=== PATIENT | male | born 1950 | race Caucasian/White ===

== ENCOUNTER 2017-12-14 14:38 | Inpatient (IN) ==
--- NOTE | 2017-12-14 14:43 | Emergency Department Note ---
Disposition Clinical Impression: Small bowel obstruction, Nausea & vomiting, Abdominal pain Disposition: Admitted As Inpatient General Adult [facility] - General Stated complaint: possible GI bleed Time Seen by Provider: 12/14/17 14:42 - Related Data Home Medications Medication Instructions Recorded Confirmed Cholecalciferol (D-3) [Vitamin D] 2,000 unit PO DAILY 10/01/15 10/01/15 Citalopram Hydrobromide 40 mg PO DAILY 10/01/15 10/01/15 [Citalopram HBr] Haloperidol Decanoate [Haldol] 25 mg IM Q2W 10/01/15 10/01/15 LORazepam [Ativan] 1 mg PO BID PRN 10/01/15 10/01/15 Multivitamin with Minerals 1 each PO DAILY 10/01/15 10/01/15 [One-A-Day Maximum Formula] Pantoprazole Sodium [Protonix] 40 mg PO DAILY 10/01/15 10/01/15 cloZAPine [Clozaril] 100 mg PO BID 10/01/15 10/01/15 cloZAPine [Clozaril] 250 mg PO HS 10/01/15 10/01/15 clonazePAM [Klonopin] 1 mg PO BID 10/01/15 10/01/15 lamoTRIgine [Lamictal] 100 mg PO BID 10/01/15 10/01/15 Allergies Allergy/AdvReac Type Severity Reaction Status Date / Time No Known Allergies Allergy Verified 10/01/15 15:08 Past Medical History - Past Medical History Medical history: Reports: hypertension Surgical history: Reports: no surgical history Psychiatric history: Reports: PTSD, other - Social History Smoking Status: Current every day smoker Smokeless Tobacco Status: No Alcohol use: Reports: none Drug use: Reports: none Course Vital Signs Temperature 98.3 F 12/14/17 14:42 Pulse Rate 139 12/14/17 14:42 Respiratory Rate 18 12/14/17 14:42 Blood Pressure 124/88 12/14/17 14:42 O2 Sat by Pulse Oximetry 93 12/14/17 14:42 Temperature 98.2 F 12/14/17 18:28 Pulse Rate 116 12/14/17 18:28 Respiratory Rate 20 12/14/17 18:28 Blood Pressure 112/78 12/14/17 18:28 O2 Sat by Pulse Oximetry 96 12/14/17 18:28 Oxygen Delivery Oxygen Delivery Nasal Cannula Medical Decision Making - Lab Data Result diagrams: 12/14/17 15:57 12/14/17 15:57 Lab Results 12/14/17 12/14/17 12/14/17 Range/Units 15:22 15:57 15:57 WBC 29.3 H (4.3-11.1) K/mcL RBC 5.72 H (4.19-5.50) M/mcL Hgb 17.5 H (12.9-16.9) g/dL Hct 51.9 H (37.5-50.1) % MCV 90.7 (83.0-100.0) fL MCH 30.6 (28.0-33.3) pg MCHC 33.7 (31.6-35.5) g/dL RDW 13.3 (11.5-14.5) % Plt Count 272 (140-400) K/mcL MPV 9.7 (9.4-12.4) fL Immature Gran % 0.7 (0-4) % Seg Neutrophils % 92.5 % Lymphocytes % 1.6 % Monocytes % 5.0 % Eosinophils % 0.0 % Basophils % 0.2 % Neutrophils # 27.1 H (1.6-8.9) K/mcL Lymphocytes # 0.5 L (0.6-4.6) K/mcL Monocytes # 1.5 H (0.0-1.3) K/mcL Eosinophils # 0.0 (0.0-0.6) K/mcL Basophils # 0.1 (0.0-0.2) K/mcL Platelet Estimate Normal (Normal) PT 10.9 (9.4-12.1) Seconds INR 1.0 APTT 30.6 (26.0-36.0) Seconds Sodium (136-145) mEq/L Potassium (3.5-5.1) mEq/L Chloride (98-107) mEq/L Carbon Dioxide (23-29) mEq/L BUN (8-23) mg/dL Creatinine (0.70-1.30) mg/dL Est GFR ( Amer) (> 60) Est GFR (Non-Af Amer) (> 60) BUN/Creatinine Ratio (6-26) Glucose (70-105) mg/dL Calculated Osmolality (280-300) Lactic Acid (0.5-2.2) mmol/L Calcium (8.6-10.3) mg/dL Total Bilirubin (0.3-1.0) mg/dL AST (13-39) Units/L ALT (7-52) Units/L Alkaline Phosphatase (34-104) Units/L Troponin I (< 0.04) ng/mL Serum Total Protein (6.4-8.9) g/dL Albumin (3.5-5.7) g/dL Globulin (2.4-3.5) g/dL Albumin/Globulin Ratio (1.1-2.2) Lipase (11-82) Units/L Stool Occult Bld Scrn Negative (Negative) Blood Type Antibody Screen 12/14/17 12/14/17 12/14/17 Range/Units 15:57 15:57 16:54 WBC (4.3-11.1) K/mcL RBC (4.19-5.50) M/mcL Hgb (12.9-16.9) g/dL Hct (37.5-50.1) % MCV (83.0-100.0) fL MCH (28.0-33.3) pg MCHC (31.6-35.5) g/dL RDW (11.5-14.5) % Plt Count (140-400) K/mcL MPV (9.4-12.4) fL Immature Gran % (0-4) % Seg Neutrophils % % Lymphocytes % % Monocytes % % Eosinophils % % Basophils % % Neutrophils # (1.6-8.9) K/mcL Lymphocytes # (0.6-4.6) K/mcL Monocytes # (0.0-1.3) K/mcL Eosinophils # (0.0-0.6) K/mcL Basophils # (0.0-0.2) K/mcL Platelet Estimate (Normal) PT (9.4-12.1) Seconds INR APTT (26.0-36.0) Seconds Sodium 136 (136-145) mEq/L Potassium 4.5 (3.5-5.1) mEq/L Chloride 95 L (98-107) mEq/L Carbon Dioxide 30 H (23-29) mEq/L BUN 27 H (8-23) mg/dL Creatinine 1.57 H (0.70-1.30) mg/dL Est GFR ( Amer) 54 L (> 60) Est GFR (Non-Af Amer) 44 L (> 60) BUN/Creatinine Ratio 17 (6-26) Glucose 135 H (70-105) mg/dL Calculated Osmolality 289 (280-300) Lactic Acid 2.9 H (0.5-2.2) mmol/L Calcium 9.5 (8.6-10.3) mg/dL Total Bilirubin 0.6 (0.3-1.0) mg/dL AST 26 (13-39) Units/L ALT 27 (7-52) Units/L Alkaline Phosphatase 106 H (34-104) Units/L Troponin I 0.06 H* (< 0.04) ng/mL Serum Total Protein 6.6 (6.4-8.9) g/dL Albumin 4.3 (3.5-5.7) g/dL Globulin 2.3 L (2.4-3.5) g/dL Albumin/Globulin Ratio 1.9 (1.1-2.2) Lipase 11 (11-82) Units/L Stool Occult Bld Scrn (Negative) Blood Type A POSITIVE Antibody Screen NEGATIVE Attestation Statement - Attestation Attestation: I examined this patient and my medical decision-making was reviewed with the Resident Physician. I agree with the documented findings, disposition and treatment plan as described except to the extent set forth below. [id number] time provided Patient arrives as a transfer from the [facility] for nausea and vomiting. He was sent with concern for hematemesis and a possible upper GI bleed. He is actively vomiting upon arrival but no gross blood is present.
[2017-12-14] MEDS ORDERED: Ondansetron 4 MG/2 ML VIAL IVP ONE (14:45)
[2017-12-14] MEDS ORDERED: 0.9 % Sodium Chloride 1,000 ML IVC ONE ×3 (14:45→22:38)
[2017-12-14] MEDS ORDERED: Pantoprazole 40 MG VIAL IVP ONE (14:45)
--- NOTE | 2017-12-14 15:14 | Emergency Department Note ---
Disposition Clinical Impression: Small bowel obstruction, Nausea & vomiting, Abdominal pain Disposition: Admitted As Inpatient Nausea/Vomiting/Diarrhea HPI - General Chief complaint: ED Nausea/Vomiting/Diarrhea Stated complaint: possible GI bleed Time Seen by Provider: 12/14/17 14:42 Source: patient, EMS Limitations: no limitations - History of Present Illness HPI Narrative: The is not a good historian so very hard for everyone to draw detail medical history . This is 67 years male patient presented to ED for 2-3 episodes of vomiting, nausea , abdominal distension,lightheadedness and diffuse abdominal pain for last 1 day. He stated that he vomited 2-3 times ,the vomitus was semiliquid , food material mixed without any blood or coffee ground . He vomited when I was in his room,the vomitus was yellowish, semiliquid without blood ( quantity about 85 ml ).He feels nauseated and dizzy. . He was referred from [facility] for repeated vomiting , nausea and fast heart rate . He denies fever, blood in stool , syncope, seizure ,weakness in limbs, LOC, dyspnoea, heavy alcohol intake , rash, headache, urinary symptoms.He is a chronic patient of catatonic Schizophrenia , chronic gastric ulcer with H pylori infection,HTN OCD. - Related Data Home Medications Medication Instructions Recorded Confirmed Cholecalciferol (D-3) [Vitamin D] 2,000 unit PO DAILY 10/01/15 10/01/15 Citalopram Hydrobromide 40 mg PO DAILY 10/01/15 10/01/15 [Citalopram HBr] Haloperidol Decanoate [Haldol] 25 mg IM Q2W 10/01/15 10/01/15 LORazepam [Ativan] 1 mg PO BID PRN 10/01/15 10/01/15 Multivitamin with Minerals 1 each PO DAILY 10/01/15 10/01/15 [One-A-Day Maximum Formula] Pantoprazole Sodium [Protonix] 40 mg PO DAILY 10/01/15 10/01/15 cloZAPine [Clozaril] 100 mg PO BID 10/01/15 10/01/15 cloZAPine [Clozaril] 250 mg PO HS 10/01/15 10/01/15 clonazePAM [Klonopin] 1 mg PO BID 10/01/15 10/01/15 lamoTRIgine [Lamictal] 100 mg PO BID 10/01/15 10/01/15 Allergies Allergy/AdvReac Type Severity Reaction Status Date / Time No Known Allergies Allergy Verified 10/01/15 15:08 Past Medical History - Past Medical History Medical history: Reports: hypertension Surgical history: Reports: no surgical history Psychiatric history: Reports: PTSD, other - Social History Smoking Status: Current every day smoker Smokeless Tobacco Status: No Alcohol use: Reports: none Drug use: Reports: none Physical Exam - General Limitations: no limitations General appearance: alert, in no apparent distress - Head Head exam: atraumatic, normocephalic - Eye Eye exam: Present: normal appearance, PERRL, EOMI - ENT ENT exam: mucous membranes dry, other (Slightly icterus present in bulbar conjuctiva and sublingual area) - Chest Chest inspection: Present: normal inspection, symmetric chest wall rise. Absent : tenderness, rash, abscess - Respiratory Respiratory exam: Present: normal lung sounds bilaterally, respiratory distress. Absent: wheezes, stridor, accessory muscle use, prolonged expiratory phase - Cardiovascular Cardiovascular exam: Present: regular rate, tachycardia, normal heart sounds, + S1, +S2 - Abdominal Exam Abdominal exam: Present: soft, tenderness, distention, diminished bowel sounds, other (mild abdominal distension and diffuse abdominal tendrness +). Absent: guarding, rebound, rigidity, organomegaly, psoas sign, obturator sign, Mijares's sign - Extremities Exam Extremities exam: Present: full ROM. Absent: pedal edema, calf tenderness - Expanded Lower Extremity Exam Neurovascular/Tendon exam: Present: normal capillary refill. Absent: motor deficit, sensory deficit - Neurological Exam Neurological exam: Present: alert, oriented X3, CN II-XII intact - Skin Skin exam: Present: warm, normal color. Absent: rash, cyanosis Course Course Narrative: After he came to ED he has 1 episode of vomiting without blood , now he has nausea , but no vomiting . His heart rate has dropped to 115 . I did KS exam at ED there was no evidence of hematochezia . The color of stool is normal. CT abdomen :Mild to severe dilation of most small bowel loops with a suspected transition point in the terminal ileum a few centimeters proximal to the ileocecal valve.. The appearance favors partial obstruction over ileus. Urinary bladder wall thickening potentially due to chronic outlet obstruction and/or incomplete distention. Labs: WBC 29.3, Neutrophil 27.1< na 136, K 4.5 BUn 27, Creatinine 1.57, alkaline phos Vital Signs Temperature 98.3 F 12/14/17 14:42 Pulse Rate 139 12/14/17 14:42 Respiratory Rate 18 12/14/17 14:42 Blood Pressure 124/88 12/14/17 14:42 O2 Sat by Pulse Oximetry 93 12/14/17 14:42 Temperature 98.2 F 12/14/17 18:28 Pulse Rate 116 12/14/17 18:28 Respiratory Rate 20 12/14/17 18:28 Blood Pressure 112/78 12/14/17 18:28 O2 Sat by Pulse Oximetry 96 12/14/17 18:28 Oxygen Delivery Oxygen Delivery Nasal Cannula Nausea/Vomiting/Diarrhea - Lab Data Result diagrams: 12/14/17 15:57 12/14/17 15:57 Lab Results 12/14/17 12/14/17 12/14/17 Range/Units 15:22 15:57 15:57 WBC 29.3 H (4.3-11.1) K/mcL RBC 5.72 H (4.19-5.50) M/mcL Hgb 17.5 H (12.9-16.9) g/dL Hct 51.9 H (37.5-50.1) % MCV 90.7 (83.0-100.0) fL MCH 30.6 (28.0-33.3) pg MCHC 33.7 (31.6-35.5) g/dL RDW 13.3 (11.5-14.5) % Plt Count 272 (140-400) K/mcL MPV 9.7 (9.4-12.4) fL Immature Gran % 0.7 (0-4) % Seg Neutrophils % 92.5 % Lymphocytes % 1.6 % Monocytes % 5.0 % Eosinophils % 0.0 % Basophils % 0.2 % Neutrophils # 27.1 H (1.6-8.9) K/mcL Lymphocytes # 0.5 L (0.6-4.6) K/mcL Monocytes # 1.5 H (0.0-1.3) K/mcL Eosinophils # 0.0 (0.0-0.6) K/mcL Basophils # 0.1 (0.0-0.2) K/mcL Platelet Estimate Normal (Normal) PT 10.9 (9.4-12.1) Seconds INR 1.0 APTT 30.6 (26.0-36.0) Seconds Sodium (136-145) mEq/L Potassium (3.5-5.1) mEq/L Chloride (98-107) mEq/L Carbon Dioxide (23-29) mEq/L BUN (8-23) mg/dL Creatinine (0.70-1.30) mg/dL Est GFR ( Amer) (> 60) Est GFR (Non-Af Amer) (> 60) BUN/Creatinine Ratio (6-26) Glucose (70-105) mg/dL Calculated Osmolality (280-300) Lactic Acid (0.5-2.2) mmol/L Calcium (8.6-10.3) mg/dL Total Bilirubin (0.3-1.0) mg/dL AST (13-39) Units/L ALT (7-52) Units/L Alkaline Phosphatase (34-104) Units/L Troponin I (< 0.04) ng/mL Serum Total Protein (6.4-8.9) g/dL Albumin (3.5-5.7) g/dL Globulin (2.4-3.5) g/dL Albumin/Globulin Ratio (1.1-2.2) Lipase (11-82) Units/L Stool Occult Bld Scrn Negative (Negative) Blood Type Antibody Screen 12/14/17 12/14/17 12/14/17 Range/Units 15:57 15:57 16:54 WBC (4.3-11.1) K/mcL RBC (4.19-5.50) M/mcL Hgb (12.9-16.9) g/dL Hct (37.5-50.1) % MCV (83.0-100.0) fL MCH (28.0-33.3) pg MCHC (31.6-35.5) g/dL RDW (11.5-14.5) % Plt Count (140-400) K/mcL MPV (9.4-12.4) fL Immature Gran % (0-4) % Seg Neutrophils % % Lymphocytes % % Monocytes % % Eosinophils % % Basophils % % Neutrophils # (1.6-8.9) K/mcL Lymphocytes # (0.6-4.6) K/mcL Monocytes # (0.0-1.3) K/mcL Eosinophils # (0.0-0.6) K/mcL Basophils # (0.0-0.2) K/mcL Platelet Estimate (Normal) PT (9.4-12.1) Seconds INR APTT (26.0-36.0) Seconds Sodium 136 (136-145) mEq/L Potassium 4.5 (3.5-5.1) mEq/L Chloride 95 L (98-107) mEq/L Carbon Dioxide 30 H (23-29) mEq/L BUN 27 H (8-23) mg/dL Creatinine 1.57 H (0.70-1.30) mg/dL Est GFR ( Amer) 54 L (> 60) Est GFR (Non-Af Amer) 44 L (> 60) BUN/Creatinine Ratio 17 (6-26) Glucose 135 H (70-105) mg/dL Calculated Osmolality 289 (280-300) Lactic Acid 2.9 H (0.5-2.2) mmol/L Calcium 9.5 (8.6-10.3) mg/dL Total Bilirubin 0.6 (0.3-1.0) mg/dL AST 26 (13-39) Units/L ALT 27 (7-52) Units/L Alkaline Phosphatase 106 H (34-104) Units/L Troponin I 0.06 H* (< 0.04) ng/mL Serum Total Protein 6.6 (6.4-8.9) g/dL Albumin 4.3 (3.5-5.7) g/dL Globulin 2.3 L (2.4-3.5) g/dL Albumin/Globulin Ratio 1.9 (1.1-2.2) Lipase 11 (11-82) Units/L Stool Occult Bld Scrn (Negative) Blood Type A POSITIVE Antibody Screen NEGATIVE S.B.A.R. - S.B.A.R. S.B.A.R. Report Given to: Talked with hospitalist and explained about his presentation, lab & xray S.B.A.R. Repor Time: 17:07
[2017-12-14 16:14] LABS: Basophils % 0.2 %; Immature Granulocytes % 0.7 % (0-4)
[2017-12-14 16:15] LABS: Hematocrit 51.9 % (37.5-50.1); Hemoglobin 17.5 g/dL (12.9-16.9); Lymphocytes % 1.6 %; Mean Corpuscular HGB Conc 33.7 g/dL (31.6-35.5); Mean Corpuscular Hemoglobin 30.6 pg (28.0-33.3); Mean Corpuscular Volume 90.7 fL (83.0-100.0); Mean Platelet Volume 9.7 fL (9.4-12.4); Platelet Count 272 K/mcL (140-400); Red Blood Count 5.72 M/mcL (4.19-5.50); Red Cell Distribution Width 13.3 % (11.5-14.5); Segmented Neutrophils % 92.5 %
[2017-12-14 16:16] LABS: Basophils # 0.1 K/mcL (0.0-0.2); Lymphocytes # 0.5 K/mcL (0.6-4.6); Monocytes # 1.5 K/mcL (0.0-1.3); Neutrophils # 27.1 K/mcL (1.6-8.9)
[2017-12-14 16:19] LABS: Prothrombin Time 10.9 Seconds (9.4-12.1)
[2017-12-14 16:22] LABS: Activated Partial Thrombo Time 30.6 Seconds (26.0-36.0)
[2017-12-14 16:30] LABS: Albumin 4.3 g/dL (3.5-5.7); Albumin/Globulin Ratio 1.9 (1.1-2.2); Bilirubin,Total 0.6 mg/dL (0.3-1.0); Calcium 9.5 mg/dL (8.6-10.3); Globulin 2.3 g/dL (2.4-3.5); Potassium 4.5 mEq/L (3.5-5.1); Total Protein 6.6 g/dL (6.4-8.9)
[2017-12-14 16:37] LABS: Platelet Estimate Normal (Normal)
[2017-12-14 16:45] LABS: Troponin I 0.06 ng/mL (< 0.04)
[2017-12-14] MEDS ORDERED: *HR* FentaNYL (PF) 100 MCG/2 ML VIAL IVP ONE (16:45)
[2017-12-14] MEDS ORDERED: Naloxone 0.4 MG/ML INJ IVP PRN (17:27)
[2017-12-14] MEDS ORDERED: 0.9 % Sodium Chloride 1,000 ML IVC SCH (17:30)
--- NOTE | 2017-12-14 17:37 | Internal Med History&Physical ---
Date of Encounter: 12/14/17 Time of Encounter: 17:29 Internal Medicine - H&P: HPI History of present illness: 67 year old male with history of gastric ulcer from H pylori, HTN, and catatonic schizophrenia presented as a transfer from the [facility] for concerns of GI bleed. He was having one day history of nausea, vomiting and epigastric pain. Symptoms started on day ago, emesis was non bilious, non bloody, but apparently looked dark in color. In the ED, a CT abdomen/pelvis showed a small bowel obstruction. He had NG tube placed and 400 ml of fluid was removed. However, patient removed the NGT on two occasions and refused to have it go back in. He was found to have elevated creatinine at 1.5, and tachycardic. He was given IV fluids for hydration. Patient currently feels slightly better after getting analgesics. He denies fevers/chills, shortness of breath, diarrhea/constipation, melena, hematochezia, hematemesis. Past Med Surg Social Fam HX - Past Medical History Medical history: hypertension Psychiatric history: PTSD, other - Past Surgical History Surgical History: no surgical history - Social History Smoking Status: Current every day smoker Smokeless Tobacco Status: No Alcohol use: none Drug use: none Internal Medicine - H&P: Meds Cholecalciferol (D-3) [Vitamin D] 2,000 unit PO DAILY 10/01/15 [History] Citalopram Hydrobromide [Citalopram HBr] 40 mg PO DAILY 10/01/15 [History] Haloperidol Decanoate [Haldol] 25 mg IM Q2W 10/01/15 [History] LORazepam [Ativan] 1 mg PO BID PRN 10/01/15 [History] Multivitamin with Minerals [One-A-Day Maximum Formula] 1 each PO DAILY 10/01/15 [History] Pantoprazole Sodium [Protonix] 40 mg PO DAILY 10/01/15 [History] cloZAPine [Clozaril] 100 mg PO BID 10/01/15 [History] cloZAPine [Clozaril] 250 mg PO HS 10/01/15 [History] clonazePAM [Klonopin] 1 mg PO BID 10/01/15 [History] lamoTRIgine [Lamictal] 100 mg PO BID 10/01/15 [History] 3 Allergy/AdvReac Type Severity Reaction Status Date / Time No Known Allergies Allergy Verified 10/01/15 15:08 All Systems PM: A 10-system review of systems was performed and is negative for pertinent findings except as documented above in the HPI. - Constitutional Vitals: Temp Pulse Resp BP Pulse Ox 98.3 F 139 18 124/88 93 12/14/17 14:42 12/14/17 14:42 12/14/17 14:42 12/14/17 14:42 12/14/17 14:42 Exam: No NG tube present. - Head Head exam: Present: atraumatic, normocephalic - Eye Eye exam: Present: PERRL, conjuntiva pink, sclera anicteric Pupils: Present: PERRL - Neck Neck exam general surgery: Present: supple, trachea midline. Absent: lymphadenopathy - Respiratory Respiratory exam: Present: CTAB. Absent: accessory muscle use, rales, rhonchi, wheezes - Cardiovascular Cardiovascular exam: Present: RRR, +S1, +S2. Absent: diastolic murmur, gallop, rubs, systolic murmur - GI/Abdominal GI/Abdominal exam: Present: normal bowel sounds, soft, tenderness, no peritoneal signs. Absent: distended - Extremities Exam Extremities exam: Present: warm, radial pulses palpable and symmetrical. Absent : calf tenderness, cyanotic, pedal edema - Neurological Exam Neurological exam: Present: CN II-XII intact, oriented X3, no focal deficits. Absent: pronater drift, facial droop, speech deficit - Psychiatric Psychiatric exam: Present: flat affect - Skin Skin exam: Present: dry, intact Internal Med - H&P Results - Labs CBC & Chem 7: 12/14/17 15:57 12/14/17 15:57 - Assessment and plan (1) Small bowel obstruction Current Visit: Yes Status: Acute Assessment and plan: NPO Continue with NG tube if patient will comply. Surgery consulted, will await recommendations Supportive care for pain control and n/v. Continue IV fluids (2) Acute kidney injury Current Visit: Yes Status: Acute Assessment and plan: Secondary to dehydration. Received 2 L in ED. Will continue normal saline at 125 ml an hour and re evaluate in AM. (3) Leukocytosis Current Visit: No Status: Acute Assessment and plan: Likely stress reaction and dehydration. Will continue IV fluid hydration and pain management and recheck labs in AM. Qualifiers: Leukocytosis type: unspecified Qualified Code(s): D72.829 - Elevated white blood cell count, unspecified (4) Catatonia schizophrenia Current Visit: Yes Status: Acute Assessment and plan: Resume home meds once they are verified. (5) Dehydration Current Visit: Yes Status: Acute Assessment and plan: Likely the cause of patient tachycardia, lactic acidosis, and DONTE and hemoconcentrated labs. Recheck labs in AM after fluid hydration. (6) Elevated troponin Current Visit: Yes Status: Acute Assessment and plan: Patient denies chest pains, shortness of breath, palpitations, diaphoresis. Less likely cardiac reason. This may be mild demand ischemia from hypovolemia. Recheck 6 hours from last draw. (7) Gastric ulcer Current Visit: Yes Status: Acute Qualifiers: Gastric ulcer chronicity: chronic Gastric ulcer complication status: without hemorrhage or perforation Qualified Code(s): K25.7 - Chronic gastric ulcer without hemorrhage or perforation (8) Gastric ulcer due to Helicobacter pylori Current Visit: Yes Status: Acute Assessment and plan: As reported per chart. Continue ppi for now as GI prophylaxis. Qualifiers: Gastric ulcer chronicity: chronic Qualified Code(s): K25.7 - Chronic gastric ulcer without hemorrhage or perforation; B96.81 - Helicobacter pylori [ H. pylori] as the cause of diseases classified elsewhere (9) DVT prophylaxis Current Visit: Yes Status: Acute Assessment and plan: heparin SQ - Time Spent With Patient Total time spent is greater than 50% in coordination of care (as documented) at patient's floor/unit and/or counseling patient:
[2017-12-14] MEDS ORDERED: *HR* LORazepam 2 MG/ML VIAL IVP PRN (18:25)
[2017-12-14] MEDS ORDERED: Ondansetron 4 MG/2 ML VIAL IVP PRN (20:46)
[2017-12-14] MEDS ORDERED: OXYCODONE Oral CONC 10 MG/0.5 ML ORAL.SYG SL PRN (20:51)
[2017-12-14] MEDS ORDERED: *HR* Metoprolol 5 MG/5 ML VIAL IVP ONE (20:58)
[2017-12-14] MEDS ORDERED: *HR* Metoprolol 5 MG/5 ML VIAL IVP PRN (20:58)
[2017-12-14] MEDS: 0.9 % Sodium Chloride 1,000 ML IVC SCH (22:06)
--- NOTE | 2017-12-14 22:53 | Event Note ---
Date of Encounter: 12/14/17 Time of Encounter: 22:40 Alerted by pts. nurse that pt. is meeting sepsis criteria and latest lactic acid was 5.7, HR 116, RR 20. Pt. has SBO. Received 2L boluses in ED. 1L bolus ordered to be followed by 0.9 NS @ 125 mLs/HR. Repeat lactic ordered at 00:00. IVPB Meropenem ordered per Pharmacy dosing for pts. current renal dysfunction. Pt. to be monitored closely for increasing signs of cardiac and/or respiratory distress.
[2017-12-15] MEDS: Meropenem 1,000 MG in 0.9 % Sodium Chloride Mini Bag 100 ML IVPB SCH ×2 (00:13→11:06)
[2017-12-15 00:41] LABS: Basophils % 0.3 %; Eosinophils % 0.2 %; Hematocrit 53.9 % (37.5-50.1); Hemoglobin 18.1 g/dL (12.9-16.9); Immature Granulocytes % 0.3 % (0-4); Lymphocytes # 0.5 K/mcL (0.6-4.6); Lymphocytes % 4.4 %; Mean Corpuscular HGB Conc 33.6 g/dL (31.6-35.5); Mean Corpuscular Hemoglobin 30.4 pg (28.0-33.3); Mean Corpuscular Volume 90.6 fL (83.0-100.0); Mean Platelet Volume 10.1 fL (9.4-12.4); Monocytes # 1.3 K/mcL (0.0-1.3); Monocytes % 11.1 %; Platelet Count 301 K/mcL (140-400); Red Blood Count 5.95 M/mcL (4.19-5.50); Red Cell Distribution Width 13.3 % (11.5-14.5); Segmented Neutrophils % 83.7 %
[2017-12-15 00:43] LABS: Neutrophils # 9.5 K/mcL (1.6-8.9)
[2017-12-15 01:01] LABS: Calcium 8.5 mg/dL (8.6-10.3); Potassium 4.8 mEq/L (3.5-5.1)
[2017-12-15] MEDS ORDERED: 0.9 % Sodium Chloride 1,000 ML IVC ONE ×3 (03:13→08:16)
[2017-12-15] MEDS ORDERED: Pantoprazole 40 MG VIAL IVP SCH (09:00)
--- NOTE | 2017-12-15 09:29 | Internal Med Progress Note ---
Hospitalist Progress Note - Encounter Date of Encounter: 12/15/17 Time of Encounter: 09:37 - Subjective Interval History: Patient still refusing NG tubes. LA and troponin getting worse. - Exam Vitals: Temp Pulse Resp BP Pulse Ox 97.9 F 133 18 111/80 91 12/15/17 06:45 12/15/17 06:45 12/15/17 06:45 12/15/17 06:45 12/15/17 06:45 Exam: Gen: limited exam due to patient No NG tube present. - Assessment and Plan (1) Small bowel obstruction Current Visit: Yes Status: Acute Assessment and Plan: NPO Continue with NG tube if patient will comply. Surgery consulted, will await recommendations Supportive care for pain control and n/v. Continue IV fluids Patient has worsening n/v, lactic acidosis, troponin Situation worsening and patient would benefit greatly from NG tube placement. I have discussed with patient this situation. He is willing to try NG tube once more. Ativan prior to NG tube placement may help with anxiety and agitation of NG and lidocaine spray may help as well. Continue aggressive fluid hydration due to elevated troponin and lactic acidosis. (2) Acute kidney injury Current Visit: Yes Status: Acute Assessment and Plan: Secondary to dehydration. Received 2 L in ED. Will continue normal saline at 125 ml an hour and re evaluate in AM. 12/15: worsening from ongoing dehydration. Giving additional 3 L bolus throughout the day today (3) Leukocytosis Current Visit: No Status: Acute Assessment and Plan: Likely stress reaction and dehydration. Will continue IV fluid hydration and pain management and recheck labs in AM. (4) Catatonia schizophrenia Current Visit: Yes Status: Acute Assessment and Plan: Resume home meds once they are verified. (5) Dehydration Current Visit: Yes Status: Acute Assessment and Plan: Likely the cause of patient tachycardia, lactic acidosis, and DONTE and hemoconcentrated labs. Recheck labs in AM after fluid hydration. (6) Elevated troponin Current Visit: Yes Status: Acute Assessment and Plan: Patient denies chest pains, shortness of breath, palpitations, diaphoresis. Less likely cardiac reason. This may be mild demand ischemia from hypovolemia. Troponin now elevated to 0.11. Patient may need surgery and less likely cardiac , will hold off giving heparin drip. (7) Gastric ulcer Current Visit: Yes Status: Acute Assessment and Plan: ppi (8) Gastric ulcer due to Helicobacter pylori Current Visit: Yes Status: Acute Assessment and Plan: As reported per chart. Continue ppi for now as GI prophylaxis. (9) DVT prophylaxis Current Visit: Yes Status: Acute Assessment and Plan: heparin SQ - Time Spent with Patient Total time spent is greater than 50% in coordination of care (as documented) at patient's floor/unit and/or counseling patient: Internal Medicine: Result - Labs CBC & Chem 7: 12/15/17 00:30 12/15/17 00:30 Labs: Short CBC 12/15/17 Range/Units 00:30 WBC 11.4 H D (4.3-11.1) K/mcL Hgb 18.1 H (12.9-16.9) g/dL Hct 53.9 H (37.5-50.1) % Plt Count 301 (140-400) K/mcL Neutrophils # 9.5 H (1.6-8.9) K/mcL BMP 12/15/17 00:30 Sodium 137 Potassium 4.8 Chloride 95 L Carbon Dioxide 27 BUN 42 H Creatinine 1.88 H Glucose 138 H Calcium 8.5 L Cardiac Enzymes 12/14/17 Range/Units 22:05 Troponin I 0.11 H* (< 0.04) ng/mL - ABG Interpretation ABG results: PT/INR, D-dimer PT 10.9 Seconds (9.4-12.1) 12/14/17 15:57 Consult Discharge Plan - Plan Instructions: Acute Nausea and Vomiting (ED), Abdominal Pain (ED) Additional Instructions: Patient needs admission. He has nausea / vomiting , abdominal pain ,high WBC count, CT scan shows dilated small bowel loops & suspected small bowel obstruction. (3) Leukocytosis Qualifiers: Leukocytosis type: unspecified Qualified Code(s): D72.829 - Elevated white blood cell count, unspecified (7) Gastric ulcer Qualifiers: Gastric ulcer chronicity: chronic Gastric ulcer complication status: without hemorrhage or perforation Qualified Code(s): K25.7 - Chronic gastric ulcer without hemorrhage or perforation (8) Gastric ulcer due to Helicobacter pylori Qualifiers: Gastric ulcer chronicity: chronic Qualified Code(s): K25.7 - Chronic gastric ulcer without hemorrhage or perforation; B96.81 - Helicobacter pylori [H. pylori ] as the cause of diseases classified elsewhere
[2017-12-15] MEDS ORDERED: *HR* LORazepam 2 MG/ML VIAL IVP STA (09:31)
[2017-12-15] MEDS ORDERED: Tetracaine/Benzocaine/Butamben 1 SPRAY AEROSOL MM STA (09:32)
[2017-12-15] MEDS: 0.9 % Sodium Chloride 1,000 ML IVC SCH (10:04)
--- NOTE | 2017-12-15 12:14 | General Surgery Consult Note ---
Date of Encounter: 12/15/17 Time of Encounter: 11:48 History of Present Illness Consult date: 12/14/17 Reason for consult: other (SBO) Requesting physician: Ken David History of present illness: 67 yo [place] transferred from [facility] for further evaluation and treatment abdominal pain, nausea and vomiting. Patient apparently experienced 2 -3 episodes of emesis with described abdominal distention, nausea, lightheadedness and diffuse abdominal pain for the past 24 hours. Coffee- ground emesis was also described prompting the patient to be referred to [facility] for possible upper GI bleed as well as signs and symptoms of a small bowel obstruction. Laboratories on presentation to [place] showed white count of 29.3 with hemoglobin 17.5, hematocrit 51.9. Platelet count was 272,000; neutrophils 27.1 monocytes 1.5, lymphocytes 0.5. Electrolytes are notable for a chloride of 95, bicarbonate 30, BUN 27 and creatinine 1.57. Lactic acid was 2.9 but increased to 5.7 following his admission to [facility]. LFTs were notable for an alkaline phosphatase of 106, the other LFTs were unremarkable. Troponins were 0.06 on presentation but increased to 0.11 in when rechecked at approximately 2200 hrs. troponins this morning had increased to 0.17. CT abdomen and pelvis without contrast demonstrated mild fluid distention of the stomach; extensive moderate to severe dilatation of most of the small bowel with a suspected transition point at the terminal ileum. The colon appeared to be decompressed. The patient was ultimately referred to me due to a prior history of acute appendicitis in September 2015. Past medical history: Is very difficult to obtain from the patient. He has a history of schizophrenia, disorganized type, with significant behavioral abnormalities including catatonia; history of medication-induced movement disorder; chronic gastric ulcer disease; obsessive-compulsive disorder; hypertension; hyperlipidemia; episodic rectal bleeding; and syndrome of inappropriate vasopressin secretion. Surgeries: Laparoscopic appendectomy is the only known surgery, 10/01/15. Allergies: No known drug allergies per [facility] medical record Social history: Use of alcohol, tobacco, or illicit drugs is not obtainable Medications: information obtained from the [facility] medical records accompanying this patient Clonazepam 100 mg by mouth - 1 tablet in the morning, 1 tablet in the evening , 3 tablets at bedtime Haldol 25 mg IM every 2 weeks Lactobacillus acidophilus 1 tablet daily Clonazepam 1 mg by mouth twice a day Hydroxyzine 25 mg by mouth 4 times a day Cholecalciferol (vitamin D3) 1000 units by mouth daily Pantoprazole 40 mg 1 by mouth daily Lamotrigine 100 mg by mouth twice a day Citalopram 40 mg 1 by mouth daily Sodium chloride 1 g tablets 1 by mouth daily Calcium carbonate 500 mg chew and swallow twice a day Haloperidol 2 mg by mouth twice a day Metoprolol 12.5 mg by mouth twice a day Multivitamin with minerals, 1 by mouth daily On physical examination: Thin who appears older than his stated age. NG is present. There is evidence of at least 1 L output which nursing reports occurred on insertion of the NG tube within 5 or 10 minutes He appears awake; he does speak but his speech is somewhat garbled. He has been afebrile since admission at [facility], currently 97.8, pulse ranging 121-133, respirations 18, blood pressure 111/80 - 121/85 Skin is warm without obvious jaundice Lungs: Clear bilaterally cardiac: Rapid rate with no appreciable murmurs Abdomen: Distended, tympanitic, quiet with very few bowel sounds. I am able to palpate the abdomen deeply - the patient indicates the presence of pain but does not grimace or withdrawal. There did not appear to be any rebound. Extremities without obvious clubbing, cyanosis, or edema. CT of the abdomen and pelvis was reviewed Labs: Reviewed - significant changes since transfer overnight include white count improved to 11.4 with neutrophils improved to 9.5 and monocytes returning to normal range at 1.3. Hemoglobin and hematocrit of increased 18.1 / 53.9. Electrolytes have essentially remained stable but BUN has increased to 42, creatinine has increased to 1.88. Estimated GFR has fallen to 36. As noted troponins of elevated to 0.17. Current lactic acid 5.9. Impression: 67-year-old transferred from [facility] for further evaluation and treatment of abdominal distention nausea and vomiting. And radiologic findings are suggestive of small bowel obstruction, however, the patient is massively dehydrated. With worsening status despite aggressive fluid hydration. NG decompression has resulted in considerable fluid evacuation but the NG has been repeatedly extracted by the patient. It appears that we are "not keeping up" with replacing the fluid evacuated via nasogastric tube. Recommendations: Transfer the patient to ICU Significantly greater fluid resuscitation and close monitoring. I have ordered sodium chloride 200 ML per hour for 2 L; then an IV rate of 1 50/h Patient may benefit from both nephrology and cardiology consultation Maintain NG decompression Serial lactic acid with recheck at [address] Brooks Dozier Med Surg Social Fam HX - Past Medical History Medical history: hypertension Psychiatric history: PTSD, other - Past Surgical History Surgical History: no surgical history - Social History Smoking Status: Current every day smoker Smokeless Tobacco Status: No Alcohol use: none Drug use: none Medications and Allergies Cholecalciferol (D-3) [Vitamin D] 2,000 unit PO DAILY 10/01/15 [History] Citalopram Hydrobromide [Citalopram HBr] 40 mg PO DAILY 10/01/15 [History] Haloperidol Decanoate [Haldol] 25 mg IM Q2W 10/01/15 [History] LORazepam [Ativan] 1 mg PO BID PRN 10/01/15 [History] Multivitamin with Minerals [One-A-Day Maximum Formula] 1 each PO DAILY 10/01/15 [History] Pantoprazole Sodium [Protonix] 40 mg PO DAILY 10/01/15 [History] cloZAPine [Clozaril] 100 mg PO BID 10/01/15 [History] cloZAPine [Clozaril] 250 mg PO HS 10/01/15 [History] clonazePAM [Klonopin] 1 mg PO BID 10/01/15 [History] lamoTRIgine [Lamictal] 100 mg PO BID 10/01/15 [History] 3 Allergy/AdvReac Type Severity Reaction Status Date / Time No Known Allergies Allergy Verified 10/01/15 15:08 Review of Systems All systems PM: The remainder of the systems were reviewed and are negative General Surgery Exam Initial Vital Signs Temp Pulse Resp BP Pulse Ox 98.3 F 139 18 124/88 93 12/14/17 14:42 12/14/17 14:42 12/14/17 14:42 12/14/17 14:42 12/14/17 14:42 Exam Initial Vital Signs Temp Pulse Resp BP Pulse Ox 98.3 F 139 18 124/88 93 12/14/17 14:42 12/14/17 14:42 12/14/17 14:42 12/14/17 14:42 12/14/17 14:42 Results - Labs 12/15/17 00:30 12/15/17 00:30 Abnormal lab results WBC 11.4 K/mcL (4.3-11.1) H D 12/15/17 00:30 RBC 5.95 M/mcL (4.19-5.50) H 12/15/17 00:30 Hgb 18.1 g/dL (12.9-16.9) H 12/15/17 00:30 Hct 53.9 % (37.5-50.1) H 12/15/17 00:30 Neutrophils # 9.5 K/mcL (1.6-8.9) H 12/15/17 00:30 Lymphocytes # 0.5 K/mcL (0.6-4.6) L 12/15/17 00:30 Chloride 95 mEq/L (98-107) L 12/15/17 00:30 BUN 42 mg/dL (8-23) H 12/15/17 00:30 Creatinine 1.88 mg/dL (0.70-1.30) H 12/15/17 00:30 Est GFR ( Amer) 43 (> 60) L 12/15/17 00:30 Est GFR (Non-Af Amer) 36 (> 60) L 12/15/17 00:30 Glucose 138 mg/dL (70-105) H 12/15/17 00:30 POC Glucose 120 mg/dL (70-99) H 12/15/17 11:23 Lactic Acid 5.9 mmol/L (0.5-2.2) H* 12/15/17 09:56 Calcium 8.5 mg/dL (8.6-10.3) L 12/15/17 00:30 Alkaline Phosphatase 106 Units/L (34-104) H 12/14/17 15:57 Troponin I 0.17 ng/mL (< 0.04) H* 12/15/17 09:56 Globulin 2.3 g/dL (2.4-3.5) L 12/14/17 15:57 Diabetes panel 12/15/17 Range/Units 00:30 Sodium 137 (136-145) mEq/L Potassium 4.8 (3.5-5.1) mEq/L Chloride 95 L (98-107) mEq/L Carbon Dioxide 27 (23-29) mEq/L BUN 42 H (8-23) mg/dL Creatinine 1.88 H (0.70-1.30) mg/dL Glucose 138 H (70-105) mg/dL Calcium 8.5 L (8.6-10.3) mg/dL Calcium panel 12/15/17 Range/Units 00:30 Calcium 8.5 L (8.6-10.3) mg/dL Pituitary panel 12/15/17 Range/Units 00:30 Sodium 137 (136-145) mEq/L Potassium 4.8 (3.5-5.1) mEq/L Chloride 95 L (98-107) mEq/L Carbon Dioxide 27 (23-29) mEq/L BUN 42 H (8-23) mg/dL Creatinine 1.88 H (0.70-1.30) mg/dL Glucose 138 H (70-105) mg/dL Calcium 8.5 L (8.6-10.3) mg/dL Adrenal panel 12/15/17 Range/Units 00:30 Sodium 137 (136-145) mEq/L Potassium 4.8 (3.5-5.1) mEq/L Chloride 95 L (98-107) mEq/L Carbon Dioxide 27 (23-29) mEq/L BUN 42 H (8-23) mg/dL Creatinine 1.88 H (0.70-1.30) mg/dL Glucose 138 H (70-105) mg/dL Calcium 8.5 L (8.6-10.3) mg/dL All other labs normal. Consult Discharge Plan - Plan Instructions: Acute Nausea and Vomiting (ED), Abdominal Pain (ED) Additional Instructions: Patient needs admission. He has nausea / vomiting , abdominal pain ,high WBC count, CT scan shows dilated small bowel loops & suspected small bowel obstruction. [facility] Care Provider[facility] -
[2017-12-15] MEDS ORDERED: *HR* LORazepam 2 MG/ML VIAL IVP PRN ×2 (13:20→14:22)
[2017-12-15] MEDS ORDERED: *HR* Metoprolol 5 MG/5 ML VIAL IVP PRN ×4 (13:20→14:22)
[2017-12-15] MEDS ORDERED: Ondansetron 4 MG/2 ML VIAL IVP PRN ×2 (13:20→14:22)
[2017-12-15] MEDS ORDERED: Naloxone 0.4 MG/ML INJ IVP PRN ×2 (13:20→14:22)
[2017-12-15] MEDS ORDERED: Nitroglycerin 0.4 MG TAB.SUBL SL PRN ×2 (13:23→14:22)
[2017-12-15] MEDS ORDERED: Ipratropium/Albuterol Neb 3 ML IH PRN ×2 (13:23→14:22)
[2017-12-15] MEDS ORDERED: Haloperidol Decanoate 50 MG/ML VIAL IM SCH (13:41)
[2017-12-15] MEDS ORDERED: 0.9 % Sodium Chloride 1,000 ML IVC SCH ×2 (14:00→14:22)
[2017-12-15 14:51] LABS: ABG Base Excess -3 mEq/L (-2 to 3); ABG HCO3 20 mEq/L (21-27); ABG Oxygen Saturation 93 % (95-98); ABG PCO2 30 mmHg (35-45); ABG PH 7.43 pH Units (7.32-7.45); ABG PO2 64 mmHg (85-104); ABG TCO2 21 mEq/L (20-26); Blood Gas Modality OM
[2017-12-15] MEDS: hydrOXYzine pamoate 25 MG CAPSULE PO SCH ×2 (15:09→22:31)
--- NOTE | 2017-12-15 15:26 | Cardiology Consult Note ---
Date of Encounter: 12/15/17 Time of Encounter: 15:18 Assessment and Plan (1) Elevated troponin Current Visit: Yes Status: Acute likely type 2 NSTEMI due to persistent tachycardia, withdrawal, hypovolemia and metabolic derangement. No evidence of CHF. - cycle trop till downtrending - TTE for RWMA and EF, if wnl, no further testing inpatient (2) Catatonia schizophrenia Current Visit: Yes Status: Acute (3) Small bowel obstruction Current Visit: Yes Status: Acute ho appendicitis (4) Acute kidney injury Current Visit: Yes Status: Acute Discussion w patient/family: The assessment and plan as outlined above was discussed with the patient and/or family members who expressed understanding and agreement. All questions were answered. Thank you for involving us in the care of your patient. Please call with any questions. History of Present Illness Consult date: 12/15/17 Requesting physician: Antonia Guy Consult reason: elevated troponin Chief complaint: N/V History of present illness: Mr. Johnson is a 67 year old male ho HTN, catatonic schizophrenia, smoking. P/w N/V[facility] Transfer to [facility] for question of GIB. Imp SBO with SIRS , hypovolemia/met alkalosis/lactic acidosis/DONTE. Consulted for mildly elevated troponin 0.2. Pt persistently tachy 120s-130s. ECG and tele Sinus tachy. No ho [place]/CHF. Denied cp, dyspnea, palpitations. Past Med Surg Social Fam HX - Past Medical History Medical history: hypertension Psychiatric history: PTSD, other - Past Surgical History Surgical History: no surgical history - Social History Smoking Status: Current every day smoker Smokeless Tobacco Status: No Alcohol use: none Drug use: none Medications and Allergies Cholecalciferol (D-3) [Vitamin D] 1,000 unit PO DAILY 10/01/15 [History] Citalopram Hydrobromide [Citalopram HBr] 40 mg PO DAILY 10/01/15 [History] Haloperidol Decanoate [Haldol] 25 mg IM Q2W 10/01/15 [History] Multivitamin with Minerals [One-A-Day Maximum Formula] 1 each PO DAILY 10/01/15 [History] Pantoprazole Sodium [Protonix] 40 mg PO DAILY 10/01/15 [History] cloZAPine [Clozaril] 100 mg PO BID 10/01/15 [History] cloZAPine [Clozaril] 300 mg PO HS 10/01/15 [History] clonazePAM [Klonopin] 1 mg PO BID 10/01/15 [History] lamoTRIgine [Lamictal] 100 mg PO BID 10/01/15 [History] Haloperidol [Haldol] 2 mg PO BID 12/15/17 [History] Lactobacillus Acidophilus [Acidophilus Lactobacillus] 1 cap PO DAILY 12/15/17 [ History] Metoprolol [Lopressor] 12.5 mg PO BID 12/15/17 [History] Sodium Chloride [Sodium Chloride Tab] 1 gm PO DAILY 12/15/17 [History] hydrOXYzine pamoate [HydrOXYzine Pamoate] 25 mg PO QID 12/15/17 [History] 3 Allergy/AdvReac Type Severity Reaction Status Date / Time No Known Allergies Allergy Verified 10/01/15 15:08 All Systems Review: The remainder of the systems were reviewed and are negative - Cardiovascular Cardiovascular: as per HPI - Gastrointestinal Gastrointestinal: abdominal pain, coffee ground emesis, nausea - Psychiatric Psychiatric: other (schizophrenia) Physical Examination Vital Signs, Last 4 Hours Temp Pulse Resp BP Pulse Ox 12/15/17 14:00 137 30 131/84 90 12/15/17 13:41 99.0 F 134 22 121/78 85 Other: General: NAD, AAO, yes or no to most questions HEENT: anicteric Neck: no JVD, no bruits* Chest: CTA B/L, no W/R/C Heart: tachycardia, regular, S1/S2, no S3/S4, no M/G/R Abdominal: BS +, soft, mild distention and tenderness Peripheral Pulses: radial pulse 2+ B/L, DP 1+ B/L Skin/Extremities: no cyanosis, no LE edema Neurological: grossly non-focal. Results 12/15/17 00:30 12/15/17 00:30 Lab Results 12/14/17 12/15/17 12/15/17 22:05 00:30 00:30 WBC 11.4 H D Hgb 18.1 H Hct 53.9 H Plt Count 301 Sodium 137 Potassium 4.8 Chloride 95 L Carbon Dioxide 27 BUN 42 H Creatinine 1.88 H Glucose 138 H Calcium 8.5 L Troponin I 0.11 H* 12/15/17 12/15/17 09:56 14:12 WBC Hgb Hct Plt Count Sodium Potassium Chloride Carbon Dioxide BUN Creatinine Glucose Calcium Troponin I 0.17 H* 0.21 H* - Imaging and Cardiology Chest Xray: report reviewed (? aspiration) Other Results: Tele reviewed. Abd CT report reviewed. - EKG Interpretation EKG results cardiology: personally reviewed Consult Discharge Plan - Plan Instructions: Acute Nausea and Vomiting (ED), Abdominal Pain (ED) Additional Instructions: Patient needs admission. He has nausea / vomiting , abdominal pain ,high WBC count, CT scan shows dilated small bowel loops & suspected small bowel obstruction. [facility]errals: [facility] [Primary Care Provider] -
--- NOTE | 2017-12-15 15:32 | Event Note ---
Date of Encounter: 12/15/17 Time of Encounter: 15:29 Patient transferred to ICU for closer monitoring. He did have O2 desaturation requiring venti mask currently. A chest x-ray showed pulmonary vascular congestion and new right lower lobe infiltrate. He does have course breath sounds. There's concern with his multiple episodes of emesis that he has developed aspiration pneumonia. Will direct antibiotic therapy more towards this and stop meropenem and start Zosyn. Also will need to hold IV fluids now. He is complying with NG tube at this moment and already 3 L have been suctioned out.
[2017-12-15] MEDS: cloZAPine 100 MG TABLET PO SCH (17:08)
[2017-12-15] MEDS ORDERED: Furosemide 40 MG/4 ML VIAL IVP ONE (17:30)
[2017-12-15] MEDS: Piperacillin/Tazobactam 3.375 GM in 0.9 % Sodium Chloride Mini Bag 100 ML IVPB SCH (17:38)
[2017-12-15] MEDS ORDERED: Ringers Solution, Lactated 1,000 ML IVC ONE (19:59)
[2017-12-15] MEDS ORDERED: Ringers Solution, Lactated 1,000 ML ONE (20:03)
[2017-12-15] MEDS ORDERED: cloZAPine 100 MG TABLET PO SCH (21:00)
[2017-12-15] MEDS ORDERED: Ringers Solution, Lactated 500 ML IVC ONE (21:10)
[2017-12-15] MEDS ORDERED: Haloperidol Lactate 5 MG/ML VIAL IVP ONE (21:28)
[2017-12-15] MEDS: lamoTRIgine 100 MG TABLET PO SCH (22:31)
[2017-12-15] MEDS: clonazePAM 1 MG TABLET PO SCH (22:31)
[2017-12-15] MEDS: *HR* Heparin 5,000 UNIT/ML VIAL SQ SCH (22:33)
[2017-12-15] MEDS ORDERED: Meropenem 1,000 MG in Water for inj. (sterile) 20 ML 10 ML IVP SCH (22:50)
[2017-12-16] MEDS: Piperacillin/Tazobactam 3.375 GM in 0.9 % Sodium Chloride Mini Bag 100 ML IVPB SCH ×4 (00:45→23:38)
[2017-12-16] MEDS: Ringers Solution, Lactated 1,000 ML IVC SCH ×3 (01:21→14:53)
[2017-12-16] MEDS ORDERED: Ringers Solution, Lactated 500 ML IVC ONE (03:33)
[2017-12-16 03:37] LABS: Basophils % 0.2 %; Eosinophils % 0.2 %; Hematocrit 41.6 % (37.5-50.1); Immature Granulocytes % 6.6 % (0-4); Lymphocytes # 0.4 K/mcL (0.6-4.6); Lymphocytes % 6.8 %; Mean Corpuscular HGB Conc 32.9 g/dL (31.6-35.5); Mean Corpuscular Hemoglobin 30.3 pg (28.0-33.3); Mean Platelet Volume 10.1 fL (9.4-12.4); Monocytes # 0.2 K/mcL (0.0-1.3); Monocytes % 3.8 %; Platelet Count 196 K/mcL (140-400); Red Blood Count 4.52 M/mcL (4.19-5.50); Red Cell Distribution Width 13.9 % (11.5-14.5); Segmented Neutrophils % 82.4 %
[2017-12-16 03:48] LABS: Hemoglobin 13.7 g/dL (12.9-16.9); Neutrophils # 4.9 K/mcL (1.6-8.9)
[2017-12-16 03:57] LABS: Alanine Aminotransferase 29 Units/L (7-52); Albumin 3.3 g/dL (3.5-5.7); Albumin/Globulin Ratio 1.6 (1.1-2.2); Alkaline Phosphatase 51 Units/L (34-104); Aspartate Amino Transferase 92 Units/L (13-39); BUN/Creatinine Ratio 31 (6-26); Bilirubin,Total 0.7 mg/dL (0.3-1.0); Blood Urea Nitrogen 39 mg/dL (8-23); Calcium 7.9 mg/dL (8.6-10.3); Carbon Dioxide 27 mEq/L (23-29); Chloride 107 mEq/L (98-107); Globulin 2.1 g/dL (2.4-3.5); Glucose 102 mg/dL (70-105); Osmolality,Calculated 304 (280-300); Potassium 3.8 mEq/L (3.5-5.1); Sodium 142 mEq/L (136-145); Total Protein 5.4 g/dL (6.4-8.9); eGFR For Non-African Americans 58 (> 60)
[2017-12-16 04:41] LABS: Platelet Estimate Normal (Normal)
[2017-12-16] MEDS: *HR* Heparin 5,000 UNIT/ML VIAL SQ SCH ×3 (05:31→21:58)
[2017-12-16] MEDS: Pantoprazole 40 MG VIAL IVP SCH (07:57)
[2017-12-16] MEDS: hydrOXYzine pamoate 25 MG CAPSULE PO SCH (07:59)
[2017-12-16] MEDS: cloZAPine 100 MG TABLET PO SCH (08:01)
[2017-12-16] MEDS: lamoTRIgine 100 MG TABLET PO SCH (08:02)
[2017-12-16] MEDS: clonazePAM 1 MG TABLET PO SCH (08:02)
[2017-12-16] MEDS ORDERED: Lactobacillus 1 EACH CAP.SPRINK PO SCH (09:00)
[2017-12-16] MEDS ORDERED: Multivit/Ca/Min/Fe/FA 1 TAB TABLET PO SCH (09:00)
[2017-12-16] MEDS ORDERED: NON-FORMULARY MEDICATION 1 EACH EACH (Pantoprazole Sodium [Protonix] 40 MG) PO SCH (09:00)
[2017-12-16] MEDS ORDERED: Pantoprazole 40 MG VIAL IVP SCH (09:00)
[2017-12-16] MEDS ORDERED: Cholecalciferol (D-3) 1,000 UNIT TABLET PO SCH (09:00)
[2017-12-16] MEDS ORDERED: Perflutren Lipid Microsphere 1.3 ML in 0.9 % Sodium Chloride 8.7 ML IVP ONE (10:49)
[2017-12-16] MEDS ORDERED: Haloperidol Lactate 5 MG/ML VIAL IVP PRN (10:59)
--- NOTE | 2017-12-16 11:36 | Pulmonology Progress Note ---
<Matthew Healy - Last Filed: 12/16/17 13:30> Date of Encounter: 12/16/17 Time of Encounter: 11:36 Assessment and Plan (1) Hypoxia Current Visit: Yes Status: Acute Patient noted to be hypoxic on December 15 with O2 sats desaturations into the mid percent range Chest x-ray from December 15 showed pulmonary vascular congestion with interstitial and airspace opacities in the mid to lower right lung concerning for aspiration pneumonia or pulmonary edema Patient transferred to ICU for further management Patient transition from BiPAP to [place] high flow oxygen at 40/40 Continue to monitor (2) Small bowel obstruction Current Visit: Yes Status: Acute Nothing by mouth Surgery consulted and is following CT scan on December 14 shows "mild to severe dilation of most small bowel loops with a suspected transition point in the terminal ileum a few centimeters proximal to the ileocecal valve.. The appearance favors partial obstruction or ileus." Chest/abdomen x-ray from December 16 shows "persistently dilated bowel loops throughout the abdomen and pelvis. Findings may represent bowel obstruction or ileus. No evidence of intra-abdominal free air." Continue IVF and replacement of gastric output Consider central line plus TPN (3) Acute kidney injury Current Visit: Yes Status: Acute BUN trending upward and is currently at 39 Creatinine is normal at 1.24 Estimated GFR 58 Continue daily chemistries and IVF (4) Catatonia schizophrenia Current Visit: Yes Status: Acute Patient is alert to his surroundings but makes no meaningful response to questioning Patient by mouth medications held Haloperidol, 5 mg IV push every 4 hour when necessary added for severe agitation and psychosis Patient Clozapine stopped due to concerns for small bowel obstruction Psychiatry consulted-we will follow recommendations (5) Dehydration Current Visit: Yes Status: Acute Patient has received 5802 mL fluid intake was 7925 L output for a balance of - 2123 mL Patient is mildly tachycardic and hypotensive with heart rate at 117 and BP of 92/55 Continue IV fluids and replace gastric output (6) Elevated troponin Current Visit: Yes Status: Acute Cardiology consulted and is following Per cardiology, likely type 2 NSTEMI due to persistent tachycardia, withdrawal, hypokalemia, and metabolic arrangement. TTE to assess for regional wall motion abnormalities and ejection fraction Continue to monitor (7) Leukocytosis Current Visit: No Status: Acute White blood cell count currently normal 6.0-down from 29.3 on December 14 Continue to monitor Qualifiers: Leukocytosis type: unspecified Qualified Code(s): D72.829 - Elevated white blood cell count, unspecified (8) Gastric ulcer due to Helicobacter pylori Current Visit: Yes Status: Acute Continue pantoprazole for GI prophylaxis Continue to monitor output Qualifiers: Gastric ulcer chronicity: chronic Qualified Code(s): K25.7 - Chronic gastric ulcer without hemorrhage or perforation; B96.81 - Helicobacter pylori [ H. pylori] as the cause of diseases classified elsewhere (9) DVT prophylaxis Current Visit: Yes Status: Acute 5000 units subcutaneous heparin every 8 hours Subjective Principal diagnosis: Small bowel obstruction Interval history: Patient is a 67-year-old male with a history of gastric ulcer disease associated with H. pylori who presented from the [facility] to [facility] emergency department on 12/14/2017 with complaints for a one-day history of epigastric pain, associated with nausea and vomiting of dark emesis concerning for GI bleed. CT of the abdomen and pelvis revealed small bowel obstruction the patient had a nasogastric tube placed with 400 mL of fluid removed. The patient has removed his nasogastric tube on 2 separate occasions and was found to have creatinine elevation at 1.5 as well as tachycardia. IV fluids and analgesics were given for hydration and pain management. Per nurse, there have been no acute events overnight. Objective PUL Vital signs: Last Vital Signs Temp 97.1 F L 12/16/17 07:47 Pulse 121 12/16/17 11:00 Resp 19 12/16/17 11:00 BP 115/78 12/16/17 11:00 Pulse Ox 96 12/16/17 11:00 General appearance: no acute distress Eyes: nonicteric ENT: oropharynx moist Effort: normal Auscultation: bilateral: clear Cardiovascular: regular rate and rhythm Gastrointestinal: hypoactive bowel sounds, soft, non-tender, non-distended Extremities: no cyanosis, no edema Results - Laboratory Findings CBC and BMP: 12/16/17 03:24 12/16/17 03:24 ABG ABG pH 7.43 pH Units (7.32-7.45) 12/15/17 14:48 ABG pCO2 30 mmHg (35-45) L 12/15/17 14:48 ABG pO2 64 mmHg (85-104) L 12/15/17 14:48 ABG O2 Saturation 93 % (95-98) L 12/15/17 14:48 PT/INR, D-dimer PT 10.9 Seconds (9.4-12.1) 12/14/17 15:57 Abnormal lab findings: Abnormal lab results Immature Gran % 6.6 % (0-4) H 12/16/17 03:24 Lymphocytes # 0.4 K/mcL (0.6-4.6) L 12/16/17 03:24 ABG pCO2 30 mmHg (35-45) L 12/15/17 14:48 ABG pO2 64 mmHg (85-104) L 12/15/17 14:48 ABG HCO3 20 mEq/L (21-27) L 12/15/17 14:48 ABG O2 Saturation 93 % (95-98) L 12/15/17 14:48 ABG Base Excess -3 mEq/L (-2 to 3) L 12/15/17 14:48 BUN 39 mg/dL (8-23) H 12/16/17 03:24 Est GFR (Non-Af Amer) 58 (> 60) L 12/16/17 03:24 BUN/Creatinine Ratio 31 (6-26) H 12/16/17 03:24 Calculated Osmolality 304 (280-300) H 12/16/17 03:24 Calcium 7.9 mg/dL (8.6-10.3) L 12/16/17 03:24 AST 92 Units/L (13-39) H 12/16/17 03:24 Troponin I 0.21 ng/mL (< 0.04) H* 12/15/17 14:12 Serum Total Protein 5.4 g/dL (6.4-8.9) L 12/16/17 03:24 Albumin 3.3 g/dL (3.5-5.7) L 12/16/17 03:24 Globulin 2.1 g/dL (2.4-3.5) L 12/16/17 03:24 - Clinical Findings Intake & Output: Intake & Output 12/15/17 12/16/17 12/16/17 23:59 07:59 15:59 Intake Total 1600 / 1600 1100 / 1100 2 / 2 Output Total 3325 / 3325 2100 / 2100 Balance -1725 / -1725 -1000 / -1000 2 / 2 Weight 62.3 kg Consult Discharge Plan - Plan Instructions: Acute Nausea and Vomiting (ED), Abdominal Pain (ED) Additional Instructions: Patient needs admission. He has nausea / vomiting , abdominal pain ,high WBC count, CT scan shows dilated small bowel loops & suspected small bowel obstruction. [facility]errals: [facility] [Primary Care Provider[facility] - <Kenny Sarmiento - Last Filed: 12/16/17 15:34> Date of Encounter: 12/16/17 Objective PUL Vital signs: Last Vital Signs Temp 98.3 F 12/16/17 11:45 Pulse 121 12/16/17 11:00 Resp 19 12/16/17 11:00 BP 115/78 12/16/17 11:00 Pulse Ox 96 12/16/17 11:00 Results - Laboratory Findings CBC and BMP: 12/16/17 03:24 12/16/17 03:24 ABG ABG pH 7.43 pH Units (7.32-7.45) 12/15/17 14:48 ABG pCO2 30 mmHg (35-45) L 12/15/17 14:48 ABG pO2 64 mmHg (85-104) L 12/15/17 14:48 ABG O2 Saturation 93 % (95-98) L 12/15/17 14:48 PT/INR, D-dimer PT 10.9 Seconds (9.4-12.1) 12/14/17 15:57 Abnormal lab findings: Abnormal lab results Immature Gran % 6.6 % (0-4) H 12/16/17 03:24 Lymphocytes # 0.4 K/mcL (0.6-4.6) L 12/16/17 03:24 ABG pCO2 30 mmHg (35-45) L 12/15/17 14:48 ABG pO2 64 mmHg (85-104) L 12/15/17 14:48 ABG HCO3 20 mEq/L (21-27) L 12/15/17 14:48 ABG O2 Saturation 93 % (95-98) L 12/15/17 14:48 ABG Base Excess -3 mEq/L (-2 to 3) L 12/15/17 14:48 BUN 39 mg/dL (8-23) H 12/16/17 03:24 Est GFR (Non-Af Amer) 58 (> 60) L 12/16/17 03:24 BUN/Creatinine Ratio 31 (6-26) H 12/16/17 03:24 Calculated Osmolality 304 (280-300) H 12/16/17 03:24 Calcium 7.9 mg/dL (8.6-10.3) L 12/16/17 03:24 AST 92 Units/L (13-39) H 12/16/17 03:24 Troponin I 0.21 ng/mL (< 0.04) H* 12/15/17 14:12 Serum Total Protein 5.4 g/dL (6.4-8.9) L 12/16/17 03:24 Albumin 3.3 g/dL (3.5-5.7) L 12/16/17 03:24 Globulin 2.1 g/dL (2.4-3.5) L 12/16/17 03:24 - Clinical Findings Intake & Output: Intake & Output 12/15/17 12/16/17 12/16/17 23:59 07:59 15:59 Intake Total 1600 / 1600 1100 / 1100 2 / 2 Output Total 3325 / 3325 2100 / 2100 200 / 200 Balance -1725 / -1725 -1000 / -1000 -198 / -198 Weight 62.3 kg - Attending Attestation I saw and evaluated this patient and my medical decision-making was reviewed with the Resident Physician. I agree with the documented findings, disposition and treatment plan as described except to the extent set forth below. We independently had [id number] contact with the patient Patient seen and examined at bedside Labs, radiology, chart personally reviewed. Management was reviewed during multidisciplinary critical care rounds. SECURITY SME: Patient has baseline catatonic schizophrenia some area with now off medications hard to gauge his mental status patient follows commands could not assess his orientation. Pulm: Suspected aspiration pneumonia V/Q mismatch patient tolerating high flow nasal cannula no occipital oxygenation and ventilation to keep a close eye on his ventilation might need invasive endotracheal mechanical ventilation. We will start him on broad-spectrum antibiotics for his aspiration pneumonia cannot diurese him at this point. Cards: Currently hemodynamically stable cardiology is evaluating for possible end STEMI FEN-GI: surgery is following patient has distal bowel obstruction might need surgery with his mental status and other comorbidities he will be high risk of postoperative respiratory failure he will have a difficult liberation from the ventilator will need to discuss with family if they want to proceed with this surgical management. Might need a PICC line for possible TPN. Renal: Labs and output reviewed ID: To cover with broad-spectrum antibiotics for suspected aspiration pneumonia Heme/Onc: To continue prophylaxis Endo: Glucose Monitored Integ/MSK: Skin Care per routine ICU Nursing Protocol to prevent ulcers. Lines: All lines examined without evidence of infection : Dispo: Remain critically ill patient endotracheal intubation CODE: Full Code
--- NOTE | 2017-12-16 13:10 | General Surgery Progress Note ---
Date of Encounter: 12/16/17 Time of Encounter: 12:30 Subjective Narrative: General Surgery - Patient appears to be resting comfortably. He does not indicates that he is in any distress. Afebrile through the night to 101.4; pulse is high as 142, currently 105; respiratory rate 19 blood pressure 115/78 through the night blood pressure was approximately 94/64. Acute abdominal series, reviewed with [facility] - NG is coiled in the stomach with the tip entering the proximal duodenum. Interval development of right lung infiltrates suggestive of aspiration. This correlates with the patient's elevated temperature last evening. Persistent fluid-filled dilated small bowel which appears unchanged from CT obtained on admission Lungs: Clear Abdomen: Soft, less tense but still distended, no obvious tenderness. Bowel sounds present but still hypoactive NG output approximately 2800 mL overnight; approximately 100 mL in the suction reservoir this morning - 750 mL recorded for this calendar day Urine output: 1525 mL for calendar day 12/15/17; 1175 mL so far today. Laboratories: Leukocytosis resolves, 6.0; hemoglobin 13.7 with hematocrit 41.6 - hemoconcentration resolved with aggressive hydration Electrolytes - sodium 142, potassium 3.8, chloride 107, BUN 39 (improved) creatinine 1.24 (improved) eGFR 58 (improved) Most recent lactic acid 2.1 - lactic acidemia resolved as a result of aggressive IV therapy. Impression: 67-year-old transferred from [facility] for further evaluation and treatment of abdominal pain, nausea and vomiting. The patient was massively dehydrated and acidotic on presentation - this has been corrected with aggressive fluid rehydration Cardiology assessment deems patient a likely type 2 NSTEMI The patient has a significant psychiatric history which increases the difficulty in assessing this patient. It appears likely that the patient has a distal small bowel obstruction which may require surgical intervention. Recommendations: Continue IV fluid resuscitation and replacement of gastric output Consider central venous line placement for TPN If surgical intervention is to be considered - I will need to discuss the patient's medical management and continued medical care with pulmonary/critical- care, cardiology, and the hospitalist service. Recheck lactic acid now and again in a.m. Objective Vital Signs - Last 8 Hours Temp Pulse Resp BP Pulse Ox 12/16/17 11:45 98.3 F 12/16/17 11:00 121 19 115/78 96 12/16/17 10:00 117 19 122/84 96 12/16/17 09:00 117 19 108/70 96 12/16/17 08:00 112 19 117/78 96 12/16/17 07:47 97.1 F L 12/16/17 07:44 117 12/16/17 07:00 97.1 F L 112 19 96/67 96 12/16/17 06:00 111 27 100/70 96 12/16/17 05:00 115 23 104/61 96 Intake and Output 12/15/17 12/16/17 12/16/17 23:59 07:59 15:59 Intake Total 1600 / 1600 1100 / 1100 2 / 2 Output Total 3325 / 3325 2100 / 2100 200 / 200 Balance -1725 / -1725 -1000 / -1000 -198 / -198 Intake: IV Fluids 1600 / 1600 1100 / 1100 2 / 2 Lactated Ringers 1,000 ML @ 100 1000 / 1000 1000 / 1000 mls/hr IVC .Q10H RUEL Rx#: [id number] Lactated Ringers 500 ML @ 1000 500 / 500 mls/hr IVC .Q30M ONE Rx#: [id number] Definity 1.3 ML In Normal 2 / 2 Saline Flush 8.7 ML @ 1200 mls/ hr IVP ONCE ONE Rx#:[id number] Zosyn 3.375 GM In 0.9 % Sodium 100 / 100 100 / 100 Chloride (Mini-Bag +) 100 ML @ 25 mls/hr IVPB Q8HR [facility] Rx#: [id number] Output: Straight Cath 375 / 375 Catheter 1525 / 1525 975 / 975 200 / 200 Gastric Drainage 1800 / 1800 750 / 750 Other: Weight 62.3 kg Blood Glucose* 102 87 92 Patient Weight 12/16/17 23:59 Weight 62.3 kg - Labs 12/16/17 03:24 12/16/17 03:24 Diabetes panel 12/16/17 Range/Units 03:24 Sodium 142 (136-145) mEq/L Potassium 3.8 (3.5-5.1) mEq/L Chloride 107 (98-107) mEq/L Carbon Dioxide 27 (23-29) mEq/L BUN 39 H (8-23) mg/dL Creatinine 1.24 (0.70-1.30) mg/dL Glucose 102 (70-105) mg/dL Calcium 7.9 L (8.6-10.3) mg/dL AST 92 H (13-39) Units/L ALT 29 (7-52) Units/L Alkaline Phosphatase 51 (34-104) Units/L Albumin 3.3 L (3.5-5.7) g/dL Calcium panel 12/16/17 Range/Units 03:24 Calcium 7.9 L (8.6-10.3) mg/dL Albumin 3.3 L (3.5-5.7) g/dL Pituitary panel 12/16/17 Range/Units 03:24 Sodium 142 (136-145) mEq/L Potassium 3.8 (3.5-5.1) mEq/L Chloride 107 (98-107) mEq/L Carbon Dioxide 27 (23-29) mEq/L BUN 39 H (8-23) mg/dL Creatinine 1.24 (0.70-1.30) mg/dL Glucose 102 (70-105) mg/dL Calcium 7.9 L (8.6-10.3) mg/dL Adrenal panel 12/16/17 Range/Units 03:24 Sodium 142 (136-145) mEq/L Potassium 3.8 (3.5-5.1) mEq/L Chloride 107 (98-107) mEq/L Carbon Dioxide 27 (23-29) mEq/L BUN 39 H (8-23) mg/dL Creatinine 1.24 (0.70-1.30) mg/dL Glucose 102 (70-105) mg/dL Calcium 7.9 L (8.6-10.3) mg/dL Total Bilirubin 0.7 (0.3-1.0) mg/dL AST 92 H (13-39) Units/L ALT 29 (7-52) Units/L Alkaline Phosphatase 51 (34-104) Units/L Albumin 3.3 L (3.5-5.7) g/dL Consult Discharge Plan - Plan Instructions: Acute Nausea and Vomiting (ED), Abdominal Pain (ED) Additional Instructions: Patient needs admission. He has nausea / vomiting , abdominal pain ,high WBC count, CT scan shows dilated small bowel loops & suspected small bowel obstruction. [facility] Care Provider[facility] -
--- NOTE | 2017-12-16 14:33 | Cardiology Progress Note ---
Date of Encounter: 12/16/17 Time of Encounter: 14:31 Assessment and Plan (1) Elevated troponin Current Visit: Yes Status: Acute Elevated troponin secondary to type II KS in the setting of DONTE, SBO, lactic acidosis, and persistent tachycardia. EKG shows sinus tachycardia, HR 109, one PVC seen. No acute ST/T wave changes. No evidence of CHF. Denies cardiac symptoms. TTE shows preserved EF at 70% and no WMA. No obvious valvular disease. No further cardiac testing recommended. Cardiology will sign off. Call with questions. (2) Pre-operative cardiovascular examination Current Visit: Yes Status: Acute Patient intermediate risk for surgery. No indication for further cardiac testing. Plan of care and assessment reviewed with Dr. Jones. Discussion w patient/family: The assessment and plan as outlined above was discussed with the patient and/or family members who expressed understanding and agreement. All questions were answered. Thank you for involving us in the care of your patient. Please call with any questions. Subjective Principal diagnosis: Small bowel obstruction Interval history: Mr. Johnson denies chest pain. c/o dry mouth. Objective Vital Signs, Last 4 Hours Temp Pulse Resp BP Pulse Ox 12/16/17 13:00 117 19 92/55 96 12/16/17 12:00 117 19 106/71 96 12/16/17 11:45 98.3 F 12/16/17 11:00 121 19 115/78 96 General: Conversant, No Apparent Distress, Other (garbled speech) HEENT: Atraumatic, Normocephaly, Mucus Membranes Moist Neck: No JVD, Normal carotid pulses Cardiac: Reg Rate and Rhythm, Normal S1 and S2, No Murmur, Other (ST on tele) Lungs: Normal Breath Sounds, No Wheeze, Rales, Rhonchi Neuro: Alert and responsive, No focal deficits noted Abdomen: Soft, Non-Tender Skin: No rashes noted on visualized skin Musculoskeletal: No Chest Wall Tenderness Extremities: No Clubbing, No Cyanosis, No Edema, Normal Pulses Results 12/16/17 03:24 12/16/17 03:24 Lab Results 12/15/17 12/16/17 12/16/17 14:12 03:24 03:24 WBC 6.0 Hgb 13.7 D Hct 41.6 Plt Count 196 Sodium 142 Potassium 3.8 Chloride 107 Carbon Dioxide 27 BUN 39 H Creatinine 1.24 Glucose 102 Calcium 7.9 L Total Bilirubin 0.7 AST 92 H ALT 29 Alkaline Phosphatase 51 Troponin I 0.21 H* - Imaging and Cardiology Echo: report reviewed - EKG Interpretation EKG results cardiology: personally reviewed Consult Discharge Plan - Plan Instructions: Acute Nausea and Vomiting (ED), Abdominal Pain (ED) Additional Instructions: Patient needs admission. He has nausea / vomiting , abdominal pain ,high WBC count, CT scan shows dilated small bowel loops & suspected small bowel obstruction. [facility]errals: [facility] [Primary Care Provider[facility] -
--- NOTE | 2017-12-16 14:59 | Consult Note ---
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 History of Present Illness Patient: new to practice Requesting Physician: Antwon Dhillon DO Reason for consult: psychosis History of present illness: Mr. Johnson is a 67 year old male was evaluated at his bed side . 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 He is very poor historian , unable to give me any history , repeatedly stated i have catheter and i want to brush my teeth. he did not know why he was here, he was alert but confused and unable to give any history. As per chart was transferred from [place] for evaluation and to r/o GI bleed.at present his medications are on hold, he also has been on haldol deconate injection , not aware when was his last dose, he is on clozaril 500 mg/day . A/p Schizophrenia disorganized type. patient at present can have psychosis related to delirium secondary to medical condition ,supper imposed with his baseline psychosis . Will recommend to just give prn low dose haldol if needed for agitation and psychosis until his medical condition is stable and then slowly taper up clozaril. will follow up as unable to do any mental status examination or get history. Thank you for consult. CC: Antwon Dhillon, DO CC I dont know. Past Med Surg Social Fam HX - Past Medical History Medical history: hypertension - Past Psychiatric History Psychiatric history: Reports: schizophrenia - Past Surgical History Surgical History: no surgical history - Social History Smoking Status: Current every day smoker Smokeless Tobacco Status: No Alcohol use: none Drug use: none Medications & Allergies Cholecalciferol (D-3) [Vitamin D] 1,000 unit PO DAILY 10/01/15 [History] Citalopram Hydrobromide [Citalopram HBr] 40 mg PO DAILY 10/01/15 [History] Haloperidol Decanoate [Haldol] 25 mg IM Q2W 10/01/15 [History] Multivitamin with Minerals [One-A-Day Maximum Formula] 1 each PO DAILY 10/01/15 [History] Pantoprazole Sodium [Protonix] 40 mg PO DAILY 10/01/15 [History] cloZAPine [Clozaril] 100 mg PO BID 10/01/15 [History] cloZAPine [Clozaril] 300 mg PO HS 10/01/15 [History] clonazePAM [Klonopin] 1 mg PO BID 10/01/15 [History] lamoTRIgine [Lamictal] 100 mg PO BID 10/01/15 [History] Haloperidol [Haldol] 2 mg PO BID 12/15/17 [History] Lactobacillus Acidophilus [Acidophilus Lactobacillus] 1 cap PO DAILY 12/15/17 [ History] Metoprolol [Lopressor] 12.5 mg PO BID 12/15/17 [History] Sodium Chloride [Sodium Chloride Tab] 1 gm PO DAILY 12/15/17 [History] hydrOXYzine pamoate [HydrOXYzine Pamoate] 25 mg PO QID 12/15/17 [History] 3 Allergy/AdvReac Type Severity Reaction Status Date / Time No Known Allergies Allergy Verified 10/01/15 15:08 Psychiatry Exam - Constitutional Vitals: Temp Pulse Resp BP Pulse Ox 98.3 F 117 19 92/55 96 12/16/17 11:45 12/16/17 13:00 12/16/17 13:00 12/16/17 13:00 12/16/17 13:00 General appearance: thin - Psychiatric Level of alertness: Alert Eye Contact: Maintains Eye Contact Speech pattern: disorganized Results - Labs Labs: Laboratory Last Values WBC 6.0 K/mcL (4.3-11.1) 12/16/17 03:24 RBC 4.52 M/mcL (4.19-5.50) 12/16/17 03:24 Hgb 13.7 g/dL (12.9-16.9) D 12/16/17 03:24 Hct 41.6 % (37.5-50.1) 12/16/17 03:24 MCV 92.0 fL (83.0-100.0) 12/16/17 03:24 MCH 30.3 pg (28.0-33.3) 12/16/17 03:24 MCHC 32.9 g/dL (31.6-35.5) 12/16/17 03:24 RDW 13.9 % (11.5-14.5) 12/16/17 03:24 Plt Count 196 K/mcL (140-400) 12/16/17 03:24 MPV 10.1 fL (9.4-12.4) 12/16/17 03:24 Immature Gran % 6.6 % (0-4) H 12/16/17 03:24 Seg Neutrophils % 82.4 % 12/16/17 03:24 Lymphocytes % 6.8 % 12/16/17 03:24 Monocytes % 3.8 % 12/16/17 03:24 Eosinophils % 0.2 % 12/16/17 03:24 Basophils % 0.2 % 12/16/17 03:24 Neutrophils # 4.9 K/mcL (1.6-8.9) 12/16/17 03:24 Lymphocytes # 0.4 K/mcL (0.6-4.6) L 12/16/17 03:24 Monocytes # 0.2 K/mcL (0.0-1.3) 12/16/17 03:24 Eosinophils # 0.0 K/mcL (0.0-0.6) 12/16/17 03:24 Basophils # 0.0 K/mcL (0.0-0.2) 12/16/17 03:24 Platelet Estimate Normal (Normal) 12/16/17 03:24 PT 10.9 Seconds (9.4-12.1) 12/14/17 15:57 INR 1.0 12/14/17 15:57 APTT 30.6 Seconds (26.0-36.0) 12/14/17 15:57 ABG pH 7.43 pH Units (7.32-7.45) 12/15/17 14:48 ABG pCO2 30 mmHg (35-45) L 12/15/17 14:48 ABG pO2 64 mmHg (85-104) L 12/15/17 14:48 ABG HCO3 20 mEq/L (21-27) L 12/15/17 14:48 ABG Total CO2 21 mEq/L (20-26) 12/15/17 14:48 ABG O2 Saturation 93 % (95-98) L 12/15/17 14:48 ABG Base Excess -3 mEq/L (-2 to 3) L 12/15/17 14:48 Blood Gas Modality OM 12/15/17 14:48 Inspired O2 10.0 (1-15=lpm je35-208=%) 12/15/17 14:48 Sodium 142 mEq/L (136-145) 12/16/17 03:24 Potassium 3.8 mEq/L (3.5-5.1) 12/16/17 03:24 Chloride 107 mEq/L (98-107) 12/16/17 03:24 Carbon Dioxide 27 mEq/L (23-29) 12/16/17 03:24 BUN 39 mg/dL (8-23) H 12/16/17 03:24 Creatinine 1.24 mg/dL (0.70-1.30) 12/16/17 03:24 Est GFR ( Amer) > 60 (> 60) 12/16/17 03:24 Est GFR (Non-Af Amer) 58 (> 60) L 12/16/17 03:24 BUN/Creatinine Ratio 31 (6-26) H 12/16/17 03:24 Glucose 102 mg/dL (70-105) 12/16/17 03:24 POC Glucose 86 mg/dL (70-99) 12/15/17 23:45 Calculated Osmolality 304 (280-300) H 12/16/17 03:24 Lactic Acid 2.2 mmol/L (0.5-2.2) 12/16/17 13:15 Calcium 7.9 mg/dL (8.6-10.3) L 12/16/17 03:24 Total Bilirubin 0.7 mg/dL (0.3-1.0) 12/16/17 03:24 AST 92 Units/L (13-39) H 12/16/17 03:24 ALT 29 Units/L (7-52) 12/16/17 03:24 Alkaline Phosphatase 51 Units/L (34-104) 12/16/17 03:24 Troponin I 0.21 ng/mL (< 0.04) H* 12/15/17 14:12 Serum Total Protein 5.4 g/dL (6.4-8.9) L 12/16/17 03:24 Albumin 3.3 g/dL (3.5-5.7) L 12/16/17 03:24 Globulin 2.1 g/dL (2.4-3.5) L 12/16/17 03:24 Albumin/Globulin Ratio 1.6 (1.1-2.2) 10/01/18 03:24 Lipase 11 Units/L (11-82) 12/14/17 15:57 Stool Occult Bld Scrn Negative (Negative) 12/14/17 15:22 Specimen Rejected Hemolyzed 12/15/17 14:12 Blood Type A POSITIVE 12/14/17 15:57 Antibody Screen NEGATIVE 12/14/17 15:57 - Impressions Impressions Chest/Abdomen X-ray 12/16/17 00:01 IMPRESSION: Persistently dilated bowel loops throughout the abdomen and pelvis. Findings may represent bowel obstruction or ileus. No evidence of intra-abdominal free air. Right basilar pulmonary opacities most compatible with a right pleural effusion and atelectasis. This is new since 12/14/2017 CT abdomen and pelvis. D/ / 12/16/2017 07:55:56 Gilles Dudley MD / carlos eduardo Interpreting Provider: Gilles Dudley MD Echocardiogram 12/16/17 13:23 Impressions: Technically sub-optimal due to clinical status, poor windows. LVEF 70%. Normal LV chamber size, wall thickness and function. Indeterminate diastolic function. Grossly normal right ventricular structure and function. Unable to estimate RVSP due to lack of TR jet. Valves were not well evaluated. No obvious significant valvular dysfunction noted. Left Ventricular Wall Motion: Rest Echo Findings All wall segments showed normal motion. Findings: Study Quality * Technically sub-optimal due to clinical status, poor windows. ECG Findings * Sinus tachycardia. Left Ventricle * LVEF 70%. * Normal LV chamber size, wall thickness and function. * Indeterminate diastolic function. Right Ventricle * Grossly normal right ventricular structure and function. Left Atrium * Normal left atrial size. Right Atrium * Right atrium is not well visualized. Aortic Valve * Aortic valve not well visualized. Mitral Valve * Mild mitral annular calcification * Normal mitral valve function. * No mitral regurgitation. * No mitral stenosis. Tricuspid Valve * Tricuspid valve not well visualized. * No tricuspid regurgitation. * Unable to estimate RVSP due to lack of TR jet. Pulmonic Valve * Pulmonic valve not well visualized. Aorta * Normally sized aortic root. Pericardium * The pericardium appears normal. IVC * The IVC is not well evaluated. Pulmonary Artery * Pulmonary artery not well visualized. Consult Discharge Plan - Plan Instructions: Acute Nausea and Vomiting (ED), Abdominal Pain (ED) Additional Instructions: Patient needs admission. He has nausea / vomiting , abdominal pain ,high WBC count, CT scan shows dilated small bowel loops & suspected small bowel obstruction. [facility]errals: [facility] [Primary Care Provider] -
--- NOTE | 2017-12-16 15:25 | Electrocardiograph Report ---
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
[2017-12-16] MEDS ORDERED: D5% in Lactated Ringers 1,000 ML IVC SCH (16:30)
[2017-12-16] MEDS: D5% in Lactated Ringers 1,000 ML IVC SCH (17:12)
--- NOTE | 2017-12-16 18:12 | Pulmonology Consult Note ---
<Matthew Healy - Last Filed: 12/16/17 18:26> Date of Encounter: 12/16/17 Time of Encounter: 18:09 Assessment and Plan (1) Hypoxia Current Visit: Yes Status: Acute (2) Small bowel obstruction Current Visit: Yes Status: Acute (3) Acute kidney injury Current Visit: Yes Status: Acute (4) Catatonia schizophrenia Current Visit: Yes Status: Acute (5) Dehydration Current Visit: Yes Status: Acute (6) Elevated troponin Current Visit: Yes Status: Acute (7) Leukocytosis Current Visit: No Status: Acute Qualifiers: Leukocytosis type: unspecified Qualified Code(s): D72.829 - Elevated white blood cell count, unspecified (8) Gastric ulcer due to Helicobacter pylori Current Visit: Yes Status: Acute Qualifiers: Gastric ulcer chronicity: chronic Qualified Code(s): K25.7 - Chronic gastric ulcer without hemorrhage or perforation; B96.81 - Helicobacter pylori [ H. pylori] as the cause of diseases classified elsewhere (9) DVT prophylaxis Current Visit: Yes Status: Acute History of Present Illness Consult date: 12/16/17 Reason for consult: dyspnea, abnormal CXR/CT, other (Hypoxia into the mid 80% range with chest x-ray concerning for aspiration pneumonia) Chief complaint: Small bowel obstruction History of present illness: Patient is a 67-year-old male with a history of gastric ulcer disease associated with H. pylori who presented from the [facility] to [facility] emergency department on 12/14/2017 with complaints for a one-day history of epigastric pain, associated with nausea and vomiting of dark emesis concerning for GI bleed. CT of the abdomen and pelvis revealed small bowel obstruction the patient had a nasogastric tube placed with 400 mL of fluid removed. The patient has removed his nasogastric tube on 2 separate occasions and was found to have creatinine elevation at 1.5 as well as tachycardia. IV fluids and analgesics were given for hydration and pain management. The patient was found to have hypoxia into the mid 80% range as well as chest x- ray concerning for aspiration pneumonia. Assessment and Plan (1) Hypoxia Current Visit: Yes Status: Acute Patient noted to be hypoxic on December 15 with O2 sats desaturations into the mid 80 percent range Chest x-ray from December 15 showed pulmonary vascular congestion with interstitial and airspace opacities in the mid to lower right lung concerning for aspiration pneumonia or pulmonary edema Patient on Zosyn for broad-spectrum coverage Patient transferred to ICU for further management Patient transition from BiPAP to Sapphire high flow oxygen at 40/40 Continue to monitor (2) Small bowel obstruction Current Visit: Yes Status: Acute Nothing by mouth Surgery consulted and is following CT scan on December 14 shows "mild to severe dilation of most small bowel loops with a suspected transition point in the terminal ileum a few centimeters proximal to the ileocecal valve.. The appearance favors partial obstruction or ileus." Chest/abdomen x-ray from December 16 shows "persistently dilated bowel loops throughout the abdomen and pelvis. Findings may represent bowel obstruction or ileus. No evidence of intra-abdominal free air." Continue IVF and replacement of gastric output Consider central line plus TPN (3) Acute kidney injury Current Visit: Yes Status: Acute BUN trending upward and is currently at 39 Creatinine is normal at 1.24 Estimated GFR 58 Continue daily chemistries and IVF (4) Catatonia schizophrenia Current Visit: Yes Status: Acute Patient is alert to his surroundings but makes no meaningful response to questioning Patient by mouth medications held Haloperidol, 5 mg IV push every 4 hour when necessary added for severe agitation and psychosis Patient Clozapine stopped due to concerns for small bowel obstruction Psychiatry consulted-we will follow recommendations (5) Dehydration Current Visit: Yes Status: Acute Patient has received 5802 mL fluid intake was 7925 L output for a balance of - 2123 mL Patient is mildly tachycardic and hypotensive with heart rate at 117 and BP of 92/55 Continue IV fluids and replace gastric output (6) Elevated troponin Current Visit: Yes Status: Acute Cardiology consulted and is following Per cardiology, likely type 2 NSTEMI due to persistent tachycardia, withdrawal, hypokalemia, and metabolic arrangement. TTE to assess for regional wall motion abnormalities and ejection fraction Continue to monitor (7) Leukocytosis Current Visit: No Status: Acute White blood cell count currently normal 6.0-down from 29.3 on December 14 Continue to monitor Qualifiers: Leukocytosis type: unspecified Qualified Code(s): D72.829 - Elevated white blood cell count, unspecified (8) Gastric ulcer due to Helicobacter pylori Current Visit: Yes Status: Acute Continue pantoprazole for GI prophylaxis Continue to monitor output Qualifiers: Gastric ulcer chronicity: chronic Qualified Code(s): K25.7 - Chronic gastric ulcer without hemorrhage or perforation; B96.81 - Helicobacter pylori [ H. pylori] as the cause of diseases classified elsewhere (9) DVT prophylaxis Current Visit: Yes Status: Acute 5000 units subcutaneous heparin every 8 hours Past Med Surg Social Fam HX - Past Medical History Medical history: hypertension Psychiatric history: schizophrenia - Past Surgical History Surgical History: no surgical history - Social History Smoking Status: Current every day smoker Smokeless Tobacco Status: No Alcohol use: none Drug use: none Medications and Allergies Cholecalciferol (D-3) [Vitamin D] 1,000 unit PO DAILY 10/01/15 [History] Citalopram Hydrobromide [Citalopram HBr] 40 mg PO DAILY 10/01/15 [History] Haloperidol Decanoate [Haldol] 25 mg IM Q2W 10/01/15 [History] Multivitamin with Minerals [One-A-Day Maximum Formula] 1 each PO DAILY 10/01/15 [History] Pantoprazole Sodium [Protonix] 40 mg PO DAILY 10/01/15 [History] cloZAPine [Clozaril] 100 mg PO BID 10/01/15 [History] cloZAPine [Clozaril] 300 mg PO HS 10/01/15 [History] clonazePAM [Klonopin] 1 mg PO BID 10/01/15 [History] lamoTRIgine [Lamictal] 100 mg PO BID 10/01/15 [History] Haloperidol [Haldol] 2 mg PO BID 12/15/17 [History] Lactobacillus Acidophilus [Acidophilus Lactobacillus] 1 cap PO DAILY 12/15/17 [ History] Metoprolol [Lopressor] 12.5 mg PO BID 12/15/17 [History] Sodium Chloride [Sodium Chloride Tab] 1 gm PO DAILY 12/15/17 [History] hydrOXYzine pamoate [HydrOXYzine Pamoate] 25 mg PO QID 12/15/17 [History] 3 Allergy/AdvReac Type Severity Reaction Status Date / Time No Known Allergies Allergy Verified 10/01/15 15:08 ROS unobtainable: due to mental status (Patient has a history of catatonic schizophrenia) All Systems: The remainder of the systems were reviewed and are negative Physical Examination Vital Signs: Vital Signs, Last 4 Hours Temp Pulse Resp BP Pulse Ox 12/16/17 18:00 105 13 101/57 96 12/16/17 17:00 108 20 114/82 96 12/16/17 16:00 106 16 114/75 96 12/16/17 15:06 117 12/16/17 15:00 98.4 F 108 19 121/71 96 General appearance: no acute distress Eyes: nonicteric ENT: oropharynx moist Effort: normal Auscultation: bilateral: clear Cardiovascular: regular rate and rhythm Gastrointestinal: hypoactive bowel sounds, soft, non-tender (Patient does not grimace to abdominal palpation), non-distended Extremities: no cyanosis, no edema Results - Laboratory Findings CBC and BMP: 12/16/17 03:24 12/16/17 03:24 ABG ABG pH 7.43 pH Units (7.32-7.45) 12/15/17 14:48 ABG pCO2 30 mmHg (35-45) L 12/15/17 14:48 ABG pO2 64 mmHg (85-104) L 12/15/17 14:48 ABG O2 Saturation 93 % (95-98) L 12/15/17 14:48 PT/INR, D-dimer PT 10.9 Seconds (9.4-12.1) 12/14/17 15:57 Abnormal lab findings: Abnormal lab results Immature Gran % 6.6 % (0-4) H 12/16/17 03:24 Lymphocytes # 0.4 K/mcL (0.6-4.6) L 12/16/17 03:24 ABG pCO2 30 mmHg (35-45) L 12/15/17 14:48 ABG pO2 64 mmHg (85-104) L 12/15/17 14:48 ABG HCO3 20 mEq/L (21-27) L 12/15/17 14:48 ABG O2 Saturation 93 % (95-98) L 12/15/17 14:48 ABG Base Excess -3 mEq/L (-2 to 3) L 12/15/17 14:48 BUN 39 mg/dL (8-23) H 12/16/17 03:24 Est GFR (Non-Af Amer) 58 (> 60) L 12/16/17 03:24 BUN/Creatinine Ratio 31 (6-26) H 12/16/17 03:24 Calculated Osmolality 304 (280-300) H 12/16/17 03:24 Calcium 7.9 mg/dL (8.6-10.3) L 12/16/17 03:24 AST 92 Units/L (13-39) H 12/16/17 03:24 Troponin I 0.21 ng/mL (< 0.04) H* 12/15/17 14:12 Serum Total Protein 5.4 g/dL (6.4-8.9) L 12/16/17 03:24 Albumin 3.3 g/dL (3.5-5.7) L 12/16/17 03:24 Globulin 2.1 g/dL (2.4-3.5) L 12/16/17 03:24 - Microbiology Findings Microbiology Findings: Microbiology, Last 48 Hours 12/16/17 13:35 Blood Culture - Preliminary Peripheral Venipuncture Culture is incubating and being continuously monitored for growth. Final report to follow. 12/16/17 13:35 Blood Culture - Preliminary Peripheral Venipuncture Culture is incubating and being continuously monitored for growth. Final report to follow. - Clinical Findings Intake & Output: Intake & Output 12/16/17 12/16/17 12/16/17 07:59 15:59 23:59 Intake Total 1100 / 1100 1102 / 1102 Output Total 2100 / 2100 675 / 675 Balance -1000 / -1000 427 / 427 Weight 62.3 kg Consult Discharge Plan - Plan Instructions: Acute Nausea and Vomiting (ED), Abdominal Pain (ED) Additional Instructions: Patient needs admission. He has nausea / vomiting , abdominal pain ,high WBC count, CT scan shows dilated small bowel loops & suspected small bowel obstruction. [facility]: [facility] Care Provider[facility] - <Kenny Sarmiento - Last Filed: 12/17/17 11:42> Date of Encounter: 12/17/17 All Systems: The remainder of the systems were reviewed and are negative Physical Examination Vital Signs: Vital Signs, Last 4 Hours Pulse Resp BP Pulse Ox 12/17/17 10:00 93 20 128/81 98 12/17/17 09:00 68 20 118/71 98 12/17/17 08:00 95 20 120/73 98 Results - Laboratory Findings CBC and BMP: 12/17/17 04:14 12/17/17 04:14 ABG ABG pH 7.43 pH Units (7.32-7.45) 12/15/17 14:48 ABG pCO2 30 mmHg (35-45) L 12/15/17 14:48 ABG pO2 64 mmHg (85-104) L 12/15/17 14:48 ABG O2 Saturation 93 % (95-98) L 12/15/17 14:48 PT/INR, D-dimer PT 16.7 Seconds (9.4-12.1) H D 12/16/17 18:08 Abnormal lab findings: Abnormal lab results Hgb 12.8 g/dL (12.9-16.9) L 12/17/17 04:14 Neutrophils # 9.5 K/mcL (1.6-8.9) H 12/17/17 04:14 Lymphocytes # 0.5 K/mcL (0.6-4.6) L 12/17/17 04:14 PT 16.7 Seconds (9.4-12.1) H D 12/16/17 18:08 ABG pCO2 30 mmHg (35-45) L 12/15/17 14:48 ABG pO2 64 mmHg (85-104) L 12/15/17 14:48 ABG HCO3 20 mEq/L (21-27) L 12/15/17 14:48 ABG O2 Saturation 93 % (95-98) L 12/15/17 14:48 ABG Base Excess -3 mEq/L (-2 to 3) L 12/15/17 14:48 Chloride 109 mEq/L (98-107) H 12/17/17 04:14 BUN 28 mg/dL (8-23) H 12/17/17 04:14 BUN/Creatinine Ratio 37 (6-26) H 12/17/17 04:14 Glucose 120 mg/dL (70-105) H 12/17/17 04:14 POC Glucose 107 mg/dL (70-99) H 12/16/17 23:27 Calcium 8.5 mg/dL (8.6-10.3) L 12/17/17 04:14 AST 92 Units/L (13-39) H 12/16/17 03:24 Troponin I 0.21 ng/mL (< 0.04) H* 12/15/17 14:12 Serum Total Protein 5.4 g/dL (6.4-8.9) L 12/16/17 03:24 Albumin 3.3 g/dL (3.5-5.7) L 12/16/17 03:24 Globulin 2.1 g/dL (2.4-3.5) L 12/16/17 03:24 - Microbiology Findings Microbiology Findings: Microbiology, Last 48 Hours 12/16/17 13:35 Blood Culture - Preliminary Peripheral Venipuncture Culture is incubating and being continuously monitored for growth. Final report to follow. 12/16/17 13:35 Blood Culture - Preliminary Peripheral Venipuncture Culture is incubating and being continuously monitored for growth. Final report to follow. - Clinical Findings Intake & Output: Intake & Output 12/16/17 12/17/17 12/17/17 23:59 07:59 15:59 Intake Total 100 / 100 1100 / 1100 1000 / 1000 Output Total 475 / 475 1000 / 1000 Balance -375 / -375 100 / 100 1000 / 1000 Weight 65.8 kg - Attending Attestation - Attending Attestation I saw and evaluated this patient and my medical decision-making was reviewed with the Resident Physician. I agree with the documented findings, disposition and treatment plan as described except to the extent set forth below. We independently had [id number] contact with the patient Patient seen and examined at bedside Labs, radiology, chart personally reviewed. Management was reviewed during multidisciplinary critical care rounds. 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 Pulm: Acute Respiratory failure secondary to Suspected aspiration pneumonia V/Q mismatch patient tolerating high flow nasal cannula acceptable oxygenation and ventilation to keep a close eye on his ventilation might need invasive endotracheal mechanical ventilation. We will start him on broad-spectrum antibiotics for his aspiration pneumonia cannot diurese him at this point. Cards: Currently hemodynamically stable cardiology is evaluating for possible NSTEMI FEN-GI: surgery is following patient has distal bowel obstruction might need surgery with his mental status and other comorbidities he will be high risk of postoperative respiratory failure he will have a difficult liberation from the ventilator will need to discuss with family if they want to proceed with this surgical management. Might need a PICC line for possible TPN. Renal: Labs and output reviewed ID: To cover with broad-spectrum antibiotics for suspected aspiration pneumonia Heme/Onc: To continue prophylaxis Endo: Glucose Monitored Integ/MSK: Skin Care per routine ICU Nursing Protocol to prevent ulcers. Lines: All lines examined without evidence of infection : Dispo: Remain critically ill patient endotracheal intubation CODE: Full Code
[2017-12-16 19:06] LABS: INR 1.5; Prothrombin Time 16.7 Seconds (9.4-12.1)
[2017-12-17] MEDS: D5% in Lactated Ringers 1,000 ML IVC SCH ×3 (01:13→18:23)
[2017-12-17 04:26] LABS: Basophils # 0.1 K/mcL (0.0-0.2); Basophils % 0.5 %; Eosinophils # 0.1 K/mcL (0.0-0.6); Eosinophils % 0.7 %; Hemoglobin 12.8 g/dL (12.9-16.9); Immature Granulocytes % 0.6 % (0-4); Lymphocytes # 0.5 K/mcL (0.6-4.6); Lymphocytes % 4.8 %; Mean Corpuscular HGB Conc 32.8 g/dL (31.6-35.5); Mean Corpuscular Hemoglobin 30.4 pg (28.0-33.3); Mean Corpuscular Volume 92.6 fL (83.0-100.0); Mean Platelet Volume 10.3 fL (9.4-12.4); Monocytes # 0.5 K/mcL (0.0-1.3); Monocytes % 4.2 %; Neutrophils # 9.5 K/mcL (1.6-8.9); Platelet Count 175 K/mcL (140-400); Red Blood Count 4.21 M/mcL (4.19-5.50); Red Cell Distribution Width 13.8 % (11.5-14.5); Segmented Neutrophils % 89.2 %
[2017-12-17 04:44] LABS: Platelet Estimate Normal (Normal)
[2017-12-17 04:45] LABS: BUN/Creatinine Ratio 37 (6-26); Blood Urea Nitrogen 28 mg/dL (8-23); Calcium 8.5 mg/dL (8.6-10.3); Carbon Dioxide 27 mEq/L (23-29); Chloride 109 mEq/L (98-107); Glucose 120 mg/dL (70-105); Osmolality,Calculated 299 (280-300); Potassium 3.6 mEq/L (3.5-5.1); Sodium 141 mEq/L (136-145); eGFR For Non-African Americans > 60 (> 60)
[2017-12-17] MEDS: *HR* Heparin 5,000 UNIT/ML VIAL SQ SCH ×3 (05:14→23:50)
--- NOTE | 2017-12-17 07:22 | Pulmonology Progress Note ---
<Kenny Sarmiento S - Last Filed: 12/17/17 11:49> Date of Encounter: 12/17/17 Time of Encounter: 08:00 Objective PUL Vital signs: Last Vital Signs Temp 98.0 F 12/17/17 07:38 Pulse 93 12/17/17 10:00 Resp 20 12/17/17 10:00 BP 128/81 12/17/17 10:00 Pulse Ox 98 12/17/17 10:00 Results - Laboratory Findings CBC and BMP: 12/17/17 04:14 12/17/17 04:14 ABG ABG pH 7.43 pH Units (7.32-7.45) 12/15/17 14:48 ABG pCO2 30 mmHg (35-45) L 12/15/17 14:48 ABG pO2 64 mmHg (85-104) L 12/15/17 14:48 ABG O2 Saturation 93 % (95-98) L 12/15/17 14:48 PT/INR, D-dimer PT 16.7 Seconds (9.4-12.1) H D 12/16/17 18:08 Abnormal lab findings: Abnormal lab results Hgb 12.8 g/dL (12.9-16.9) L 12/17/17 04:14 Neutrophils # 9.5 K/mcL (1.6-8.9) H 12/17/17 04:14 Lymphocytes # 0.5 K/mcL (0.6-4.6) L 12/17/17 04:14 PT 16.7 Seconds (9.4-12.1) H D 12/16/17 18:08 ABG pCO2 30 mmHg (35-45) L 12/15/17 14:48 ABG pO2 64 mmHg (85-104) L 12/15/17 14:48 ABG HCO3 20 mEq/L (21-27) L 12/15/17 14:48 ABG O2 Saturation 93 % (95-98) L 12/15/17 14:48 ABG Base Excess -3 mEq/L (-2 to 3) L 12/15/17 14:48 Chloride 109 mEq/L (98-107) H 12/17/17 04:14 BUN 28 mg/dL (8-23) H 12/17/17 04:14 BUN/Creatinine Ratio 37 (6-26) H 12/17/17 04:14 Glucose 120 mg/dL (70-105) H 12/17/17 04:14 POC Glucose 107 mg/dL (70-99) H 12/16/17 23:27 Calcium 8.5 mg/dL (8.6-10.3) L 12/17/17 04:14 AST 92 Units/L (13-39) H 12/16/17 03:24 Troponin I 0.21 ng/mL (< 0.04) H* 12/15/17 14:12 Serum Total Protein 5.4 g/dL (6.4-8.9) L 12/16/17 03:24 Albumin 3.3 g/dL (3.5-5.7) L 12/16/17 03:24 Globulin 2.1 g/dL (2.4-3.5) L 12/16/17 03:24 - Microbiology Findings Microbiology Findings: Microbiology, Last 48 Hours 12/16/17 13:35 Blood Culture - Preliminary Peripheral Venipuncture Culture is incubating and being continuously monitored for growth. Final report to follow. 12/16/17 13:35 Blood Culture - Preliminary Peripheral Venipuncture Culture is incubating and being continuously monitored for growth. Final report to follow. - Clinical Findings Intake & Output: Intake & Output 12/16/17 12/17/17 12/17/17 23:59 07:59 15:59 Intake Total 100 / 100 1100 / 1100 1000 / 1000 Output Total 475 / 475 1000 / 1000 Balance -375 / -375 100 / 100 1000 / 1000 Weight 65.8 kg Consult Discharge Plan - Plan Instructions: Acute Nausea and Vomiting (ED), Abdominal Pain (ED) Additional Instructions: Patient needs admission. He has nausea / vomiting , abdominal pain ,high WBC count, CT scan shows dilated small bowel loops & suspected small bowel obstruction. [facility]errals: [facility]Primary Care Provider[facility] - - Attending Attestation - Attending Attestation I saw and evaluated this patient and my medical decision-making was reviewed with the Resident Physician. I agree with the documented findings, disposition and treatment plan as described except to the extent set forth below. We independently had [id number] contact with the patient Patient seen and examined at bedside Labs, radiology, chart personally reviewed. Management was reviewed during multidisciplinary critical care rounds. 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 Pulm: Acute hypoxic resipratory failure secondary to aspiration pneumonia and some hydrostatic pulmonary edema patient tolerating high flow nasal cannula acceptable oxygenation and ventilation will transition to regular nasal cannula , no diuresis today . Cards: Currently hemodynamically stable cardiology recommended no cardiac testing at this point. FEN-GI: surgery is following patient has distal bowel obstruction might need surgery with his mental status and other comorbidities he will be high risk of postoperative respiratory failure he will have a difficult liberation from the ventilator will need to discuss with family if they want to proceed with this surgical management. 12/17 Patient had two bowel movements patient progressing in the right direction will hold TPN will leave it to surgery when to start enteral nutrition if needs TPN in the future will need PICC line will hold off doing a IJ cannulation as PICC will be more comfortable to the patient. Renal: Labs and output reviewed ID: To cover with broad-spectrum antibiotics for possible aspiration pneumonia Heme/Onc: To continue prophylaxis Endo: Glucose Monitored Integ/MSK: Skin Care per routine ICU Nursing Protocol to prevent ulcers. Lines: All lines examined without evidence of infection : Dispo: Patient can be transferred to CODE: Full Code <Ruben Jackson S - Last Filed: 12/17/17 15:26> Date of Encounter: 12/17/17 Assessment and Plan (1) Small bowel obstruction Current Visit: Yes Status: Acute Nothing by mouth Surgery consulted and is following Patient had small bowel movement yesterday Patient has had 1350 mL of bilious output from NG tube since 12:01 AM (12/17) Continue IVF and replacement of gastric output CT scan on December 14 shows "mild to severe dilation of most small bowel loops with a suspected transition point in the terminal ileum a few centimeters proximal to the ileocecal valve.. The appearance favors partial obstruction or ileus." Chest/abdomen x-ray from December 16 shows "persistently dilated bowel loops throughout the abdomen and pelvis. Findings may represent bowel obstruction or ileus. No evidence of intra-abdominal free air." Will transfer out of ICU (2) Hypoxia Current Visit: Yes Status: Acute Patient noted to be hypoxic on December 15 with O2 sats desaturations into the mid 80 percent range Chest x-ray from December 15 showed pulmonary vascular congestion with interstitial and airspace opacities in the mid to lower right lung concerning for Aspiration pneumonia or pulmonary edema Patient on Zosyn for broad-spectrum coverage Patient transferred to ICU for further management Patient transition from BiPAP to Sapphire high flow oxygen at 40/40, and is now on 8L saturating at 96 Continue to monitor (3) Leukocytosis Current Visit: No Status: Resolved White blood cell count currently normal 10.7 - down from 29.3 on December 14 Continue to monitor Qualifiers: Leukocytosis type: unspecified Qualified Code(s): D72.829 - Elevated white blood cell count, unspecified (4) Acute kidney injury Current Visit: Yes Status: Resolved Resolved Cr is 0.76 (5) Catatonia schizophrenia Current Visit: Yes Status: Acute Patient's speech is coherent on occasion, but seems garbled most of the time He is alert to his surroundings Patient's PO medications held Haloperidol, 5 mg IV push every 4 hour when necessary added for severe agitation and psychosis Patient Clozapine stopped due to concerns for small bowel obstruction Psychiatry consulted-we will follow recommendations Continue haloperidol for agitation Restart cloazpine upon discharge, when back to baseline (6) Elevated troponin Current Visit: Yes Status: Acute Cardiology consulted and is following Per cardiology, likely type 2 NSTEMI due to persistent tachycardia, withdrawal, hypokalemia, and metabolic arrangement. TTE shows EF of 70%, no valvular dysfunction noted Continue to monitor (7) Gastric ulcer due to Helicobacter pylori Current Visit: Yes Status: Acute Continue pantoprazole for GI prophylaxis Continue to monitor output Qualifiers: Gastric ulcer chronicity: chronic Qualified Code(s): K25.7 - Chronic gastric ulcer without hemorrhage or perforation; B96.81 - Helicobacter pylori [ H. pylori] as the cause of diseases classified elsewhere (8) DVT prophylaxis Current Visit: Yes Status: Acute Subcutaneous heparin Subjective Principal diagnosis: Small bowel obstruction Interval history: Patient doing well this morning. He has no complaints and is resting well on 8L high flow oxygen. He is alert and oriented, but some of his speech seems garbled, which may be his baseline. He is asking for food this morning. Objective PUL Vital signs: Last Vital Signs Temp 97.7 F 12/17/17 03:53 Pulse 78 12/17/17 06:00 Resp 24 12/17/17 06:00 BP 129/84 12/17/17 06:00 Pulse Ox 97 12/17/17 06:00 General appearance: no acute distress Eyes: nonicteric Effort: normal Auscultation: bilateral: clear Cardiovascular: regular rate and rhythm Gastrointestinal: hypoactive bowel sounds, soft, non-tender, non-distended Integumentary: normal Extremities: no cyanosis, no edema mood appropriate Results - Laboratory Findings CBC and BMP: 12/17/17 04:14 12/17/17 04:14 ABG ABG pH 7.43 pH Units (7.32-7.45) 12/15/17 14:48 ABG pCO2 30 mmHg (35-45) L 12/15/17 14:48 ABG pO2 64 mmHg (85-104) L 12/15/17 14:48 ABG O2 Saturation 93 % (95-98) L 12/15/17 14:48 PT/INR, D-dimer PT 16.7 Seconds (9.4-12.1) H D 12/16/17 18:08 Abnormal lab findings: Abnormal lab results Hgb 12.8 g/dL (12.9-16.9) L 12/17/17 04:14 Neutrophils # 9.5 K/mcL (1.6-8.9) H 12/17/17 04:14 Lymphocytes # 0.5 K/mcL (0.6-4.6) L 12/17/17 04:14 PT 16.7 Seconds (9.4-12.1) H D 12/16/17 18:08 ABG pCO2 30 mmHg (35-45) L 12/15/17 14:48 ABG pO2 64 mmHg (85-104) L 12/15/17 14:48 ABG HCO3 20 mEq/L (21-27) L 12/15/17 14:48 ABG O2 Saturation 93 % (95-98) L 12/15/17 14:48 ABG Base Excess -3 mEq/L (-2 to 3) L 12/15/17 14:48 Chloride 109 mEq/L (98-107) H 12/17/17 04:14 BUN 28 mg/dL (8-23) H 12/17/17 04:14 BUN/Creatinine Ratio 37 (6-26) H 12/17/17 04:14 Glucose 120 mg/dL (70-105) H 12/17/17 04:14 POC Glucose 107 mg/dL (70-99) H 12/16/17 23:27 Calcium 8.5 mg/dL (8.6-10.3) L 12/17/17 04:14 AST 92 Units/L (13-39) H 12/16/17 03:24 Troponin I 0.21 ng/mL (< 0.04) H* 12/15/17 14:12 Serum Total Protein 5.4 g/dL (6.4-8.9) L 12/16/17 03:24 Albumin 3.3 g/dL (3.5-5.7) L 12/16/17 03:24 Globulin 2.1 g/dL (2.4-3.5) L 12/16/17 03:24 - Microbiology Findings Microbiology Findings: Microbiology, Last 48 Hours 12/16/17 13:35 Blood Culture - Preliminary Peripheral Venipuncture Culture is incubating and being continuously monitored for growth. Final report to follow. 12/16/17 13:35 Blood Culture - Preliminary Peripheral Venipuncture Culture is incubating and being continuously monitored for growth. Final report to follow. - Clinical Findings Intake & Output: Intake & Output 12/16/17 12/16/17 12/17/17 15:59 23:59 07:59 Intake Total 1102 / 1102 100 / 100 1100 / 1100 Output Total 675 / 675 475 / 475 150 / 150 Balance 427 / 427 -375 / -375 950 / 950 Weight 65.8 kg
[2017-12-17] MEDS: Piperacillin/Tazobactam 3.375 GM in 0.9 % Sodium Chloride Mini Bag 100 ML IVPB SCH ×3 (07:42→23:51)
[2017-12-17] MEDS: Pantoprazole 40 MG VIAL IVP SCH (07:42)
--- NOTE | 2017-12-17 11:30 | Consult Note ---
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 Johnson is a 67 year old male lying in his bed, alert , oriented x1 , cooperative , staes i am better, i am hungry i need sandwich , he has no agitation , talked to the nurse and patient more verbal and alert but still disorganized , this can be his baseline. will follow up when stable . Thank you for consult. CC: Antwon Dhillon DO Past Med Surg Social Fam HX - Past Medical History Medical history: hypertension - Past Surgical History Surgical History: no surgical history - Social History Smoking Status: Current every day smoker Smokeless Tobacco Status: No Alcohol use: none Drug use: none Medications & Allergies Cholecalciferol (D-3) [Vitamin D] 1,000 unit PO DAILY 10/01/15 [History] Citalopram Hydrobromide [Citalopram HBr] 40 mg PO DAILY 10/01/15 [History] Haloperidol Decanoate [Haldol] 25 mg IM Q2W 10/01/15 [History] Multivitamin with Minerals [One-A-Day Maximum Formula] 1 each PO DAILY 10/01/15 [History] Pantoprazole Sodium [Protonix] 40 mg PO DAILY 10/01/15 [History] cloZAPine [Clozaril] 100 mg PO BID 10/01/15 [History] cloZAPine [Clozaril] 300 mg PO HS 10/01/15 [History] clonazePAM [Klonopin] 1 mg PO BID 10/01/15 [History] lamoTRIgine [Lamictal] 100 mg PO BID 10/01/15 [History] Haloperidol [Haldol] 2 mg PO BID 12/15/17 [History] Lactobacillus Acidophilus [Acidophilus Lactobacillus] 1 cap PO DAILY 12/15/17 [ History] Metoprolol [Lopressor] 12.5 mg PO BID 12/15/17 [History] Sodium Chloride [Sodium Chloride Tab] 1 gm PO DAILY 12/15/17 [History] hydrOXYzine pamoate [HydrOXYzine Pamoate] 25 mg PO QID 12/15/17 [History] 3 Allergy/AdvReac Type Severity Reaction Status Date / Time No Known Allergies Allergy Verified 10/01/15 15:08 Psychiatry Exam - Constitutional Vitals: Temp Pulse Resp BP Pulse Ox 98.0 F 93 20 128/81 98 12/17/17 07:38 12/17/17 10:00 12/17/17 10:00 12/17/17 10:00 12/17/17 10:00 General appearance: thin - Psychiatric Patient Orientation: Yes Place Level of alertness: Alert Behavior: cooperative (unable to do more assesment.) Results - Labs Labs: Laboratory Last Values WBC 10.7 K/mcL (4.3-11.1) D 12/17/17 04:14 RBC 4.21 M/mcL (4.19-5.50) 12/17/17 04:14 Hgb 12.8 g/dL (12.9-16.9) L 12/17/17 04:14 Hct 39.0 % (37.5-50.1) 12/17/17 04:14 MCV 92.6 fL (83.0-100.0) 12/17/17 04:14 MCH 30.4 pg (28.0-33.3) 12/17/17 04:14 MCHC 32.8 g/dL (31.6-35.5) 12/17/17 04:14 RDW 13.8 % (11.5-14.5) 12/17/17 04:14 Plt Count 175 K/mcL (140-400) 12/17/17 04:14 MPV 10.3 fL (9.4-12.4) 12/17/17 04:14 Immature Gran % 0.6 % (0-4) 12/17/17 04:14 Seg Neutrophils % 89.2 % 12/17/17 04:14 Lymphocytes % 4.8 % 12/17/17 04:14 Monocytes % 4.2 % 12/17/17 04:14 Eosinophils % 0.7 % 12/17/17 04:14 Basophils % 0.5 % 12/17/17 04:14 Neutrophils # 9.5 K/mcL (1.6-8.9) H 12/17/17 04:14 Lymphocytes # 0.5 K/mcL (0.6-4.6) L 12/17/17 04:14 Monocytes # 0.5 K/mcL (0.0-1.3) 12/17/17 04:14 Eosinophils # 0.1 K/mcL (0.0-0.6) 12/17/17 04:14 Basophils # 0.1 K/mcL (0.0-0.2) 12/17/17 04:14 Platelet Estimate Normal (Normal) 12/17/17 04:14 PT 16.7 Seconds (9.4-12.1) H D 12/16/17 18:08 INR 1.5 12/16/17 18:08 APTT 30.6 Seconds (26.0-36.0) 12/14/17 15:57 ABG pH 7.43 pH Units (7.32-7.45) 12/15/17 14:48 ABG pCO2 30 mmHg (35-45) L 12/15/17 14:48 ABG pO2 64 mmHg (85-104) L 12/15/17 14:48 ABG HCO3 20 mEq/L (21-27) L 12/15/17 14:48 ABG Total CO2 21 mEq/L (20-26) 12/15/17 14:48 ABG O2 Saturation 93 % (95-98) L 12/15/17 14:48 ABG Base Excess -3 mEq/L (-2 to 3) L 12/15/17 14:48 Blood Gas Modality OM 12/15/17 14:48 Inspired O2 10.0 (1-15=lpm [id number]=%) 12/15/17 14:48 Sodium 141 mEq/L (136-145) 12/17/17 04:14 Potassium 3.6 mEq/L (3.5-5.1) 12/17/17 04:14 Chloride 109 mEq/L (98-107) H 12/17/17 04:14 Carbon Dioxide 27 mEq/L (23-29) 12/17/17 04:14 BUN 28 mg/dL (8-23) H 12/17/17 04:14 Creatinine 0.76 mg/dL (0.70-1.30) 12/17/17 04:14 Est GFR ( Amer) > 60 (> 60) 12/17/17 04:14 Est GFR (Non-Af Amer) > 60 (> 60) 12/17/17 04:14 BUN/Creatinine Ratio 37 (6-26) H 12/17/17 04:14 Glucose 120 mg/dL (70-105) H 12/17/17 04:14 POC Glucose 107 mg/dL (70-99) H 12/16/17 23:27 Calculated Osmolality 299 (280-300) 12/17/17 04:14 Lactic Acid 1.3 mmol/L (0.5-2.2) 12/17/17 04:14 Calcium 8.5 mg/dL (8.6-10.3) L 12/17/17 04:14 Total Bilirubin 0.7 mg/dL (0.3-1.0) 12/16/17 03:24 AST 92 Units/L (13-39) H 12/16/17 03:24 ALT 29 Units/L (7-52) 12/16/17 03:24 Alkaline Phosphatase 51 Units/L (34-104) 12/16/17 03:24 Troponin I 0.21 ng/mL (< 0.04) H* 12/15/17 14:12 Serum Total Protein 5.4 g/dL (6.4-8.9) L 12/16/17 03:24 Albumin 3.3 g/dL (3.5-5.7) L 12/16/17 03:24 Globulin 2.1 g/dL (2.4-3.5) L 12/16/17 03:24 Albumin/Globulin Ratio 1.6 (1.1-2.2) 12/16/17 03:24 Lipase 11 Units/L (11-82) 12/14/17 15:57 Stool Occult Bld Scrn Negative (Negative) 12/14/17 15:22 Specimen Rejected Hemolyzed 12/16/17 17:56 Blood Type A POSITIVE 12/14/17 15:57 Antibody Screen NEGATIVE 12/14/17 15:57 - Impressions Impressions Chest/Abdomen X-ray 12/16/17 00:01 IMPRESSION: 1. Persistently dilated bowel loops throughout abdomen and pelvis. Findings may represent bowel obstruction or ileus. No evidence of intra-abdominal free air. 2. Right basilar pulmonary opacities most compatible with a right pleural effusion and atelectasis. This is new since 12/14/2017 CT abdomen and pelvis. Recommend radiographic follow-up to complete resolution. D/ / 12/16/2017 07:55:56 Gilles Dudley MD / [facility] Interpreting Provider: Gilles Dudley MD Echocardiogram 12/16/17 13:23 Impressions: Technically sub-optimal due to clinical status, poor windows. LVEF 70%. Normal LV chamber size, wall thickness and function. Indeterminate diastolic function. Grossly normal right ventricular structure and function. Unable to estimate RVSP due to lack of TR jet. Valves were not well evaluated. No obvious significant valvular dysfunction noted. Left Ventricular Wall Motion: Rest Echo Findings All wall segments showed normal motion. Findings: Study Quality * Technically sub-optimal due to clinical status, poor windows. ECG Findings * Sinus tachycardia. Left Ventricle * LVEF 70%. * Normal LV chamber size, wall thickness and function. * Indeterminate diastolic function. Right Ventricle * Grossly normal right ventricular structure and function. Left Atrium * Normal left atrial size. Right Atrium * Right atrium is not well visualized. Aortic Valve * Aortic valve not well visualized. Mitral Valve * Mild mitral annular calcification * Normal mitral valve function. * No mitral regurgitation. * No mitral stenosis. Tricuspid Valve * Tricuspid valve not well visualized. * No tricuspid regurgitation. * Unable to estimate RVSP due to lack of TR jet. Pulmonic Valve * Pulmonic valve not well visualized. Aorta * Normally sized aortic root. Pericardium * The pericardium appears normal. IVC * The IVC is not well evaluated. Pulmonary Artery * Pulmonary artery not well visualized. Consult Discharge Plan - Plan Instructions: Acute Nausea and Vomiting (ED), Abdominal Pain (ED) Additional Instructions: Patient needs admission. He has nausea / vomiting , abdominal pain ,high WBC count, CT scan shows dilated small bowel loops & suspected small bowel obstruction. [facility] Care Provider[facility] -
--- NOTE | 2017-12-17 16:06 | General Surgery Progress Note ---
Date of Encounter: 12/17/17 Time of Encounter: 15:30 Subjective Patient reports: feels better Narrative: General Surgery - Patient much more animated today, repeatedly requesting removal of his Harrington catheter and NG tube The patient has remained afebrile the last 24 hours; pulse is also diminished ranging from 76-96; respirations 20, blood pressure 118/80. Abdomen is no longer distended. It is soft, flat, with no tenderness. There was no obvious rebound. Patient had an episode of emesis this morning, the NG tube was flushed and subsequently drained of approximately 600 mL brown feculent fluid. The patient has also passed diarrheal BM of brown feculent fluid that appeared very similar to the NG fluid. Laboratories: White count 10.7, hemoglobin 12.8 with hematocrit 39.0 - the drop in H&H reflects the improved hydration of this patient Differential shows an increase in neutrophils to 9.5 Electrolytes notable for a potassium borderline at 3.6 but BUN has improved to 28, creatinine 0.76; estimated GFR is greater than 60. Impression: Overall improvement with correction of the patient's dehydration The patient has moved his bowel suggesting resolution of the distal SBO evident on CT and AAS Recommendations Clamp NG. Open NG for 15 min every 4 hours or if abd distention, pain or N/V recur If clamped NG is tolerated overnight - can remove NG in AM and initiate clear liquid diet Objective Vital Signs - Last 8 Hours Temp Pulse Resp BP Pulse Ox 12/17/17 15:46 76 20 118/80 96 12/17/17 14:00 78 20 128/79 96 12/17/17 12:18 98.0 F 12/17/17 12:00 98.0 F 96 20 128/88 94 12/17/17 10:00 93 20 128/81 98 12/17/17 09:00 68 20 118/71 98 12/17/17 08:00 95 20 120/73 98 Intake and Output 12/16/17 12/17/17 12/17/17 23:59 07:59 15:59 Intake Total 100 / 100 1100 / 1100 1100 / 1100 Output Total 475 / 475 1000 / 1000 850 / 850 Balance -375 / -375 100 / 100 250 / 250 Intake: IV Fluids 100 / 100 1100 / 1100 1100 / 1100 D5% & Lact. Ringers 1000 Ml Bag 1000 / 1000 1000 / 1000 1,000 ML @ 125 mls/hr IVC .Q8H RUEL Rx#:[id number] Zosyn 3.375 GM In 0.9 % Sodium 100 / 100 100 / 100 100 / 100 Chloride (Mini-Bag +) 100 ML @ 25 mls/hr IVPB Q8HR RUEL Rx#: [id number] Output: Catheter 475 / 475 300 / 300 200 / 200 Gastric Drainage 700 / 700 650 / 650 Other: Stool Size Large Stool Consistency liquid Stool Color Green # Bowel Movement Diapers 1 Weight 65.8 kg Blood Glucose* 107 111 - Labs 12/17/17 04:14 12/17/17 04:14 Diabetes panel 12/17/17 Range/Units 04:14 Sodium 141 (136-145) mEq/L Potassium 3.6 (3.5-5.1) mEq/L Chloride 109 H (98-107) mEq/L Carbon Dioxide 27 (23-29) mEq/L BUN 28 H (8-23) mg/dL Creatinine 0.76 (0.70-1.30) mg/dL Glucose 120 H (70-105) mg/dL Calcium 8.5 L (8.6-10.3) mg/dL Calcium panel 12/17/17 Range/Units 04:14 Calcium 8.5 L (8.6-10.3) mg/dL Pituitary panel 12/17/17 Range/Units 04:14 Sodium 141 (136-145) mEq/L Potassium 3.6 (3.5-5.1) mEq/L Chloride 109 H (98-107) mEq/L Carbon Dioxide 27 (23-29) mEq/L BUN 28 H (8-23) mg/dL Creatinine 0.76 (0.70-1.30) mg/dL Glucose 120 H (70-105) mg/dL Calcium 8.5 L (8.6-10.3) mg/dL Adrenal panel 12/17/17 Range/Units 04:14 Sodium 141 (136-145) mEq/L Potassium 3.6 (3.5-5.1) mEq/L Chloride 109 H (98-107) mEq/L Carbon Dioxide 27 (23-29) mEq/L BUN 28 H (8-23) mg/dL Creatinine 0.76 (0.70-1.30) mg/dL Glucose 120 H (70-105) mg/dL Calcium 8.5 L (8.6-10.3) mg/dL Consult Discharge Plan - Plan Instructions: Acute Nausea and Vomiting (ED), Abdominal Pain (ED) Additional Instructions: Patient needs admission. He has nausea / vomiting , abdominal pain ,high WBC count, CT scan shows dilated small bowel loops & suspected small bowel obstruction. Referrals: [facility] [Primary Care Provider] -
[2017-12-17] MEDS ORDERED: Ondansetron 4 MG/2 ML VIAL IVP PRN (17:18)
[2017-12-17] MEDS ORDERED: *HR* Metoprolol 5 MG/5 ML VIAL IVP PRN (17:18)
[2017-12-17] MEDS ORDERED: Haloperidol Lactate 5 MG/ML VIAL IVP PRN (17:18)
[2017-12-17] MEDS ORDERED: Ipratropium/Albuterol Neb 3 ML IH PRN (17:18)
[2017-12-17] MEDS ORDERED: Naloxone 0.4 MG/ML INJ IVP PRN (17:18)
[2017-12-17] MEDS ORDERED: Nitroglycerin 0.4 MG TAB.SUBL SL PRN (17:18)
[2017-12-17] MEDS ORDERED: lamoTRIgine 100 MG TABLET PO SCH (21:00)
[2017-12-17] MEDS ORDERED: hydrOXYzine pamoate 25 MG CAPSULE PO SCH (21:00)
[2017-12-17] MEDS ORDERED: clonazePAM 1 MG TABLET PO SCH (21:00)
[2017-12-18] MEDS: D5% in Lactated Ringers 1,000 ML IVC SCH ×3 (01:55→13:10)
[2017-12-18] MEDS: *HR* Heparin 5,000 UNIT/ML VIAL SQ SCH ×3 (05:33→22:02)
[2017-12-18 07:13] LABS: Basophils % 0.2 %; Eosinophils # 0.1 K/mcL (0.0-0.6); Eosinophils % 1.2 %; Hematocrit 35.6 % (37.5-50.1); Hemoglobin 11.7 g/dL (12.9-16.9); Immature Granulocytes % 0.6 % (0-4); Lymphocytes # 0.6 K/mcL (0.6-4.6); Lymphocytes % 5.5 %; Mean Corpuscular HGB Conc 32.9 g/dL (31.6-35.5); Mean Corpuscular Hemoglobin 30.7 pg (28.0-33.3); Mean Corpuscular Volume 93.4 fL (83.0-100.0); Mean Platelet Volume 10.6 fL (9.4-12.4); Monocytes # 0.8 K/mcL (0.0-1.3); Monocytes % 7.4 %; Neutrophils # 8.6 K/mcL (1.6-8.9); Platelet Count 186 K/mcL (140-400); Red Blood Count 3.81 M/mcL (4.19-5.50); Segmented Neutrophils % 85.1 %
[2017-12-18 07:33] LABS: Blood Urea Nitrogen 25 mg/dL (8-23); Carbon Dioxide 28 mEq/L (23-29); Chloride 114 mEq/L (98-107); Potassium 3.3 mEq/L (3.5-5.1); Sodium 146 mEq/L (136-145)
[2017-12-18 07:34] LABS: BUN/Creatinine Ratio 33 (6-26); Calcium 8.2 mg/dL (8.6-10.3); Glucose 113 mg/dL (70-105); Osmolality,Calculated 307 (280-300); eGFR For Non-African Americans > 60 (> 60)
[2017-12-18] MEDS: Piperacillin/Tazobactam 3.375 GM in 0.9 % Sodium Chloride Mini Bag 100 ML IVPB SCH ×2 (09:34→15:50)
[2017-12-18] MEDS: Pantoprazole 40 MG VIAL IVP SCH (09:35)
--- NOTE | 2017-12-18 13:30 | Internal Med Progress Note ---
Hospitalist Progress Note - Encounter Date of Encounter: 12/18/17 Time of Encounter: 11:00 - Subjective Interval History: Mr. 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 Patient was admitted in the hospital and started him on empirical antibiotic for sepsis and placed NG tube for his SBO. His nausea vomiting improved, had bowel movement today. Secretions through NG tube also improved. Patient is alert, awake and oriented to time place person. Still have NG tube, which is clamped now - Exam Vitals: Temp Pulse Resp BP Pulse Ox 98.1 F 71 20 127/74 98 12/18/17 07:16 12/18/17 07:16 12/18/17 07:16 12/18/17 07:16 12/18/17 07:16 Exam: Gen: Alert, awake, Oriented to time,place and person Chest: Diminished breath sounds B/L, No wheezing, No crackles, No rales Heart: S1S2+ RRR No murmurs Abd: Soft, NT, BS +, No organomegaly Ext: No edema, pulses are palpable, No calf tenderness Neuro : Benign findings Skin: No rash. - Assessment and Plan (1) Sepsis Current Visit: Yes Status: Acute Assessment and Plan: He did meet sepsis criteria upon admission with elevated white count, lactic acid and tachycardia mostly due to pneumonia and a possible intra-abdominal infection improving continue broad-spectrum antibiotic associated continue close monitoring (2) Small bowel obstruction Current Visit: Yes Status: Acute Assessment and Plan: Improving NPO for now Since his NG tube secretions improved and had BM too, will talk to surgery to initiate clear liquid diet today cont clamping NG tube for next 24 hrs appreciate surgery recommendations (3) Pneumonia Current Visit: Yes Status: Acute Assessment and Plan: Reviewed chest x-ray showing infiltrates/consolidations more on the right side mostly bacterial pneumonia continue broad-spectrum antibiotic's Zosyn for now (4) Hypernatremia Current Visit: Yes Status: Acute Assessment and Plan: Changed IV fluids to D5 Water with K + (5) Leukocytosis Current Visit: No Status: Resolved Assessment and Plan: Improved (6) Acute kidney injury Current Visit: Yes Status: Resolved Assessment and Plan: Secondary to dehydration improved with IV hydration (7) Catatonia schizophrenia Current Visit: Yes Status: Acute Assessment and Plan: Resumed home medications on Haldol IV as needed (8) Dehydration Current Visit: Yes Status: Acute Assessment and Plan: Continue IV fluids (9) Elevated troponin Current Visit: Yes Status: Acute Assessment and Plan: Due to demand ischemia no further workup needed (10) Gastric ulcer Current Visit: Yes Status: Acute Assessment and Plan: ppi (11) DVT prophylaxis Current Visit: Yes Status: Acute Assessment and Plan: heparin SQ - Time Spent with Patient Total time spent is greater than 50% in coordination of care (as documented) at patient's floor/unit and/or counseling patient: Internal Medicine: Result - Labs CBC & Chem 7: 12/18/17 06:35 12/18/17 06:35 Labs: Short CBC 12/18/17 Range/Units 06:35 WBC 10.1 (4.3-11.1) K/mcL Hgb 11.7 L (12.9-16.9) g/dL Hct 35.6 L (37.5-50.1) % Plt Count 186 (140-400) K/mcL Neutrophils # 8.6 (1.6-8.9) K/mcL BMP 12/18/17 06:35 Sodium 146 H Potassium 3.3 L Chloride 114 H Carbon Dioxide 28 BUN 25 H Creatinine 0.76 Glucose 113 H Calcium 8.2 L - ABG Interpretation ABG results: ABG ABG pH 7.43 pH Units (7.32-7.45) 12/15/17 14:48 ABG pCO2 30 mmHg (35-45) L 12/15/17 14:48 ABG pO2 64 mmHg (85-104) L 12/15/17 14:48 ABG O2 Saturation 93 % (95-98) L 12/15/17 14:48 PT/INR, D-dimer PT 16.7 Seconds (9.4-12.1) H D 12/16/17 18:08 - Impressions Impressions Chest/Abdomen X-ray 12/18/17 00:01 IMPRESSION: Stable interstitial opacities within both lungs greater on the right. These changes are nonspecific and could represent interstitial edema versus infection. Distal partial small bowel obstruction likely not significantly changed. D/ / 12/18/2017 08:43:17 Wily Duran MD / [facility] Interpreting Provider: Wily Duran MD Consult Discharge Plan - Plan Instructions: Acute Nausea and Vomiting (ED), Abdominal Pain (ED) Additional Instructions: Patient needs admission. He has nausea / vomiting , abdominal pain ,high WBC count, CT scan shows dilated small bowel loops & suspected small bowel obstruction. [facility]errals: [facility] [Primary Care Provider] - (5) Leukocytosis Qualifiers: Leukocytosis type: unspecified Qualified Code(s): D72.829 - Elevated white blood cell count, unspecified (10) Gastric ulcer Qualifiers: Gastric ulcer chronicity: chronic Gastric ulcer complication status: without hemorrhage or perforation Qualified Code(s): K25.7 - Chronic gastric ulcer without hemorrhage or perforation
--- NOTE | 2017-12-18 15:06 | General Surgery Progress Note ---
Date of Encounter: 12/18/17 Time of Encounter: 14:35 Subjective Narrative: General Surgery - The patient remained afebrile, hemodynamically stable. Current temperature 98.1, pulse 71, respirations 17-20, blood pressure 127/74. Patient transferred out of ICU last evening. His overall status appears stable but it is unclear whether the NG had been clamped to the night as ordered. The patient is NG has been clamped since 0600 hrs.; It appears that today 's output was 350 mL. Several large liquid and moderate loose bowel movements are described. The abdomen remained soft, nondistended with no obvious tenderness The acute abdominal series completed this morning, reviewed with [facility] - prominent interstitial markings within both lungs, greater on the right. No significant change in the dilatation of the small bowel. The colon remains decompressed and poorly visualized. Impression: The patient appears clinically improved; no abdominal pain or distention. The patient is moving his bowels. Despite this clinical improvement, abdominal series is unchanged. Recommendation: Small bowel follow-through This was discussed with Dr. Jacob Objective Vital Signs - Last 8 Hours Temp Pulse Resp BP Pulse Ox 12/18/17 07:16 98.1 F 71 20 127/74 98 Intake and Output 12/17/17 12/18/17 12/18/17 23:59 07:59 15:59 Intake Total 1000 / 1000 4208 / 4208 200 / 200 Output Total 450 / 450 325 / 325 125 / 125 Balance 550 / 550 3883 / 3883 75 / 75 Intake: IV Fluids 1000 / 1000 4208 / 4208 200 / 200 D5% & Lact. Ringers 1000 Ml Bag 1000 / 1000 1000 / 1000 0 / 0 1,000 ML @ 125 mls/hr IVC .Q8H RUEL Rx#:[id number] Zosyn 3.375 GM In 0.9 % Sodium 100 / 100 100 / 100 Chloride (Mini-Bag +) 100 ML @ 25 mls/hr IVPB Q8HR RUEL Rx#: [id number] Oral 0 / 0 Output: Gastric Tube Lavage Amount 100 / 100 Right Nare 100 / 100 Catheter 250 / 250 225 / 225 125 / 125 Gastric Drainage 200 / 200 Other: Stool Size Moderate Stool Consistency loose Stool Color Brown Green # Bowel Movements 1 Weight 59 kg Blood Glucose* 99 85 Patient Weight 12/18/17 23:59 Weight 59 kg - Labs 12/18/17 06:35 12/18/17 06:35 Diabetes panel 12/18/17 Range/Units 06:35 Sodium 146 H (136-145) mEq/L Potassium 3.3 L (3.5-5.1) mEq/L Chloride 114 H (98-107) mEq/L Carbon Dioxide 28 (23-29) mEq/L BUN 25 H (8-23) mg/dL Creatinine 0.76 (0.70-1.30) mg/dL Glucose 113 H (70-105) mg/dL Calcium 8.2 L (8.6-10.3) mg/dL Calcium panel 12/18/17 Range/Units 06:35 Calcium 8.2 L (8.6-10.3) mg/dL Pituitary panel 12/18/17 Range/Units 06:35 Sodium 146 H (136-145) mEq/L Potassium 3.3 L (3.5-5.1) mEq/L Chloride 114 H (98-107) mEq/L Carbon Dioxide 28 (23-29) mEq/L BUN 25 H (8-23) mg/dL Creatinine 0.76 (0.70-1.30) mg/dL Glucose 113 H (70-105) mg/dL Calcium 8.2 L (8.6-10.3) mg/dL Adrenal panel 12/18/17 Range/Units 06:35 Sodium 146 H (136-145) mEq/L Potassium 3.3 L (3.5-5.1) mEq/L Chloride 114 H (98-107) mEq/L Carbon Dioxide 28 (23-29) mEq/L BUN 25 H (8-23) mg/dL Creatinine 0.76 (0.70-1.30) mg/dL Glucose 113 H (70-105) mg/dL Calcium 8.2 L (8.6-10.3) mg/dL Consult Discharge Plan - Plan Instructions: Acute Nausea and Vomiting (ED), Abdominal Pain (ED) Additional Instructions: Patient needs admission. He has nausea / vomiting , abdominal pain ,high WBC count, CT scan shows dilated small bowel loops & suspected small bowel obstruction. Referrals: [facility] [Primary Care Provider] -
[2017-12-18] MEDS: Potassium Chloride 20 MEQ in D5% in Water 1,000 ML IVC SCH (15:50)
[2017-12-19] MEDS: Potassium Chloride 20 MEQ in D5% in Water 1,000 ML IVC SCH ×3 (00:21→16:59)
[2017-12-19] MEDS: Piperacillin/Tazobactam 3.375 GM in 0.9 % Sodium Chloride Mini Bag 100 ML IVPB SCH ×3 (00:21→16:19)
[2017-12-19 05:25] LABS: Basophils % 0.4 %; Eosinophils # 0.1 K/mcL (0.0-0.6); Eosinophils % 1.5 %; Hematocrit 38.7 % (37.5-50.1); Hemoglobin 12.3 g/dL (12.9-16.9); Immature Granulocytes % 2.2 % (0-4); Lymphocytes % 10.8 %; Mean Corpuscular HGB Conc 31.8 g/dL (31.6-35.5); Mean Corpuscular Hemoglobin 30.1 pg (28.0-33.3); Mean Corpuscular Volume 94.9 fL (83.0-100.0); Mean Platelet Volume 10.4 fL (9.4-12.4); Monocytes # 1.1 K/mcL (0.0-1.3); Monocytes % 11.5 %; Neutrophils # 6.8 K/mcL (1.6-8.9); Platelet Count 184 K/mcL (140-400); Red Blood Count 4.08 M/mcL (4.19-5.50); Red Cell Distribution Width 13.9 % (11.5-14.5); Segmented Neutrophils % 73.6 %
[2017-12-19] MEDS: *HR* Heparin 5,000 UNIT/ML VIAL SQ SCH ×3 (05:31→21:12)
[2017-12-19 05:36] LABS: BUN/Creatinine Ratio 32 (6-26); Blood Urea Nitrogen 19 mg/dL (8-23); Calcium 8.1 mg/dL (8.6-10.3); Carbon Dioxide 24 mEq/L (23-29); Chloride 109 mEq/L (98-107); Glucose 99 mg/dL (70-105); Osmolality,Calculated 294 (280-300); Potassium 3.2 mEq/L (3.5-5.1); Sodium 141 mEq/L (136-145); eGFR For Non-African Americans > 60 (> 60)
[2017-12-19 06:26] LABS: Platelet Estimate Normal (Normal)
[2017-12-19 06:28] LABS: Anisocytosis 1+ (Not Present)
--- NOTE | 2017-12-19 08:08 | Internal Med Progress Note ---
<Jb Gonzalez - Last Filed: 12/19/17 13:40> Hospitalist Progress Note - Encounter Date of Encounter: 12/19/17 Time of Encounter: 09:57 - Subjective Interval History: Mr. Johnson is a 67M with PMH of gastric ulcer from H pylori, HTN, and catatonic schizophrenia. He was admitted on 12/14 for small bowel obstruction. He was started on empirical antibiotic for sepsis and NG tube was placed. His nausea vomiting improved, and he has had multiple bowel movements yesterday and today. NG tube clamped yesterday. Patient is alert, awake and oriented to time place person. Still have NG tube, which is clamped now. Denies any abdominal pain. States he is having many bowel movements. - Exam Vitals: Temp Pulse Resp BP Pulse Ox 97.5 F L 77 17 131/81 96 12/19/17 07:03 12/19/17 07:03 12/19/17 07:03 12/19/17 07:03 12/19/17 07:03 Exam: General: alert male in no acute distress Head: normocephalic and atraumatic Neck: supple, trachea midline, no lymphadeopathy Lungs: CTA bilaterally. non-labored breathing. No wheezes, rales, or rhonchi. Heart: RRR +S1 +S2. no murmurs, clicks, or rubs appreciated. Abdomen: soft, non-tender, non-distended. normoactive bowel sounds Extremities: radial pulses palpable and symmetrical. No edema or cyanosis. Neuro: A&Ox3. no speech difficulty or abnormality Skin: warm, dry, intact - Assessment and Plan (1) Small bowel obstruction Current Visit: Yes Status: Acute Assessment and Plan: Improving greatly, multiple bowel movements since yesterday Small bowel follow through was normal with contrast seen in rectum at 4 hours Will speak with surgery about CLD appreciate surgery recommendations (2) Catatonia schizophrenia Current Visit: Yes Status: Acute Assessment and Plan: Resumed home medications on Haldol IV as needed (3) Dehydration Current Visit: Yes Status: Acute Assessment and Plan: Continue IV fluids (4) Elevated troponin Current Visit: Yes Status: Acute Assessment and Plan: Likely due to demand ischemia no further workup needed (5) Gastric ulcer Current Visit: Yes Status: Acute Assessment and Plan: Protonix 40mg qd (6) Pneumonia Current Visit: Yes Status: Acute Assessment and Plan: Reviewed chest x-ray showing infiltrates/consolidations more on the right side mostly bacterial pneumonia Day 5 of Zosyn (7) Sepsis Current Visit: Yes Status: Acute Assessment and Plan: He did meet sepsis criteria upon admission with elevated WBC, lactic acid, and tachycardia mostly due to pneumonia and a possible intra-abdominal infection improving continue broad-spectrum antibiotic as above continue close monitoring (8) DVT prophylaxis Current Visit: Yes Status: Acute Assessment and Plan: heparin SQ (9) Hypernatremia Current Visit: Yes Status: Acute Assessment and Plan: Sodium 146 yesterday IV fluids - D5 Water with K started yesterday 141 today DVT Prophylaxis: Heparin SQ - Time Spent with Patient Total time spent is greater than 50% in coordination of care (as documented) at patient's floor/unit and/or counseling patient: Internal Medicine: Result - Labs CBC & Chem 7: 12/19/17 04:53 12/19/17 04:53 Labs: Short CBC 12/19/17 Range/Units 04:53 WBC 9.2 (4.3-11.1) K/mcL Hgb 12.3 L (12.9-16.9) g/dL Hct 38.7 (37.5-50.1) % Plt Count 184 (140-400) K/mcL Neutrophils # 6.8 (1.6-8.9) K/mcL BMP 12/19/17 04:53 Sodium 141 Potassium 3.2 L Chloride 109 H Carbon Dioxide 24 BUN 19 Creatinine 0.60 L Glucose 99 Calcium 8.1 L - ABG Interpretation ABG results: ABG ABG pH 7.43 pH Units (7.32-7.45) 12/15/17 14:48 ABG pCO2 30 mmHg (35-45) L 12/15/17 14:48 ABG pO2 64 mmHg (85-104) L 12/15/17 14:48 ABG O2 Saturation 93 % (95-98) L 12/15/17 14:48 PT/INR, D-dimer PT 16.7 Seconds (9.4-12.1) H D 12/16/17 18:08 - Impressions Impressions Chest/Abdomen X-ray 12/18/17 00:01 IMPRESSION: Stable interstitial opacities within both lungs greater on the right. These changes are nonspecific and could represent interstitial edema versus infection. Distal partial small bowel obstruction likely not significantly changed. D/ / 12/18/2017 08:43:17 Wily Duran MD / alejandro Interpreting Provider: Wily Duran MD Consult Discharge Plan - Plan Instructions: Acute Nausea and Vomiting (ED), Abdominal Pain (ED) Additional Instructions: Patient needs admission. He has nausea / vomiting , abdominal pain ,high WBC count, CT scan shows dilated small bowel loops & suspected small bowel obstruction. [facility] Provider[facility] - <Asuncion Jacob - Last Filed: 12/19/17 14:53> Hospitalist Progress Note - Encounter Date of Encounter: 12/19/17 - Exam Vitals: Temp Pulse Resp BP Pulse Ox 98.2 F 84 18 117/74 94 12/19/17 11:01 12/19/17 11:01 12/19/17 11:01 12/19/17 11:01 12/19/17 11:01 - Assessment and Plan (1) Small bowel obstruction Current Visit: Yes Status: Acute (2) Catatonia schizophrenia Current Visit: Yes Status: Acute (3) Dehydration Current Visit: Yes Status: Acute (4) Elevated troponin Current Visit: Yes Status: Acute (5) Gastric ulcer Current Visit: Yes Status: Acute (6) DVT prophylaxis Current Visit: Yes Status: Acute (7) Sepsis Current Visit: Yes Status: Acute (8) Pneumonia Current Visit: Yes Status: Acute (9) Hypernatremia Current Visit: Yes Status: Acute - Time Spent with Patient Total time spent is greater than 50% in coordination of care (as documented) at patient's floor/unit and/or counseling patient: Internal Medicine: Result - Labs CBC & Chem 7: 12/19/17 04:53 12/19/17 04:53 Labs: Short CBC 12/19/17 Range/Units 04:53 WBC 9.2 (4.3-11.1) K/mcL Hgb 12.3 L (12.9-16.9) g/dL Hct 38.7 (37.5-50.1) % Plt Count 184 (140-400) K/mcL Neutrophils # 6.8 (1.6-8.9) K/mcL BMP 12/19/17 04:53 Sodium 141 Potassium 3.2 L Chloride 109 H Carbon Dioxide 24 BUN 19 Creatinine 0.60 L Glucose 99 Calcium 8.1 L - ABG Interpretation ABG results: ABG ABG pH 7.43 pH Units (7.32-7.45) 12/15/17 14:48 ABG pCO2 30 mmHg (35-45) L 12/15/17 14:48 ABG pO2 64 mmHg (85-104) L 12/15/17 14:48 ABG O2 Saturation 93 % (95-98) L 12/15/17 14:48 PT/INR, D-dimer PT 16.7 Seconds (9.4-12.1) H D 12/16/17 18:08 - Impressions Impressions Small Bowel X-Ray 12/19/17 00:01 IMPRESSION: Contrast was seen within the ascending colon at 2 hours. Contrast was seen within rectum at 4 hours. Previously seen bowel obstruction may have resolved. Correlate with current symptoms. D/ / 12/19/2017 13:18:19 Gilles Dudley MD / [facility] Interpreting Provider: Gilles Dudley MD - Attending Attestation I examined this patient and my medical decision-making was reviewed with the Resident Physician Dr. Gonzalez. I agree with the documented findings, disposition and treatment plan as described except to the extent set forth below. Mr. 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 Patient was admitted in the hospital and started him on empirical antibiotic for sepsis and placed NG tube for his SBO. His nausea vomiting improved, had bowel movement today. Secretions through NG tube also improved. Patient is alert, awake and oriented to time place person. Still have NG tube, which is clamped now. Gen: A, A,, O to self Heart: S1S2+ RRR Chest: Diminished BS b/l Heart: S1S2+ RRR No murmurs a/p 1. Acute SBO Improved Small bowel through was done today will talk to Surgery about diet 2. Sepsis with PNA mostly bacterial , concerning aspiratinal continue broad-spectrum antibiotic Zosyn for now will de-escalate to oral antibiotic when patient tolerate PO intake <Jb Gonzalez - Last Filed: 12/19/17 13:40> (5) Gastric ulcer Qualifiers: Gastric ulcer chronicity: chronic Gastric ulcer complication status: without hemorrhage or perforation Qualified Code(s): K25.7 - Chronic gastric ulcer without hemorrhage or perforation <Asuncion Jacob - Last Filed: 12/19/17 14:53> (5) Gastric ulcer Qualifiers: Gastric ulcer chronicity: chronic Gastric ulcer complication status: without hemorrhage or perforation Qualified Code(s): K25.7 - Chronic gastric ulcer without hemorrhage or perforation
--- NOTE | 2017-12-19 09:18 | Electrocardiograph Report ---
[address] [place], [place] [address] Test Date: 2017-12-15 Pat Name: Farhan Johnson Department: 112 Room: 2A Gender: M Sole Layer: : 1950 Requested By: Darrell Guy Order Number: [id number] Reading MD: Marina Kruger Measurements Intervals [place] Rate: 135 P: 43 ND: 163 QRS: -7 QRSD: 81 T: 40 QT: 307 QTc: 386 Interpretive Statements SINUS TACHYCARDIA INDETERMINATE AXIS ABNORMAL RHYTHM ECG Electronically Signed On 12-19-2017 9:17:21 EDT by Marina Kruger
--- NOTE | 2017-12-19 09:42 | Electrocardiograph Report ---
[place] [address] Test Date: 2017-12-16 Pat Name: Farhan Johnson Department: 112 Room: 2A Gender: M Lean Leader: [facility] : 1950 Requested By: Matthew Dey Order Number: [id number] Reading MD: Marina Kruger Measurements Intervals [place] Rate: 109 P: 37 WI: 175 QRS: 6 QRSD: 93 T: 31 QT: 336 QTc: 400 Interpretive Statements SINUS TACHYCARDIA WITH OCCASIONAL VENTRICULAR PREMATURE COMPLEXES ABNORMAL RHYTHM ECG Electronically Signed On 12-19-2017 9:40:50 EDT by Marina Kruger
[2017-12-19] MEDS ORDERED: Potassium Chloride 40 MEQ, Lidocaine 1% 2 ML in D5% in Water 500 ML IVPB ONE (09:57)
[2017-12-19] MEDS: Pantoprazole 40 MG VIAL IVP SCH (10:48)
--- NOTE | 2017-12-19 17:59 | General Surgery Progress Note ---
Date of Encounter: 12/19/17 Time of Encounter: 17:45 Subjective Patient reports: feels better Narrative: General Surgery - this is a delayed note. The patient been seen earlier today and again this evening Abdomen has remained soft and nondistended. Bowel sounds are active the patient is moving his bowels frequently The patient has remained afebrile, hemodynamically stable - 98.2, pulse 84, respirations 18, blood pressure 117/74. Small bowel follow-through was reviewed with [facility]. The study demonstrated persistent dilated loops of small bowel but contrast was evident in the acscending colon within 2 hours. Contrast reached the rectum in 4 hours. The NG tube was removed. The patient was allowed liquids. This evening, patient remains afebrile hemodynamically stable but has literally consumed every clear liquid brought the bedside. Abdomen remained soft but is slightly distended compared to this morning. Bowel sounds are active. There was no obvious tenderness Nursing report multiple liquid BMs. This was discussed with Dr. Jacob - fluid intake has been restricted to reduce the risk of the patient consuming so much fluid to cause recurrent abdominal distention, pain, nausea and vomiting. Laboratories: normal white count at 9.2, hemoglobin as rebounded to 12.3 with hematocrit 38.7. Differential has remained within normal limits. Electrolytes notable for potassium 3.2. IV supplementation had been provided through the course of the day. Oral supplementation is also now possible Impression: Abdominal distention, pain, nausea and vomiting resolved. No evidence of small bowel obstruction. The abdominal symptoms appeared to be medication mediated as the patient is on multiple antipsychotics Recommendations: Fluid restrictions as already ordered, allow patient to slowly increase his oral intake and advance diet as tolerated within these parameters Flat and upright abdomen is pending for the a.m. this should show continued progression of oral contrast through the bowel to the rectum There has been no surgical etiology for the patient 's symptoms identified - I will sign off. No surgical follow up is needed or planned. Objective Vital Signs - Last 8 Hours Temp Pulse Resp BP Pulse Ox 12/19/17 16:16 98.7 F 84 17 133/88 94 12/19/17 11:01 98.2 F 84 18 117/74 94 Intake and Output 12/19/17 12/19/17 12/19/17 07:59 15:59 23:59 Intake Total 100 / 100 1710 / 1710 522 / 522 Output Total 350 / 350 Balance 100 / 100 1360 / 1360 522 / 522 Intake: IV Fluids 100 / 100 1110 / 1110 522 / 522 KCl 20 MEQ In Dextrose 5% 1,000 1010 / 1010 ML @ 125 mls/hr IVC .Q8H5M PENDING SALE TO [facility] Rx#:[id number] Zosyn 3.375 GM In 0.9 % Sodium 100 / 100 100 / 100 Chloride (Mini-Bag +) 100 ML @ 25 mls/hr IVPB Q8HR PENDING SALE TO [facility] Rx#: [id number] KCl 40 MEQ Xylocaine 2 ML In 522 / 522 Dextrose 5% 500 ML @ 130.5 mls/ hr IVPB ONCE ONE Rx#:[id number] Oral 600 / 600 Output: Catheter 350 / 350 Other: Stool Size Moderate Moderate Stool Consistency liquid liquid Stool Color Brown Green # Bowel Movements 1 # Bowel Movement Diapers 2 Weight 60.9 kg Blood Glucose* 71 71 Patient Weight 12/19/17 23:59 Weight 60.9 kg - Labs 12/19/17 04:53 12/19/17 04:53 Diabetes panel 12/19/17 Range/Units 04:53 Sodium 141 (136-145) mEq/L Potassium 3.2 L (3.5-5.1) mEq/L Chloride 109 H (98-107) mEq/L Carbon Dioxide 24 (23-29) mEq/L BUN 19 (8-23) mg/dL Creatinine 0.60 L (0.70-1.30) mg/dL Glucose 99 (70-105) mg/dL Calcium 8.1 L (8.6-10.3) mg/dL Calcium panel 12/19/17 Range/Units 04:53 Calcium 8.1 L (8.6-10.3) mg/dL Pituitary panel 12/19/17 Range/Units 04:53 Sodium 141 (136-145) mEq/L Potassium 3.2 L (3.5-5.1) mEq/L Chloride 109 H (98-107) mEq/L Carbon Dioxide 24 (23-29) mEq/L BUN 19 (8-23) mg/dL Creatinine 0.60 L (0.70-1.30) mg/dL Glucose 99 (70-105) mg/dL Calcium 8.1 L (8.6-10.3) mg/dL Adrenal panel 12/19/17 Range/Units 04:53 Sodium 141 (136-145) mEq/L Potassium 3.2 L (3.5-5.1) mEq/L Chloride 109 H (98-107) mEq/L Carbon Dioxide 24 (23-29) mEq/L BUN 19 (8-23) mg/dL Creatinine 0.60 L (0.70-1.30) mg/dL Glucose 99 (70-105) mg/dL Calcium 8.1 L (8.6-10.3) mg/dL Consult Discharge Plan - Plan Instructions: Acute Nausea and Vomiting (ED), Abdominal Pain (ED) Additional Instructions: Patient needs admission. He has nausea / vomiting , abdominal pain ,high WBC count, CT scan shows dilated small bowel loops & suspected small bowel obstruction. [facility]errals: [facility] [Primary Care Provider] -
[2017-12-20] MEDS: Piperacillin/Tazobactam 3.375 GM in 0.9 % Sodium Chloride Mini Bag 100 ML IVPB SCH ×2 (00:10→09:42)
[2017-12-20] MEDS ORDERED: 0.9 % Sodium Chloride Mini Bag 100 ML ONE (00:14)
[2017-12-20] MEDS: *HR* Heparin 5,000 UNIT/ML VIAL SQ SCH ×3 (05:36→21:53)
[2017-12-20 07:06] LABS: Hematocrit 37.3 % (37.5-50.1); Hemoglobin 12.1 g/dL (12.9-16.9); Mean Corpuscular HGB Conc 32.4 g/dL (31.6-35.5); Mean Corpuscular Volume 92.6 fL (83.0-100.0); Mean Platelet Volume 10.9 fL (9.4-12.4); Platelet Count 211 K/mcL (140-400); Red Blood Count 4.03 M/mcL (4.19-5.50); Red Cell Distribution Width 13.7 % (11.5-14.5)
[2017-12-20 07:19] LABS: BUN/Creatinine Ratio 23 (6-26); Blood Urea Nitrogen 15 mg/dL (8-23); Calcium 8.1 mg/dL (8.6-10.3); Carbon Dioxide 24 mEq/L (23-29); Chloride 104 mEq/L (98-107); Glucose 98 mg/dL (70-105); Osmolality,Calculated 283 (280-300); Potassium 3.2 mEq/L (3.5-5.1); Sodium 136 mEq/L (136-145); eGFR For Non-African Americans > 60 (> 60)
[2017-12-20 08:28] LABS: Eosinophils # 0.3 K/mcL (0.0-0.6); Lymphocytes # 2.8 K/mcL (0.6-4.6); Neutrophils # 7.6 K/mcL (1.6-8.9); Platelet Estimate Normal (Normal)
[2017-12-20 08:29] LABS: Reactive Lymphocytes Present (Not Present)
[2017-12-20 08:30] LABS: Anisocytosis 1+ (Not Present)
[2017-12-20] MEDS ORDERED: Potassium Chloride Elixir 20 MEQ/15 ML UDC PO ONE (08:31)
--- NOTE | 2017-12-20 09:02 | Internal Med Progress Note ---
<Jb Gonzalez - Last Filed: 12/20/17 14:46> Hospitalist Progress Note - Encounter Date of Encounter: 12/20/17 Time of Encounter: 08:45 - Subjective Interval History: Mr. Johnson is a 67M with PMH of gastric ulcer from H pylori, HTN, and catatonic schizophrenia. He was admitted on 12/14 for small bowel obstruction. He was started on empirical antibiotic for sepsis and NG tube was placed. His nausea vomiting improved, and he has had multiple bowel movements. NG tube was removed. Pt tolerating CLD well, but has to be on restriction because of mentation. Bowel movements have reported turned from loose to maritza diarrhea. Patient is alert, awake and oriented to time, place, and person. Denies any abdominal pain. States he is having many bowel movements. - Exam Vitals: Temp Pulse Resp BP Pulse Ox 98.5 F 86 16 131/85 97 12/20/17 07:00 12/20/17 07:00 12/20/17 07:00 12/20/17 07:00 12/20/17 07:00 Exam: General: alert male in no acute distress Head: normocephalic and atraumatic Neck: supple, trachea midline, no lymphadeopathy Lungs: CTA bilaterally. non-labored breathing. No wheezes, rales, or rhonchi. Heart: RRR +S1 +S2. no murmurs, clicks, or rubs appreciated. Abdomen: soft, non-tender, non-distended. normoactive bowel sounds Extremities: radial pulses palpable and symmetrical. No edema or cyanosis. Neuro: A&Ox3. no speech difficulty or abnormality Skin: warm, dry, intact - Assessment and Plan (1) Small bowel obstruction Current Visit: Yes Status: Resolved Assessment and Plan: Improving greatly, multiple bowel movements since yesterday Small bowel follow through was normal with contrast seen in rectum at 4 hours Tolerating CLD, has to be on restrictions due to mentation Appreciate surgery recommendations Possibly advance diet Transition to po medications (2) Catatonia schizophrenia Current Visit: Yes Status: Chronic Assessment and Plan: Resumed home medications has prn Haldol IV (3) Dehydration Current Visit: Yes Status: Resolved Assessment and Plan: Stop IV fluids now that tolerating diet (4) Elevated troponin Current Visit: Yes Status: Acute Assessment and Plan: Likely due to demand ischemia no further workup needed (5) Gastric ulcer Current Visit: Yes Status: Acute Assessment and Plan: Transition to po PPI (6) Pneumonia Current Visit: Yes Status: Acute Assessment and Plan: Reviewed chest x-ray showing infiltrates/consolidations more on the right side mostly bacterial pneumonia Transition to Augmentin Day 6 to abx therapy, for total of 7 days. (7) Sepsis Current Visit: Yes Status: Acute Assessment and Plan: He did meet sepsis criteria upon admission with elevated WBC, lactic acid, and tachycardia mostly due to pneumonia and a possible intra-abdominal infection improving continue broad-spectrum antibiotic as above continue close monitoring (8) DVT prophylaxis Current Visit: Yes Status: Acute Assessment and Plan: heparin SQ (9) Hypernatremia Current Visit: Yes Status: Resolved Assessment and Plan: Sodium 146 yesterday IV fluids - D5 Water with K Stopped IV fluids today since tolerating diet 136 today - Time Spent with Patient Total time spent is greater than 50% in coordination of care (as documented) at patient's floor/unit and/or counseling patient: Internal Medicine: Result - Labs CBC & Chem 7: 12/20/17 06:31 12/20/17 06:31 Labs: Short CBC 12/20/17 Range/Units 06:31 WBC 12.7 H (4.3-11.1) K/mcL Hgb 12.1 L (12.9-16.9) g/dL Hct 37.3 L (37.5-50.1) % Plt Count 211 (140-400) K/mcL Neutrophils # 7.6 (1.6-8.9) K/mcL BMP 12/20/17 06:31 Sodium 136 Potassium 3.2 L Chloride 104 Carbon Dioxide 24 BUN 15 Creatinine 0.65 L Glucose 98 Calcium 8.1 L - ABG Interpretation ABG results: ABG ABG pH 7.43 pH Units (7.32-7.45) 12/15/17 14:48 ABG pCO2 30 mmHg (35-45) L 12/15/17 14:48 ABG pO2 64 mmHg (85-104) L 12/15/17 14:48 ABG O2 Saturation 93 % (95-98) L 12/15/17 14:48 PT/INR, D-dimer PT 16.7 Seconds (9.4-12.1) H D 10/01/18 18:08 - Impressions Impressions Small Bowel X-Ray 12/19/17 00:01 IMPRESSION: Contrast was seen within the ascending colon at 2 hours. Contrast was seen within rectum at 4 hours. Previously seen bowel obstruction may have resolved. Correlate with current symptoms. D/ / 12/19/2017 13:18:19 Gilles Dudley MD / [facility] Interpreting Provider: Gilles Dudley MD Consult Discharge Plan - Plan Instructions: Acute Nausea and Vomiting (ED), Abdominal Pain (ED) Additional Instructions: Patient needs admission. He has nausea / vomiting , abdominal pain ,high WBC count, CT scan shows dilated small bowel loops & suspected small bowel obstruction. [facility]errals: [facility] [Primary Care Provider[facility] - <Asuncion Jacob - Last Filed: 12/20/17 15:24> Hospitalist Progress Note - Encounter Date of Encounter: 12/20/17 - Exam Vitals: Temp Pulse Resp BP Pulse Ox 98.1 F 80 18 134/83 93 12/20/17 11:12 12/20/17 11:12 12/20/17 11:12 12/20/17 11:12 12/20/17 11:12 - Assessment and Plan (1) Small bowel obstruction Current Visit: Yes Status: Resolved (2) Catatonia schizophrenia Current Visit: Yes Status: Chronic (3) Dehydration Current Visit: Yes Status: Resolved (4) Elevated troponin Current Visit: Yes Status: Acute (5) Gastric ulcer Current Visit: Yes Status: Acute (6) DVT prophylaxis Current Visit: Yes Status: Acute (7) Sepsis Current Visit: Yes Status: Acute (8) Pneumonia Current Visit: Yes Status: Acute (9) Hypernatremia Current Visit: Yes Status: Resolved - Time Spent with Patient Total time spent is greater than 50% in coordination of care (as documented) at patient's floor/unit and/or counseling patient: Internal Medicine: Result - Labs CBC & Chem 7: 12/20/17 06:31 12/20/17 06:31 Labs: Short CBC 12/20/17 Range/Units 06:31 WBC 12.7 H (4.3-11.1) K/mcL Hgb 12.1 L (12.9-16.9) g/dL Hct 37.3 L (37.5-50.1) % Plt Count 211 (140-400) K/mcL Neutrophils # 7.6 (1.6-8.9) K/mcL BMP 12/20/17 06:31 Sodium 136 Potassium 3.2 L Chloride 104 Carbon Dioxide 24 BUN 15 Creatinine 0.65 L Glucose 98 Calcium 8.1 L - ABG Interpretation ABG results: ABG ABG pH 7.43 pH Units (7.32-7.45) 12/15/17 14:48 ABG pCO2 30 mmHg (35-45) L 12/15/17 14:48 ABG pO2 64 mmHg (85-104) L 12/15/17 14:48 ABG O2 Saturation 93 % (95-98) L 12/15/17 14:48 PT/INR, D-dimer PT 16.7 Seconds (9.4-12.1) H D 12/16/17 18:08 - Impressions Impressions Abdomen X-Ray 12/20/17 07:00 IMPRESSION: No significant change seen. Findings again suggest a partial small bowel obstruction D/ / Julio Rosario MD / Julio Rosario MD Interpreting Provider: Julio Rosario MD - Attending Attestation I examined this patient and my medical decision-making was reviewed with the Resident Physician Dr. Gonzalez. I agree with the documented findings, disposition and treatment plan as described except to the extent set forth below. Mr. 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 Patient was admitted in the hospital and started him on empirical antibiotic for sepsis and placed NG tube for his SBO. His nausea vomiting improved, had bowel movement today. Secretions through NG tube also improved. Patient is alert, awake and oriented to time place person. Off the NG tube y/d. Tolerating PO intake well. Gen: A, A,, O to self Heart: S1S2+ RRR Chest: Diminished BS b/l Heart: S1S2+ RRR No murmurs a/p 1. Acute SBO Improved Small bowel follow through went well advance diet as tolerated 2. Sepsis with PNA mostly bacterial , concerning aspirational switched to PO Augmentin 3. Physical deconditioning PT / OT eval 4. Acute on chronic hypoxic resp failure Duoneb and O2 Will get a CXR <Jb Gonzalez - Last Filed: 12/20/17 14:46> (5) Gastric ulcer Qualifiers: Gastric ulcer chronicity: chronic Gastric ulcer complication status: without hemorrhage or perforation Qualified Code(s): K25.7 - Chronic gastric ulcer without hemorrhage or perforation <Asuncion Jacob - Last Filed: 12/20/17 15:24> (5) Gastric ulcer Qualifiers: Gastric ulcer chronicity: chronic Gastric ulcer complication status: without hemorrhage or perforation Qualified Code(s): K25.7 - Chronic gastric ulcer without hemorrhage or perforation
[2017-12-20] MEDS: lamoTRIgine 100 MG TABLET PO SCH ×2 (09:41→21:53)
[2017-12-20] MEDS: hydrOXYzine pamoate 25 MG CAPSULE PO SCH ×4 (09:41→21:53)
[2017-12-20] MEDS: Pantoprazole 40 MG VIAL IVP SCH (09:47)
[2017-12-20] MEDS: Amoxicillin/Clavulanate 400 MG/5 ML UDC PO SCH (17:05)
[2017-12-21 04:21] LABS: Basophils % 0.3 %; Eosinophils % 1.4 %; Hematocrit 34.2 % (37.5-50.1); Hemoglobin 11.6 g/dL (12.9-16.9); Immature Granulocytes % 2.7 % (0-4); Lymphocytes % 9.2 %; Mean Corpuscular HGB Conc 33.9 g/dL (31.6-35.5); Mean Corpuscular Hemoglobin 30.5 pg (28.0-33.3); Mean Platelet Volume 10.5 fL (9.4-12.4); Platelet Count 242 K/mcL (140-400); Red Cell Distribution Width 13.5 % (11.5-14.5); Segmented Neutrophils % 78.4 %
[2017-12-21 04:22] LABS: Basophils # 0.1 K/mcL (0.0-0.2); Eosinophils # 0.2 K/mcL (0.0-0.6); Lymphocytes # 1.6 K/mcL (0.6-4.6); Monocytes # 1.4 K/mcL (0.0-1.3); Neutrophils # 13.5 K/mcL (1.6-8.9)
[2017-12-21 04:40] LABS: BUN/Creatinine Ratio 20 (6-26); Blood Urea Nitrogen 11 mg/dL (8-23); Carbon Dioxide 24 mEq/L (23-29); Chloride 102 mEq/L (98-107); Glucose 98 mg/dL (70-105); Osmolality,Calculated 275 (280-300); Potassium 3.1 mEq/L (3.5-5.1); Sodium 133 mEq/L (136-145); eGFR For Non-African Americans > 60 (> 60)
[2017-12-21 05:05] LABS: Hypochromasia Present (Not Present); Platelet Estimate Normal (Normal); Reactive Lymphocytes Present (Not Present)
[2017-12-21] MEDS: Amoxicillin/Clavulanate 400 MG/5 ML UDC PO SCH (05:47)
[2017-12-21] MEDS: *HR* Heparin 5,000 UNIT/ML VIAL SQ SCH ×3 (05:48→22:13)
[2017-12-21] MEDS: lamoTRIgine 100 MG TABLET PO SCH ×2 (08:14→19:53)
[2017-12-21] MEDS: hydrOXYzine pamoate 25 MG CAPSULE PO SCH ×4 (08:14→19:53)
--- NOTE | 2017-12-21 09:02 | Internal Med Progress Note ---
<Jb Gonzalez - Last Filed: 12/21/17 15:42> Hospitalist Progress Note - Encounter Date of Encounter: 12/21/17 Time of Encounter: 11:00 - Subjective Interval History: Mr. Johnson is a 67M with PMH of gastric ulcer from H pylori, HTN, and catatonic schizophrenia. He was admitted on 12/14 for small bowel obstruction. He was started on empirical antibiotic for sepsis and NG tube was placed. His nausea vomiting improved, and he has had multiple bowel movements. NG tube was removed. Pt tolerating diet well, but has to be on restriction because of mentation. Continued bowel movements. Patient is alert, awake and oriented to time, place, and person. No new or acute complaints, however that could be in part to pts level of mentation. Looks pale and fatigued. Pt also noted to be coughing during encounter, which is new. - Exam Vitals: Temp Pulse Resp BP Pulse Ox 98.8 F 95 20 111/72 93 12/21/17 06:48 12/21/17 06:48 12/21/17 06:48 12/21/17 06:48 12/21/17 06:48 Exam: General: alert male. mild distress Head: normocephalic and atraumatic Neck: supple, trachea midline, no lymphadeopathy Lungs: CTA bilaterally. non-labored breathing. No wheezes, rales, or rhonchi. Heart: RRR +S1 +S2. no murmurs, clicks, or rubs appreciated. Abdomen: soft, non-tender, non-distended. normoactive bowel sounds Extremities: radial pulses palpable and symmetrical. No edema or cyanosis. Neuro: A&Ox3. no speech difficulty or abnormality Skin: warm, dry, intact. 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 Assessment and Plan: Resumed home medications has prn Haldol IV (3) Elevated troponin Current Visit: Yes Status: Acute Assessment and Plan: Likely due to demand ischemia no further workup needed (4) Gastric ulcer Current Visit: Yes Status: Acute Assessment and Plan: Continue PPI (5) Sepsis Current Visit: Yes Status: Acute Assessment and Plan: He did meet sepsis criteria upon admission with elevated WBC, lactic acid, and tachycardia mostly due to pneumonia and a possible intra-abdominal infection WBC normalized, but was noted to increase again the past couple of days resulting at 17.2 today Lactic acid 1.1 HR normal Non-tachypnic Afebrile continue antibiotics as above continue close monitoring (6) Pneumonia Current Visit: Yes Status: Acute Assessment and Plan: CXR on 12/15 showed infiltrates/consolidations more on the right side Was on Zosyn for 5.5 days, followed by Augmentin for 1.5 days Pt has begun to decline clinically, new cough noted during encounter Suspect may be some aspiration component with pt's speech and mentation WBC elevated at 17.2 today Afebrile HR normal non-tachypnic Transition back to Zosyn and add Vanc Day 7 of total abx therapy Continue to monitor DVT Prophylaxis: heparin SQ - Time Spent with Patient Total time spent is greater than 50% in coordination of care (as documented) at patient's floor/unit and/or counseling patient: Internal Medicine: Result - Labs CBC & Chem 7: 12/21/17 04:01 12/21/17 04:01 Labs: Short CBC 12/21/17 Range/Units 04:01 WBC 17.2 H (4.3-11.1) K/mcL Hgb 11.6 L (12.9-16.9) g/dL Hct 34.2 L (37.5-50.1) % Plt Count 242 (140-400) K/mcL Neutrophils # 13.5 H (1.6-8.9) K/mcL BMP 12/21/17 04:01 Sodium 133 L Potassium 3.1 L Chloride 102 Carbon Dioxide 24 BUN 11 Creatinine 0.56 L Glucose 98 Calcium 8.0 L - ABG Interpretation ABG results: ABG ABG pH 7.43 pH Units (7.32-7.45) 12/15/17 14:48 ABG pCO2 30 mmHg (35-45) L 12/15/17 14:48 ABG pO2 64 mmHg (85-104) L 12/15/17 14:48 ABG O2 Saturation 93 % (95-98) L 12/15/17 14:48 PT/INR, D-dimer PT 16.7 Seconds (9.4-12.1) H D 12/16/17 18:08 - Impressions Impressions Abdomen X-Ray 12/20/17 07:00 IMPRESSION: No significant change seen. Findings again suggest a partial small bowel obstruction D/ / Julio Rosario MD / Julio Rosario MD Interpreting Provider: Julio Rosario MD - Diagnostic Studies Chest x-ray Status: image reviewed by me Consult Discharge Plan - Plan Instructions: Acute Nausea and Vomiting (ED), Abdominal Pain (ED) Additional Instructions: Patient needs admission. He has nausea / vomiting , abdominal pain ,high WBC count, CT scan shows dilated small bowel loops & suspected small bowel obstruction. [facility]errals: [facility]Primary Care Provider[facility] - <Asuncion Jacob - Last Filed: 12/21/17 18:47> Hospitalist Progress Note - Encounter Date of Encounter: 12/21/17 - Exam Vitals: Temp Pulse Resp BP Pulse Ox 99.4 F 100 18 113/70 90 12/21/17 16:17 12/21/17 16:17 12/21/17 16:17 12/21/17 16:17 12/21/17 16:17 - Assessment and Plan (1) Small bowel obstruction Current Visit: Yes Status: Resolved (2) Catatonia schizophrenia Current Visit: Yes Status: Chronic (3) Elevated troponin Current Visit: Yes Status: Acute (4) Gastric ulcer Current Visit: Yes Status: Acute (5) Sepsis Current Visit: Yes Status: Acute (6) Pneumonia Current Visit: Yes Status: Acute - Time Spent with Patient Total time spent is greater than 50% in coordination of care (as documented) at patient's floor/unit and/or counseling patient: Internal Medicine: Result - Labs CBC & Chem 7: 12/21/17 04:01 12/21/17 04:01 Labs: Short CBC 12/21/17 Range/Units 04:01 WBC 17.2 H (4.3-11.1) K/mcL Hgb 11.6 L (12.9-16.9) g/dL Hct 34.2 L (37.5-50.1) % Plt Count 242 (140-400) K/mcL Neutrophils # 13.5 H (1.6-8.9) K/mcL BMP 12/21/17 04:01 Sodium 133 L Potassium 3.1 L Chloride 102 Carbon Dioxide 24 BUN 11 Creatinine 0.56 L Glucose 98 Calcium 8.0 L - ABG Interpretation ABG results: ABG ABG pH 7.43 pH Units (7.32-7.45) 12/15/17 14:48 ABG pCO2 30 mmHg (35-45) L 12/15/17 14:48 ABG pO2 64 mmHg (85-104) L 12/15/17 14:48 ABG O2 Saturation 93 % (95-98) L 12/15/17 14:48 PT/INR, D-dimer PT 16.7 Seconds (9.4-12.1) H D 12/16/17 18:08 - Impressions Impressions Chest X-Ray 12/21/17 08:32 IMPRESSION: 1. Multifocal airspace opacities suspicious for pneumonia. 2. Small right pleural effusion. 3. Probable gaseous dilation of the colon measuring up to 7.5 cm in the upper abdomen. D/ / 12/21/2017 15:11:53 Constance Dudley MD / Abbi Vera Interpreting Provider: Constance Dudley MD - Attending Attestation I examined this patient and my medical decision-making was reviewed with the Resident Physician Dr. Gonzalez. I agree with the documented findings, disposition and treatment plan as described except to the extent set forth below. Mr. 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 Patient was admitted in the hospital and started him on empirical antibiotic for sepsis and placed NG tube for his SBO. His nausea vomiting improved, had bowel movement today. Secretions through NG tube also improved. Patient is alert, awake and oriented to time place person. Off the NG tube. Tolerating PO intake well. Still looks very weak and lethargic Gen: A, A,, O to self Heart: S1S2+ RRR Chest: Diminished BS b/l Heart: S1S2+ RRR No murmurs a/p 1. Acute SBO Improved Small bowel follow through went well advance diet as tolerated 2. Sepsis with PNA Repeat CXR showed worsening pneumonia changed abx to Zosyn + Vanc mostly bacterial , concerning aspirational 3. Physical deconditioning PT / OT eval 4. Acute on chronic hypoxic resp failure Duoneb and O2 <Jb Gonzalez - Last Filed: 12/21/17 15:42> (4) Gastric ulcer Qualifiers: Gastric ulcer chronicity: chronic Gastric ulcer complication status: without hemorrhage or perforation Qualified Code(s): K25.7 - Chronic gastric ulcer without hemorrhage or perforation (6) Pneumonia Qualifiers: Pneumonia type: due to unspecified organism Laterality: bilateral Lung location: unspecified part of lung Qualified Code(s): J18.9 - Pneumonia, unspecified organism <Asuncion Jacob - Last Filed: 12/21/17 18:47> (4) Gastric ulcer Qualifiers: Gastric ulcer chronicity: chronic Gastric ulcer complication status: without hemorrhage or perforation Qualified Code(s): K25.7 - Chronic gastric ulcer without hemorrhage or perforation (6) Pneumonia Qualifiers: Pneumonia type: due to unspecified organism Laterality: bilateral Lung location: unspecified part of lung Qualified Code(s): J18.9 - Pneumonia, unspecified organism
[2017-12-21] MEDS: Piperacillin/Tazobactam 3.375 GM in 0.9 % Sodium Chloride Mini Bag 100 ML IVPB SCH (17:02)
[2017-12-22] MEDS: Piperacillin/Tazobactam 3.375 GM in 0.9 % Sodium Chloride Mini Bag 100 ML IVPB SCH ×3 (00:16→17:22)
[2017-12-22 05:12] LABS: Basophils # 0.1 K/mcL (0.0-0.2); Basophils % 0.3 %; Eosinophils # 0.5 K/mcL (0.0-0.6); Eosinophils % 2.7 %; Hematocrit 32.8 % (37.5-50.1); Hemoglobin 10.7 g/dL (12.9-16.9); Immature Granulocytes % 2.8 % (0-4); Lymphocytes # 1.5 K/mcL (0.6-4.6); Lymphocytes % 8.5 %; Mean Corpuscular HGB Conc 32.6 g/dL (31.6-35.5); Mean Corpuscular Hemoglobin 29.8 pg (28.0-33.3); Mean Corpuscular Volume 91.4 fL (83.0-100.0); Mean Platelet Volume 10.2 fL (9.4-12.4); Monocytes # 1.2 K/mcL (0.0-1.3); Monocytes % 6.5 %; Neutrophils # 14.2 K/mcL (1.6-8.9); Platelet Count 277 K/mcL (140-400); Red Blood Count 3.59 M/mcL (4.19-5.50); Red Cell Distribution Width 13.6 % (11.5-14.5); Segmented Neutrophils % 79.2 %
[2017-12-22] MEDS: *HR* Heparin 5,000 UNIT/ML VIAL SQ SCH ×3 (05:43→21:28)
[2017-12-22 08:11] LABS: BUN/Creatinine Ratio 16 (6-26); Blood Urea Nitrogen 10 mg/dL (8-23); Carbon Dioxide 25 mEq/L (23-29); Chloride 102 mEq/L (98-107); Glucose 100 mg/dL (70-105); Osmolality,Calculated 277 (280-300); Potassium 3.1 mEq/L (3.5-5.1); Sodium 134 mEq/L (136-145); eGFR For Non-African Americans > 60 (> 60)
[2017-12-22] MEDS: hydrOXYzine pamoate 25 MG CAPSULE PO SCH ×4 (09:25→20:26)
[2017-12-22] MEDS: lamoTRIgine 100 MG TABLET PO SCH ×2 (09:25→20:27)
--- NOTE | 2017-12-22 09:52 | Internal Med Progress Note ---
<Jb Gonzalez - Last Filed: 12/22/17 10:00> Hospitalist Progress Note - Encounter Date of Encounter: 12/22/17 Time of Encounter: 09:51 - Subjective Interval History: Mr. Johnson is a 67M with PMH of gastric ulcer from H pylori, HTN, and catatonic schizophrenia. He was admitted on 12/14 for small bowel obstruction. He was started on empirical antibiotic for sepsis and NG tube was placed. His nausea vomiting improved, and he has had multiple bowel movements. NG tube was removed. Pt tolerating diet well, but has to be on restriction because of mentation. Continued bowel movements. Patient is alert, awake and oriented to time, place, and person. Pt is complaining of increased cough. No sputum production. Looks pale and fatigued. - Exam Vitals: Temp Pulse Resp BP Pulse Ox 98 F 92 18 127/72 92 12/22/17 08:04 12/22/17 08:04 12/22/17 08:04 12/22/17 08:04 12/22/17 08:04 Exam: General: alert male. mild distress Head: normocephalic and atraumatic Neck: supple, trachea midline, no lymphadeopathy Lungs: CTA bilaterally. non-labored breathing. No wheezes, rales, or rhonchi. Heart: RRR +S1 +S2. no murmurs, clicks, or rubs appreciated. Abdomen: soft, non-tender, non-distended. normoactive bowel sounds Extremities: radial pulses palpable and symmetrical. No edema or cyanosis. Neuro: A&Ox3. no speech difficulty or abnormality Skin: warm, dry, intact. 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 Assessment and Plan: Resumed home medications has prn Haldol IV (3) Gastric ulcer Current Visit: Yes Status: Acute Assessment and Plan: Continue PPI (4) Sepsis Current Visit: Yes Status: Acute Assessment and Plan: He did meet sepsis criteria upon admission with elevated WBC, lactic acid, and tachycardia mostly due to pneumonia and a possible intra-abdominal infection WBC was intially normalized, but was noted to increase again the past couple of days resulting at 17.9 today Lactic acid 1.1 HR normal Non-tachypnic Tmax in last 24 hours was 100.2 continue antibiotics as above continue close monitoring (5) Pneumonia Current Visit: Yes Status: Acute Assessment and Plan: CXR on 12/15 showed infiltrates/consolidations more on the right side Was on Zosyn for 5.5 days, followed by Augmentin for 1.5 days Pt has begun to decline clinically Admits to new cough Suspect may be some aspiration component with pt's speech and mentation WBC remains elevated at 17.9 today Tmax in last 24 hours was 100.2 HR normal non-tachypnic Continue Zosyn and Vanc Day 8 of total abx therapy Continue to monitor DVT Prophylaxis: SQ heparin - Time Spent with Patient Total time spent is greater than 50% in coordination of care (as documented) at patient's floor/unit and/or counseling patient: Internal Medicine: Result - Labs CBC & Chem 7: 12/22/17 04:56 12/22/17 07:28 Labs: Short CBC 12/22/17 Range/Units 04:56 WBC 17.9 H (4.3-11.1) K/mcL Hgb 10.7 L (12.9-16.9) g/dL Hct 32.8 L (37.5-50.1) % Plt Count 277 (140-400) K/mcL Neutrophils # 14.2 H (1.6-8.9) K/mcL BMP 12/22/17 07:28 Sodium 134 L Potassium 3.1 L Chloride 102 Carbon Dioxide 25 BUN 10 Creatinine 0.64 L Glucose 100 Calcium 8.0 L - ABG Interpretation ABG results: ABG ABG pH 7.43 pH Units (7.32-7.45) 12/15/17 14:48 ABG pCO2 30 mmHg (35-45) L 12/15/17 14:48 ABG pO2 64 mmHg (85-104) L 12/15/17 14:48 ABG O2 Saturation 93 % (95-98) L 12/15/17 14:48 PT/INR, D-dimer PT 16.7 Seconds (9.4-12.1) H D 12/16/17 18:08 - Impressions Impressions Chest X-Ray 12/21/17 08:32 IMPRESSION: 1. Multifocal airspace opacities suspicious for pneumonia. 2. Small right pleural effusion. 3. Probable gaseous dilation of the colon measuring up to 7.5 cm in the upper abdomen. D/ / 12/21/2017 15:11:53 Constance Dudley MD / Abbi Vera Interpreting Provider: Constance Dudley MD Consult Discharge Plan - Plan Instructions: Acute Nausea and Vomiting (ED), Abdominal Pain (ED) Additional Instructions: Patient needs admission. He has nausea / vomiting , abdominal pain ,high WBC count, CT scan shows dilated small bowel loops & suspected small bowel obstruction. [facility]errals: [facility] [Primary Care Provider[facility] - <Asuncion Jacob - Last Filed: 12/22/17 15:26> Hospitalist Progress Note - Encounter Date of Encounter: 12/22/17 - Exam Vitals: Temp Pulse Resp BP Pulse Ox 98 F 70 18 115/70 94 12/22/17 12:04 12/22/17 12:04 12/22/17 12:04 12/22/17 12:04 12/22/17 12:04 - Assessment and Plan (1) Small bowel obstruction Current Visit: Yes Status: Resolved (2) Catatonia schizophrenia Current Visit: Yes Status: Chronic (3) Gastric ulcer Current Visit: Yes Status: Acute (4) Sepsis Current Visit: Yes Status: Acute (5) Pneumonia Current Visit: Yes Status: Acute - Time Spent with Patient Total time spent is greater than 50% in coordination of care (as documented) at patient's floor/unit and/or counseling patient: Internal Medicine: Result - Labs CBC & Chem 7: 12/22/17 04:56 12/22/17 07:28 Labs: Short CBC 12/22/17 Range/Units 04:56 WBC 17.9 H (4.3-11.1) K/mcL Hgb 10.7 L (12.9-16.9) g/dL Hct 32.8 L (37.5-50.1) % Plt Count 277 (140-400) K/mcL Neutrophils # 14.2 H (1.6-8.9) K/mcL BMP 12/22/17 07:28 Sodium 134 L Potassium 3.1 L Chloride 102 Carbon Dioxide 25 BUN 10 Creatinine 0.64 L Glucose 100 Calcium 8.0 L - ABG Interpretation ABG results: ABG ABG pH 7.43 pH Units (7.32-7.45) 12/15/17 14:48 ABG pCO2 30 mmHg (35-45) L 12/15/17 14:48 ABG pO2 64 mmHg (85-104) L 12/15/17 14:48 ABG O2 Saturation 93 % (95-98) L 12/15/17 14:48 PT/INR, D-dimer PT 16.7 Seconds (9.4-12.1) H D 12/16/17 18:08 - Impressions Impressions Small Bowel X-Ray 12/19/17 00:01 IMPRESSION: Contrast was seen within ascending colon at 2 hours. Contrast was seen within rectum at 4 hours. Previously seen bowel obstruction may have resolved. Correlate with current symptoms. D/ / 12/19/2017 13:18:19 Gilles Dudley MD / alejandro Interpreting Provider: Gilles Dudley MD - Attending Attestation I examined this patient and my medical decision-making was reviewed with the Resident Physician Dr. Gonzalez. I agree with the documented findings, disposition and treatment plan as described except to the extent set forth below. Mr. 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 Patient was admitted in the hospital and started him on empirical antibiotic for sepsis and placed NG tube for his SBO. His nausea vomiting improved, had bowel movement today. Secretions through NG tube also improved. Patient is alert, awake and oriented to time place person. Off the NG tube. Tolerating PO intake well. Still looks very weak and lethargic..Talked to the pt's brother ( PIERCE ) at bed side and explained to him about current care. Gen: A, A,, O to self Heart: S1S2+ RRR Chest: Diminished BS b/l Heart: S1S2+ RRR No murmurs a/p 1. Acute SBO Improved Small bowel follow through went well advance diet as tolerated 2. Sepsis with PNA Repeat CXR showed worsening pneumonia cont empirical abx Zosyn + Vanc mostly bacterial , concerning aspirational 3. Physical deconditioning PT / OT eval 4. Acute on chronic hypoxic resp failure Duoneb and O2 <Jb Gonzalez - Last Filed: 12/22/17 10:00> (3) Gastric ulcer Qualifiers: Gastric ulcer chronicity: chronic Gastric ulcer complication status: without hemorrhage or perforation Qualified Code(s): K25.7 - Chronic gastric ulcer without hemorrhage or perforation (5) Pneumonia Qualifiers: Pneumonia type: due to unspecified organism Laterality: bilateral Lung location: unspecified part of lung Qualified Code(s): J18.9 - Pneumonia, unspecified organism <Asuncion Jacob - Last Filed: 12/22/17 15:26> (3) Gastric ulcer Qualifiers: Gastric ulcer chronicity: chronic Gastric ulcer complication status: without hemorrhage or perforation Qualified Code(s): K25.7 - Chronic gastric ulcer without hemorrhage or perforation (5) Pneumonia Qualifiers: Pneumonia type: due to unspecified organism Laterality: bilateral Lung location: unspecified part of lung Qualified Code(s): J18.9 - Pneumonia, unspecified organism
--- NOTE | 2017-12-22 11:53 | Consult Note ---
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 Unclear if his presentation is due to his chronic Schizophrenia or delirium from medical problems. Normally takes Clozapine according to colleague's note. This medication can cause an ileus/severe constipation so it may be unsafe given his recent SBO. However, it is reasonable to assume his mental illness will worsen off this med as it is the most effective antipsychotic available. May want to increase dose of next Haldol Decanoate shot to 50mg to help cover him if he can tolerate a higher dose. Unknown what his baseline is. Records from the ID may assist with this. History of Present Illness Requesting Physician: Asuncion Jacob MD Reason for consult: schizophrenia History of present illness: Mr. Johnson is a 67 year old male with multiple medical problems. Admitted with a small bowel obstruction. ID patient with chronic Schizophrenia. Normally takes 500mg of Clozapine a day according to colleague's note. Unclear what his baseline is. Today client is laying horizontally in bed with his legs draped over the guardrails. He is repeating the same thing over and over again but I cannot make out what he is saying. According to staff this is the way he has been. Alert but confused. Does not appear to be oriented. Unable to communicate much. Unclear if presentation is partially due to symptoms of Schizophrenia as client normally takes a good dose of a very strong antipsychotic that he is not currently getting. However, given his physical health it may not be safe to restart this medication at this time. Clozapine will definitely slow down the GI tract and can cause an ileus and/or severe constipation. Given that he is recovering from a SBO it may not be safe to use this medication. Getting Haldol Decanoate. May need to increase dose to help cover him if he can physically tolerate it. CC: Asuncion Jacob MD Past Med Surg Social Fam HX - Past Medical History Medical history: hypertension - Past Psychiatric History Psychiatric history: Reports: schizophrenia Family psychiatric history: Unknown Family History of Suicide: Unknown - Past Surgical History Surgical History: no surgical history - Social History Smoking Status: Current every day smoker Smokeless Tobacco Status: No Alcohol use: none Drug use: none Medications & Allergies Cholecalciferol (D-3) [Vitamin D] 1,000 unit PO DAILY 10/01/15 [History] Citalopram Hydrobromide [Citalopram HBr] 40 mg PO DAILY 10/01/15 [History] Haloperidol Decanoate [Haldol] 25 mg IM Q2W 10/01/15 [History] Multivitamin with Minerals [One-A-Day Maximum Formula] 1 each PO DAILY 10/01/15 [History] Pantoprazole Sodium [Protonix] 40 mg PO DAILY 10/01/15 [History] cloZAPine [Clozaril] 100 mg PO BID 10/01/15 [History] cloZAPine [Clozaril] 300 mg PO HS 10/01/15 [History] clonazePAM [Klonopin] 1 mg PO BID 10/01/15 [History] lamoTRIgine [Lamictal] 100 mg PO BID 10/01/15 [History] Haloperidol [Haldol] 2 mg PO BID 12/15/17 [History] Lactobacillus Acidophilus [Acidophilus Lactobacillus] 1 cap PO DAILY 12/15/17 [ History] Metoprolol [Lopressor] 12.5 mg PO BID 12/15/17 [History] Sodium Chloride [Sodium Chloride Tab] 1 gm PO DAILY 12/15/17 [History] hydrOXYzine pamoate [HydrOXYzine Pamoate] 25 mg PO QID 12/15/17 [History] 3 Allergy/AdvReac Type Severity Reaction Status Date / Time No Known Allergies Allergy Verified 10/01/15 15:08 Review of Systems Constitutional: Denies: fever, chills, weakness, weight change Eyes: Denies: eye pain, vision change Ears, Nose, Throat: Denies: ear pain, throat pain, dental pain, hearing loss, congestion Cardiovascular: Denies: chest pain, palpitations, dyspnea on exertion Respiratory: Reports: cough. Denies: dyspnea, wheezes Gastrointestinal: Reports: abdominal pain, nausea Genitourinary male: Denies: urgency, dysuria, frequency, genital lesions Musculoskeletal: Denies: joint swelling, joint pain Integumentary: Denies: rash, lesions, pruritus Neurological: Denies: headache, weakness, numbness, memory loss Endocrine: Denies: fatigue, heat or cold intolerance Hematologic/Lymphatic: Denies: easy bruising, lymphadenopathy Allergic/Immunologic: Denies: urticaria, itchy eyes Psychiatry Exam - Constitutional Vitals: Temp Pulse Resp BP Pulse Ox 98 F 92 18 127/72 92 12/22/17 08:04 12/22/17 08:04 12/22/17 08:04 12/22/17 08:04 12/22/17 08:04 General appearance: disheveled, thin - Musculoskeletal Gait: other Station: relaxed Strength & Tone: normal for patient - Psychiatric Patient Orientation: Yes Other Level of alertness: Alert Behavior: restless Psychomotor activity: Increased Eye Contact: Maintains Eye Contact Mood Description: Other Affect description: blunted Speech Volume: Soft/Quiet Speech pattern: garbled, repetetive Language & Vocabulary: limited Thought Process: Disorganized Thought Content: Yes Poverty of Content Attention Span Ability: Unable to Focus, Unable to Sustain Attention Memory Description: Immediate Impaired, Recent Impaired, Remote Impaired Patient Reliability: Not Reliable Historian Judgment: Limited Insight: Minimal Results - Labs Labs: Laboratory Last Values WBC 17.9 K/mcL (4.3-11.1) H 12/22/17 04:56 RBC 3.59 M/mcL (4.19-5.50) L 12/22/17 04:56 Hgb 10.7 g/dL (12.9-16.9) L 12/22/17 04:56 Hct 32.8 % (37.5-50.1) L 12/22/17 04:56 MCV 91.4 fL (83.0-100.0) 12/22/17 04:56 MCH 29.8 pg (28.0-33.3) 12/22/17 04:56 MCHC 32.6 g/dL (31.6-35.5) 12/22/17 04:56 RDW 13.6 % (11.5-14.5) 12/22/17 04:56 Plt Count 277 K/mcL (140-400) 12/22/17 04:56 MPV 10.2 fL (9.4-12.4) 12/22/17 04:56 Immature Gran % 2.8 % (0-4) 12/22/17 04:56 Seg Neutrophils % 79.2 % 12/22/17 04:56 Band Neutrophils % 2.0 % (0-4) 12/20/17 06:31 Lymphocytes % 8.5 % 12/22/17 04:56 Monocytes % 6.5 % 12/22/17 04:56 Eosinophils % 2.7 % 12/22/17 04:56 Basophils % 0.3 % 12/22/17 04:56 Neutrophils # 14.2 K/mcL (1.6-8.9) H 12/22/17 04:56 Lymphocytes # 1.5 K/mcL (0.6-4.6) 12/22/17 04:56 Monocytes # 1.2 K/mcL (0.0-1.3) 12/22/17 04:56 Eosinophils # 0.5 K/mcL (0.0-0.6) 12/22/17 04:56 Basophils # 0.1 K/mcL (0.0-0.2) 12/22/17 04:56 Reactive Lymphocytes Present (Not Present) A 12/21/17 04:01 Platelet Estimate Normal (Normal) 12/21/17 04:01 Hypochromasia Present (Not Present) A 12/21/17 04:01 Anisocytosis 1+ (Not Present) A 12/20/17 06:31 ESR 44 mm/hr (0-10) H 12/21/17 11:49 PT 16.7 Seconds (9.4-12.1) H D 12/16/17 18:08 INR 1.5 12/16/17 18:08 APTT 30.6 Seconds (26.0-36.0) 12/14/17 15:57 ABG pH 7.43 pH Units (7.32-7.45) 12/15/17 14:48 ABG pCO2 30 mmHg (35-45) L 12/15/17 14:48 ABG pO2 64 mmHg (85-104) L 12/15/17 14:48 ABG HCO3 20 mEq/L (21-27) L 12/15/17 14:48 ABG Total CO2 21 mEq/L (20-26) 12/15/17 14:48 ABG O2 Saturation 93 % (95-98) L 12/15/17 14:48 ABG Base Excess -3 mEq/L (-2 to 3) L 12/15/17 14:48 Blood Gas Modality OM 12/15/17 14:48 Inspired O2 10.0 (1-15=lpm [id number]=%) 12/15/17 14:48 Sodium 134 mEq/L (136-145) L 12/22/17 07:28 Potassium 3.1 mEq/L (3.5-5.1) L 12/22/17 07:28 Chloride 102 mEq/L (98-107) 12/22/17 07:28 Carbon Dioxide 25 mEq/L (23-29) 12/22/17 07:28 BUN 10 mg/dL (8-23) 12/22/17 07:28 Creatinine 0.64 mg/dL (0.70-1.30) L 12/22/17 07:28 Est GFR ( Amer) > 60 (> 60) 12/22/17 07:28 Est GFR (Non-Af Amer) > 60 (> 60) 12/22/17 07:28 BUN/Creatinine Ratio 16 (6-26) 12/22/17 07:28 Glucose 100 mg/dL (70-105) 12/22/17 07:28 POC Glucose 71 mg/dL (70-99) 12/19/17 11:36 Calculated Osmolality 277 (280-300) L 12/22/17 07:28 Lactic Acid 1.1 mmol/L (0.5-2.2) 12/21/17 11:49 Calcium 8.0 mg/dL (8.6-10.3) L 12/22/17 07:28 Total Bilirubin 0.7 mg/dL (0.3-1.0) 12/16/17 03:24 AST 92 Units/L (13-39) H 12/16/17 03:24 ALT 29 Units/L (7-52) 12/16/17 03:24 Alkaline Phosphatase 51 Units/L (34-104) 12/16/17 03:24 Troponin I 0.21 ng/mL (< 0.04) H* 12/15/17 14:12 C-Reactive Protein 215 mg/L (Less than 10) H 12/21/17 11:49 Serum Total Protein 5.4 g/dL (6.4-8.9) L 12/16/17 03:24 Albumin 3.3 g/dL (3.5-5.7) L 12/16/17 03:24 Globulin 2.1 g/dL (2.4-3.5) L 12/16/17 03:24 Albumin/Globulin Ratio 1.6 (1.1-2.2) 12/16/17 03:24 Lipase 11 Units/L (11-82) 12/14/17 15:57 Stool Occult Bld Scrn Negative (Negative) 12/14/17 15:22 Stl C. diff Tox B Gene Negative (Negative) 12/21/17 16:20 Specimen Rejected Hemolyzed 12/22/17 04:56 Blood Type A POSITIVE 12/14/17 15:57 Antibody Screen NEGATIVE 12/14/17 15:57 - Impressions Impressions Chest X-Ray 12/21/17 08:32 IMPRESSION: 1. Multifocal airspace opacities suspicious for pneumonia. 2. Small right pleural effusion. 3. Probable gaseous dilation of the colon measuring up to 7.5 cm in the upper abdomen. D/ / 12/21/2017 15:11:53 Constance Dudley MD / Abbi Vera Interpreting Provider: Constance Dudley MD Consult Discharge Plan - Plan Instructions: Acute Nausea and Vomiting (ED), Abdominal Pain (ED) Additional Instructions: Patient needs admission. He has nausea / vomiting , abdominal pain ,high WBC count, CT scan shows dilated small bowel loops & suspected small bowel obstruction. Referrals: [facility] [Primary Care Provider[facility] -
[2017-12-22] MEDS: Haloperidol Lactate 5 MG/ML VIAL IVP PRN (15:11)
[2017-12-22] MEDS: *HR* LORazepam 2 MG/ML VIAL IVP PRN (20:27)
[2017-12-23] MEDS: Piperacillin/Tazobactam 3.375 GM in 0.9 % Sodium Chloride Mini Bag 100 ML IVPB SCH ×3 (00:23→19:25)
[2017-12-23] MEDS: *HR* LORazepam 2 MG/ML VIAL IVP PRN ×2 (02:52→16:15)
[2017-12-23] MEDS: *HR* Heparin 5,000 UNIT/ML VIAL SQ SCH ×3 (05:15→20:15)
[2017-12-23 05:39] LABS: Basophils % 0.2 %; Eosinophils # 0.3 K/mcL (0.0-0.6); Eosinophils % 1.9 %; Hemoglobin 10.3 g/dL (12.9-16.9); Immature Granulocytes % 2.1 % (0-4); Lymphocytes % 8.3 %; Mean Corpuscular HGB Conc 33.2 g/dL (31.6-35.5); Mean Corpuscular Hemoglobin 30.4 pg (28.0-33.3); Mean Corpuscular Volume 91.4 fL (83.0-100.0); Mean Platelet Volume 9.9 fL (9.4-12.4); Monocytes # 1.2 K/mcL (0.0-1.3); Monocytes % 6.8 %; Neutrophils # 14.1 K/mcL (1.6-8.9); Platelet Count 358 K/mcL (140-400); Red Blood Count 3.39 M/mcL (4.19-5.50); Red Cell Distribution Width 13.8 % (11.5-14.5); Segmented Neutrophils % 80.7 %
[2017-12-23 05:47] LABS: Lymphocytes # 1.5 K/mcL (0.6-4.6)
[2017-12-23 06:03] LABS: BUN/Creatinine Ratio 15 (6-26); Blood Urea Nitrogen 9 mg/dL (8-23); Calcium 8.1 mg/dL (8.6-10.3); Carbon Dioxide 26 mEq/L (23-29); Chloride 102 mEq/L (98-107); Glucose 98 mg/dL (70-105); Osmolality,Calculated 279 (280-300); Potassium 3.3 mEq/L (3.5-5.1); Sodium 135 mEq/L (136-145); eGFR For Non-African Americans > 60 (> 60)
[2017-12-23 06:32] LABS: Platelet Estimate Normal (Normal); Reactive Lymphocytes Present (Not Present); Toxic Vacuolation Present (Not Present)
[2017-12-23] MEDS: hydrOXYzine pamoate 25 MG CAPSULE PO SCH ×4 (08:21→20:14)
[2017-12-23] MEDS: lamoTRIgine 100 MG TABLET PO SCH ×2 (08:22→20:14)
--- NOTE | 2017-12-23 09:07 | Internal Med Progress Note ---
<Jb Gonzalez - Last Filed: 12/23/17 13:58> Hospitalist Progress Note - Encounter Date of Encounter: 12/23/17 Time of Encounter: 08:45 - Subjective Interval History: Mr. Johnson is a 67M with PMH of gastric ulcer from H pylori, HTN, and catatonic schizophrenia. He was admitted on 12/14 for small bowel obstruction. He was started on empirical antibiotic for sepsis and NG tube was placed. His nausea vomiting improved, and he has had multiple bowel movements. NG tube was removed. Pt tolerating diet well, but has to be on restriction because of mentation. Continued bowel movements. Patient is alert, awake and oriented to time, place, and person. Pt is complaining of increased cough. No sputum production. Looks pale and fatigued. - Exam Vitals: Temp Pulse Resp BP Pulse Ox 98.4 F 102 16 125/74 93 12/23/17 06:14 12/23/17 06:14 12/23/17 06:14 12/23/17 06:14 12/23/17 06:14 Exam: General: alert male. mild distress Head: normocephalic and atraumatic Neck: supple, trachea midline, no lymphadeopathy Lungs: CTA bilaterally. non-labored breathing. No wheezes, rales, or rhonchi. Heart: RRR +S1 +S2. no murmurs, clicks, or rubs appreciated. Abdomen: soft, non-tender, non-distended. normoactive bowel sounds Extremities: radial pulses palpable and symmetrical. No edema or cyanosis. Neuro: A&Ox3. no speech difficulty or abnormality Skin: warm, dry, intact. 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 Assessment and Plan: Resumed home medications Per psych recommendations yesterday, increased Haldol to 50mg IM every 2 weeks has prn Haldol IV (3) Gastric ulcer Current Visit: Yes Status: Acute Assessment and Plan: Continue PPI (4) Pneumonia Current Visit: Yes Status: Acute Assessment and Plan: CXR on 12/15 showed infiltrates/consolidations more on the right side Was on Zosyn for 5.5 days, followed by Augmentin for 1.5 days Continues to experience cough Suspect may be some aspiration component with pt's speech and mentation WBC remains elevated at 17.5 today Afebrile HR normal non-tachypnic Continue Zosyn and Vanc Day 9 of total abx therapy Continue to monitor DVT Prophylaxis: SQ Heparin - Time Spent with Patient Total time spent is greater than 50% in coordination of care (as documented) at patient's floor/unit and/or counseling patient: Internal Medicine: Result - Labs CBC & Chem 7: 12/23/17 05:12 12/23/17 05:12 Labs: Short CBC 12/23/17 Range/Units 05:12 WBC 17.5 H (4.3-11.1) K/mcL Hgb 10.3 L (12.9-16.9) g/dL Hct 31.0 L (37.5-50.1) % Plt Count 358 (140-400) K/mcL Neutrophils # 14.1 H (1.6-8.9) K/mcL BMP 12/23/17 05:12 Sodium 135 L Potassium 3.3 L Chloride 102 Carbon Dioxide 26 BUN 9 Creatinine 0.61 L Glucose 98 Calcium 8.1 L - ABG Interpretation ABG results: ABG ABG pH 7.43 pH Units (7.32-7.45) 12/15/17 14:48 ABG pCO2 30 mmHg (35-45) L 12/15/17 14:48 ABG pO2 64 mmHg (85-104) L 12/15/17 14:48 ABG O2 Saturation 93 % (95-98) L 12/15/17 14:48 PT/INR, D-dimer PT 16.7 Seconds (9.4-12.1) H D 12/16/17 18:08 - Impressions Impressions Small Bowel X-Ray 12/19/17 00:01 IMPRESSION: Contrast was seen within ascending colon at 2 hours. Contrast was seen within rectum at 4 hours. Previously seen bowel obstruction may have resolved. Correlate with current symptoms. D/ / 12/19/2017 13:18:19 Gilles Dudley MD / alejandro Interpreting Provider: Gilles Dudley MD Consult Discharge Plan - Plan Instructions: Acute Nausea and Vomiting (ED), Abdominal Pain (ED) Additional Instructions: Patient needs admission. He has nausea / vomiting , abdominal pain ,high WBC count, CT scan shows dilated small bowel loops & suspected small bowel obstruction. 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 (3) Gastric ulcer Current Visit: Yes Status: Acute (4) Pneumonia Current Visit: Yes Status: Acute - Time Spent with Patient Total time spent is greater than 50% in coordination of care (as documented) at patient's floor/unit and/or counseling patient: Internal Medicine: Result - Labs CBC & Chem 7: 12/23/17 05:12 12/23/17 05:12 Labs: Short CBC 12/23/17 Range/Units 05:12 WBC 17.5 H (4.3-11.1) K/mcL Hgb 10.3 L (12.9-16.9) g/dL Hct 31.0 L (37.5-50.1) % Plt Count 358 (140-400) K/mcL Neutrophils # 14.1 H (1.6-8.9) K/mcL BMP 12/23/17 05:12 Sodium 135 L Potassium 3.3 L Chloride 102 Carbon Dioxide 26 BUN 9 Creatinine 0.61 L Glucose 98 Calcium 8.1 L - ABG Interpretation ABG results: ABG ABG pH 7.43 pH Units (7.32-7.45) 12/15/17 14:48 ABG pCO2 30 mmHg (35-45) L 12/15/17 14:48 ABG pO2 64 mmHg (85-104) L 12/15/17 14:48 ABG O2 Saturation 93 % (95-98) L 12/15/17 14:48 PT/INR, D-dimer PT 16.7 Seconds (9.4-12.1) H D 12/16/17 18:08 - Attending Attestation I examined this patient and my medical decision-making was reviewed with the Resident Physician Dr. Gonzalez. I agree with the documented findings, disposition and treatment plan as described except to the extent set forth below. Mr. 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 Patient was admitted in the hospital and started him on empirical antibiotic for sepsis and placed NG tube for his SBO. His nausea vomiting improved, had bowel movement today. Secretions through NG tube also improved. Patient is alert, awake and oriented to time place person. Off the NG tube. Tolerating PO intake well. Still looks very weak and lethargic..His diarrhea seems to be worsening now.. He is getting agitated at times and confused today Gen: A, A,, O to self only Heart: S1S2+ RRR Chest: Diminished BS b/l Heart: S1S2+ RRR No murmurs a/p 1. Acute SBO Improved Small bowel follow through went well advance diet as tolerated 2. Sepsis with PNA Repeat CXR showed worsening pneumonia cont empirical abx Zosyn + Vanc mostly bacterial , concerning aspirational 3. Diarrhea C. Diff - Negative will check GI panel started on IV hydration 3. Physical deconditioning PT / OT eval 4. Acute on chronic hypoxic resp failure Duoneb and O2 Talked to the pt's brother ( PIERCE ) at bed side and explained to him about current care y/d. <Jb Gonzalez - Last Filed: 12/23/17 13:58> (3) Gastric ulcer Qualifiers: Gastric ulcer chronicity: chronic Gastric ulcer complication status: without hemorrhage or perforation Qualified Code(s): K25.7 - Chronic gastric ulcer without hemorrhage or perforation (4) Pneumonia Qualifiers: Pneumonia type: due to unspecified organism Laterality: bilateral Lung location: unspecified part of lung Qualified Code(s): J18.9 - Pneumonia, unspecified organism <Asuncion Jacob - Last Filed: 12/23/17 16:44> (3) Gastric ulcer Qualifiers: Gastric ulcer chronicity: chronic Gastric ulcer complication status: without hemorrhage or perforation Qualified Code(s): K25.7 - Chronic gastric ulcer without hemorrhage or perforation (4) Pneumonia Qualifiers: Pneumonia type: due to unspecified organism Laterality: bilateral Lung location: unspecified part of lung Qualified Code(s): J18.9 - Pneumonia, unspecified organism
[2017-12-23] MEDS: Haloperidol Lactate 5 MG/ML VIAL IVP PRN ×2 (11:59→14:41)
[2017-12-23] MEDS ORDERED: *HR* LORazepam 2 MG/ML VIAL IVP ONE (21:21)
[2017-12-23] MEDS: Ringers Solution, Lactated 1,000 ML IVC SCH (23:44)
[2017-12-24] MEDS: Piperacillin/Tazobactam 3.375 GM in 0.9 % Sodium Chloride Mini Bag 100 ML IVPB SCH ×4 (01:35→23:02)
[2017-12-24 02:17] LABS: Adenovirus F 40/41 PCR Not detected (Not detect); Astrovirus PCR Not detected (Not detect); C.difficile Toxin A/B by PCR Not detected (Not detect); Campylobacter by PCR Not detected (Not detect); Cryptosporidium by PCR Not detected (Not detect); Cyclospora cayetanensis PCR Not detected (Not detect); E. coli O157 by PCR Not detected (Not detect); Entamoeba histolytica PCR Not detected (Not detect); Enteroaggregative E.coli(EAEC) Not detected (Not detect); Enteropathogenic E.coli(EPEC) Not detected (Not detect); Enterotoxigenic E.coli (ETEC) Not detected (Not detect); Giardia lamblia PCR Not detected (Not detect); Norovirus GI/GII PCR Not detected (Not detect); Plesiomonas shigelloides PCR Not detected (Not detect); Rotavirus A PCR Not detected (Not detect); Salmonella PCR Not detected (Not detect); Sapovirus PCR Not detected (Not detect); Shig/EnteroinvasiveE coli EIEC Not detected (Not detect); Shigalike tox-prod E coli STEC Not detected (Not detect); Vibrio PCR Not detected (Not detect); Vibrio cholerae PCR Not detected (Not detect); Yersinia enterocolitica PCR Not detected (Not detect)
[2017-12-24] MEDS: *HR* Heparin 5,000 UNIT/ML VIAL SQ SCH ×3 (05:04→20:57)
[2017-12-24] MEDS: *HR* LORazepam 2 MG/ML VIAL IVP PRN (05:04)
[2017-12-24 06:33] LABS: BUN/Creatinine Ratio 15 (6-26); Blood Urea Nitrogen 10 mg/dL (8-23); Carbon Dioxide 24 mEq/L (23-29); Chloride 103 mEq/L (98-107); Glucose 101 mg/dL (70-105); Osmolality,Calculated 277 (280-300); Potassium 3.4 mEq/L (3.5-5.1); Sodium 134 mEq/L (136-145); eGFR For Non-African Americans > 60 (> 60)
[2017-12-24 07:17] LABS: Basophils % 0.2 %; Eosinophils # 0.3 K/mcL (0.0-0.6); Eosinophils % 1.6 %; Hematocrit 30.3 % (37.5-50.1); Hemoglobin 10.1 g/dL (12.9-16.9); Immature Granulocytes % 1.1 % (0-4); Lymphocytes # 1.2 K/mcL (0.6-4.6); Mean Corpuscular HGB Conc 33.3 g/dL (31.6-35.5); Mean Corpuscular Hemoglobin 30.6 pg (28.0-33.3); Mean Corpuscular Volume 91.8 fL (83.0-100.0); Mean Platelet Volume 9.3 fL (9.4-12.4); Monocytes # 1.2 K/mcL (0.0-1.3); Monocytes % 7.1 %; Neutrophils # 14.6 K/mcL (1.6-8.9); Platelet Count 397 K/mcL (140-400); Red Cell Distribution Width 13.8 % (11.5-14.5)
[2017-12-24] MEDS ORDERED: Haloperidol Decanoate 50 MG/ML VIAL IM SCH ×3 (09:00)
--- NOTE | 2017-12-24 09:32 | Internal Med Progress Note ---
<Jb Gonzalez - Last Filed: 12/24/17 17:15> Hospitalist Progress Note - Encounter Date of Encounter: 12/24/17 Time of Encounter: 09:25 - Subjective Interval History: Mr. Johnson is a 67M with PMH of gastric ulcer from H pylori, HTN, and catatonic schizophrenia. He was admitted on 12/14 for small bowel obstruction. He was started on empirical antibiotic for sepsis and NG tube was placed. His nausea vomiting improved, and he has had multiple bowel movements. NG tube was removed. Pt tolerating diet well, but has to be on restriction because of mentation. Continued diarrhea and incontinence. Patient is alert, awake and oriented to place, and person. Pt continues to complain of increased cough. States his abdomen hurts as well. No sputum production. Looks pale, fatigued, and agitated. - Exam Vitals: Temp Pulse Resp BP Pulse Ox 98.4 F 88 19 119/74 87 12/24/17 07:08 12/24/17 07:08 12/24/17 07:08 12/24/17 07:08 12/24/17 07:08 Exam: General: alert male. mild distress. agitated Head: normocephalic and atraumatic Neck: supple, trachea midline, no lymphadeopathy Lungs: CTA bilaterally. non-labored breathing. No wheezes, rales, or rhonchi. Heart: RRR +S1 +S2. no murmurs, clicks, or rubs appreciated. Abdomen: soft, non-tender, non-distended. normoactive bowel sounds Extremities: radial pulses palpable and symmetrical. No edema or cyanosis. Neuro: A&Ox3. no speech difficulty or abnormality Skin: warm, dry, intact. 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 Assessment and Plan: Resumed home medications Per psych recommendations yesterday, increased Haldol to 50mg IM every 2 weeks has prn Haldol IV (3) Gastric ulcer Current Visit: Yes Status: Acute Assessment and Plan: Continue PPI (4) Pneumonia Current Visit: Yes Status: Acute Assessment and Plan: CXR on 12/15 showed infiltrates/consolidations more on the right side Was on Zosyn for 5.5 days, followed by Augmentin for 1.5 days Continues to experience cough Suspect may be some aspiration component with pt's speech and mentation WBC remains elevated at 17.5 today Afebrile HR normal non-tachypnic Consult ID, will await recs for further abx management Day 10 of total abx therapy Continue to monitor DVT Prophylaxis: SQ Heparin - Time Spent with Patient Total time spent is greater than 50% in coordination of care (as documented) at patient's floor/unit and/or counseling patient: Internal Medicine: Result - Labs CBC & Chem 7: 12/24/17 07:05 12/24/17 05:50 Labs: Short CBC 12/24/17 Range/Units 07:05 WBC 17.5 H (4.3-11.1) K/mcL Hgb 10.1 L (12.9-16.9) g/dL Hct 30.3 L (37.5-50.1) % Plt Count 397 (140-400) K/mcL Neutrophils # 14.6 H (1.6-8.9) K/mcL BMP 12/24/17 05:50 Sodium 134 L Potassium 3.4 L Chloride 103 Carbon Dioxide 24 BUN 10 Creatinine 0.67 L Glucose 101 Calcium 8.0 L - ABG Interpretation ABG results: ABG ABG pH 7.43 pH Units (7.32-7.45) 12/15/17 14:48 ABG pCO2 30 mmHg (35-45) L 12/15/17 14:48 ABG pO2 64 mmHg (85-104) L 12/15/17 14:48 ABG O2 Saturation 93 % (95-98) L 12/15/17 14:48 PT/INR, D-dimer PT 16.7 Seconds (9.4-12.1) H D 12/16/17 18:08 Consult Discharge Plan - Plan Instructions: Acute Nausea and Vomiting (ED), Abdominal Pain (ED) Additional Instructions: Patient needs admission. He has nausea / vomiting , abdominal pain ,high WBC count, CT scan shows dilated small bowel loops & suspected small bowel obstruction. [facility]errals: [facility]Primary Care Provider[facility] - <Funmilayo Aguirre Last Filed: 12/24/17 17:46> Hospitalist Progress Note - Encounter Date of Encounter: 12/24/17 - Exam Vitals: Temp Pulse Resp BP Pulse Ox 98.5 F 105 24 146/83 96 12/24/17 16:00 12/24/17 16:00 12/24/17 16:00 12/24/17 16:00 12/24/17 16:00 - Assessment and Plan (1) Small bowel obstruction Current Visit: Yes Status: Resolved (2) Catatonia schizophrenia Current Visit: Yes Status: Chronic (3) Gastric ulcer Current Visit: Yes Status: Acute (4) Pneumonia Current Visit: Yes Status: Acute - Time Spent with Patient Total time spent is greater than 50% in coordination of care (as documented) at patient's floor/unit and/or counseling patient: Internal Medicine: Result - Labs CBC & Chem 7: 12/24/17 07:05 12/24/17 05:50 Labs: Short CBC 12/24/17 Range/Units 07:05 WBC 17.5 H (4.3-11.1) K/mcL Hgb 10.1 L (12.9-16.9) g/dL Hct 30.3 L (37.5-50.1) % Plt Count 397 (140-400) K/mcL Neutrophils # 14.6 H (1.6-8.9) K/mcL BMP 12/24/17 05:50 Sodium 134 L Potassium 3.4 L Chloride 103 Carbon Dioxide 24 BUN 10 Creatinine 0.67 L Glucose 101 Calcium 8.0 L - ABG Interpretation ABG results: ABG ABG pH 7.47 pH Units (7.32-7.45) H 12/24/17 14:57 ABG pCO2 41 mmHg (35-45) 12/24/17 14:57 ABG pO2 51 mmHg (85-104) L 12/24/17 14:57 ABG O2 Saturation 88 % (95-98) L 12/24/17 14:57 PT/INR, D-dimer PT 16.7 Seconds (9.4-12.1) H D 12/16/17 18:08 - Impressions Impressions Chest X-Ray 12/24/17 14:45 IMPRESSION: 1. Increasing airspace opacities now diffusely involving both lungs which can be seen in setting of multifocal pneumonia, vascular congestion, ARDS, and/or atelectasis. Continued imaging follow-up is recommended. 2. Small bilateral pleural effusions. D/ / Clarke Jeffrey / Clarke Jeffrey Interpreting Provider: Clarke Jeffrey - Attending Attestation 67M with PMH of gastric ulcer from H pylori, HTN, and catatonic schizophrenia. He was admitted on 12/14 for small bowel obstruction. He was started on empirical antibiotic for sepsis and NG tube was placed. His nausea vomiting improved, and he has had multiple bowel movements. NG tube was removed. Pt tolerating diet well, but has to be on restriction because of mentation. Exam General: alert male. mild distress. agitated Head: normocephalic and atraumatic Neck: supple, trachea midline, no lymphadeopathy Lungs: CTA bilaterally. non-labored breathing. No wheezes, rales, or rhonchi. Heart: RRR +S1 +S2. no murmurs, clicks, or rubs appreciated. Abdomen: soft, non-tender, non-distended. normoactive bowel sounds Extremities: radial pulses palpable and symmetrical. No edema or cyanosis. Neuro: A&Ox3. no speech difficulty or abnormality Skin: warm, dry, intact. Pale Plan Sepsis likely 2/2 to pneumonia and bowel obstruction. Continue antibiotics. Appreciate ID recs Acute resp failure with hypoxia. Transferred to the ICU <Jb Gonzalez A - Last Filed: 12/24/17 17:15> (3) Gastric ulcer Qualifiers: Gastric ulcer chronicity: chronic Gastric ulcer complication status: without hemorrhage or perforation Qualified Code(s): K25.7 - Chronic gastric ulcer without hemorrhage or perforation (4) Pneumonia Qualifiers: Pneumonia type: due to unspecified organism Laterality: bilateral Lung location: unspecified part of lung Qualified Code(s): J18.9 - Pneumonia, unspecified organism <Funmilayo Aguirre - Last Filed: 12/24/17 17:46> (3) Gastric ulcer Qualifiers: Gastric ulcer chronicity: chronic Gastric ulcer complication status: without hemorrhage or perforation Qualified Code(s): K25.7 - Chronic gastric ulcer without hemorrhage or perforation (4) Pneumonia Qualifiers: Pneumonia type: due to unspecified organism Laterality: bilateral Lung location: unspecified part of lung Qualified Code(s): J18.9 - Pneumonia, unspecified organism
[2017-12-24] MEDS: hydrOXYzine pamoate 25 MG CAPSULE PO SCH ×4 (11:29→19:56)
[2017-12-24] MEDS: lamoTRIgine 100 MG TABLET PO SCH ×2 (11:30→19:55)
[2017-12-24] MEDS: *HR* LORazepam 2 MG/ML VIAL IM PRN ×2 (13:33→19:54)
--- NOTE | 2017-12-24 14:13 | Infectious Disease Consult ---
Date of Encounter: 12/24/17 Time of Encounter: 13:56 Assessment and Plan (1) Sepsis Status: Acute Assessment and plan: On admission patient had severe sepsis with acute kidney injury, troponin leak and lactic acidosis Likely secondary to intra-abdominal process including bowel obstruction and aspiration pneumonia Get blood cultures 2 Get a urine culture Check procalcitonin the Qualifiers: Sepsis type: sepsis due to unspecified organism Qualified Code(s): A41.9 - Sepsis, unspecified organism (2) Acute respiratory failure with hypoxia Status: Acute Assessment and plan: Etiology not clear. Patient has been given a lot of Ativan so not sure if that has anything to do with that Could be also due to worsening aspiration pneumonia The hospitalist team's ordering stat EKG and chest x-ray Continue Zosyn and vancomycin for now (3) Aspiration pneumonia Status: Acute Assessment and plan: Causative organism not clear Check MRSA screen Check urine legionella and pneumococcal antigen Check respiratory infectious panel Continue vancomycin and Zosyn MRSA screen is negative we will consider reducing vancomycin Qualifiers: Aspiration pneumonia type: unspecified Laterality: right Lung location: middle lobe of lung Qualified Code(s): J69.0 - Pneumonitis due to inhalation of food and vomit (4) Leukocytosis Status: Resolved Assessment and plan: Etiology not clear. Patient clearly has sepsis Could be due to intra-abdominal process versus pneumonia versus other. Unable to get review of system and physical exam is limited due to patient condition Once clinically stable I would consider CT had chest and abdomen and pelvis Continue broad-spectrum antibiotics in the meantime Check inflammatory markers Qualifiers: Leukocytosis type: unspecified Qualified Code(s): D72.829 - Elevated white blood cell count, unspecified (5) Small bowel obstruction Status: Resolved Assessment and plan: Seems to have improved. Surgery was following Patient was tolerating clear liquid diet Once clinically stable I would recommend CT abdomen and pelvis with oral contrast to see if there is new intra-abdominal process (6) Acute kidney injury Status: Resolved Assessment and plan: Likely secondary to sepsis and dehydration Improved (7) Catatonia schizophrenia Status: Chronic Infectious Disease HPI - Data of Consult Patient: new to practice Consult date: 12/24/17 Requesting Physician: Funmilayo Aguirre [facility] Provider[facility] - Consult Narrative Reason for consult: aspiration History of present illness: Mr. Johnson is a 67 year old male X Patient is a 67-year-old gentleman who presented to [place] on 12/14/2017 with nausea vomiting and diarrhea, we are consulted on 12/24/2017 for persistent leukocytosis. On admission patient presented with no fever but was significantly tachycardic and had a WBC of 29,000 with 92% neutrophils and lactic acidosis. Patient was also in acute kidney injury with a BUN 27 and creatinine 1.57. He also had troponin leak with a troponin peaking at about 0.3. LFTs were obtained and were within normal limits. A CT abdomen and pelvis on 12/14/2017 revealed mild to severe dilatation of most small bowel loops with a suspected transition point in the terminal ileum a few centimeters proximal to the ileocecal valve. The appearance favors partial obstruction over ileus. Urinary bladder wall thickening potentially due to chronic outlet obstruction and/or incomplete distention. The chest x-ray on 12/14/2017 revealed no acute process 12/14/2017: Severe sepsis, acute kidney injury and troponin leak CT abdomen and pelvis : evealed mild to severe dilatation of most small bowel loops with a suspected transition point in the terminal ileum a few centimeters proximal to the ileocecal valve. The appearance favors partial obstruction over ileus. Urinary bladder wall thickening potentially due to chronic outlet obstruction and/or incomplete distention. CXR without acute process. Patient did not have blood cultures or a urine culture at that time it appears like patient received Zosyn and then meropenem. Patient was seen by surgery and was diagnosed with small bowel obstruction and NG tube was placed. 12/15/2017: Patient was transferred to the ICU for closer monitoring. At that time patient was hypoxic and chest x-ray revealed interstitial and airspace opacities in the mid to lower right lung concerning for aspiration pneumonia. Patient was started on Zosyn. 12/18/2017 patient was doing much better clinically transferred out of ICU and has had multiple bowel movements and surgery no appreciated. 12/20/2017 patient was started on clear liquid diet and was tolerating it well. Currently patient is afebrile with a MAXIMUM TEMPERATURE of 99.7 last night. Continues to be tachycardic. WBC increased to 17.5 thousand with 83% neutrophils no bands. GI PCR revealed no bacteria and negative C. difficile. Patient has been on Zosyn since December 15 and vancomycin was added on December 23. We were asked to evaluate the patient think further recommendations. When I went in to evaluate the patient patient was unresponsive patient was having agonal breathing. A sitter was at bedside. Past nursing to get stat vitals and the patient was hypoxic with O2 sats of 84-85% with good pulse ox waveform. Patient was already on 5 L O2 nasal cannula. Physical exam revealed equal pupils are reactive. Minimal air sounds audible both lung maldonado but poor inspiratory effort. Heart rate was tachycardic but there was no arrhythmia. Abdomen was soft hypoactive bowel sounds no guarding. There was adequate perfusion and lower extremities. Patient did appear pale and the skin was mottled. The 8 told me that the patient was moving around and hit the back of his head on the railing earlier was not really loud. I personally called the hospitalist team notified him of my findings and they came down to evaluate the patient. Once the hospitalist team to go over I removed myself in the room. CC: Funmilayo Aguirre Past Med Surg Social Fam HX - Past Medical History Medical history: hypertension Psychiatric history: schizophrenia - Past Surgical History Surgical History: no surgical history - Social History Smoking Status: Current every day smoker Smokeless Tobacco Status: No Alcohol use: none Drug use: none Infectious Disease-CN:Meds Cholecalciferol (D-3) [Vitamin D] 1,000 unit PO DAILY 10/01/15 [History] Citalopram Hydrobromide [Citalopram HBr] 40 mg PO DAILY 10/01/15 [History] Haloperidol Decanoate [Haldol] 25 mg IM Q2W 10/01/15 [History] Multivitamin with Minerals [One-A-Day Maximum Formula] 1 each PO DAILY 10/01/15 [History] Pantoprazole Sodium [Protonix] 40 mg PO DAILY 10/01/15 [History] cloZAPine [Clozaril] 100 mg PO BID 10/01/15 [History] cloZAPine [Clozaril] 300 mg PO HS 10/01/15 [History] clonazePAM [Klonopin] 1 mg PO BID 10/01/15 [History] lamoTRIgine [Lamictal] 100 mg PO BID 10/01/15 [History] Haloperidol [Haldol] 2 mg PO BID 12/15/17 [History] Lactobacillus Acidophilus [Acidophilus Lactobacillus] 1 cap PO DAILY 12/15/17 [ History] Metoprolol [Lopressor] 12.5 mg PO BID 12/15/17 [History] Sodium Chloride [Sodium Chloride Tab] 1 gm PO DAILY 12/15/17 [History] hydrOXYzine pamoate [HydrOXYzine Pamoate] 25 mg PO QID 12/15/17 [History] 3 Allergy/AdvReac Type Severity Reaction Status Date / Time No Known Allergies Allergy Verified 10/01/15 15:08 ROS unobtainable: due to mental status Exam - Constitutional Vitals: Temp Pulse Resp BP Pulse Ox 98.9 F 101 18 119/72 79 12/24/17 09:08 12/24/17 11:00 12/24/17 11:00 12/24/17 11:00 12/24/17 11:00 General appearance: mild distress, no febrile, no cooperative Exam: Responsive only to painful stimuli - Head Head exam: Present: atraumatic, normal inspection, normocephalic - Eye Eye exam: Present: EOMI, PERRL, sclera anicteric - ENT ENT exam: Present: mucous membranes dry Additional comments: No oral lesions - Neck Neck exam: Present: full ROM, normal inspection - Respiratory Additional comments: Chest expanding symmetrically. There is agonal breathing. Minimal air sounds audible bilaterally. Poor inspiratory effort. Not appreciate any wheezing. - Cardiovascular Cardiovascular exam: Present: RRR, +S1, +S2 - GI/Abdominal GI/Abdominal exam: Present: hypoactive bowel sounds, soft. Absent: guarding, tenderness - Extremities Exam Extremities exam: Present: normal inspection. Absent: pedal edema - Neurological Exam Neurological exam: Present: altered Additional comments: Only responds to painful stimuli No facial asymmetry - Skin Skin exam: Present: mottled, normal color Infectious Disease CN: Results - Labs CBC & Chem 7: 12/24/17 07:05 12/24/17 05:50 Cultures: Cultures 12/16/17 13:35 Blood Culture - Final Peripheral Venipuncture No growth. Final report. 12/16/17 13:35 Blood Culture - Final Peripheral Venipuncture No growth. Final report. Serology: Serology 12/23/17 12/21/17 Range/Units 22:00 16:20 Stl C. cayetanensis PCR Not detected (Not detect) Stool Rotavirus A PCR Not detected (Not detect) Stl Adenov F 40/41 PCR Not detected (Not detect) Stool Astrovirus (PCR) Not detected (Not detect) Stool Campylobacter PCR Not detected (Not detect) Stl C. diff Tox B Gene Negative (Negative) Stl C. diff Tox A/B PCR Not detected (Not detect) Stool Cryptosporidium PCR Not detected (Not detect) Stl Sh Tox Pr E STEC PCR Not detected (Not detect) Stool E coli O157 PCR Not detected (Not detect) Stl Enterotoxigenic E PCR Not detected (Not detect) Stool EPEC (PCR) Not detected (Not detect) Stool EAEC (PCR) Not detected (Not detect) Stl E. histolytica PCR Not detected (Not detect) Stool Giardia Lamblia PCR Not detected (Not detect) Stool Salmonella PCR Not detected (Not detect) Stool Sapovirus (PCR) Not detected (Not detect) Stl P. shigelloides PCR Not detected (Not detect) Stl Shigella/EIEC PCR Not detected (Not detect) St Y.enterocolitica PCR Not detected (Not detect) Stool Vibrio (PCR) Not detected (Not detect) Stl Vibrio cholerae PCR Not detected (Not detect) Stl Norovirus GI/GII PCR Not detected (Not detect) Stl GI Panel (PCR) Com See below Consult Discharge Plan - Plan Instructions: Acute Nausea and Vomiting (ED), Abdominal Pain (ED) Additional Instructions: Patient needs admission. He has nausea / vomiting , abdominal pain ,high WBC count, CT scan shows dilated small bowel loops & suspected small bowel obstruction. [facility]errals: [facility] [Primary Care Provider] -
[2017-12-24] MEDS ORDERED: Furosemide 40 MG/4 ML VIAL IVP ONE ×2 (14:51→16:35)
[2017-12-24 15:14] LABS: ABG Base Excess 6 mEq/L (-2 to 3); ABG HCO3 30 mEq/L (21-27); ABG Oxygen Saturation 88 % (95-98); ABG PCO2 41 mmHg (35-45); ABG PH 7.47 pH Units (7.32-7.45); ABG PO2 51 mmHg (85-104); ABG TCO2 31 mEq/L (20-26)
--- NOTE | 2017-12-24 15:28 | Event Note ---
<Jb Gonzalez A - Last Filed: 12/24/17 15:21> Date of Encounter: 12/24/17 Time of Encounter: 15:21 Pt became very agitated, hitting the NEUROSURGEON, pulling out IVs, and spitting out water and meds. Was given 0.5 Ativan IM. Shortly after pt became very lethargic and only responsive to deep sternal rub. Sp02 was dropping into the 80s despite supplemental O2 via oxy mask. ABG was obtained. CXR revealed diffuse patchy infiltrates representing increased pulmonary vascular congestion vs infection. Throughout this process IV access was attempted at various sites including external jugular. Critical care was consulted and pt transferred to ICU for further care. <Funmilayo Aguirre A - Last Filed: 12/24/17 17:41> Date of Encounter: 12/24/17 Pt was noted to be hypoxic and lethargic ABG showed ph 7.47 PO2 51 and PCO2 41 despite being on 9L high flow He was transferred to the ICU for acute hypoxic respiratory failure likely 2/2 to cardiogenic vs infectious causes. Benja jenkins
--- NOTE | 2017-12-24 16:34 | Pulmonology Progress Note ---
Date of Encounter: 12/24/17 Time of Encounter: 16:24 Assessment and Plan (1) Acute respiratory failure with hypoxia Current Visit: Yes Status: Acute I spent 32min of Critical Care time with this patient. It involved decision making of high complexity to assess, manipulate, and support vital organ system failure and/or to prevent further life threatening deterioration of the patient' s condition. The time involved in the performance of separately reportable procedures was not counted toward critical care time. Patient seen and examined at bedside Labs, radiology, chart personally reviewed. Below reflects my systems based assessment and plan RELAY REPAIRER: Patient has a history of a disorganized/catatonic schizophrenia has been followed closely by the same psychiatrist for the last 25 years he graciously had left some recommendations which we will try to incorporate into her treatment plan. He appears somewhat agitated today and that has affected his respiratory status acute cautiously administer benzodiazepine but given how obtunded he was earlier in the day I think that there is some risk with doing this so would have to be very cautious Pulm: Acute hypoxic respiratory failure which is quite severe now requiring 15 L high flow oxygen mask I reviewed his chest x-ray which is concerning for one of 2 things either cardiogenic pulmonary edema or noncardiogenic pulmonary edema i.e. ARDS secondary to worsening pneumonia I favor the former given him recent crystalloid infusion and we will start with diuretic today he has a persistent leukocytosis which is concerning for untreated pneumonia although his been on Zosyn for over a week infectious disease was consulted for further recommendations at this time we will reculture the patient and continue to follow. I do not think that he would benefit much at this point from steroid administration. Clearly he has a high risk of further respiratory decline requiring intubation and will need close monitoring in the ICU Cards: I suspect a component of hydrostatic pulmonary edema but blood pressure is stable now on I would favor starting diuresis with monitoring of his kidney function; check BNP and could consider echocardiogram GI: Patient presented with small bowel obstruction which has resolved Nutrition: We will keep nothing by mouth for now Renal: Acute kidney injury has resolved UOP Monitored, Cont to Trend sCr and monitor Electrolytes. ID: Persistent leukocytosis with worsening bilateral infiltrates which I suspect reflect a untreated pneumonia follow infectious disease recommendations once patient more stable we will send for CT of the chest abdomen pelvis to further evaluate potential causes of infection respiratory infection panel has been ordered repeat blood cultures and urine cultures as well and if obtainable would get sputum although I think that this is unlikely Heme/Onc: DVT prophylaxis given reviewed his H&H and platelets which are stable Endo: Glucose Monitored Integ/MSK: Skin Care per routine ICU Nursing Protocol to prevent ulcers. Lines: All lines examined without evidence of infection : Dispo: We will monitor in ICU over the next 12 to 24 hours CODE: Full code (2) Pneumonia Current Visit: Yes Status: Acute Qualifiers: Qualified Code(s): J18.9 - Pneumonia, unspecified organism (3) Schizophrenia, disorganized type Current Visit: Yes Status: Chronic Subjective Principal diagnosis: Small bowel obstruction Interval history: The patient is a 67-year-old gentleman who pulmonary had seen initially in the ICU for a small bowel obstruction and aspiration pneumonia complicated by respiratory failure severe sepsis acute kidney injury and troponin leak 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 I was called urgently evaluate the patient because he was unresponsive and was having agonal breathing noted to be hypoxic with oxygen saturation of 84 and 85% on 5 L nasal cannula. When I evaluated the patient in his room on the general medical floor he was arousable to voice and sternal rub but unable to consistently follow any commands anteroapically her baseline of what his mental status was previously. At this point he was on 9 L oxygen mask and saturation was in the low 90s until blood gas at been obtained which was notable for PO2 of 51 but no evidence of hypercarbia. Blood pressure apparently was systolics 90s at this point per the nursing staff animated decision to transfer the patient to the intensive care unit for closer monitoring. Apparently the patient had received Ativan earlier in the day and this may have complicated the picture. The patient has been on Zosyn for possible aspiration pneumonia since 12/15 and had actually been started on vancomycin as well for persistent leukocytosis he was evaluated by infectious disease service recommendations to stop vancomycin after MRSA nasal swab was negative. I did have a chest reviewed his chest x- ray from today which shows worsening bilateral infiltrates consistent with multifocal pneumonia or CHF or ARDS. Unfortunately when the patient was transferred to the ICU his blood pressure immediately improved he was 130/80 he was much more alert and was able to respond to simple commands he kept repeating the same phrase apparently one of the restraints removed but that was all he could tell me looking back at to the notes it appears that this probably is not too far off his baseline since his been the hospital. He is currently on oxygen mask 15 L and oxygen saturation is mid 90s Patient has been agitated throughout the hospitalization has tore out most of his IVs and Harrington catheter so I evaluated him initially had no access the PICC team was able to place a midline however. Objective PUL Vital signs: Last Vital Signs Temp 98.5 F 12/24/17 15:00 Pulse 103 12/24/17 15:00 Resp 18 12/24/17 15:00 BP 146/83 12/24/17 15:00 Pulse Ox 96 12/24/17 15:00 General appearance: alert Eyes: nonicteric ENT: oropharynx moist Neck: supple Effort: mildly labored Auscultation: bilateral: rales, rhonchi (Scattered but worse on the left compared to the right) Cardiovascular: regular rate and rhythm Gastrointestinal: normoactive bowel sounds Integumentary: normal Extremities: no cyanosis, no edema, no clubbing, pink and warm Musculoskeletal: no deformities non-focal exam, pupils equal and round anxious, other (Patient noted to perseverate on same words or phrases which is difficult to interpret he does appear agitated periodically with perhaps being restrained) Results - Laboratory Findings CBC and BMP: 12/24/17 07:05 12/24/17 05:50 ABG ABG pH 7.47 pH Units (7.32-7.45) H 12/24/17 14:57 ABG pCO2 41 mmHg (35-45) 12/24/17 14:57 ABG pO2 51 mmHg (85-104) L 12/24/17 14:57 ABG O2 Saturation 88 % (95-98) L 12/24/17 14:57 PT/INR, D-dimer PT 16.7 Seconds (9.4-12.1) H D 12/16/17 18:08 Abnormal lab findings: Abnormal lab results WBC 17.5 K/mcL (4.3-11.1) H 12/24/17 07:05 RBC 3.30 M/mcL (4.19-5.50) L 12/24/17 07:05 Hgb 10.1 g/dL (12.9-16.9) L 12/24/17 07:05 Hct 30.3 % (37.5-50.1) L 12/24/17 07:05 MPV 9.3 fL (9.4-12.4) L 12/24/17 07:05 Neutrophils # 14.6 K/mcL (1.6-8.9) H 12/24/17 07:05 Reactive Lymphocytes Present (Not Present) A 12/23/17 05:12 Toxic Vacuolation Present (Not Present) A 12/23/17 05:12 Hypochromasia Present (Not Present) A 12/21/17 04:01 Anisocytosis 1+ (Not Present) A 12/20/17 06:31 ESR 44 mm/hr (0-10) H 12/21/17 11:49 PT 16.7 Seconds (9.4-12.1) H D 12/16/17 18:08 ABG pH 7.47 pH Units (7.32-7.45) H 12/24/17 14:57 ABG pO2 51 mmHg (85-104) L 12/24/17 14:57 ABG HCO3 30 mEq/L (21-27) H 12/24/17 14:57 ABG Total CO2 31 mEq/L (20-26) H 12/24/17 14:57 ABG O2 Saturation 88 % (95-98) L 12/24/17 14:57 ABG Base Excess 6 mEq/L (-2 to 3) H 12/24/17 14:57 Sodium 134 mEq/L (136-145) L 12/24/17 05:50 Potassium 3.4 mEq/L (3.5-5.1) L 12/24/17 05:50 Creatinine 0.67 mg/dL (0.70-1.30) L 12/24/17 05:50 Calculated Osmolality 277 (280-300) L 12/24/17 05:50 Calcium 8.0 mg/dL (8.6-10.3) L 12/24/17 05:50 AST 92 Units/L (13-39) H 12/16/17 03:24 Troponin I 0.21 ng/mL (< 0.04) H* 12/15/17 14:12 C-Reactive Protein 215 mg/L (Less than 10) H 12/21/17 11:49 Serum Total Protein 5.4 g/dL (6.4-8.9) L 12/16/17 03:24 Albumin 3.3 g/dL (3.5-5.7) L 12/16/17 03:24 Globulin 2.1 g/dL (2.4-3.5) L 12/16/17 03:24 Prealbumin 5.1 mg/dL (17.0-34.0) L 12/23/17 05:12 - Diagnostic Findings Chest x-ray: report reviewed, image reviewed - Clinical Findings Intake & Output: Intake & Output 12/24/17 12/24/17 12/24/17 07:59 15:59 23:59 Intake Total 477 / 477 340 / 340 Output Total 0 / 0 Balance 477 / 477 340 / 340 Weight 62.7 kg Consult Discharge Plan - Plan Instructions: Acute Nausea and Vomiting (ED), Abdominal Pain (ED) Additional Instructions: Patient needs admission. He has nausea / vomiting , abdominal pain ,high WBC count, CT scan shows dilated small bowel loops & suspected small bowel obstruction. [facility] Care Provider[facility] -
--- NOTE | 2017-12-24 16:54 | Consult Note ---
Date of Encounter: 12/24/17 Time of Encounter: 16:00 Assessment & Recommendation (1) Catatonia schizophrenia Current visit: Yes Status: Chronic History of Present Illness Patient: known to practice within the last 3 years Requesting Physician: Funmilayo Aguirre Reason for consult: PSYCHAIRRIC ILLNESS History of present illness: Mr. Johnson is a 67 year old male This patient is known to me from the past 25 years the [facility]. His health status has declined. I was hoping that he would be able to be transferred to the [place] but further medical treatment must occur. It is important to note that the patient required clozapine for control of his psychiatric illness. Haldol by itself did not control his condition. He required several medicines. Since clozapine is not available at this time other options include olanzapine and Seroquel. Since clozapine and the other medicines are limited to by mouth or oral routes of the treatment of his illness may require some use of Ativan including IV and Ativan. The patient has a history of catatonia with impulsivity negativistic and speech abnormalities. I have left my phone number with the RN. Our objective is to try and stabilize his medical list for transfer to the [place] so that he can be in the process of reinitiation of clozapine and rehabilitation CC: Funmilayo Aguirre Past Med Surg Social Fam HX - Past Medical History Medical history: hypertension - Past Surgical History Surgical History: no surgical history - Social History Smoking Status: Current every day smoker Smokeless Tobacco Status: No Alcohol use: none Drug use: none Medications & Allergies Cholecalciferol (D-3) [Vitamin D] 1,000 unit PO DAILY 10/01/15 [History] Citalopram Hydrobromide [Citalopram HBr] 40 mg PO DAILY 10/01/15 [History] Haloperidol Decanoate [Haldol] 25 mg IM Q2W 10/01/15 [History] Multivitamin with Minerals [One-A-Day Maximum Formula] 1 each PO DAILY 10/01/15 [History] Pantoprazole Sodium [Protonix] 40 mg PO DAILY 10/01/15 [History] cloZAPine [Clozaril] 100 mg PO BID 10/01/15 [History] cloZAPine [Clozaril] 300 mg PO HS 10/01/15 [History] clonazePAM [Klonopin] 1 mg PO BID 10/01/15 [History] lamoTRIgine [Lamictal] 100 mg PO BID 10/01/15 [History] Haloperidol [Haldol] 2 mg PO BID 12/15/17 [History] Lactobacillus Acidophilus [Acidophilus Lactobacillus] 1 cap PO DAILY 12/15/17 [ History] Metoprolol [Lopressor] 12.5 mg PO BID 12/15/17 [History] Sodium Chloride [Sodium Chloride Tab] 1 gm PO DAILY 12/15/17 [History] hydrOXYzine pamoate [HydrOXYzine Pamoate] 25 mg PO QID 12/15/17 [History] 3 Allergy/AdvReac Type Severity Reaction Status Date / Time No Known Allergies Allergy Verified 10/01/15 15:08 Review of Systems Psychiatric: Reports: confusion, irritability Psychiatry Exam - Constitutional Vitals: Temp Pulse Resp BP Pulse Ox 98.5 F 105 24 146/83 96 12/24/17 16:00 12/24/17 16:00 12/24/17 16:00 12/24/17 16:00 12/24/17 16:00 General appearance: age & developmentally appropriate - Psychiatric Patient Orientation: Yes Person Level of alertness: Alert Behavior: restless, impulsive Psychomotor activity: Catatonic Eye Contact: Fleeting Contact Mood Description: Irritable Affect description: incongruent with mood Speech Volume: Soft/Quiet Speech pattern: mumbled Language & Vocabulary: limited Patient Reliability: Not Reliable Historian Fund of knowledge: Yes below average Intelligence Estimate: Below Average Judgment: Poor Insight: None Results - Labs Labs: Laboratory Last Values WBC 17.5 K/mcL (4.3-11.1) H 12/24/17 07:05 RBC 3.30 M/mcL (4.19-5.50) L 12/24/17 07:05 Hgb 10.1 g/dL (12.9-16.9) L 12/24/17 07:05 Hct 30.3 % (37.5-50.1) L 12/24/17 07:05 MCV 91.8 fL (83.0-100.0) 12/24/17 07:05 MCH 30.6 pg (28.0-33.3) 12/24/17 07:05 MCHC 33.3 g/dL (31.6-35.5) 12/24/17 07:05 RDW 13.8 % (11.5-14.5) 12/24/17 07:05 Plt Count 397 K/mcL (140-400) 12/24/17 07:05 MPV 9.3 fL (9.4-12.4) L 12/24/17 07:05 Immature Gran % 1.1 % (0-4) 12/24/17 07:05 Seg Neutrophils % 83.0 % 12/24/17 07:05 Band Neutrophils % 2.0 % (0-4) 12/20/17 06:31 Lymphocytes % 7.0 % 12/24/17 07:05 Monocytes % 7.1 % 12/24/17 07:05 Eosinophils % 1.6 % 12/24/17 07:05 Basophils % 0.2 % 12/24/17 07:05 Neutrophils # 14.6 K/mcL (1.6-8.9) H 12/24/17 07:05 Lymphocytes # 1.2 K/mcL (0.6-4.6) 12/24/17 07:05 Monocytes # 1.2 K/mcL (0.0-1.3) 12/24/17 07:05 Eosinophils # 0.3 K/mcL (0.0-0.6) 12/24/17 07:05 Basophils # 0.0 K/mcL (0.0-0.2) 12/24/17 07:05 Reactive Lymphocytes Present (Not Present) A 12/23/17 05:12 Toxic Vacuolation Present (Not Present) A 12/23/17 05:12 Platelet Estimate Normal (Normal) 12/23/17 05:12 Hypochromasia Present (Not Present) A 12/21/17 04:01 Anisocytosis 1+ (Not Present) A 12/20/17 06:31 ESR 44 mm/hr (0-10) H 12/21/17 11:49 PT 16.7 Seconds (9.4-12.1) H D 12/16/17 18:08 INR 1.5 12/16/17 18:08 APTT 30.6 Seconds (26.0-36.0) 12/14/17 15:57 ABG pH 7.47 pH Units (7.32-7.45) H 12/24/17 14:57 ABG pCO2 41 mmHg (35-45) 12/24/17 14:57 ABG pO2 51 mmHg (85-104) L 12/24/17 14:57 ABG HCO3 30 mEq/L (21-27) H 12/24/17 14:57 ABG Total CO2 31 mEq/L (20-26) H 12/24/17 14:57 ABG O2 Saturation 88 % (95-98) L 12/24/17 14:57 ABG Base Excess 6 mEq/L (-2 to 3) H 12/24/17 14:57 O2 Delivery Device Oxy Mask 12/24/17 14:57 Blood Gas Modality OM 12/15/17 14:48 Inspired O2 9.0 (1-15=lpm [id number]=%) 12/24/17 14:57 Sodium 134 mEq/L (136-145) L 12/24/17 05:50 Potassium 3.4 mEq/L (3.5-5.1) L 12/24/17 05:50 Chloride 103 mEq/L (98-107) 12/24/17 05:50 Carbon Dioxide 24 mEq/L (23-29) 12/24/17 05:50 BUN 10 mg/dL (8-23) 12/24/17 05:50 Creatinine 0.67 mg/dL (0.70-1.30) L 12/24/17 05:50 Est GFR ( Amer) > 60 (> 60) 12/24/17 05:50 Est GFR (Non-Af Amer) > 60 (> 60) 12/24/17 05:50 BUN/Creatinine Ratio 15 (6-26) 12/24/17 05:50 Glucose 101 mg/dL (70-105) 12/24/17 05:50 POC Glucose 71 mg/dL (70-99) 12/19/17 11:36 Calculated Osmolality 277 (280-300) L 12/24/17 05:50 Lactic Acid 1.1 mmol/L (0.5-2.2) 12/21/17 11:49 Calcium 8.0 mg/dL (8.6-10.3) L 12/24/17 05:50 Total Bilirubin 0.7 mg/dL (0.3-1.0) 12/16/17 03:24 AST 92 Units/L (13-39) H 12/16/17 03:24 ALT 29 Units/L (7-52) 12/16/17 03:24 Alkaline Phosphatase 51 Units/L (34-104) 12/16/17 03:24 Troponin I 0.21 ng/mL (< 0.04) H* 12/15/17 14:12 C-Reactive Protein 215 mg/L (Less than 10) H 12/21/17 11:49 Serum Total Protein 5.4 g/dL (6.4-8.9) L 12/16/17 03:24 Albumin 3.3 g/dL (3.5-5.7) L 12/16/17 03:24 Globulin 2.1 g/dL (2.4-3.5) L 12/16/17 03:24 Albumin/Globulin Ratio 1.6 (1.1-2.2) 12/16/17 03:24 Prealbumin 5.1 mg/dL (17.0-34.0) L 12/23/17 05:12 Lipase 11 Units/L (11-82) 12/14/17 15:57 Stool Occult Bld Scrn Negative (Negative) 12/14/17 15:22 Stl C. cayetanensis PCR Not detected (Not detect) 12/23/17 22:00 Stool Rotavirus A PCR Not detected (Not detect) 12/23/17 22:00 Stl Adenov F 40/41 PCR Not detected (Not detect) 12/23/17 22:00 Stool Astrovirus (PCR) Not detected (Not detect) 12/23/17 22:00 Stool Campylobacter PCR Not detected (Not detect) 12/23/17 22:00 Stl C. diff Tox B Gene Negative (Negative) 12/21/17 16:20 Stl C. diff Tox A/B PCR Not detected (Not detect) 12/23/17 22:00 Stool Cryptosporidium PCR Not detected (Not detect) 12/23/17 22:00 Stl Sh Tox Pr E STEC PCR Not detected (Not detect) 12/23/17 22:00 Stool E coli O157 PCR Not detected (Not detect) 12/23/17 22:00 Stl Enterotoxigenic E PCR Not detected (Not detect) 12/23/17 22:00 Stool EPEC (PCR) Not detected (Not detect) 12/23/17 22:00 Stool EAEC (PCR) Not detected (Not detect) 12/23/17 22:00 Stl E. histolytica PCR Not detected (Not detect) 12/23/17 22:00 Stool Giardia Lamblia PCR Not detected (Not detect) 12/23/17 22:00 Stool Salmonella PCR Not detected (Not detect) 12/23/17 22:00 Stool Sapovirus (PCR) Not detected (Not detect) 12/23/17 22:00 Stl P. shigelloides PCR Not detected (Not detect) 12/23/17 22:00 Stl Shigella/EIEC PCR Not detected (Not detect) 12/23/17 22:00 St Y.enterocolitica PCR Not detected (Not detect) 12/23/17 22:00 Stool Vibrio (PCR) Not detected (Not detect) 12/23/17 22:00 Stl Vibrio cholerae PCR Not detected (Not detect) 12/23/17 22:00 Stl Norovirus GI/GII PCR Not detected (Not detect) 12/23/17 22:00 Stl GI Panel (PCR) Com See below 12/23/17 22:00 Vancomycin Trough 6 mcg/mL (5-10) 12/23/17 05:12 Specimen Rejected Clotted 12/24/17 05:50 Blood Type A POSITIVE 12/14/17 15:57 Antibody Screen NEGATIVE 12/14/17 15:57 - Impressions Impressions Chest X-Ray 12/24/17 14:45 IMPRESSION: 1. Increasing airspace opacities now diffusely involving both lungs which can be seen in setting of multifocal pneumonia, vascular congestion, ARDS, and/or atelectasis. Continued imaging follow-up is recommended. 2. Small bilateral pleural effusions. D/ / Clarke Jeffrey / Clarke Jeffrey Interpreting Provider: Clarke Jeffrey Consult Discharge Plan - Plan Instructions: Acute Nausea and Vomiting (ED), Abdominal Pain (ED) Additional Instructions: Patient needs admission. He has nausea / vomiting , abdominal pain ,high WBC count, CT scan shows dilated small bowel loops & suspected small bowel obstruction. [facility]: [facility] [Primary Care Provider[facility] -
[2017-12-24 16:59] LABS: Adenovirus Not Detected (Not Detect); Bordetella Pertussis Not Detected (Not Detect); Chlamydophila pneumoniae Not Detected (Not Detect); Coronavirus 229E Not Detected (Not Detect); Coronavirus HKU1 Not Detected (Not Detect); Coronavirus NL63 Not Detected (Not Detect); Coronavirus OC43 Not Detected (Not Detect); Human Metapneumovirus Not Detected (Not Detect); Human Rhinovirus/Enterovirus Not Detected (Not Detect); Influenza A Subtype 2009 H1 Not Detected (Not Detect); Influenza A Untypeable Not Detected (Not Detect); Influenza B Not Detected (Not Detect); Mycoplasma pneumoniae Not Detected (Not Detect); Parainfluenza Virus 1 Not Detected (Not Detect); Parainfluenza Virus 2 Not Detected (Not Detect); Parainfluenza Virus 3 Not Detected (Not Detect); Parainfluenza Virus 4 Not Detected (Not Detect); Respiratory Syncytial Virus Not Detected (Not Detect)
[2017-12-24 17:32] LABS: Vancomycin,Trough 6 mcg/mL (5-10)
[2017-12-24] MEDS: Ringers Solution, Lactated 1,000 ML IVC SCH ×2 (19:10→19:14)
[2017-12-24 19:15] LABS: Hematocrit 30.9 % (37.5-50.1); Hemoglobin 10.1 g/dL (12.9-16.9); Mean Corpuscular HGB Conc 32.7 g/dL (31.6-35.5); Mean Corpuscular Hemoglobin 30.4 pg (28.0-33.3); Mean Corpuscular Volume 93.1 fL (83.0-100.0); Mean Platelet Volume 10.9 fL (9.4-12.4); Platelet Count 437 K/mcL (140-400); Red Blood Count 3.32 M/mcL (4.19-5.50)
[2017-12-24 19:16] LABS: BUN/Creatinine Ratio 17 (6-26); Blood Urea Nitrogen 10 mg/dL (8-23); Calcium 7.9 mg/dL (8.6-10.3); Carbon Dioxide 27 mEq/L (23-29); Chloride 101 mEq/L (98-107); Glucose 95 mg/dL (70-105); Osmolality,Calculated 281 (280-300); Potassium 3.4 mEq/L (3.5-5.1); Sodium 136 mEq/L (136-145); eGFR For Non-African Americans > 60 (> 60)
[2017-12-24] MEDS: Haloperidol Lactate 5 MG/ML VIAL IVP PRN (19:19)
[2017-12-25] MEDS: Haloperidol Lactate 5 MG/ML VIAL IVP PRN ×2 (04:28→18:25)
[2017-12-25] MEDS: *HR* Heparin 5,000 UNIT/ML VIAL SQ SCH ×3 (04:44→22:14)
[2017-12-25 05:01] LABS: Magnesium 1.9 mg/dL (1.6-2.6); Phosphorous 3.7 mg/dL (2.7-4.5)
[2017-12-25 05:02] LABS: Alanine Aminotransferase 21 Units/L (7-52); Albumin 2.4 g/dL (3.5-5.7); Alkaline Phosphatase 56 Units/L (34-104); Amylase 168 Units/L (29-103); Aspartate Amino Transferase 26 Units/L (13-39); BUN/Creatinine Ratio 20 (6-26); Bilirubin,Total 0.6 mg/dL (0.3-1.0); Blood Urea Nitrogen 12 mg/dL (8-23); C-Reactive Protein 188 mg/L (Less than 10); Calcium 7.9 mg/dL (8.6-10.3); Carbon Dioxide 29 mEq/L (23-29); Chloride 100 mEq/L (98-107); Globulin 2.5 g/dL (2.4-3.5); Glucose 92 mg/dL (70-105); Lipase 96 Units/L (11-82); Osmolality,Calculated 283 (280-300); Potassium 3.5 mEq/L (3.5-5.1); Sodium 137 mEq/L (136-145); Total Protein 4.9 g/dL (6.4-8.9); eGFR For Non-African Americans > 60 (> 60)
[2017-12-25 07:15] LABS: Basophils % 0.2 %; Eosinophils # 0.2 K/mcL (0.0-0.6); Eosinophils % 1.5 %; Hematocrit 31.6 % (37.5-50.1); Hemoglobin 10.4 g/dL (12.9-16.9); Immature Granulocytes % 0.8 % (0-4); Lymphocytes # 1.2 K/mcL (0.6-4.6); Lymphocytes % 7.3 %; Mean Corpuscular HGB Conc 32.9 g/dL (31.6-35.5); Mean Corpuscular Hemoglobin 30.1 pg (28.0-33.3); Mean Corpuscular Volume 91.6 fL (83.0-100.0); Mean Platelet Volume 9.4 fL (9.4-12.4); Monocytes # 1.1 K/mcL (0.0-1.3); Monocytes % 6.5 %; Neutrophils # 13.6 K/mcL (1.6-8.9); Platelet Count 434 K/mcL (140-400); Red Blood Count 3.45 M/mcL (4.19-5.50); Red Cell Distribution Width 13.8 % (11.5-14.5); Segmented Neutrophils % 83.7 %
[2017-12-25] MEDS: *HR* LORazepam 2 MG/ML VIAL IM PRN ×2 (07:39→22:15)
[2017-12-25] MEDS: hydrOXYzine pamoate 25 MG CAPSULE PO SCH ×4 (07:39→22:15)
[2017-12-25] MEDS: lamoTRIgine 100 MG TABLET PO SCH ×2 (07:39→22:15)
[2017-12-25] MEDS: Piperacillin/Tazobactam 3.375 GM in 0.9 % Sodium Chloride Mini Bag 100 ML IVPB SCH ×2 (07:41→18:12)
--- NOTE | 2017-12-25 07:48 | Pulmonology Progress Note ---
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50) L 12/25/17 06:56 Hgb 10.4 g/dL (12.9-16.9) L 12/25/17 06:56 Hct 31.6 % (37.5-50.1) L 12/25/17 06:56 Plt Count 434 K/mcL (140-400) H 12/25/17 06:56 Neutrophils # 13.6 K/mcL (1.6-8.9) H 12/25/17 06:56 Reactive Lymphocytes Present (Not Present) A 12/23/17 05:12 Toxic Vacuolation Present (Not Present) A 12/23/17 05:12 Hypochromasia Present (Not Present) A 12/21/17 04:01 Anisocytosis 1+ (Not Present) A 12/20/17 06:31 ESR 13 mm/hr (0-10) H 12/25/17 04:25 PT 16.7 Seconds (9.4-12.1) H D 12/16/17 18:08 ABG pH 7.47 pH Units (7.32-7.45) H 12/24/17 14:57 ABG pO2 51 mmHg (85-104) L 12/24/17 14:57 ABG HCO3 30 mEq/L (21-27) H 12/24/17 14:57 ABG Total CO2 31 mEq/L (20-26) H 12/24/17 14:57 ABG O2 Saturation 88 % (95-98) L 12/24/17 14:57 ABG Base Excess 6 mEq/L (-2 to 3) H 12/24/17 14:57 Creatinine 0.59 mg/dL (0.70-1.30) L 12/25/17 04:25 Calcium 7.9 mg/dL (8.6-10.3) L 12/25/17 04:25 Troponin I 0.21 ng/mL (< 0.04) H* 12/15/17 14:12 C-Reactive Protein 188 mg/L (Less than 10) H 12/25/17 04:25 B-Natriuretic Peptide 354 pg/mL (Less than 100) H 12/24/17 16:32 Serum Total Protein 4.9 g/dL (6.4-8.9) L 12/25/17 04:25 Albumin 2.4 g/dL (3.5-5.7) L 12/25/17 04:25 Albumin/Globulin Ratio 1.0 (1.1-2.2) L 12/25/17 04:25 Prealbumin 5.1 mg/dL (17.0-34.0) L 12/23/17 05:12 Amylase 168 Units/L (29-103) H 12/25/17 04:25 Lipase 96 Units/L (11-82) H 12/25/17 04:25 - Microbiology Findings Microbiology Findings: Microbiology, Last 48 Hours 12/24/17 16:20 Blood Culture - Preliminary Peripheral Venipuncture Culture is incubating and being continuously monitored for growth. Final report to follow. 12/24/17 16:20 Blood Culture - Preliminary Peripheral Venipuncture Culture is incubating and being continuously monitored for growth. Final report to follow. - Clinical Findings Intake & Output: Intake & Output 12/24/17 12/25/17 12/25/17 23:59 07:59 15:59 Intake Total 850 / 850 350 / 350 Output Total 0 / 0 Balance 850 / 850 350 / 350 Weight 65.3 kg Consult Discharge Plan - Plan Instructions: Acute Nausea and Vomiting (ED), Abdominal Pain (ED) Additional Instructions: Patient needs admission. He has nausea / vomiting , abdominal pain ,high WBC count, CT scan shows dilated small bowel loops & suspected small bowel obstruction. Referrals: [facility]Primary Care Provider[facility] - - Attending Attestation I examined this patient and my medical decision-making was reviewed with the Resident Physician. I agree with the documented findings, disposition and treatment plan as described except to the extent set forth below. We independently had [id number] contact with the patient Patient seen and examined at bedside Labs, radiology, chart personally reviewed. Management was reviewed during multidisciplinary critical care rounds. 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 ID: Continue broad-spectrum coverage for pneumonia infectious disease following cultures pending de-escalate based upon results Heme/Onc: DVT prophylaxis given Endo: Glucose Monitored Integ/MSK: Skin Care per routine ICU Nursing Protocol to prevent ulcers. Lines: All lines examined without evidence of infection : Dispo: We will monitor in the ICU today because of hypoxia CODE: Full <Ruben Jackson - Last Filed: 12/25/17 17:36> Date of Encounter: 12/25/17 Time of Encounter: 07:15 Assessment and Plan (1) Hypoxia Current Visit: Yes Status: Acute Acute hypoxic respiratory failure likely 2/2 pulmonary edema vs multifocal pneumonia Patient hypoxic (12/24) at 85% on 5L oxygen Patient now on 15L high flow O2 saturating at 94% (2) Cardiogenic pulmonary edema Current Visit: Yes Status: Acute Worsening pulmonary edema on chest xray (12/24) Gave IV lasix 80 mg today Urine output 2750 ml today (12/25) Gave 2 doses of 25% albumin (3) Pneumonia Current Visit: Yes Status: Acute Worsening multifocal pneumonia evidenced on chest xray (12/24) WBC 19.5 > 16.3 today ID following Continue zosyn (day 11) Continue vancomycin (day 3) Blood cultures (12/24) - no growth to date Monitor for ARDS Qualifiers: Pneumonia type: due to unspecified organism Laterality: bilateral Lung location: unspecified part of lung Qualified Code(s): J18.9 - Pneumonia, unspecified organism (4) Leukocytosis Current Visit: No Status: Resolved WBC 19.5 > 16.3 Possibly due to multifocal PNA Patient on Zosyn (day 11) Patient on vancomycin (day 3) Continue to monitor Qualifiers: Leukocytosis type: unspecified Qualified Code(s): D72.829 - Elevated white blood cell count, unspecified (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 He has no complaints and is resting well on 15L high flow oxygen. He is alert, but his speech seems disorganized. Patient denies SOB and pain this morning. I was not able to converse well with patient. Objective PUL Vital signs: Last Vital Signs Temp 98.2 F 12/25/17 07:00 Pulse 107 12/25/17 07:00 Resp 19 12/25/17 07:00 BP 115/62 12/25/17 07:00 Pulse Ox 90 12/25/17 07:00 General appearance: no acute distress Eyes: nonicteric Effort: normal Auscultation: bilateral: wheezes, rales Cardiovascular: regular rate and rhythm Gastrointestinal: normoactive bowel sounds, soft, non-tender Integumentary: normal Extremities: no cyanosis, no edema mood appropriate Results - Laboratory Findings CBC and BMP: 12/25/17 06:56 12/25/17 04:25 ABG ABG pH 7.47 pH Units (7.32-7.45) H 12/24/17 14:57 ABG pCO2 41 mmHg (35-45) 12/24/17 14:57 ABG pO2 51 mmHg (85-104) L 12/24/17 14:57 ABG O2 Saturation 88 % (95-98) L 12/24/17 14:57 PT/INR, D-dimer PT 16.7 Seconds (9.4-12.1) H D 12/16/17 18:08 Abnormal lab findings: Abnormal lab results WBC 16.3 K/mcL (4.3-11.1) H 12/25/17 06:56 RBC 3.45 M/mcL (4.19-5.50) L 12/25/17 06:56 Hgb 10.4 g/dL (12.9-16.9) L 12/25/17 06:56 Hct 31.6 % (37.5-50.1) L 12/25/17 06:56 Plt Count 434 K/mcL (140-400) H 12/25/17 06:56 Neutrophils # 13.6 K/mcL (1.6-8.9) H 12/25/17 06:56 Reactive Lymphocytes Present (Not Present) A 12/23/17 05:12 Toxic Vacuolation Present (Not Present) A 12/23/17 05:12 Hypochromasia Present (Not Present) A 12/21/17 04:01 Anisocytosis 1+ (Not Present) A 12/20/17 06:31 ESR 13 mm/hr (0-10) H 12/25/17 04:25 PT 16.7 Seconds (9.4-12.1) H D 12/16/17 18:08 ABG pH 7.47 pH Units (7.32-7.45) H 12/24/17 14:57 ABG pO2 51 mmHg (85-104) L 12/24/17 14:57 ABG HCO3 30 mEq/L (21-27) H 12/24/17 14:57 ABG Total CO2 31 mEq/L (20-26) H 12/24/17 14:57 ABG O2 Saturation 88 % (95-98) L 12/24/17 14:57 ABG Base Excess 6 mEq/L (-2 to 3) H 12/24/17 14:57 Creatinine 0.59 mg/dL (0.70-1.30) L 12/25/17 04:25 Calcium 7.9 mg/dL (8.6-10.3) L 12/25/17 04:25 Troponin I 0.21 ng/mL (< 0.04) H* 12/15/17 14:12 C-Reactive Protein 188 mg/L (Less than 10) H 12/25/17 04:25 B-Natriuretic Peptide 354 pg/mL (Less than 100) H 12/24/17 16:32 Serum Total Protein 4.9 g/dL (6.4-8.9) L 12/25/17 04:25 Albumin 2.4 g/dL (3.5-5.7) L 12/25/17 04:25 Albumin/Globulin Ratio 1.0 (1.1-2.2) L 12/25/17 04:25 Prealbumin 5.1 mg/dL (17.0-34.0) L 12/23/17 05:12 Amylase 168 Units/L (29-103) H 12/25/17 04:25 Lipase 96 Units/L (11-82) H 12/25/17 04:25 - Microbiology Findings Microbiology Findings: Microbiology, Last 48 Hours 12/24/17 16:20 Blood Culture - Preliminary Peripheral Venipuncture Culture is incubating and being continuously monitored for growth. Final report to follow. 12/24/17 16:20 Blood Culture - Preliminary Peripheral Venipuncture Culture is incubating and being continuously monitored for growth. Final report to follow. - Clinical Findings Intake & Output: Intake & Output 12/24/17 12/24/17 12/25/17 15:59 23:59 07:59 Intake Total 340 / 340 850 / 850 350 / 350 Output Total 0 / 0 0 / 0 Balance 340 / 340 850 / 850 350 / 350 Weight 65.3 kg
[2017-12-25] MEDS ORDERED: Furosemide 40 MG/4 ML VIAL IVP ONE ×2 (08:05→13:00)
[2017-12-25] MEDS ORDERED: cloZAPine 25 MG TABLET PO ONE (11:00)
--- NOTE | 2017-12-25 16:44 | Infectious Disease Progress No ---
Date of Encounter: 12/25/17 Time of Encounter: 10:20 - Assessment and Plan (1) Sepsis Current Visit: Yes Status: Acute On admission, the patient had severe sepsis with DONTE, troponin leak, and lactic acidosis. Likely secondary to intra-abdominal process including SBO and aspiration PNA. Improved. WBC trending down. Blood cultures drawn 12/16/17 are NGTD x 2 sets. Repeat blood cultures drawn 12/24/17 x 2 sets are pending. Qualifiers: Qualified Code(s): A41.9 - Sepsis, unspecified organism (2) Aspiration pneumonia Current Visit: Yes Status: Acute Causative organism unclear. Chest x-ray on admission was negative for pneumonia, but repeat chest x-ray 12/15 showed new patchy interstitial and/or airspace opacities in the mid to lower right lung, potentially developing pneumonia. Repeat CXR 12/24/17 showed increasing air space opacities now diffusely involving both lungs which can be seen in the setting of multifocal pneumonia, vascular congestion, ARDS, and/or atelectasis. Given the patient's altered mental status, high concern for aspiration. Nasal MRSA screen was negative. Strep pneumococcal and legionella urinary antigens are negative. Respiratory infectious panel is negative. Recommend repeat CT of the chest now that the patient has stabilized. Continue vancomycin IV. Pharmacy to dose. Goal trough approximately 15. We will continue the vancomycin even though the MRSA nasal screen was negative given that it was checked several days after vancomycin was restarted. Continue Zosyn 3.375 g IV every 8 hours. Duration of treatment depends on the clinical picture. Monitor renal function and for drug toxicity and dose adjust antibiotics. Qualifiers: Qualified Code(s): J69.0 - Pneumonitis due to inhalation of food and vomit (3) Acute respiratory failure with hypoxia Current Visit: Yes Status: Acute Likely secondary to adverse reaction to Ativan and pneumonia. Appears improved. Pulmonology consult it. Further management per the pulmonology and primary teams. (4) Leukocytosis Current Visit: No Status: Resolved Etiology unclear, but the patient clearly has sepsis. Could be intra-abdominal versus pneumonia versus other. The patient's mental status makes it very difficult to obtain review of systems. T of the head, chest, abdomen, and pelvis. Pro-calcitonin is pending. ESR is mildly elevated at 13. Continue antibiotics as stated above for now. Qualifiers: Qualified Code(s): D72.829 - Elevated white blood cell count, unspecified (5) Small bowel obstruction Current Visit: Yes Status: Resolved Seems improved clinically, but most recent imaging on 12/20/17 showed no significant change in the findings were still consistent with a partial small bowel obstruction. Gen. surgery was consulted but is signed off. The patient appears to tolerating a clear liquid diet. Consider repeat CT of the abdomen and pelvis to evaluate given the patient's persistent leukocytosis. Recommend reconsult ring surgery based on CT findings. Further management per the primary and Gen. surgery teams. (6) Acute kidney injury Current Visit: Yes Status: Resolved Likely secondary sepsis. Resolved. Continue to trend serum creatinine. Avoid nephrotoxins. Does adjust medications. 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 - Subjective Interval history: Patient seen and examined. Overnight events noted. Patient become hypoxic and obtunded after Ativan. Improved mentation this morning. Speech remains garbled, but alert and follows commands. Per nursing, scheduled to transfer out of the ICU. Patient nods head "yes" to shortness of breath, cough, and pain, but unable to understand location of his pain. Nursing states patient ate without a problem today. No diarrhea. No new issues per nursing. Infect Dis PN-Objective Data - Labs CBC & Chem 7: 12/25/17 06:56 12/25/17 04:25 Labs: Laboratory Results - last 24 hr 12/24/17 12/24/17 12/24/17 15:47 15:50 15:50 WBC RBC Hgb Hct MCV MCH MCHC RDW Plt Count MPV Immature Gran % Seg Neutrophils % Lymphocytes % Monocytes % Eosinophils % Basophils % Neutrophils # Lymphocytes # Monocytes # Eosinophils # Basophils # ESR Sodium Potassium Chloride Carbon Dioxide BUN Creatinine Est GFR ( Amer) Est GFR (Non-Af Amer) BUN/Creatinine Ratio Glucose POC Glucose 84 Calculated Osmolality Calcium Phosphorus Magnesium Total Bilirubin AST ALT Alkaline Phosphatase C-Reactive Protein B-Natriuretic Peptide Serum Total Protein Albumin Globulin Albumin/Globulin Ratio Amylase Lipase Nasal Screen MRSA (PCR) Negative Vancomycin Trough Chlamy pneumoniae PCR Not Detected Adenovirus (PCR) Not Detected B. pertussis DNA (PCR) Not Detected B.parapertussis DNA PCR Not Detected Coronavirus OC43 (PCR) Not Detected Coronavirus HKU1 (PCR) Not Detected Coronavirus 229E (PCR) Not Detected Coronavirus NL63 (PCR) Not Detected Human Metapneumovir PCR Not Detected Influenza A (H1) PCR Not Detected Influ A (H1N1/09) PCR Not Detected Influenza A (H3) PCR Not Detected Influenza A Untype (PCR) Not Detected Influenza Type B (PCR) Not Detected M.pneumoniae DNA (PCR) Not Detected Parainfluenza 1 (PCR) Not Detected Parainfluenza 2 (PCR) Not Detected Parainfluenza 3 (PCR) Not Detected Parainfluenza 4 (PCR) Not Detected RSV (PCR) Not Detected Entero/Rhino (PCR) Not Detected 12/24/17 12/24/17 12/24/17 16:32 16:50 16:50 WBC 19.1 H RBC 3.32 L Hgb 10.1 L Hct 30.9 L MCV 93.1 MCH 30.4 MCHC 32.7 RDW 14.0 Plt Count 437 H MPV 10.9 Immature Gran % Seg Neutrophils % Lymphocytes % Monocytes % Eosinophils % Basophils % Neutrophils # Lymphocytes # Monocytes # Eosinophils # Basophils # ESR Sodium 136 Potassium 3.4 L Chloride 101 Carbon Dioxide 27 BUN 10 Creatinine 0.59 L Est GFR ( Amer) > 60 Est GFR (Non-Af Amer) > 60 BUN/Creatinine Ratio 17 Glucose 95 POC Glucose Calculated Osmolality 281 Calcium 7.9 L Phosphorus Magnesium Total Bilirubin AST ALT Alkaline Phosphatase C-Reactive Protein B-Natriuretic Peptide 354 H Serum Total Protein Albumin Globulin Albumin/Globulin Ratio Amylase Lipase Nasal Screen MRSA (PCR) Vancomycin Trough 6 Chlamy pneumoniae PCR Adenovirus (PCR) B. pertussis DNA (PCR) B.parapertussis DNA PCR Coronavirus OC43 (PCR) Coronavirus HKU1 (PCR) Coronavirus 229E (PCR) Coronavirus NL63 (PCR) Human Metapneumovir PCR Influenza A (H1) PCR Influ A (H1N1/09) PCR Influenza A (H3) PCR Influenza A Untype (PCR) Influenza Type B (PCR) M.pneumoniae DNA (PCR) Parainfluenza 1 (PCR) Parainfluenza 2 (PCR) Parainfluenza 3 (PCR) Parainfluenza 4 (PCR) RSV (PCR) Entero/Rhino (PCR) 12/25/17 12/25/17 12/25/17 04:25 04:25 04:25 WBC RBC Hgb Hct MCV MCH MCHC RDW Plt Count MPV Immature Gran % Seg Neutrophils % Lymphocytes % Monocytes % Eosinophils % Basophils % Neutrophils # Lymphocytes # Monocytes # Eosinophils # Basophils # ESR 13 H Sodium 137 Potassium 3.5 Chloride 100 Carbon Dioxide 29 BUN 12 Creatinine 0.59 L Est GFR ( Amer) > 60 Est GFR (Non-Af Amer) > 60 BUN/Creatinine Ratio 20 Glucose 92 POC Glucose Calculated Osmolality 283 Calcium 7.9 L Phosphorus 3.7 Magnesium 1.9 Total Bilirubin 0.6 AST 26 ALT 21 Alkaline Phosphatase 56 C-Reactive Protein 188 H B-Natriuretic Peptide Serum Total Protein 4.9 L Albumin 2.4 L Globulin 2.5 Albumin/Globulin Ratio 1.0 L Amylase 168 H Lipase 96 H Nasal Screen MRSA (PCR) Vancomycin Trough Chlamy pneumoniae PCR Adenovirus (PCR) B. pertussis DNA (PCR) B.parapertussis DNA PCR Coronavirus OC43 (PCR) Coronavirus HKU1 (PCR) Coronavirus 229E (PCR) Coronavirus NL63 (PCR) Human Metapneumovir PCR Influenza A (H1) PCR Influ A (H1N1/09) PCR Influenza A (H3) PCR Influenza A Untype (PCR) Influenza Type B (PCR) M.pneumoniae DNA (PCR) Parainfluenza 1 (PCR) Parainfluenza 2 (PCR) Parainfluenza 3 (PCR) Parainfluenza 4 (PCR) RSV (PCR) Entero/Rhino (PCR) 12/25/17 06:56 WBC 16.3 H RBC 3.45 L Hgb 10.4 L Hct 31.6 L MCV 91.6 MCH 30.1 MCHC 32.9 RDW 13.8 Plt Count 434 H MPV 9.4 Immature Gran % 0.8 Seg Neutrophils % 83.7 Lymphocytes % 7.3 Monocytes % 6.5 Eosinophils % 1.5 Basophils % 0.2 Neutrophils # 13.6 H Lymphocytes # 1.2 Monocytes # 1.1 Eosinophils # 0.2 Basophils # 0.0 ESR Sodium Potassium Chloride Carbon Dioxide BUN Creatinine Est GFR ( Amer) Est GFR (Non-Af Amer) BUN/Creatinine Ratio Glucose POC Glucose Calculated Osmolality Calcium Phosphorus Magnesium Total Bilirubin AST ALT Alkaline Phosphatase C-Reactive Protein B-Natriuretic Peptide Serum Total Protein Albumin Globulin Albumin/Globulin Ratio Amylase Lipase Nasal Screen MRSA (PCR) Vancomycin Trough Chlamy pneumoniae PCR Adenovirus (PCR) B. pertussis DNA (PCR) B.parapertussis DNA PCR Coronavirus OC43 (PCR) Coronavirus HKU1 (PCR) Coronavirus 229E (PCR) Coronavirus NL63 (PCR) Human Metapneumovir PCR Influenza A (H1) PCR Influ A (H1N1/09) PCR Influenza A (H3) PCR Influenza A Untype (PCR) Influenza Type B (PCR) M.pneumoniae DNA (PCR) Parainfluenza 1 (PCR) Parainfluenza 2 (PCR) Parainfluenza 3 (PCR) Parainfluenza 4 (PCR) RSV (PCR) Entero/Rhino (PCR) Cultures: Cultures 12/25/17 10:23 Legionella Antigen - Final Urine,Clean Catch Streptococcus pneumoniae Antigen (M - Final 12/24/17 16:20 Blood Culture - Preliminary Peripheral Venipuncture Culture is incubating and being continuously monitored for growth. Final report to follow. 12/24/17 16:20 Blood Culture - Preliminary Peripheral Venipuncture Culture is incubating and being continuously monitored for growth. Final report to follow. 12/16/17 13:35 Blood Culture - Final Peripheral Venipuncture No growth. Final report. 12/16/17 13:35 Blood Culture - Final Peripheral Venipuncture No growth. Final report. Serology 12/24/17 12/24/17 12/23/17 Range/Units 15:50 15:50 22:00 Nasal Screen MRSA (PCR) Negative (Negative) Stl C. cayetanensis PCR Not detected (Not detect) Stool Rotavirus A PCR Not detected (Not detect) Stl Adenov F 40/41 PCR Not detected (Not detect) Stool Astrovirus (PCR) Not detected (Not detect) Stool Campylobacter PCR Not detected (Not detect) Stl C. diff Tox B Gene (Negative) Stl C. diff Tox A/B PCR Not detected (Not detect) Stool Cryptosporidium PCR Not detected (Not detect) Stl Sh Tox Pr E STEC PCR Not detected (Not detect) Stool E coli O157 PCR Not detected (Not detect) Stl Enterotoxigenic E PCR Not detected (Not detect) Stool EPEC (PCR) Not detected (Not detect) Stool EAEC (PCR) Not detected (Not detect) Stl E. histolytica PCR Not detected (Not detect) Stool Giardia Lamblia PCR Not detected (Not detect) Stool Salmonella PCR Not detected (Not detect) Stool Sapovirus (PCR) Not detected (Not detect) Stl P. shigelloides PCR Not detected (Not detect) Stl Shigella/EIEC PCR Not detected (Not detect) St Y.enterocolitica PCR Not detected (Not detect) Stool Vibrio (PCR) Not detected (Not detect) Stl Vibrio cholerae PCR Not detected (Not detect) Stl Norovirus GI/GII PCR Not detected (Not detect) Stl GI Panel (PCR) Com See below Chlamy pneumoniae PCR Not Detected (Not Detect) Adenovirus (PCR) Not Detected (Not Detect) B. pertussis DNA (PCR) Not Detected (Not Detect) B.parapertussis DNA PCR Not Detected (Not Detect) Coronavirus OC43 (PCR) Not Detected (Not Detect) Coronavirus HKU1 (PCR) Not Detected (Not Detect) Coronavirus 229E (PCR) Not Detected (Not Detect) Coronavirus NL63 (PCR) Not Detected (Not Detect) Human Metapneumovir PCR Not Detected (Not Detect) Influenza A (H1) PCR Not Detected (Not Detect) Influ A (H1N1/09) PCR Not Detected (Not Detect) Influenza A (H3) PCR Not Detected (Not Detect) Influenza A Untype (PCR) Not Detected (Not Detect) Influenza Type B (PCR) Not Detected (Not Detect) M.pneumoniae DNA (PCR) Not Detected (Not Detect) Parainfluenza 1 (PCR) Not Detected (Not Detect) Parainfluenza 2 (PCR) Not Detected (Not Detect) Parainfluenza 3 (PCR) Not Detected (Not Detect) Parainfluenza 4 (PCR) Not Detected (Not Detect) RSV (PCR) Not Detected (Not Detect) Entero/Rhino (PCR) Not Detected (Not Detect) 12/21/17 Range/Units 16:20 Nasal Screen MRSA (PCR) (Negative) Stl C. cayetanensis PCR (Not detect) Stool Rotavirus A PCR (Not detect) Stl Adenov F 40/41 PCR (Not detect) Stool Astrovirus (PCR) (Not detect) Stool Campylobacter PCR (Not detect) Stl C. diff Tox B Gene Negative (Negative) Stl C. diff Tox A/B PCR (Not detect) Stool Cryptosporidium PCR (Not detect) Stl Sh Tox Pr E STEC PCR (Not detect) Stool E coli O157 PCR (Not detect) Stl Enterotoxigenic E PCR (Not detect) Stool EPEC (PCR) (Not detect) Stool EAEC (PCR) (Not detect) Stl E. histolytica PCR (Not detect) Stool Giardia Lamblia PCR (Not detect) Stool Salmonella PCR (Not detect) Stool Sapovirus (PCR) (Not detect) Stl P. shigelloides PCR (Not detect) Stl Shigella/EIEC PCR (Not detect) St Y.enterocolitica PCR (Not detect) Stool Vibrio (PCR) (Not detect) Stl Vibrio cholerae PCR (Not detect) Stl Norovirus GI/GII PCR (Not detect) Stl GI Panel (PCR) Com Chlamy pneumoniae PCR (Not Detect) Adenovirus (PCR) (Not Detect) B. pertussis DNA (PCR) (Not Detect) B.parapertussis DNA PCR (Not Detect) Coronavirus OC43 (PCR) (Not Detect) Coronavirus HKU1 (PCR) (Not Detect) Coronavirus 229E (PCR) (Not Detect) Coronavirus NL63 (PCR) (Not Detect) Human Metapneumovir PCR (Not Detect) Influenza A (H1) PCR (Not Detect) Influ A (H1N1/09) PCR (Not Detect) Influenza A (H3) PCR (Not Detect) Influenza A Untype (PCR) (Not Detect) Influenza Type B (PCR) (Not Detect) M.pneumoniae DNA (PCR) (Not Detect) Parainfluenza 1 (PCR) (Not Detect) Parainfluenza 2 (PCR) (Not Detect) Parainfluenza 3 (PCR) (Not Detect) Parainfluenza 4 (PCR) (Not Detect) RSV (PCR) (Not Detect) Entero/Rhino (PCR) (Not Detect) - Impressions Impressions Chest X-Ray 12/21/17 08:32 IMPRESSION: 1. Multifocal airspace opacities suspicious for pneumonia. 2. Small right pleural effusion. 3. Probable gaseous dilation of the colon measuring up to 7.5 cm in the upper abdomen. D/ / 12/21/2017 15:11:53 Constance Dudley MD / Abbi Vera Interpreting Provider: Constance Dduley MD Exam - Constitutional Vitals: Temp Pulse Resp BP Pulse Ox 98.7 F 106 17 95/56 92 12/25/17 12:00 12/25/17 12:00 12/25/17 12:00 12/25/17 12:00 12/25/17 12:00 General appearance: average body habitus, cooperative, no acute distress - Head Head exam: Present: atraumatic, normal inspection, normocephalic - Eye Eye exam: Present: EOMI, normal appearance, PERRL Pupils: Present: normal accommodation - ENT ENT exam: Present: mucous membranes dry Additional comments: Very poor dentition noted. - Neck Neck exam: Present: normal inspection - Respiratory Respiratory exam: Present: rhonchi (throughout). Absent: rales, respiratory distress, wheezes - Cardiovascular Cardiovascular exam: Present: RRR, +S1, +S2 - GI/Abdominal GI/Abdominal exam: Present: normal bowel sounds, soft. Absent: distended, tenderness Additional comments: Harrington catheter noted to be draining clear yellow urine. - Extremities Exam Extremities exam: Present: normal inspection. Absent: joint swelling, pedal edema, tenderness - Neurological Exam Neurological exam: Present: alert, no focal deficits (FINK x 4 on command), speech deficit (Garbled, unable to understand.) - Psychiatric Psychiatric exam: Present: normal affect, normal mood - Skin Skin exam: Present: dry, intact, normal color, warm Consult Discharge Plan - Plan Instructions: Acute Nausea and Vomiting (ED), Abdominal Pain (ED) Additional Instructions: Patient needs admission. He has nausea / vomiting , abdominal pain ,high WBC count, CT scan shows dilated small bowel loops & suspected small bowel obstruction. Referrals: [facility] [Primary Care Provider[facility] - - Attending Attestation I examined this patient and my medical decision-making was reviewed with the Resident Physician. I agree with the documented findings, disposition and treatment plan as described except to the extent set forth below.
[2017-12-25] MEDS ORDERED: Isovue-370 500 ML INFUS..BTL IV ONE ×2 (16:54)
[2017-12-25] MEDS: Albumin 25% 25gram/100mL 25 GM/100 ML IV.SOLN IVC SCH ×2 (18:13→22:30)
[2017-12-25] MEDS ORDERED: *HR* Metoprolol 5 MG/5 ML VIAL IVP PRN (20:04)
[2017-12-25] MEDS ORDERED: Naloxone 0.4 MG/ML INJ IVP PRN (20:04)
[2017-12-25] MEDS ORDERED: Ipratropium/Albuterol Neb 3 ML IH PRN (20:04)
[2017-12-25] MEDS ORDERED: Haloperidol Decanoate 50 MG/ML VIAL IM SCH (20:04)
[2017-12-25] MEDS ORDERED: Nitroglycerin 0.4 MG TAB.SUBL SL PRN (20:04)
[2017-12-25] MEDS ORDERED: clonazePAM 1 MG TABLET PO SCH (21:00)
[2017-12-26] MEDS: Piperacillin/Tazobactam 3.375 GM in 0.9 % Sodium Chloride Mini Bag 100 ML IVPB SCH ×4 (00:28→23:19)
[2017-12-26 04:04] LABS: Basophils % 0.2 %; Eosinophils # 0.3 K/mcL (0.0-0.6); Eosinophils % 1.6 %; Hematocrit 27.9 % (37.5-50.1); Hemoglobin 9.3 g/dL (12.9-16.9); Immature Granulocytes % 0.7 % (0-4); Lymphocytes # 1.5 K/mcL (0.6-4.6); Mean Corpuscular HGB Conc 33.3 g/dL (31.6-35.5); Mean Corpuscular Hemoglobin 30.4 pg (28.0-33.3); Mean Corpuscular Volume 91.2 fL (83.0-100.0); Mean Platelet Volume 9.5 fL (9.4-12.4); Monocytes # 1.2 K/mcL (0.0-1.3); Neutrophils # 13.6 K/mcL (1.6-8.9); Platelet Count 440 K/mcL (140-400); Red Blood Count 3.06 M/mcL (4.19-5.50); Red Cell Distribution Width 13.8 % (11.5-14.5); Segmented Neutrophils % 81.5 %
[2017-12-26 04:27] LABS: BUN/Creatinine Ratio 15 (6-26); Blood Urea Nitrogen 15 mg/dL (8-23); Calcium 8.2 mg/dL (8.6-10.3); Carbon Dioxide 31 mEq/L (23-29); Chloride 97 mEq/L (98-107); Glucose 99 mg/dL (70-105); Osmolality,Calculated 289 (280-300); Potassium 2.9 mEq/L (3.5-5.1); Sodium 139 mEq/L (136-145); eGFR For Non-African Americans > 60 (> 60)
[2017-12-26] MEDS: *HR* LORazepam 2 MG/ML VIAL IM PRN (04:35)
[2017-12-26] MEDS: Potassium Chloride Elixir 20 MEQ/15 ML UDC PO SCH ×2 (05:59→11:31)
[2017-12-26] MEDS: *HR* Heparin 5,000 UNIT/ML VIAL SQ SCH ×3 (06:00→20:25)
--- NOTE | 2017-12-26 07:36 | Internal Med Progress Note ---
<Jb Gonzalez - Last Filed: 12/26/17 14:44> Hospitalist Progress Note - Encounter Date of Encounter: 12/26/17 Time of Encounter: 07:36 - Subjective Interval History: Mr. Johnson is a 67M with PMH of gastric ulcer from H pylori, HTN, and catatonic schizophrenia. He was admitted on 12/14 for small bowel obstruction. He was started on empirical antibiotic for sepsis and NG tube was placed. His nausea vomiting improved, and he has had multiple bowel movements. NG tube was removed. Pt tolerating diet well, but has to be on restriction because of mentation. Continued diarrhea and incontinence. His respiratory status began to decline on 12/21. IV Vanc was added to the Zosyn already on board. Repeat CXR on 12/21 revealed opacities of both lungs suspicious for PNA. On 12/24 pt's SpO2 began dropping into the low 80s despite high flow O2 via oxy mask, and breathing agonal. Repeat CXR on 12/24 revealed worsening bilateral opacities concerning for multifocal PNA vs ARDS. He was transferred to the ICU for further management of acute respiratory failure, but did not require intubation. He was transferred to the step-down unit today. Patient is alert, awake and oriented to place, and person. States his breathing is improved, but that he is still coughing. Some sputum production. Denies any abdominal pain. - Exam Vitals: Temp Pulse Resp BP Pulse Ox 98.2 F 78 22 87/57 97 12/26/17 05:19 12/26/17 05:19 12/26/17 05:19 12/26/17 05:19 12/26/17 05:19 Exam: General: alert male. mild distress Head: normocephalic and atraumatic Neck: supple, trachea midline, no lymphadeopathy Lungs: Wheezing and raales bilaterally. mildly labored breathing on 15lpm via oxy mask Heart: RRR +S1 +S2. no murmurs, clicks, or rubs appreciated. Abdomen: soft, non-tender, non-distended. normoactive bowel sounds Extremities: radial pulses palpable and symmetrical. No edema or cyanosis. Neuro: A&Ox3. no speech difficulty or abnormality Skin: warm, dry, intact. Pale - Assessment and Plan (1) Diarrhea Current Visit: Yes Status: Acute Assessment and Plan: Pt has experienced watery diarrhea since resolution of SBO on 12/19 Hemooccult negative on 12/14 C diff Tox B screen negative on 12/21 GI panel on 12/23 negative Likely not infectious May be associated with abx Will start Culturelle Will give 1 time dose of Loperamide today, hesitant for further dosing with recent SBO Aquaphor/Maalox for raw rectum due to frequent diarrhea (2) Pneumonia Current Visit: Yes Status: Acute Assessment and Plan: CXR on 12/15 showed infiltrates/consolidations more on the right side Was on Zosyn for 5.5 days, followed by Augmentin for 1.5 days Continues to experience cough Suspect may be some aspiration component with pt's speech and mentation WBC remains elevated at 16.6 today Afebrile HR normal non-tachypnic Pulm and ID on board Day 12 total of abx Continue Vanc and Zosyn per ID Mucomyst and Albuterol nebs today, will switch to Duonebs tomorrow Continue supplemental O2 Continue to monitor (3) Small bowel obstruction Current Visit: Yes Status: Resolved Assessment and Plan: Resolved Small bowel follow through was normal with contrast seen in rectum at 4 hours Tolerating regular diet, has to be on restrictions due to mentation Tolerating po meds Tolerating regular diet (4) Catatonia schizophrenia Current Visit: Yes Status: Chronic Assessment and Plan: Resumed home medications Per psych recommendations yesterday, increased Haldol to 50mg IM every 2 weeks ( Last dose was on 12/24) has prn Haldol IV (5) Gastric ulcer Current Visit: Yes Status: Acute Assessment and Plan: Continue PPI DVT Prophylaxis: SQ Heparin - Time Spent with Patient Total time spent is greater than 50% in coordination of care (as documented) at patient's floor/unit and/or counseling patient: Internal Medicine: Result - Labs CBC & Chem 7: 12/26/17 03:45 12/26/17 03:45 Labs: Short CBC 12/26/17 Range/Units 03:45 WBC 16.6 H (4.3-11.1) K/mcL Hgb 9.3 L (12.9-16.9) g/dL Hct 27.9 L (37.5-50.1) % Plt Count 440 H (140-400) K/mcL Neutrophils # 13.6 H (1.6-8.9) K/mcL BMP 12/26/17 03:45 Sodium 139 Potassium 2.9 L Chloride 97 L Carbon Dioxide 31 H BUN 15 Creatinine 1.02 Glucose 99 Calcium 8.2 L - ABG Interpretation ABG results: ABG ABG pH 7.47 pH Units (7.32-7.45) H 12/24/17 14:57 ABG pCO2 41 mmHg (35-45) 12/24/17 14:57 ABG pO2 51 mmHg (85-104) L 12/24/17 14:57 ABG O2 Saturation 88 % (95-98) L 12/24/17 14:57 PT/INR, D-dimer PT 16.7 Seconds (9.4-12.1) H D 12/16/17 18:08 - Impressions Impressions Chest X-Ray 12/25/17 16:15 IMPRESSION: No significant interval change. D/ / Mehran Myers MD / Mehran Myers MD Interpreting Provider: Mehran Myers MD Consult Discharge Plan - Plan Instructions: Acute Nausea and Vomiting (ED), Abdominal Pain (ED) Additional Instructions: Patient needs admission. He has nausea / vomiting , abdominal pain ,high WBC count, CT scan shows dilated small bowel loops & suspected small bowel obstruction. [facility]errals: [facility]Primary Care Provider[facility] - <Funmilayo Aguirre - Last Filed: 12/26/17 17:03> Hospitalist Progress Note - Encounter Date of Encounter: 12/26/17 - Exam Vitals: Temp Pulse Resp BP Pulse Ox 98.1 F 113 20 117/72 93 12/26/17 11:22 12/26/17 12:58 12/26/17 11:40 12/26/17 11:22 12/26/17 11:40 - Assessment and Plan (1) Small bowel obstruction Current Visit: Yes Status: Resolved (2) Catatonia schizophrenia Current Visit: Yes Status: Chronic (3) Gastric ulcer Current Visit: Yes Status: Acute (4) Pneumonia Current Visit: Yes Status: Acute (5) Diarrhea Current Visit: Yes Status: Acute - Time Spent with Patient Total time spent is greater than 50% in coordination of care (as documented) at patient's floor/unit and/or counseling patient: Internal Medicine: Result - Labs CBC & Chem 7: 12/26/17 03:45 12/26/17 03:45 Labs: Short CBC 12/26/17 Range/Units 03:45 WBC 16.6 H (4.3-11.1) K/mcL Hgb 9.3 L (12.9-16.9) g/dL Hct 27.9 L (37.5-50.1) % Plt Count 440 H (140-400) K/mcL Neutrophils # 13.6 H (1.6-8.9) K/mcL BMP 12/26/17 03:45 Sodium 139 Potassium 2.9 L Chloride 97 L Carbon Dioxide 31 H BUN 15 Creatinine 1.02 Glucose 99 Calcium 8.2 L - ABG Interpretation ABG results: ABG ABG pH 7.47 pH Units (7.32-7.45) H 12/24/17 14:57 ABG pCO2 41 mmHg (35-45) 12/24/17 14:57 ABG pO2 51 mmHg (85-104) L 12/24/17 14:57 ABG O2 Saturation 88 % (95-98) L 12/24/17 14:57 PT/INR, D-dimer PT 16.7 Seconds (9.4-12.1) H D 12/16/17 18:08 - Impressions Impressions Chest X-Ray 12/25/17 16:15 IMPRESSION: No significant interval change. D/ / Mehran Myers MD / Mehran Myers MD Interpreting Provider: Mehran Myers MD Chest CT 12/26/17 08:45 IMPRESSION: 1. Bilateral multi lobar ground-glass opacities with intra lobular septal thickening and nodular masslike consolidations in the left and right lower lobe. Differential includes multilobar pneumonia, ARDS, and hypersensitivity pneumonitis. Recommend follow-up CT chest to complete resolution as underlying nodules may be obscured. 2. Mediastinal and hilar adenopathy. Given associated pulmonary findings, the adenopathy is likely reactive but warrants follow up to ensure resolution. 3. Moderate bilateral pleural effusions. 4. Coronary artery disease. 5. Mild cardiomegaly. 6. Age indeterminate compression deformity of T5 (30% of anterior height loss) and T8 (80% of anterior height loss). D/ / 12/26/2017 09:43:02 Mitch Dunne MD / carlos eduardo Interpreting Provider: Mitch Dunne MD - Attending Attestation Seen and assessed. Agree with plan per resident. Came in for small bowel obstruction and went on to develop hypoxic resp failure Plan Acute hypoxic respiratory failure likely 2/2 to multifocal pneumonia. Contninue IV antibiotics. CT chest showed worsening opacities. Pulmonary plan for bronchoscopy Smal bowel obstruction. Resolved <Jb Gonzalez - Last Filed: 12/26/17 14:44> (1) Diarrhea Qualifiers: Diarrhea type: unspecified type Qualified Code(s): R19.7 - Diarrhea, unspecified (2) Pneumonia Qualifiers: Pneumonia type: due to unspecified organism Laterality: bilateral Lung location: unspecified part of lung Qualified Code(s): J18.9 - Pneumonia, unspecified organism (5) Gastric ulcer Qualifiers: Gastric ulcer chronicity: chronic Gastric ulcer complication status: without hemorrhage or perforation Qualified Code(s): K25.7 - Chronic gastric ulcer without hemorrhage or perforation <Funmilayo Aguirre - Last Filed: 12/26/17 17:03> (3) Gastric ulcer Qualifiers: Gastric ulcer chronicity: chronic Gastric ulcer complication status: without hemorrhage or perforation Qualified Code(s): K25.7 - Chronic gastric ulcer without hemorrhage or perforation (4) Pneumonia Qualifiers: Pneumonia type: due to unspecified organism Laterality: bilateral Lung location: unspecified part of lung Qualified Code(s): J18.9 - Pneumonia, unspecified organism (5) Diarrhea Qualifiers: Diarrhea type: unspecified type Qualified Code(s): R19.7 - Diarrhea, unspecified
[2017-12-26] MEDS ORDERED: Isovue-370 500 ML INFUS..BTL IV ONE ×2 (07:48→13:14)
--- NOTE | 2017-12-26 08:04 | Pulmonology Progress Note ---
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50) L 12/26/17 03:45 Hgb 9.3 g/dL (12.9-16.9) L 12/26/17 03:45 Hct 27.9 % (37.5-50.1) L 12/26/17 03:45 Plt Count 440 K/mcL (140-400) H 12/26/17 03:45 Neutrophils # 13.6 K/mcL (1.6-8.9) H 12/26/17 03:45 Reactive Lymphocytes Present (Not Present) A 12/23/17 05:12 Toxic Vacuolation Present (Not Present) A 12/23/17 05:12 Hypochromasia Present (Not Present) A 12/21/17 04:01 Anisocytosis 1+ (Not Present) A 12/20/17 06:31 ESR 13 mm/hr (0-10) H 12/25/17 04:25 PT 16.7 Seconds (9.4-12.1) H D 12/16/17 18:08 ABG pH 7.47 pH Units (7.32-7.45) H 12/24/17 14:57 ABG pO2 51 mmHg (85-104) L 12/24/17 14:57 ABG HCO3 30 mEq/L (21-27) H 12/24/17 14:57 ABG Total CO2 31 mEq/L (20-26) H 12/24/17 14:57 ABG O2 Saturation 88 % (95-98) L 12/24/17 14:57 ABG Base Excess 6 mEq/L (-2 to 3) H 12/24/17 14:57 Potassium 2.9 mEq/L (3.5-5.1) L 12/26/17 03:45 Chloride 97 mEq/L (98-107) L 12/26/17 03:45 Carbon Dioxide 31 mEq/L (23-29) H 12/26/17 03:45 Calcium 8.2 mg/dL (8.6-10.3) L 12/26/17 03:45 Troponin I 0.21 ng/mL (< 0.04) H* 12/15/17 14:12 C-Reactive Protein 188 mg/L (Less than 10) H 12/25/17 04:25 B-Natriuretic Peptide 354 pg/mL (Less than 100) H 12/24/17 16:32 Serum Total Protein 4.9 g/dL (6.4-8.9) L 12/25/17 04:25 Albumin 2.4 g/dL (3.5-5.7) L 12/25/17 04:25 Albumin/Globulin Ratio 1.0 (1.1-2.2) L 12/25/17 04:25 Prealbumin 5.1 mg/dL (17.0-34.0) L 12/23/17 05:12 Amylase 168 Units/L (29-103) H 12/25/17 04:25 Lipase 96 Units/L (11-82) H 12/25/17 04:25 Vancomycin Trough 15 mcg/mL (5-10) H 12/25/17 17:06 - Microbiology Findings Microbiology Findings: Microbiology, Last 48 Hours 12/25/17 10:23 Legionella Antigen - Final Urine,Clean Catch Streptococcus pneumoniae Antigen (M - Final 12/24/17 16:20 Blood Culture - Preliminary Peripheral Venipuncture Culture is incubating and being continuously monitored for growth. Final report to follow. 12/24/17 16:20 Blood Culture - Preliminary Peripheral Venipuncture Culture is incubating and being continuously monitored for growth. Final report to follow. - Clinical Findings Intake & Output: Intake & Output 12/25/17 12/26/17 12/26/17 23:59 07:59 15:59 Intake Total 220 / 220 100 / 100 Output Total 1550 / 1550 Balance -1330 / -1330 100 / 100 Weight 60 kg 60.8 kg Consult Discharge Plan - Plan Instructions: Acute Nausea and Vomiting (ED), Abdominal Pain (ED) Additional Instructions: Patient needs admission. He has nausea / vomiting , abdominal pain ,high WBC count, CT scan shows dilated small bowel loops & suspected small bowel obstruction. [facility]errals: [facility] [Primary Care Provider[facility] - - Attending Attestation I examined this patient and my medical decision-making was reviewed with the Resident Physician. I agree with the documented findings, disposition and treatment plan as described except to the extent set forth below. We independently had [id number] contact with the patient Patient seen and examined at bedside Labs, radiology, chart personally reviewed. Impression: Acute hypoxic respiratory failure concerning for ARDS Multifocal pneumonia Recs: Continue supplemental oxygen to keep FiO2 greater than the 88% ideally 92-94% may need high flow nasal cannula via net 10 system Would avoid further aggressive diuresis and for med even to slightly negative for the next 24 hours Continue antibiotics send fungal serologies f/u ID recs A bronchoscopy is recommended. The procedure , risks, benefits, complications, and expected outcomes have been reviewed. Benefits of diagnosis, as well as risks to include bleeding, infection, pneumothorax which may require surgical intervention, and in a small population. The patient is aware that sometimes test is nondiagnostic. Discussed with patient's HKPOA and she ( Annalisa Johnson) agrees to proceed. <Ruben Jackson - Last Filed: 12/26/17 14:33> Date of Encounter: 12/26/17 Time of Encounter: 08:00 Assessment and Plan (1) Hypoxia Current Visit: Yes Status: Acute Acute hypoxic respiratory failure likely 2/2 pulmonary edema vs multifocal pneumonia Patient hypoxic (12/24) at 85% on 5L oxygen Patient now on 15L high flow O2 saturating at 93% Continue duonebs Chest CT showed diffuse bilateral ground glass opacities and pleural effusions, concern for multifocal pneumonia vs ARDS Ordered fungal respiratory panel Planned for bronchoscopy today, but family wants to hold off for now (2) Cardiogenic pulmonary edema Current Visit: Yes Status: Acute Worsening pulmonary edema on chest xray (12/24) Chest CT (12/26) concerning diffuse bilateral ground glass opacities and pleural effusions Gave IV lasix 80 mg yesterday Recommend to avoid aggressive diuresis Urine output 2750 ml yesterday Gave 2 doses of 25% albumin yesterday (3) Pneumonia Current Visit: Yes Status: Acute Worsening multifocal pneumonia evidenced on chest xray (12/24) Chest CT - BL ground glass opacities, BL pleural effusions Ordered respiratory fungal panel WBC unchanged 16.3 > 16.6 today ID following Continue zosyn (day 12) Continue vancomycin (day 4) Blood cultures (12/24) - no growth to date Monitor for ARDS Qualifiers: Pneumonia type: due to unspecified organism Laterality: bilateral Lung location: unspecified part of lung Qualified Code(s): J18.9 - Pneumonia, unspecified organism (4) Leukocytosis Current Visit: No Status: Resolved WBC unchanged 16.3 > 16.6 today Possibly due to multifocal PNA Patient on Zosyn (day 12) Patient on vancomycin (day 4) Infectious disease following Continue to monitor Qualifiers: Leukocytosis type: unspecified Qualified Code(s): D72.829 - Elevated white blood cell count, unspecified (5) Catatonia schizophrenia Current Visit: Yes Status: Chronic Patient is awake but speech still seems disorganized Restarted on clozaril, per psychiatry (6) Small bowel obstruction Current Visit: Yes Status: Resolved Resolved Patient had concern for SBO earlier this admission Patient having BMs Continue regular diet (7) Hypokalemia Current Visit: Yes Status: Acute K 2.9 this morning Given 40 meq PO K this morning Given another 40 meq IV Continue to monitor Replace K as needed (8) DVT prophylaxis Current Visit: Yes Status: Acute Subcutaneous heparin Subjective Principal diagnosis: Respiratory failure Interval history: Patient doing well this morning. He has no complaints and is resting well on 15L high flow oxygen. He is alert, but his speech seems disorganized. Patient denies SOB and pain this morning. He has a history of catatonic schizophrenia, and I was not able to converse well with patient. Objective PUL Vital signs: Last Vital Signs Temp 98.7 F 12/26/17 07:45 Pulse 82 12/26/17 07:45 Resp 22 12/26/17 07:45 BP 124/40 12/26/17 07:45 Pulse Ox 95 12/26/17 07:45 General appearance: no acute distress Eyes: nonicteric Effort: normal Auscultation: bilateral: diminished breath sounds, wheezes, rales Cardiovascular: regular rate and rhythm Gastrointestinal: normoactive bowel sounds, soft, non-tender Integumentary: normal Extremities: no cyanosis, no edema, pink and warm, pulses normal Musculoskeletal: no deformities other (disorganized speech) mood appropriate Results - Laboratory Findings CBC and BMP: 12/26/17 03:45 12/26/17 03:45 ABG ABG pH 7.47 pH Units (7.32-7.45) H 12/24/17 14:57 ABG pCO2 41 mmHg (35-45) 12/24/17 14:57 ABG pO2 51 mmHg (85-104) L 12/24/17 14:57 ABG O2 Saturation 88 % (95-98) L 12/24/17 14:57 PT/INR, D-dimer PT 16.7 Seconds (9.4-12.1) H D 12/16/17 18:08 Abnormal lab findings: Abnormal lab results WBC 16.6 K/mcL (4.3-11.1) H 12/26/17 03:45 RBC 3.06 M/mcL (4.19-5.50) L 12/26/17 03:45 Hgb 9.3 g/dL (12.9-16.9) L 12/26/17 03:45 Hct 27.9 % (37.5-50.1) L 12/26/17 03:45 Plt Count 440 K/mcL (140-400) H 12/26/17 03:45 Neutrophils # 13.6 K/mcL (1.6-8.9) H 12/26/17 03:45 Reactive Lymphocytes Present (Not Present) A 12/23/17 05:12 Toxic Vacuolation Present (Not Present) A 12/23/17 05:12 Hypochromasia Present (Not Present) A 12/21/17 04:01 Anisocytosis 1+ (Not Present) A 12/20/17 06:31 ESR 13 mm/hr (0-10) H 12/25/17 04:25 PT 16.7 Seconds (9.4-12.1) H D 12/16/17 18:08 ABG pH 7.47 pH Units (7.32-7.45) H 12/24/17 14:57 ABG pO2 51 mmHg (85-104) L 12/24/17 14:57 ABG HCO3 30 mEq/L (21-27) H 12/24/17 14:57 ABG Total CO2 31 mEq/L (20-26) H 12/24/17 14:57 ABG O2 Saturation 88 % (95-98) L 12/24/17 14:57 ABG Base Excess 6 mEq/L (-2 to 3) H 12/24/17 14:57 Potassium 2.9 mEq/L (3.5-5.1) L 12/26/17 03:45 Chloride 97 mEq/L (98-107) L 12/26/17 03:45 Carbon Dioxide 31 mEq/L (23-29) H 12/26/17 03:45 Calcium 8.2 mg/dL (8.6-10.3) L 12/26/17 03:45 Troponin I 0.21 ng/mL (< 0.04) H* 12/15/17 14:12 C-Reactive Protein 188 mg/L (Less than 10) H 12/25/17 04:25 B-Natriuretic Peptide 354 pg/mL (Less than 100) H 12/24/17 16:32 Serum Total Protein 4.9 g/dL (6.4-8.9) L 12/25/17 04:25 Albumin 2.4 g/dL (3.5-5.7) L 12/25/17 04:25 Albumin/Globulin Ratio 1.0 (1.1-2.2) L 12/25/17 04:25 Prealbumin 5.1 mg/dL (17.0-34.0) L 12/23/17 05:12 Amylase 168 Units/L (29-103) H 12/25/17 04:25 Lipase 96 Units/L (11-82) H 12/25/17 04:25 Vancomycin Trough 15 mcg/mL (5-10) H 12/25/17 17:06 - Microbiology Findings Microbiology Findings: Microbiology, Last 48 Hours 12/25/17 10:23 Legionella Antigen - Final Urine,Clean Catch Streptococcus pneumoniae Antigen (M - Final 12/24/17 16:20 Blood Culture - Preliminary Peripheral Venipuncture Culture is incubating and being continuously monitored for growth. Final report to follow. 12/24/17 16:20 Blood Culture - Preliminary Peripheral Venipuncture Culture is incubating and being continuously monitored for growth. Final report to follow. - Diagnostic Findings Chest x-ray: report reviewed, image reviewed CT scan - chest: report reviewed, image reviewed - Clinical Findings Intake & Output: Intake & Output 12/25/17 12/26/17 12/26/17 23:59 07:59 15:59 Intake Total 220 / 220 100 / 100 Output Total 1550 / 1550 Balance -1330 / -1330 100 / 100 Weight 60 kg 60.8 kg
[2017-12-26] MEDS: lamoTRIgine 100 MG TABLET PO SCH ×2 (08:12→20:25)
[2017-12-26] MEDS: cloZAPine 25 MG TABLET PO SCH ×2 (08:12→20:25)
[2017-12-26] MEDS: hydrOXYzine pamoate 25 MG CAPSULE PO SCH ×4 (08:12→20:25)
[2017-12-26] MEDS ORDERED: Potassium Chloride 40 MEQ, Lidocaine 1% 2 ML in D5% in Water 500 ML IVPB ONE (08:17)
[2017-12-26] MEDS ORDERED: cloZAPine 25 MG TABLET PO SCH (09:00)
[2017-12-26] MEDS: Ipratropium/Albuterol Neb 3 ML IH SCH (10:51)
[2017-12-26] MEDS ORDERED: Albuterol 2.5 MG/3 ML NEBULIZER ONE (11:21)
[2017-12-26] MEDS: Albuterol 2.5 MG/3 ML NEBULIZER IH SCH ×3 (11:36→20:49)
[2017-12-26] MEDS: Acetylcysteine 10% 2 ML INHSOL IH SCH ×3 (11:38→20:49)
--- NOTE | 2017-12-26 13:07 | Infectious Disease Progress No ---
Date of Encounter: 12/26/17 Time of Encounter: 13:05 - Assessment and Plan (1) Sepsis Current Visit: Yes Status: Acute On admission, the patient had severe sepsis with DONTE, troponin leak, and lactic acidosis. Likely secondary to intra-abdominal process including SBO and aspiration PNA. Improved. WBC stable at 16. Blood cultures drawn 12/16/17 are NGTD x 2 sets. Repeat blood cultures drawn 12/24/17 x 2 sets are NGTD. Qualifiers: Sepsis type: sepsis due to unspecified organism Qualified Code(s): A41.9 - Sepsis, unspecified organism (2) Aspiration pneumonia Current Visit: Yes Status: Acute Causative organism unclear. Chest x-ray on admission was negative for pneumonia, but repeat chest x-ray 12/15 showed new patchy interstitial and/or airspace opacities in the mid to lower right lung, potentially developing pneumonia. Repeat CXR 12/24/17 showed increasing air space opacities now diffusely involving both lungs which can be seen in the setting of multifocal pneumonia, vascular congestion, ARDS, and/or atelectasis. Given the patient's altered mental status, high concern for aspiration. Nasal MRSA screen was negative. Strep pneumococcal and legionella urinary antigens are negative. Respiratory infectious panel is negative. Repeat CT chest 12/26/17 Bilateral multi lobar ground-glass opacities with intra lobular septal thickening and nodular masslike consolidations in the left and right lower lobe. Differential includes multilobar pneumonia, ARDS, and hypersensitivity pneumonitis. Further recommendations from the pulmonology team. Continue vancomycin IV. Pharmacy to dose. Goal trough approximately 15. We will continue the vancomycin even though the MRSA nasal screen was negative given that it was checked several days after vancomycin was restarted. Continue Zosyn 3.375 g IV every 8 hours. Duration of treatment depends on the clinical picture. Monitor renal function and for drug toxicity and dose adjust antibiotics. Qualifiers: Aspiration pneumonia type: unspecified Laterality: right Lung location: middle lobe of lung Qualified Code(s): J69.0 - Pneumonitis due to inhalation of food and vomit (3) Acute respiratory failure with hypoxia Current Visit: Yes Status: Acute Likely secondary to adverse reaction to Ativan and pneumonia. Appears improved. Pulmonology consulted. Further management per the pulmonology and primary teams. (4) Small bowel obstruction Current Visit: Yes Status: Resolved Seems improved clinically, but most recent imaging on 12/20/17 showed no significant change in the findings were still consistent with a partial small bowel obstruction. Gen. surgery was consulted but is signed off. The patient appears to tolerating a clear liquid diet. Consider repeat CT of the abdomen and pelvis to evaluate given the patient's persistent leukocytosis. Ordered yesterday, but not completed. Discussed with nursing. Will re-order. Recommend reconsult ring surgery based on CT findings. Further management per the primary and Gen. surgery teams. (5) Acute kidney injury Current Visit: Yes Status: Resolved Likely secondary sepsis. Resolved. Continue to trend serum creatinine. Avoid nephrotoxins. Does adjust medications. 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 (7) Diarrhea Current Visit: Yes Status: Resolved Etiology unclear: antibiotics vs. other. GI panel negative. Start probiotics. Recommend GI to consult. Qualifiers: Diarrhea type: unspecified type Qualified Code(s): R19.7 - Diarrhea, unspecified - Subjective Interval history: Patient seen and examined. No acute events noted overnight. Patient transferred to yesterday. Speech remains garbled, but alert and follows commands. Patient nods head "yes" to shortness of breath, cough, and pain, but unable to understand location of his pain. No new issues per nursing. Infect Dis PN-Objective Data - Labs CBC & Chem 7: 12/27/17 04:39 12/27/17 04:39 Labs: Laboratory Results - last 24 hr 12/25/17 12/25/17 12/26/17 11:50 17:06 03:45 WBC 16.6 H RBC 3.06 L Hgb 9.3 L Hct 27.9 L MCV 91.2 MCH 30.4 MCHC 33.3 RDW 13.8 Plt Count 440 H MPV 9.5 Immature Gran % 0.7 Seg Neutrophils % 81.5 Lymphocytes % 9.0 Monocytes % 7.0 Eosinophils % 1.6 Basophils % 0.2 Neutrophils # 13.6 H Lymphocytes # 1.5 Monocytes # 1.2 Eosinophils # 0.3 Basophils # 0.0 Sodium Potassium Chloride Carbon Dioxide BUN Creatinine Est GFR ( Amer) Est GFR (Non-Af Amer) BUN/Creatinine Ratio Glucose POC Glucose 95 Calculated Osmolality Calcium Magnesium Vancomycin Trough 15 H 12/26/17 12/26/17 03:45 03:45 WBC RBC Hgb Hct MCV MCH MCHC RDW Plt Count MPV Immature Gran % Seg Neutrophils % Lymphocytes % Monocytes % Eosinophils % Basophils % Neutrophils # Lymphocytes # Monocytes # Eosinophils # Basophils # Sodium 139 Potassium 2.9 L Chloride 97 L Carbon Dioxide 31 H BUN 15 Creatinine 1.02 Est GFR ( Amer) > 60 Est GFR (Non-Af Amer) > 60 BUN/Creatinine Ratio 15 Glucose 99 POC Glucose Calculated Osmolality 289 Calcium 8.2 L Magnesium 2.0 Vancomycin Trough Cultures: Cultures 12/25/17 10:23 Legionella Antigen - Final Urine,Clean Catch Streptococcus pneumoniae Antigen (M - Final 12/24/17 16:20 Blood Culture - Preliminary Peripheral Venipuncture Culture is incubating and being continuously monitored for growth. Final report to follow. 12/24/17 16:20 Blood Culture - Preliminary Peripheral Venipuncture Culture is incubating and being continuously monitored for growth. Final report to follow. 12/16/17 13:35 Blood Culture - Final Peripheral Venipuncture No growth. Final report. 12/16/17 13:35 Blood Culture - Final Peripheral Venipuncture No growth. Final report. Serology 12/24/17 12/24/17 12/23/17 Range/Units 15:50 15:50 22:00 Nasal Screen MRSA (PCR) Negative (Negative) Stl C. cayetanensis PCR Not detected (Not detect) Stool Rotavirus A PCR Not detected (Not detect) Stl Adenov F 40/41 PCR Not detected (Not detect) Stool Astrovirus (PCR) Not detected (Not detect) Stool Campylobacter PCR Not detected (Not detect) Stl C. diff Tox B Gene (Negative) Stl C. diff Tox A/B PCR Not detected (Not detect) Stool Cryptosporidium PCR Not detected (Not detect) Stl Sh Tox Pr E STEC PCR Not detected (Not detect) Stool E coli O157 PCR Not detected (Not detect) Stl Enterotoxigenic E PCR Not detected (Not detect) Stool EPEC (PCR) Not detected (Not detect) Stool EAEC (PCR) Not detected (Not detect) Stl E. histolytica PCR Not detected (Not detect) Stool Giardia Lamblia PCR Not detected (Not detect) Stool Salmonella PCR Not detected (Not detect) Stool Sapovirus (PCR) Not detected (Not detect) Stl P. shigelloides PCR Not detected (Not detect) Stl Shigella/EIEC PCR Not detected (Not detect) St Y.enterocolitica PCR Not detected (Not detect) Stool Vibrio (PCR) Not detected (Not detect) Stl Vibrio cholerae PCR Not detected (Not detect) Stl Norovirus GI/GII PCR Not detected (Not detect) Stl GI Panel (PCR) Com See below Chlamy pneumoniae PCR Not Detected (Not Detect) Adenovirus (PCR) Not Detected (Not Detect) B. pertussis DNA (PCR) Not Detected (Not Detect) B.parapertussis DNA PCR Not Detected (Not Detect) Coronavirus OC43 (PCR) Not Detected (Not Detect) Coronavirus HKU1 (PCR) Not Detected (Not Detect) Coronavirus 229E (PCR) Not Detected (Not Detect) Coronavirus NL63 (PCR) Not Detected (Not Detect) Human Metapneumovir PCR Not Detected (Not Detect) Influenza A (H1) PCR Not Detected (Not Detect) Influ A (H1N1/09) PCR Not Detected (Not Detect) Influenza A (H3) PCR Not Detected (Not Detect) Influenza A Untype (PCR) Not Detected (Not Detect) Influenza Type B (PCR) Not Detected (Not Detect) M.pneumoniae DNA (PCR) Not Detected (Not Detect) Parainfluenza 1 (PCR) Not Detected (Not Detect) Parainfluenza 2 (PCR) Not Detected (Not Detect) Parainfluenza 3 (PCR) Not Detected (Not Detect) Parainfluenza 4 (PCR) Not Detected (Not Detect) RSV (PCR) Not Detected (Not Detect) Entero/Rhino (PCR) Not Detected (Not Detect) 12/21/17 Range/Units 16:20 Nasal Screen MRSA (PCR) (Negative) Stl C. cayetanensis PCR (Not detect) Stool Rotavirus A PCR (Not detect) Stl Adenov F 40/41 PCR (Not detect) Stool Astrovirus (PCR) (Not detect) Stool Campylobacter PCR (Not detect) Stl C. diff Tox B Gene Negative (Negative) Stl C. diff Tox A/B PCR (Not detect) Stool Cryptosporidium PCR (Not detect) Stl Sh Tox Pr E STEC PCR (Not detect) Stool E coli O157 PCR (Not detect) Stl Enterotoxigenic E PCR (Not detect) Stool EPEC (PCR) (Not detect) Stool EAEC (PCR) (Not detect) Stl E. histolytica PCR (Not detect) Stool Giardia Lamblia PCR (Not detect) Stool Salmonella PCR (Not detect) Stool Sapovirus (PCR) (Not detect) Stl P. shigelloides PCR (Not detect) Stl Shigella/EIEC PCR (Not detect) St Y.enterocolitica PCR (Not detect) Stool Vibrio (PCR) (Not detect) Stl Vibrio cholerae PCR (Not detect) Stl Norovirus GI/GII PCR (Not detect) Stl GI Panel (PCR) Com Chlamy pneumoniae PCR (Not Detect) Adenovirus (PCR) (Not Detect) B. pertussis DNA (PCR) (Not Detect) B.parapertussis DNA PCR (Not Detect) Coronavirus OC43 (PCR) (Not Detect) Coronavirus HKU1 (PCR) (Not Detect) Coronavirus 229E (PCR) (Not Detect) Coronavirus NL63 (PCR) (Not Detect) Human Metapneumovir PCR (Not Detect) Influenza A (H1) PCR (Not Detect) Influ A (H1N1/09) PCR (Not Detect) Influenza A (H3) PCR (Not Detect) Influenza A Untype (PCR) (Not Detect) Influenza Type B (PCR) (Not Detect) M.pneumoniae DNA (PCR) (Not Detect) Parainfluenza 1 (PCR) (Not Detect) Parainfluenza 2 (PCR) (Not Detect) Parainfluenza 3 (PCR) (Not Detect) Parainfluenza 4 (PCR) (Not Detect) RSV (PCR) (Not Detect) Entero/Rhino (PCR) (Not Detect) - Impressions Impressions Chest X-Ray 12/25/17 16:15 IMPRESSION: No significant interval change. D/ / Mehran Myers MD / Mehran Myers MD Interpreting Provider: Mehran Myers MD Chest CT 12/26/17 08:45 IMPRESSION: 1. Bilateral multi lobar ground-glass opacities with intra lobular septal thickening and nodular masslike consolidations in the left and right lower lobe. Differential includes multilobar pneumonia, ARDS, and hypersensitivity pneumonitis. Recommend follow-up CT chest to complete resolution as underlying nodules may be obscured. 2. Mediastinal and hilar adenopathy. Given associated pulmonary findings, the adenopathy is likely reactive but warrants follow up to ensure resolution. 3. Moderate bilateral pleural effusions. 4. Coronary artery disease. 5. Mild cardiomegaly. 6. Age indeterminate compression deformity of T5 (30% of anterior height loss) and T8 (80% of anterior height loss). D/ / 12/26/2017 09:43:02 Mitch Dunne MD / carlos eduardo Interpreting Provider: Mitch Dunne MD Exam - Constitutional Vitals: Temp Pulse Resp BP Pulse Ox 98.1 F 102 20 117/72 93 12/26/17 11:22 12/26/17 11:22 12/26/17 11:40 12/26/17 11:22 12/26/17 11:40 General appearance: cooperative, no acute distress, thin - Head Head exam: Present: atraumatic, normal inspection, normocephalic - Eye Eye exam: Present: EOMI, normal appearance, PERRL Pupils: Present: normal accommodation - ENT ENT exam: Present: mucous membranes dry - Neck Neck exam: Present: normal inspection - Respiratory Respiratory exam: Present: CTAB. Absent: rales, respiratory distress, rhonchi, wheezes - Cardiovascular Cardiovascular exam: Present: RRR, +S1, +S2 - GI/Abdominal GI/Abdominal exam: Present: normal bowel sounds, soft. Absent: distended, tenderness - Extremities Exam Extremities exam: Present: normal inspection. Absent: joint swelling, pedal edema, tenderness - Neurological Exam Neurological exam: Present: alert, oriented X3, speech deficit (Garbled speech, difficult to understant, but what is understandable is appropriate.) - Psychiatric Psychiatric exam: Present: normal affect, normal mood - Skin Skin exam: Present: dry, intact, normal color, warm Consult Discharge Plan - Plan Instructions: Acute Nausea and Vomiting (ED), Abdominal Pain (ED) Additional Instructions: Patient needs admission. He has nausea / vomiting , abdominal pain ,high WBC count, CT scan shows dilated small bowel loops & suspected small bowel obstruction. [facility]Primary Care Provider[facility] - - Attending Attestation I examined this patient and my medical decision-making was reviewed with the Resident Physician. I agree with the documented findings, disposition and treatment plan as described except to the extent set forth below.
--- NOTE | 2017-12-26 13:51 | Anesthesia Evaluation PreOp ---
Date of Encounter: 12/26/17 - Past History Planned Operation: Bronchoscopy Cardiac History: HTN, Hyperlipidemia Pulmonary History: Smoker (50+ years), Other (pneumonia, pulmonary edema, hypoxic respiratory failure) FLORICULTURIST History: Other (PTSD, disorganized schizophrenia) Anesthesia History: No Prior Anesthetic Complications, Past Anesthesia Alcohol Use: none Drug use: none Medications and Allergies Cholecalciferol (D-3) [Vitamin D] 1,000 unit PO DAILY 10/01/15 [History] Citalopram Hydrobromide [Citalopram HBr] 40 mg PO DAILY 10/01/15 [History] Haloperidol Decanoate [Haldol] 25 mg IM Q2W 10/01/15 [History] Multivitamin with Minerals [One-A-Day Maximum Formula] 1 each PO DAILY 10/01/15 [History] Pantoprazole Sodium [Protonix] 40 mg PO DAILY 10/01/15 [History] cloZAPine [Clozaril] 100 mg PO BID 10/01/15 [History] cloZAPine [Clozaril] 300 mg PO HS 10/01/15 [History] clonazePAM [Klonopin] 1 mg PO BID 10/01/15 [History] lamoTRIgine [Lamictal] 100 mg PO BID 10/01/15 [History] Haloperidol [Haldol] 2 mg PO BID 12/15/17 [History] Lactobacillus Acidophilus [Acidophilus Lactobacillus] 1 cap PO DAILY 12/15/17 [ History] Metoprolol [Lopressor] 12.5 mg PO BID 12/15/17 [History] Sodium Chloride [Sodium Chloride Tab] 1 gm PO DAILY 12/15/17 [History] hydrOXYzine pamoate [HydrOXYzine Pamoate] 25 mg PO QID 12/15/17 [History] 3 Allergy/AdvReac Type Severity Reaction Status Date / Time No Known Allergies Allergy Verified 10/01/15 15:08 - Meds/Allergy Pre-op Review Medications Reviewed: Yes Allergies Reviewed: Yes Beta Blockers on Current Med List: No Anesthesia Results - Labs 12/26/17 03:45 12/26/17 03:45 - Imaging EKG: report reviewed (12/16/2017 SINUS TACHYCARDIA WITH OCCASIONAL VENTRICULAR PREMATURE COMPLEXES ABNORMAL RHYTHM ECG) Chest x-ray: report reviewed (12/25/2017 FINDINGS: The heart is enlarged with persistent central pulmonary venous congestion. Diffuse multifocal bilateral interstitial/alveolar opacification persists, unchanged from prior. Small bilateral pleural effusions are noted. Mediastinal contours are stable. XR/XR chest 1V IMPRESSION: No significant interval change.) Additional studies: 12/16/2017 Echo Impressions: Technically sub-optimal due to clinical status, poor windows. LVEF 70%. Normal LV chamber size, wall thickness and function. Indeterminate diastolic function. Grossly normal right ventricular structure and function. Unable to estimate RVSP due to lack of TR jet. Valves were not well evaluated. No obvious significant valvular dysfunction noted. Anesthesia Exam Vital Signs/O2 Sat/Glucose, Most Recent Temp Pulse Resp BP Pulse Ox 98.1 F 113 20 117/72 93 12/26/17 11:22 12/26/17 12:58 12/26/17 11:40 12/26/17 11:22 12/26/17 11:40 Blood Glucose* 98 Height: 5'9''/1.75m Weight: 134 lbs/60.8 kg NPO (# of Hours): 8 Pain Scale: 0 Pain Scale Used: Numeric (1 - 10) - HEENT Mallampati: III Teeth: Missing, Poor dentition Oral Opening: Greater than 3 Anesthesia Assess/Plan ASA Score: 3 Anesthetic Plan: MAC Monitoring Plan: Standard Monitors
[2017-12-26] MEDS: Haloperidol Lactate 5 MG/ML VIAL IVP PRN (14:03)
[2017-12-26] MEDS ORDERED: Aquaphor/Maalox 50 GM BOTTLE TP PRN (14:40)
[2017-12-26] MEDS: MethylPREDNISolone 40 MG/ML VIAL IVP SCH ×3 (15:07→23:19)
--- NOTE | 2017-12-26 15:13 | Event Note ---
Date of Encounter: 12/26/17 Time of Encounter: 15:10 I had extensive conversation with the patient's healthcare power of compliance attorney and next of Kin his sister Annalisa has stated that patient has evidence of multifocal pneumonia which appears to be worsening and a persistent leukocytosis continues to display features of hypoxemic respiratory failure at this juncture I a explained to her that I would recommend proceeding with bronchoscopy for further delineation of if there is an active infection or if this is a pattern that would be most consistent with ARDS. I spent a bronchoscopy in this situation would come with the risk of hypoxemia requiring intubation. We went back over the different possibilities for treatment including a conservative approach of continuation of antimicrobials and possibility of addition of steroids versus bronchoscopy and the patient's sister decided that given his medical comorbid conditions that they would opt for conservative approach at this time which is not unreasonable. We will hold off on bronchoscopy for now we will may revisit this if the situation changes would recommend starting steroids which we will order and we will continue to discuss with infectious disease about optimizing antimicrobials. From pulmonary standpoint patient can resume diet as long as respiratory status would not preclude eating that is tachypnea or frequent desaturation.
[2017-12-26] MEDS: Lactobacillus 1 EACH CAP.SPRINK PO SCH (20:25)
[2017-12-27] MEDS: Acetylcysteine 10% 2 ML INHSOL IH SCH ×2 (00:12→04:25)
[2017-12-27] MEDS: Albuterol 2.5 MG/3 ML NEBULIZER IH SCH ×2 (00:12→04:24)
[2017-12-27 05:04] LABS: Basophils % 0.1 %; Hematocrit 26.9 % (37.5-50.1); Hemoglobin 8.9 g/dL (12.9-16.9); Immature Granulocytes % 0.7 % (0-4); Lymphocytes # 0.7 K/mcL (0.6-4.6); Lymphocytes % 5.2 %; Mean Corpuscular HGB Conc 33.1 g/dL (31.6-35.5); Mean Corpuscular Hemoglobin 30.1 pg (28.0-33.3); Mean Corpuscular Volume 90.9 fL (83.0-100.0); Mean Platelet Volume 9.4 fL (9.4-12.4); Monocytes # 0.6 K/mcL (0.0-1.3); Neutrophils # 12.7 K/mcL (1.6-8.9); Platelet Count 467 K/mcL (140-400); Red Blood Count 2.96 M/mcL (4.19-5.50); Red Cell Distribution Width 13.8 % (11.5-14.5)
[2017-12-27 05:19] LABS: BUN/Creatinine Ratio 13 (6-26); Blood Urea Nitrogen 18 mg/dL (8-23); Calcium 8.4 mg/dL (8.6-10.3); Carbon Dioxide 29 mEq/L (23-29); Chloride 105 mEq/L (98-107); Glucose 129 mg/dL (70-105); Osmolality,Calculated 294 (280-300); Sodium 140 mEq/L (136-145); eGFR For Non-African Americans 51 (> 60)
[2017-12-27] MEDS: *HR* Heparin 5,000 UNIT/ML VIAL SQ SCH ×3 (05:41→19:58)
[2017-12-27] MEDS: Ipratropium/Albuterol Neb 3 ML IH SCH ×4 (07:32→20:00)
[2017-12-27] MEDS: lamoTRIgine 100 MG TABLET PO SCH ×2 (07:39→19:55)
[2017-12-27] MEDS: Lactobacillus 1 EACH CAP.SPRINK PO SCH ×2 (07:39→19:55)
[2017-12-27] MEDS: hydrOXYzine pamoate 25 MG CAPSULE PO SCH ×4 (07:39→19:55)
[2017-12-27] MEDS: cloZAPine 25 MG TABLET PO SCH ×3 (07:39→19:55)
[2017-12-27] MEDS: Piperacillin/Tazobactam 3.375 GM in 0.9 % Sodium Chloride Mini Bag 100 ML IVPB SCH ×3 (07:42→23:18)
--- NOTE | 2017-12-27 07:45 | Pulmonology Progress Note ---
Date of Encounter: 12/27/17 Time of Encounter: 07:45 Assessment and Plan (1) Acute respiratory failure with hypoxia Current Visit: Yes Status: Acute This is a combination of multifocal pneumonia and what appears to be noncardiogenic pulmonary edema (ARDS) Would continue supplemental oxygen to keep saturation around 92-94% may need Sapphire high flow system but today appears quite stable on more limited high flow (15 L) He is not a good candidate for positive airway pressure because of his mental status but this too could be a possibility I suspect that this will not be a quick resolution I have given the patient a course of steroids to see if there is any improvement for the possibility that this is AIP General recommendations for a negative fluid status as tolerated by his renal function and assess his current visit has bumped slightly in the last 24 hours and so would avoid any sort of aggressive diuresis Recommend chemical DVT prophylaxis unless contraindication arises (2) Pneumonia Current Visit: Yes Status: Acute Patient is on broad-spectrum antibiotics cultures as far negative for him extensive conversation with the patient's healthcare power of finance attorney and next of kin his sister Annalisa and she wants to hold off on bronchoscopy although that would be indicated at this juncture. 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 Unfortunately when I entered the patient's room he removed his high flow oxygen nasal cannula and was saturating in the mid 70s I replaced this and he quickly went back up in the low 90s. He appeared to be requesting a "mask" perhaps indicating that the nasal cannula was uncomfortable.. The patient was also appears quite comfortable and much more awake and alert than he has over the last few days. He continues to perseverate about his "$100 watch" Objective PUL Vital signs: Last Vital Signs Temp 98.2 F 10/12/18 05:36 Pulse 100 12/27/17 05:36 Resp 18 12/27/17 05:36 BP 114/74 12/27/17 05:36 Pulse Ox 89 12/27/17 05:36 General appearance: no acute distress Eyes: nonicteric Auscultation: bilateral: rales (In all lung maldonado) Cardiovascular: regular rate and rhythm Gastrointestinal: normoactive bowel sounds, soft, non-tender Integumentary: normal Extremities: no cyanosis, no edema Musculoskeletal: no deformities non-focal exam other (Patient known to perseverate upon What his reorient only is unable to provide any consistent reliable information) Results - Laboratory Findings CBC and BMP: 12/27/17 04:39 12/27/17 04:39 ABG ABG pH 7.47 pH Units (7.32-7.45) H 12/24/17 14:57 ABG pCO2 41 mmHg (35-45) 12/24/17 14:57 ABG pO2 51 mmHg (85-104) L 12/24/17 14:57 ABG O2 Saturation 88 % (95-98) L 12/24/17 14:57 PT/INR, D-dimer PT 16.7 Seconds (9.4-12.1) H D 12/16/17 18:08 Abnormal lab findings: Abnormal lab results WBC 14.1 K/mcL (4.3-11.1) H 12/27/17 04:39 RBC 2.96 M/mcL (4.19-5.50) L 12/27/17 04:39 Hgb 8.9 g/dL (12.9-16.9) L 12/27/17 04:39 Hct 26.9 % (37.5-50.1) L 12/27/17 04:39 Plt Count 467 K/mcL (140-400) H 12/27/17 04:39 Neutrophils # 12.7 K/mcL (1.6-8.9) H 12/27/17 04:39 Reactive Lymphocytes Present (Not Present) A 12/23/17 05:12 Toxic Vacuolation Present (Not Present) A 12/23/17 05:12 Hypochromasia Present (Not Present) A 12/21/17 04:01 Anisocytosis 1+ (Not Present) A 12/20/17 06:31 ESR 13 mm/hr (0-10) H 12/25/17 04:25 PT 16.7 Seconds (9.4-12.1) H D 12/16/17 18:08 ABG pH 7.47 pH Units (7.32-7.45) H 12/24/17 14:57 ABG pO2 51 mmHg (85-104) L 12/24/17 14:57 ABG HCO3 30 mEq/L (21-27) H 12/24/17 14:57 ABG Total CO2 31 mEq/L (20-26) H 12/24/17 14:57 ABG O2 Saturation 88 % (95-98) L 12/24/17 14:57 ABG Base Excess 6 mEq/L (-2 to 3) H 12/24/17 14:57 Creatinine 1.39 mg/dL (0.70-1.30) H 12/27/17 04:39 Est GFR (Non-Af Amer) 51 (> 60) L 12/27/17 04:39 Glucose 129 mg/dL (70-105) H 12/27/17 04:39 Calcium 8.4 mg/dL (8.6-10.3) L 12/27/17 04:39 Troponin I 0.21 ng/mL (< 0.04) H* 12/15/17 14:12 C-Reactive Protein 188 mg/L (Less than 10) H 12/25/17 04:25 B-Natriuretic Peptide 354 pg/mL (Less than 100) H 12/24/17 16:32 Serum Total Protein 4.9 g/dL (6.4-8.9) L 12/25/17 04:25 Albumin 2.4 g/dL (3.5-5.7) L 12/25/17 04:25 Albumin/Globulin Ratio 1.0 (1.1-2.2) L 12/25/17 04:25 Prealbumin 5.1 mg/dL (17.0-34.0) L 12/23/17 05:12 Amylase 168 Units/L (29-103) H 12/25/17 04:25 Lipase 96 Units/L (11-82) H 12/25/17 04:25 Procalcitonin 0.78 ng/mL (<=0.07) H 12/25/17 04:25 Vancomycin Trough 15 mcg/mL (5-10) H 12/27/17 04:39 - Microbiology Findings Microbiology Findings: Microbiology, Last 48 Hours 12/25/17 10:23 Legionella Antigen - Final Urine,Clean Catch Streptococcus pneumoniae Antigen (M - Final - Diagnostic Findings Chest x-ray: report reviewed, image reviewed CT scan - chest: report reviewed, image reviewed - Clinical Findings Intake & Output: Intake & Output 12/26/17 12/26/17 12/27/17 15:59 23:59 07:59 Intake Total 100 / 100 300 / 300 400 / 400 Balance 100 / 100 300 / 300 400 / 400 Consult Discharge Plan - Plan Instructions: Acute Nausea and Vomiting (ED), Abdominal Pain (ED) Additional Instructions: Patient needs admission. He has nausea / vomiting , abdominal pain ,high WBC count, CT scan shows dilated small bowel loops & suspected small bowel obstruction. [facility]errals: [facility] [Primary Care Provider[facility] -
[2017-12-27] MEDS ORDERED: Ringers Solution, Lactated 500 ML IVC SCH (09:00)
--- NOTE | 2017-12-27 09:30 | Internal Med Progress Note ---
<Jb Gonzalez - Last Filed: 12/27/17 14:01> Hospitalist Progress Note - Encounter Date of Encounter: 12/27/17 Time of Encounter: 09:30 - Subjective Interval History: Mr. Johnson is a 67M with PMH of gastric ulcer from H pylori, HTN, and catatonic schizophrenia. He was admitted on 12/14 for small bowel obstruction. He was started on empirical antibiotic for sepsis and NG tube was placed. His nausea vomiting improved, and he has had multiple bowel movements. NG tube was removed. Pt tolerating diet well, but has to be on restriction because of mentation. Continued diarrhea and incontinence. His respiratory status began to decline on 12/21. IV Vanc was added to the Zosyn already on board. Repeat CXR on 12/21 revealed opacities of both lungs suspicious for PNA. On 12/24 pt's SpO2 began dropping into the low 80s despite high flow O2 via oxy mask, and breathing agonal. Repeat CXR on 12/24 revealed worsening bilateral opacities concerning for multifocal PNA vs ARDS. He was transferred to the ICU for further management of acute respiratory failure, but did not require intubation. He was transferred to the step-down unit yesterday. Patient is significantly more alert, awake and oriented to place and person. Resting comfortably in bed. States his breathing is greatly improved, but that he is still coughing. Some sputum production. Denies any abdominal pain. No fever, chills, chest pain, headache, numbness, or tingling. - Exam Vitals: Temp Pulse Resp BP Pulse Ox 97.4 F L 94 18 127/71 98 12/27/17 07:46 12/27/17 07:46 12/27/17 07:46 12/27/17 07:46 12/27/17 07:46 Exam: General: alert male. mild distress Head: normocephalic and atraumatic Neck: supple, trachea midline, no lymphadeopathy Lungs: Fine wheezes bilaterally. non-labored breathing on 15lpm via oxy mask. No rales or rhonchi noted. Heart: RRR +S1 +S2. no murmurs, clicks, or rubs appreciated. Abdomen: soft, non-tender, non-distended. normoactive bowel sounds Extremities: radial pulses palpable and symmetrical. No edema or cyanosis. Neuro: A&Ox3. no speech difficulty or abnormality Skin: warm, dry, intact. - Assessment and Plan (1) Small bowel obstruction Current Visit: Yes Status: Resolved Assessment and Plan: Resolved Small bowel follow through was normal with contrast seen in rectum at 4 hours Tolerating regular diet, has to be on restrictions due to mentation Tolerating po meds Tolerating regular diet (2) Catatonia schizophrenia Current Visit: Yes Status: Chronic Assessment and Plan: Resumed home medications Per psych recommendations yesterday, increased Haldol to 50mg IM every 2 weeks ( Last dose was on 12/24) has prn Haldol IV Titrated up Clozapine to 25mg TID per psych recs (3) Gastric ulcer Current Visit: Yes Status: Acute Assessment and Plan: Continue PPI (4) Pneumonia Current Visit: Yes Status: Acute Assessment and Plan: CXR on 12/15 showed infiltrates/consolidations more on the right side Was on Zosyn for 5.5 days, followed by Augmentin for 1.5 days Continues to experience cough Suspect may be some aspiration component with pt's speech and mentation WBC remains elevated at 16.6 today Afebrile HR normal non-tachypnic Pulm and ID on board Day 13 total of abx Continue Vanc and Zosyn per ID Continue Duonebs Continue supplemental O2 Continue to monitor (5) Diarrhea Current Visit: Yes Status: Resolved Assessment and Plan: Pt has experienced watery diarrhea since resolution of SBO on 12/19 Hemooccult negative on 12/14 C diff Tox B screen negative on 12/21 GI panel on 12/23 negative Likely not infectious May be associated with abx Experiencing formed bowel movements now after 1 dose of loperamide yesterday Continue Culturelle Aquaphor/Maalox for raw rectum due to frequent diarrhea DVT Prophylaxis: SQ Heparin - Time Spent with Patient Total time spent is greater than 50% in coordination of care (as documented) at patient's floor/unit and/or counseling patient: Internal Medicine: Result - Labs CBC & Chem 7: 12/27/17 04:39 12/27/17 04:39 Labs: Short CBC 12/27/17 Range/Units 04:39 WBC 14.1 H (4.3-11.1) K/mcL Hgb 8.9 L (12.9-16.9) g/dL Hct 26.9 L (37.5-50.1) % Plt Count 467 H (140-400) K/mcL Neutrophils # 12.7 H (1.6-8.9) K/mcL BMP 12/27/17 04:39 Sodium 140 Potassium 4.0 Chloride 105 Carbon Dioxide 29 BUN 18 Creatinine 1.39 H Glucose 129 H Calcium 8.4 L - ABG Interpretation ABG results: ABG ABG pH 7.47 pH Units (7.32-7.45) H 12/24/17 14:57 ABG pCO2 41 mmHg (35-45) 12/24/17 14:57 ABG pO2 51 mmHg (85-104) L 12/24/17 14:57 ABG O2 Saturation 88 % (95-98) L 12/24/17 14:57 PT/INR, D-dimer PT 16.7 Seconds (9.4-12.1) H D 12/16/17 18:08 - Impressions Impressions Chest CT 12/26/17 08:45 IMPRESSION: 1. Bilateral multi lobar ground-glass opacities with intra lobular septal thickening and nodular masslike consolidations in the left and right lower lobe. Differential includes multilobar pneumonia, ARDS, and hypersensitivity pneumonitis. Recommend follow-up CT chest to complete resolution as underlying nodules may be obscured. 2. Mediastinal and hilar adenopathy. Given associated pulmonary findings, the adenopathy is likely reactive but warrants follow up to ensure resolution. 3. Moderate bilateral pleural effusions. 4. Coronary artery disease. 5. Mild cardiomegaly. 6. Age indeterminate compression deformity of T5 (30% of anterior height loss) and T8 (80% of anterior height loss). D/ / 12/26/2017 09:43:02 Mitch Dunne MD / [email or web address] Interpreting Provider: Mitch Dunne MD Abdomen/Pelvis CT 12/26/17 15:45 IMPRESSION: Interval development of bilateral effusions and airspace disease which likely represent pneumonia. Findings better evaluated on recently performed chest CT. Interval improvement in findings of small-bowel obstruction. Findings suggestive of DONTE. D/ / Brett Kirk MD / Brett Kirk MD Interpreting Provider: Brett Kirk MD Head CT 12/26/17 15:45 IMPRESSION: No acute intracranial abnormality. Diffuse atrophic changes with findings suggesting chronic microvascular ischemia D/ / Julio Rosario MD / Julio Rosario MD Interpreting Provider: Julio Rosario MD - Diagnostic Studies CT scan - abdomen Status: image reviewed by me CT scan - head Status: image reviewed by me CT scan - pelvis Status: image reviewed by me Consult Discharge Plan - Plan Instructions: Acute Nausea and Vomiting (ED), Abdominal Pain (ED) Additional Instructions: Patient needs admission. He has nausea / vomiting , abdominal pain ,high WBC count, CT scan shows dilated small bowel loops & suspected small bowel obstruction. [facility]errals: [facility] [Primary Care Provider[facility] - <Funmilayo Aguirre - Last Filed: 12/27/17 14:50> Hospitalist Progress Note - Encounter Date of Encounter: 12/27/17 - Exam Vitals: Temp Pulse Resp BP Pulse Ox 98.0 F 103 20 107/68 80 12/27/17 11:14 12/27/17 11:14 12/27/17 11:44 12/27/17 11:14 12/27/17 11:44 - Assessment and Plan (1) Small bowel obstruction Current Visit: Yes Status: Resolved (2) Catatonia schizophrenia Current Visit: Yes Status: Chronic (3) Gastric ulcer Current Visit: Yes Status: Acute (4) Pneumonia Current Visit: Yes Status: Acute (5) Diarrhea Current Visit: Yes Status: Resolved - Time Spent with Patient Total time spent is greater than 50% in coordination of care (as documented) at patient's floor/unit and/or counseling patient: Internal Medicine: Result - Labs CBC & Chem 7: 12/27/17 04:39 12/27/17 04:39 Labs: Short CBC 12/27/17 Range/Units 04:39 WBC 14.1 H (4.3-11.1) K/mcL Hgb 8.9 L (12.9-16.9) g/dL Hct 26.9 L (37.5-50.1) % Plt Count 467 H (140-400) K/mcL Neutrophils # 12.7 H (1.6-8.9) K/mcL BMP 12/27/17 04:39 Sodium 140 Potassium 4.0 Chloride 105 Carbon Dioxide 29 BUN 18 Creatinine 1.39 H Glucose 129 H Calcium 8.4 L - ABG Interpretation ABG results: ABG ABG pH 7.47 pH Units (7.32-7.45) H 12/24/17 14:57 ABG pCO2 41 mmHg (35-45) 12/24/17 14:57 ABG pO2 51 mmHg (85-104) L 12/24/17 14:57 ABG O2 Saturation 88 % (95-98) L 12/24/17 14:57 PT/INR, D-dimer PT 16.7 Seconds (9.4-12.1) H D 12/16/17 18:08 - Impressions Impressions Abdomen/Pelvis CT 12/26/17 15:45 IMPRESSION: Interval development of bilateral effusions and airspace disease which likely represent pneumonia. Findings better evaluated on recently performed chest CT. Interval improvement in findings of small-bowel obstruction. Findings suggestive of DONTE. D/ / Brett Kirk MD / Brett Kirk MD Interpreting Provider: Brett Kirk MD Head CT 12/26/17 15:45 IMPRESSION: No acute intracranial abnormality. Diffuse atrophic changes with findings suggesting chronic microvascular ischemia D/ / Julio Rosario MD / Julio Rosario MD Interpreting Provider: Julio Rosario MD - Attending Attestation Seen and assessed. Agree with plan per resident. Came in for small bowel obstruction and went on to develop hypoxic resp failure Plan Acute hypoxic respiratory failure likely 2/2 to multifocal pneumonia. Contninue IV antibiotics. CT chest showed worsening opacities. Pulmonary holding off on bronchoscopy and added steroid to regimen. Continue to monitor oxygen sats Smal bowel obstruction. Resolved <Jb Gonzalez - Last Filed: 12/27/17 14:01> (3) Gastric ulcer Qualifiers: Gastric ulcer chronicity: chronic Gastric ulcer complication status: without hemorrhage or perforation Qualified Code(s): K25.7 - Chronic gastric ulcer without hemorrhage or perforation (4) Pneumonia Qualifiers: Pneumonia type: due to unspecified organism Laterality: bilateral Lung location: unspecified part of lung Qualified Code(s): J18.9 - Pneumonia, unspecified organism (5) Diarrhea Qualifiers: Diarrhea type: unspecified type Qualified Code(s): R19.7 - Diarrhea, unspecified <Funmilayo Aguirre A - Last Filed: 12/27/17 14:50> (3) Gastric ulcer Qualifiers: Gastric ulcer chronicity: chronic Gastric ulcer complication status: without hemorrhage or perforation Qualified Code(s): K25.7 - Chronic gastric ulcer without hemorrhage or perforation (4) Pneumonia Qualifiers: Pneumonia type: due to unspecified organism Laterality: bilateral Lung location: unspecified part of lung Qualified Code(s): J18.9 - Pneumonia, unspecified organism (5) Diarrhea Qualifiers: Diarrhea type: unspecified type Qualified Code(s): R19.7 - Diarrhea, unspecified
[2017-12-27] MEDS ORDERED: Ringers Solution, Lactated 1,000 ML ONE (09:50)
--- NOTE | 2017-12-27 10:31 | Infectious Disease Progress No ---
Date of Encounter: 12/27/17 Time of Encounter: 10:00 - Assessment and Plan (1) Sepsis Current Visit: Yes Status: Acute On admission, the patient had severe sepsis with DONTE, troponin leak, and lactic acidosis. Likely secondary to intra-abdominal process including SBO and aspiration PNA. Improved. WBC stable at 16. Blood cultures drawn 12/16/17 are negative x 2 sets. Repeat blood cultures drawn 12/24/17 x 2 sets are NGTD. Qualifiers: Sepsis type: sepsis due to unspecified organism Qualified Code(s): A41.9 - Sepsis, unspecified organism (2) Aspiration pneumonia Current Visit: Yes Status: Acute Causative organism unclear. Chest x-ray on admission was negative for pneumonia, but repeat chest x-ray 12/15 showed new patchy interstitial and/or airspace opacities in the mid to lower right lung, potentially developing pneumonia. Repeat CXR 12/24/17 showed increasing air space opacities now diffusely involving both lungs which can be seen in the setting of multifocal pneumonia, vascular congestion, ARDS, and/or atelectasis. Given the patient's altered mental status, high concern for aspiration. Nasal MRSA screen was negative. Strep pneumococcal and legionella urinary antigens are negative. Respiratory infectious panel is negative. Repeat CT chest 12/26/17 Bilateral multi lobar ground-glass opacities with intra lobular septal thickening and nodular masslike consolidations in the left and right lower lobe. Differential includes multilobar pneumonia, ARDS, and hypersensitivity pneumonitis. Pulmonology notes reviewed. Discussed bronch with the patient's POA, but have decided to hold off for now. Feel that this is likely PNA + edema. Continue vancomycin IV. Pharmacy to dose. Goal trough approximately 15. We will continue the vancomycin even though the MRSA nasal screen was negative given that it was checked several days after vancomycin was restarted. (day 7) Continue Zosyn 3.375 g IV every 8 hours. (day 13) Duration of treatment depends on the clinical picture. Monitor renal function and for drug toxicity and dose adjust antibiotics. Qualifiers: Aspiration pneumonia type: unspecified Laterality: right Lung location: middle lobe of lung Qualified Code(s): J69.0 - Pneumonitis due to inhalation of food and vomit (3) Acute respiratory failure with hypoxia Current Visit: Yes Status: Acute Likely secondary to adverse reaction to Ativan and pneumonia. Appears improved. Pulmonology consulted. Further management per the pulmonology and primary teams. (4) Small bowel obstruction Current Visit: Yes Status: Resolved Seems improved clinically, but most recent imaging on 12/20/17 showed no significant change in the findings were still consistent with a partial small bowel obstruction. Gen. surgery was consulted but is signed off. The patient appears to tolerating a clear liquid diet. CT of the abdomen and pelvis showed improvement in the SBO. (5) Acute kidney injury Current Visit: Yes Status: Resolved Likely secondary sepsis. Creatinine back up a little today. Continue to trend serum creatinine. Avoid nephrotoxins. Does adjust medications. 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 (7) Diarrhea Current Visit: Yes Status: Resolved Etiology unclear: antibiotics vs. other. GI panel negative. Continue probiotics. Recommend GI to consult. Qualifiers: Diarrhea type: unspecified type Qualified Code(s): R19.7 - Diarrhea, unspecified - Subjective Interval history: Patient seen and examined. No acute events noted overnight. Speech remains garbled, but alert and follows commands and is somewhat easier to understand. Denies pain or shortness of breath. Reports abdominal pain and nausea. Per nursing documentation, loose stool x 3 yesterday. Infect Dis PN-Objective Data - Labs CBC & Chem 7: 12/27/17 04:39 12/27/17 04:39 Labs: Laboratory Results - last 24 hr 12/25/17 12/25/17 12/26/17 04:25 19:10 03:45 WBC RBC Hgb Hct MCV MCH MCHC RDW Plt Count MPV Immature Gran % Seg Neutrophils % Lymphocytes % Monocytes % Eosinophils % Basophils % Neutrophils # Lymphocytes # Monocytes # Eosinophils # Basophils # Sodium Potassium Chloride Carbon Dioxide BUN Creatinine Est GFR ( Amer) Est GFR (Non-Af Amer) BUN/Creatinine Ratio Glucose POC Glucose 98 Calculated Osmolality Calcium Magnesium 2.0 Procalcitonin 0.78 H Vancomycin Trough 12/26/17 12/27/17 12/27/17 15:40 04:39 04:39 WBC 14.1 H RBC 2.96 L Hgb 8.9 L Hct 26.9 L MCV 90.9 MCH 30.1 MCHC 33.1 RDW 13.8 Plt Count 467 H MPV 9.4 Immature Gran % 0.7 Seg Neutrophils % 90.0 Lymphocytes % 5.2 Monocytes % 4.0 Eosinophils % 0.0 Basophils % 0.1 Neutrophils # 12.7 H Lymphocytes # 0.7 Monocytes # 0.6 Eosinophils # 0.0 Basophils # 0.0 Sodium 140 Potassium 4.0 Chloride 105 Carbon Dioxide 29 BUN 18 Creatinine 1.39 H Est GFR ( Amer) > 60 Est GFR (Non-Af Amer) 51 L BUN/Creatinine Ratio 13 Glucose 129 H POC Glucose Calculated Osmolality 294 Calcium 8.4 L Magnesium Procalcitonin Vancomycin Trough 23 H 12/27/17 04:39 WBC RBC Hgb Hct MCV MCH MCHC RDW Plt Count MPV Immature Gran % Seg Neutrophils % Lymphocytes % Monocytes % Eosinophils % Basophils % Neutrophils # Lymphocytes # Monocytes # Eosinophils # Basophils # Sodium Potassium Chloride Carbon Dioxide BUN Creatinine Est GFR ( Amer) Est GFR (Non-Af Amer) BUN/Creatinine Ratio Glucose POC Glucose Calculated Osmolality Calcium Magnesium Procalcitonin Vancomycin Trough 15 H Cultures: Cultures 12/25/17 10:23 Legionella Antigen - Final Urine,Clean Catch Streptococcus pneumoniae Antigen (M - Final 12/24/17 16:20 Blood Culture - Preliminary Peripheral Venipuncture Culture is incubating and being continuously monitored for growth. Final report to follow. 12/24/17 16:20 Blood Culture - Preliminary Peripheral Venipuncture Culture is incubating and being continuously monitored for growth. Final report to follow. 12/16/17 13:35 Blood Culture - Final Peripheral Venipuncture No growth. Final report. 12/16/17 13:35 Blood Culture - Final Peripheral Venipuncture No growth. Final report. Serology 12/24/17 12/24/17 12/23/17 Range/Units 15:50 15:50 22:00 Nasal Screen MRSA (PCR) Negative (Negative) Stl C. cayetanensis PCR Not detected (Not detect) Stool Rotavirus A PCR Not detected (Not detect) Stl Adenov F 40/41 PCR Not detected (Not detect) Stool Astrovirus (PCR) Not detected (Not detect) Stool Campylobacter PCR Not detected (Not detect) Stl C. diff Tox B Gene (Negative) Stl C. diff Tox A/B PCR Not detected (Not detect) Stool Cryptosporidium PCR Not detected (Not detect) Stl Sh Tox Pr E STEC PCR Not detected (Not detect) Stool E coli O157 PCR Not detected (Not detect) Stl Enterotoxigenic E PCR Not detected (Not detect) Stool EPEC (PCR) Not detected (Not detect) Stool EAEC (PCR) Not detected (Not detect) Stl E. histolytica PCR Not detected (Not detect) Stool Giardia Lamblia PCR Not detected (Not detect) Stool Salmonella PCR Not detected (Not detect) Stool Sapovirus (PCR) Not detected (Not detect) Stl P. shigelloides PCR Not detected (Not detect) Stl Shigella/EIEC PCR Not detected (Not detect) St Y.enterocolitica PCR Not detected (Not detect) Stool Vibrio (PCR) Not detected (Not detect) Stl Vibrio cholerae PCR Not detected (Not detect) Stl Norovirus GI/GII PCR Not detected (Not detect) Stl GI Panel (PCR) Com See below Chlamy pneumoniae PCR Not Detected (Not Detect) Adenovirus (PCR) Not Detected (Not Detect) B. pertussis DNA (PCR) Not Detected (Not Detect) B.parapertussis DNA PCR Not Detected (Not Detect) Coronavirus OC43 (PCR) Not Detected (Not Detect) Coronavirus HKU1 (PCR) Not Detected (Not Detect) Coronavirus 229E (PCR) Not Detected (Not Detect) Coronavirus NL63 (PCR) Not Detected (Not Detect) Human Metapneumovir PCR Not Detected (Not Detect) Influenza A (H1) PCR Not Detected (Not Detect) Influ A (H1N1/09) PCR Not Detected (Not Detect) Influenza A (H3) PCR Not Detected (Not Detect) Influenza A Untype (PCR) Not Detected (Not Detect) Influenza Type B (PCR) Not Detected (Not Detect) M.pneumoniae DNA (PCR) Not Detected (Not Detect) Parainfluenza 1 (PCR) Not Detected (Not Detect) Parainfluenza 2 (PCR) Not Detected (Not Detect) Parainfluenza 3 (PCR) Not Detected (Not Detect) Parainfluenza 4 (PCR) Not Detected (Not Detect) RSV (PCR) Not Detected (Not Detect) Entero/Rhino (PCR) Not Detected (Not Detect) 12/21/17 Range/Units 16:20 Nasal Screen MRSA (PCR) (Negative) Stl C. cayetanensis PCR (Not detect) Stool Rotavirus A PCR (Not detect) Stl Adenov F 40/41 PCR (Not detect) Stool Astrovirus (PCR) (Not detect) Stool Campylobacter PCR (Not detect) Stl C. diff Tox B Gene Negative (Negative) Stl C. diff Tox A/B PCR (Not detect) Stool Cryptosporidium PCR (Not detect) Stl Sh Tox Pr E STEC PCR (Not detect) Stool E coli O157 PCR (Not detect) Stl Enterotoxigenic E PCR (Not detect) Stool EPEC (PCR) (Not detect) Stool EAEC (PCR) (Not detect) Stl E. histolytica PCR (Not detect) Stool Giardia Lamblia PCR (Not detect) Stool Salmonella PCR (Not detect) Stool Sapovirus (PCR) (Not detect) Stl P. shigelloides PCR (Not detect) Stl Shigella/EIEC PCR (Not detect) St Y.enterocolitica PCR (Not detect) Stool Vibrio (PCR) (Not detect) Stl Vibrio cholerae PCR (Not detect) Stl Norovirus GI/GII PCR (Not detect) Stl GI Panel (PCR) Com Chlamy pneumoniae PCR (Not Detect) Adenovirus (PCR) (Not Detect) B. pertussis DNA (PCR) (Not Detect) B.parapertussis DNA PCR (Not Detect) Coronavirus OC43 (PCR) (Not Detect) Coronavirus HKU1 (PCR) (Not Detect) Coronavirus 229E (PCR) (Not Detect) Coronavirus NL63 (PCR) (Not Detect) Human Metapneumovir PCR (Not Detect) Influenza A (H1) PCR (Not Detect) Influ A (H1N1/09) PCR (Not Detect) Influenza A (H3) PCR (Not Detect) Influenza A Untype (PCR) (Not Detect) Influenza Type B (PCR) (Not Detect) M.pneumoniae DNA (PCR) (Not Detect) Parainfluenza 1 (PCR) (Not Detect) Parainfluenza 2 (PCR) (Not Detect) Parainfluenza 3 (PCR) (Not Detect) Parainfluenza 4 (PCR) (Not Detect) RSV (PCR) (Not Detect) Entero/Rhino (PCR) (Not Detect) - Impressions Impressions Chest CT 12/26/17 08:45 IMPRESSION: 1. Bilateral multi lobar ground-glass opacities with intra lobular septal thickening and nodular masslike consolidations in the left and right lower lobe. Differential includes multilobar pneumonia, ARDS, and hypersensitivity pneumonitis. Recommend follow-up CT chest to complete resolution as underlying nodules may be obscured. 2. Mediastinal and hilar adenopathy. Given associated pulmonary findings, the adenopathy is likely reactive but warrants follow up to ensure resolution. 3. Moderate bilateral pleural effusions. 4. Coronary artery disease. 5. Mild cardiomegaly. 6. Age indeterminate compression deformity of T5 (30% of anterior height loss) and T8 (80% of anterior height loss). D/ / 12/26/2017 09:43:02 Mitch Dunne MD / carlos eduardo Interpreting Provider: Mitch Dunne MD Abdomen/Pelvis CT 12/26/17 15:45 IMPRESSION: Interval development of bilateral effusions and airspace disease which likely represent pneumonia. Findings better evaluated on recently performed chest CT. Interval improvement in findings of small-bowel obstruction. Findings suggestive of DONTE. D/ / Brett Kirk MD / Brett Kirk MD Interpreting Provider: Brett Kirk MD Head CT 12/26/17 15:45 IMPRESSION: No acute intracranial abnormality. Diffuse atrophic changes with findings suggesting chronic microvascular ischemia D/ / Julio Rosario MD / Julio Rosario MD Interpreting Provider: Julio Rosario MD Exam - Constitutional Vitals: Temp Pulse Resp BP Pulse Ox 97.4 F L 94 18 127/71 98 12/27/17 07:46 12/27/17 07:46 12/27/17 07:46 12/27/17 07:46 12/27/17 07:46 General appearance: average body habitus, cooperative, no acute distress - Head Head exam: Present: atraumatic, normal inspection, normocephalic - Eye Eye exam: Present: EOMI, normal appearance, PERRL Pupils: Present: normal accommodation - ENT ENT exam: Present: mucous membranes moist Additional comments: Poor dentition noted. - Neck Neck exam: Present: normal inspection - Respiratory Respiratory exam: Present: CTAB. Absent: rales, respiratory distress, rhonchi, wheezes - Cardiovascular Cardiovascular exam: Present: RRR, +S1, +S2 - GI/Abdominal GI/Abdominal exam: Present: normal bowel sounds, soft. Absent: distended, tenderness - Extremities Exam Extremities exam: Present: normal inspection. Absent: joint swelling, pedal edema, tenderness - Neurological Exam Neurological exam: Present: alert, oriented X3, no focal deficits - Psychiatric Psychiatric exam: Present: anxious, normal affect - Skin Skin exam: Present: dry, intact, normal color, warm Consult Discharge Plan - Plan Instructions: Acute Nausea and Vomiting (ED), Abdominal Pain (ED) Additional Instructions: Patient needs admission. He has nausea / vomiting , abdominal pain ,high WBC count, CT scan shows dilated small bowel loops & suspected small bowel obstruction. [facility]: [facility]Primary Care Provider[facility] - - Attending Attestation I examined this patient and my medical decision-making was reviewed with the Resident Physician. I agree with the documented findings, disposition and treatment plan as described except to the extent set forth below.
[2017-12-27] MEDS: MethylPREDNISolone 40 MG/ML VIAL IVP SCH (16:21)
[2017-12-27] MEDS: *HR* LORazepam 2 MG/ML VIAL IM PRN (19:55)
[2017-12-27] MEDS: Haloperidol Lactate 5 MG/ML VIAL IVP PRN (23:18)
[2017-12-28] MEDS: Ipratropium/Albuterol Neb 3 ML IH SCH ×7 (00:06→23:38)
[2017-12-28] MEDS: *HR* Heparin 5,000 UNIT/ML VIAL SQ SCH ×3 (05:11→20:29)
[2017-12-28] MEDS: MethylPREDNISolone 40 MG/ML VIAL IVP SCH ×2 (05:11→17:46)
--- NOTE | 2017-12-28 06:47 | Pulmonology Progress Note ---
Date of Encounter: 12/28/17 Time of Encounter: 06:47 Assessment and Plan (1) Acute respiratory failure with hypoxia Current Visit: Yes Status: Acute This is a combination of multifocal pneumonia and what appears to be noncardiogenic pulmonary edema (ARDS) Would continue supplemental oxygen to keep saturation around 92-94% may need Start Sapphire high flow system today He is not a good candidate for positive airway pressure because of his mental status but this too could be a possibility I suspect that this will not be a quick resolution I have given the patient a course of steroids to see if there is any improvement for the possibility that this is AIP - would continue this through the weekend General recommendations for a negative fluid status as tolerated by his renal function and assess his current visit has bumped slightly in the last 24 hours and so would avoid any sort of aggressive diuresis Recommend chemical DVT prophylaxis unless contraindication arises No improvement or worsening over the course the weekend I would re-discussing with family about proceeding with bronchoscopy (2) Pneumonia Current Visit: Yes Status: Acute Patient is on broad-spectrum antibiotics cultures as far negative for him extensive conversation with the patient's healthcare power of energy attorney and next of kin his sister Annalisa and she wants to hold off on bronchoscopy although that would be indicated at this juncture. 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 Hemodynamically stable remains on high flow nasal cannula with borderline oxygen saturation usually in the high 80s sometimes low 90s. Patient was getting cleaned after having a episode of diarrhea when I was examining him Objective PUL Vital signs: Last Vital Signs Temp 98.8 F 12/28/17 04:45 Pulse 99 12/28/17 04:45 Resp 21 12/28/17 04:45 BP 119/72 12/28/17 04:45 Pulse Ox 89 12/28/17 04:45 General appearance: no acute distress Eyes: nonicteric Effort: normal Auscultation: bilateral: rales Cardiovascular: regular rate and rhythm Gastrointestinal: normoactive bowel sounds, soft, non-tender Integumentary: other (His gluteal/peroneal area is erythematous and excoriated from multiple bowel movements and wiping's) Musculoskeletal: no deformities non-focal exam Results - Laboratory Findings CBC and BMP: 12/28/17 06:12 12/28/17 06:12 ABG ABG pH 7.47 pH Units (7.32-7.45) H 12/24/17 14:57 ABG pCO2 41 mmHg (35-45) 12/24/17 14:57 ABG pO2 51 mmHg (85-104) L 12/24/17 14:57 ABG O2 Saturation 88 % (95-98) L 12/24/17 14:57 PT/INR, D-dimer PT 16.7 Seconds (9.4-12.1) H D 12/16/17 18:08 Abnormal lab findings: Abnormal lab results WBC 14.1 K/mcL (4.3-11.1) H 12/27/17 04:39 RBC 2.96 M/mcL (4.19-5.50) L 12/27/17 04:39 Hgb 8.9 g/dL (12.9-16.9) L 12/27/17 04:39 Hct 26.9 % (37.5-50.1) L 12/27/17 04:39 Plt Count 467 K/mcL (140-400) H 12/27/17 04:39 Neutrophils # 12.7 K/mcL (1.6-8.9) H 12/27/17 04:39 Reactive Lymphocytes Present (Not Present) A 12/23/17 05:12 Toxic Vacuolation Present (Not Present) A 12/23/17 05:12 Hypochromasia Present (Not Present) A 12/21/17 04:01 Anisocytosis 1+ (Not Present) A 12/20/17 06:31 ESR 13 mm/hr (0-10) H 12/25/17 04:25 PT 16.7 Seconds (9.4-12.1) H D 12/16/17 18:08 ABG pH 7.47 pH Units (7.32-7.45) H 12/24/17 14:57 ABG pO2 51 mmHg (85-104) L 12/24/17 14:57 ABG HCO3 30 mEq/L (21-27) H 12/24/17 14:57 ABG Total CO2 31 mEq/L (20-26) H 12/24/17 14:57 ABG O2 Saturation 88 % (95-98) L 12/24/17 14:57 ABG Base Excess 6 mEq/L (-2 to 3) H 12/24/17 14:57 Creatinine 1.39 mg/dL (0.70-1.30) H 12/27/17 04:39 Est GFR (Non-Af Amer) 51 (> 60) L 12/27/17 04:39 Glucose 129 mg/dL (70-105) H 12/27/17 04:39 Calcium 8.4 mg/dL (8.6-10.3) L 12/27/17 04:39 Troponin I 0.21 ng/mL (< 0.04) H* 12/15/17 14:12 C-Reactive Protein 188 mg/L (Less than 10) H 12/25/17 04:25 B-Natriuretic Peptide 354 pg/mL (Less than 100) H 12/24/17 16:32 Serum Total Protein 4.9 g/dL (6.4-8.9) L 12/25/17 04:25 Albumin 2.4 g/dL (3.5-5.7) L 12/25/17 04:25 Albumin/Globulin Ratio 1.0 (1.1-2.2) L 12/25/17 04:25 Prealbumin 5.1 mg/dL (17.0-34.0) L 12/23/17 05:12 Amylase 168 Units/L (29-103) H 12/25/17 04:25 Lipase 96 Units/L (11-82) H 12/25/17 04:25 Procalcitonin 0.78 ng/mL (<=0.07) H 12/25/17 04:25 Vancomycin Trough 15 mcg/mL (5-10) H 12/27/17 04:39 - Clinical Findings Intake & Output: Intake & Output 12/27/17 12/27/17 12/28/17 15:59 23:59 07:59 Intake Total 1440 / 1440 220 / 220 Output Total 350 / 350 Balance 1090 / 1090 220 / 220 Weight 61 kg Consult Discharge Plan - Plan Instructions: Acute Nausea and Vomiting (ED), Abdominal Pain (ED) Additional Instructions: Patient needs admission. He has nausea / vomiting , abdominal pain ,high WBC count, CT scan shows dilated small bowel loops & suspected small bowel obstruction. [facility]errals: [facility] [Primary Care Provider[facility] -
[2017-12-28 06:50] LABS: Basophils % 0.1 %; Eosinophils % 0.3 %; Hematocrit 26.8 % (37.5-50.1); Hemoglobin 8.8 g/dL (12.9-16.9); Immature Granulocytes % 0.8 % (0-4); Lymphocytes # 1.2 K/mcL (0.6-4.6); Lymphocytes % 8.5 %; Mean Corpuscular HGB Conc 32.8 g/dL (31.6-35.5); Mean Corpuscular Hemoglobin 29.9 pg (28.0-33.3); Mean Corpuscular Volume 91.2 fL (83.0-100.0); Mean Platelet Volume 9.3 fL (9.4-12.4); Monocytes # 1.2 K/mcL (0.0-1.3); Monocytes % 8.3 %; Neutrophils # 11.8 K/mcL (1.6-8.9); Platelet Count 560 K/mcL (140-400); Red Blood Count 2.94 M/mcL (4.19-5.50); Red Cell Distribution Width 13.8 % (11.5-14.5)
[2017-12-28 07:05] LABS: BUN/Creatinine Ratio 15 (6-26); Blood Urea Nitrogen 21 mg/dL (8-23); Calcium 8.5 mg/dL (8.6-10.3); Carbon Dioxide 30 mEq/L (23-29); Chloride 104 mEq/L (98-107); Glucose 116 mg/dL (70-105); Osmolality,Calculated 294 (280-300); Potassium 3.8 mEq/L (3.5-5.1); Sodium 140 mEq/L (136-145); eGFR For Non-African Americans 51 (> 60)
[2017-12-28] MEDS: Piperacillin/Tazobactam 3.375 GM in 0.9 % Sodium Chloride Mini Bag 100 ML IVPB SCH ×3 (08:15→23:37)
--- NOTE | 2017-12-28 09:06 | Internal Med Progress Note ---
<JessNehemias - Last Filed: 12/28/17 12:40> Hospitalist Progress Note - Encounter Date of Encounter: 12/28/17 Time of Encounter: 10:00 - Subjective Interval History: Patient was admitted on 12/14 for SBO which has since resolved. He developed aspiration pneumonia and respiratory distress and was subsequently transferred to the ICU. He had grossly improved yesterday but patient desatted this morning to 80% after weaning from oxymask 15%. He is currently satting 90% after high flow oxygen is back on. Patient is tolerating PO intake, continues to have poor respiration and SOB, but denies chest pain. He is unable to communicate verbally effective at this time and mumbles. Subjective limited. No further overnight events. - Exam Vitals: Temp Pulse Resp BP Pulse Ox 98.8 F 108 20 136/81 90 12/28/17 07:21 12/28/17 07:21 12/28/17 07:21 12/28/17 07:21 12/28/17 07:21 Exam: General: alert male. modorate distress Head: normocephalic and atraumatic Neck: supple, trachea midline, no lymphadeopathy Lungs: Fine wheezes bilaterally. non-labored breathing on 15pm via oxy mask. No rales or rhonchi noted. Heart: RRR +S1 +S2. no murmurs, clicks, or rubs appreciated. Abdomen: soft, non-tender, non-distended. normoactive bowel sounds Extremities: radial pulses palpable and symmetrical. No edema or cyanosis. Neuro: A&Ox3. no speech difficulty or abnormality Skin: warm, dry, intact. - Assessment and Plan (1) Acute respiratory failure with hypoxia Current Visit: Yes Status: Acute Assessment and Plan: Likely secondary to multifocal pneumonia and noncardiogenic pulmonary edema ( ARDS) Patient unable to wean off oxymask as he desatted this morning to 80%. Will continue with Bal[place] high flow oxygen with goal saturation 92-94% per pulmonology. Patient not good candidate for positive airway pressure due to his mental status, but still an option. Pulm following and will consider bronchoscopy if patient continues to deteriorate. 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 Assessment and Plan: Resumed home medications Per psych recommendations yesterday, increased Haldol to 50mg IM every 2 weeks ( Last dose was on 12/24) has prn Haldol IV Titrated up Clozapine to 25mg TID per psych recs (4) Diarrhea Current Visit: Yes Status: Resolved Assessment and Plan: Pt has experienced watery diarrhea since resolution of SBO on 12/19 Hemooccult negative on 12/14 C diff Tox B screen negative on 12/21 GI panel on 12/23 negative Likely not infectious May be associated with abx Experiencing formed bowel movements now after 1 dose of loperamide yesterday (5) Small bowel obstruction Current Visit: Yes Status: Resolved Assessment and Plan: Resolved Small bowel follow through was normal with contrast seen in rectum at 4 hours Tolerating regular diet, has to be on restrictions due to mentation Tolerating po meds Tolerating regular diet (6) Acute kidney injury Current Visit: Yes Status: Resolved Likely secondary sepsis. Creatinine back up a little today. Continue to trend serum creatinine. Avoid nephrotoxins. Does adjust medications. DVT Prophylaxis: SQ Heparin - Time Spent with Patient Total time spent is greater than 50% in coordination of care (as documented) at patient's floor/unit and/or counseling patient: Greater than 35 minutes Plan of Care Discussed with: patient Internal Medicine: Result - Labs CBC & Chem 7: 12/28/17 06:12 12/28/17 06:12 Labs: Short CBC 12/28/17 Range/Units 06:12 WBC 14.3 H (4.3-11.1) K/mcL Hgb 8.8 L (12.9-16.9) g/dL Hct 26.8 L (37.5-50.1) % Plt Count 560 H (140-400) K/mcL Neutrophils # 11.8 H (1.6-8.9) K/mcL BMP 12/28/17 06:12 Sodium 140 Potassium 3.8 Chloride 104 Carbon Dioxide 30 H BUN 21 Creatinine 1.38 H Glucose 116 H Calcium 8.5 L - ABG Interpretation ABG results: ABG ABG pH 7.47 pH Units (7.32-7.45) H 12/24/17 14:57 ABG pCO2 41 mmHg (35-45) 12/24/17 14:57 ABG pO2 51 mmHg (85-104) L 12/24/17 14:57 ABG O2 Saturation 88 % (95-98) L 12/24/17 14:57 PT/INR, D-dimer PT 16.7 Seconds (9.4-12.1) H D 12/16/17 18:08 Consult Discharge Plan - Plan Instructions: Acute Nausea and Vomiting (ED), Abdominal Pain (ED) Additional Instructions: Patient needs admission. He has nausea / vomiting , abdominal pain ,high WBC count, CT scan shows dilated small bowel loops & suspected small bowel obstruction. 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 (3) Gastric ulcer Current Visit: Yes Status: Acute (4) Pneumonia Current Visit: Yes Status: Acute (5) Diarrhea Current Visit: Yes Status: Resolved - Time Spent with Patient Total time spent is greater than 50% in coordination of care (as documented) at patient's floor/unit and/or counseling patient: Internal Medicine: Result - Labs CBC & Chem 7: 12/28/17 06:12 12/28/17 06:12 Labs: Short CBC 12/28/17 Range/Units 06:12 WBC 14.3 H (4.3-11.1) K/mcL Hgb 8.8 L (12.9-16.9) g/dL Hct 26.8 L (37.5-50.1) % Plt Count 560 H (140-400) K/mcL Neutrophils # 11.8 H (1.6-8.9) K/mcL BMP 12/28/17 06:12 Sodium 140 Potassium 3.8 Chloride 104 Carbon Dioxide 30 H BUN 21 Creatinine 1.38 H Glucose 116 H Calcium 8.5 L - ABG Interpretation ABG results: ABG ABG pH 7.47 pH Units (7.32-7.45) H 12/24/17 14:57 ABG pCO2 41 mmHg (35-45) 12/24/17 14:57 ABG pO2 51 mmHg (85-104) L 12/24/17 14:57 ABG O2 Saturation 88 % (95-98) L 12/24/17 14:57 PT/INR, D-dimer PT 16.7 Seconds (9.4-12.1) H D 12/16/17 18:08 - Attending Attestation Seen and assessed. Agree with plan per resident. Came in for small bowel obstruction and went on to develop hypoxic resp failure Plan Acute hypoxic respiratory failure likely 2/2 to multifocal pneumonia. Continue IV antibiotics. CT chest showed worsening opacities. Pulmonary added steroids to regimen. Etiology of respiratory failure may be ARDS. On balta high flow oxygen. Pulmonary considering bronchoscopy Smal bowel obstruction. Resolved <Funmilayo Aguirre - Last Filed: 12/28/17 15:07> (3) Gastric ulcer Qualifiers: Gastric ulcer chronicity: chronic Gastric ulcer complication status: without hemorrhage or perforation Qualified Code(s): K25.7 - Chronic gastric ulcer without hemorrhage or perforation (4) Pneumonia Qualifiers: Pneumonia type: due to unspecified organism Laterality: bilateral Lung location: unspecified part of lung Qualified Code(s): J18.9 - Pneumonia, unspecified organism (5) Diarrhea Qualifiers: Diarrhea type: unspecified type Qualified Code(s): R19.7 - Diarrhea, unspecified
[2017-12-28] MEDS: cloZAPine 25 MG TABLET PO SCH ×3 (09:32→20:29)
[2017-12-28] MEDS: hydrOXYzine pamoate 25 MG CAPSULE PO SCH ×4 (09:32→20:29)
[2017-12-28] MEDS: lamoTRIgine 100 MG TABLET PO SCH ×2 (09:32→20:28)
[2017-12-28] MEDS: Lactobacillus 1 EACH CAP.SPRINK PO SCH ×2 (09:32→20:28)
[2017-12-28] MEDS: *HR* LORazepam 2 MG/ML VIAL IM PRN (09:34)
[2017-12-28] MEDS: Ondansetron 4 MG/2 ML VIAL IVP PRN (14:15)
[2017-12-29 02:10] LABS: A.galactomannan Ag Index 0.03
[2017-12-29 04:22] LABS: Hematocrit 26.2 % (37.5-50.1); Hemoglobin 8.6 g/dL (12.9-16.9); Mean Corpuscular HGB Conc 32.8 g/dL (31.6-35.5); Mean Corpuscular Hemoglobin 30.3 pg (28.0-33.3); Mean Corpuscular Volume 92.3 fL (83.0-100.0); Mean Platelet Volume 9.4 fL (9.4-12.4); Platelet Count 537 K/mcL (140-400); Red Blood Count 2.84 M/mcL (4.19-5.50); Red Cell Distribution Width 13.8 % (11.5-14.5)
[2017-12-29] MEDS: Ipratropium/Albuterol Neb 3 ML IH SCH ×5 (04:35→20:05)
[2017-12-29 04:40] LABS: Calcium 8.2 mg/dL (8.6-10.3); Potassium 4.7 mEq/L (3.5-5.1)
[2017-12-29] MEDS: MethylPREDNISolone 40 MG/ML VIAL IVP SCH ×2 (06:15→18:52)
[2017-12-29] MEDS: *HR* Heparin 5,000 UNIT/ML VIAL SQ SCH ×3 (06:16→20:48)
[2017-12-29] MEDS: Piperacillin/Tazobactam 3.375 GM in 0.9 % Sodium Chloride Mini Bag 100 ML IVPB SCH ×3 (08:36→23:30)
[2017-12-29] MEDS: Ondansetron 4 MG/2 ML VIAL IVP PRN (08:36)
[2017-12-29] MEDS: Lactobacillus 1 EACH CAP.SPRINK PO SCH ×2 (10:20→20:49)
[2017-12-29] MEDS: cloZAPine 25 MG TABLET PO SCH ×3 (10:20→20:49)
[2017-12-29] MEDS: lamoTRIgine 100 MG TABLET PO SCH ×2 (10:20→20:49)
[2017-12-29] MEDS: hydrOXYzine pamoate 25 MG CAPSULE PO SCH ×4 (10:21→20:49)
--- NOTE | 2017-12-29 10:45 | Pulmonology Progress Note ---
Date of Encounter: 12/29/17 Time of Encounter: 10:45 Assessment and Plan (1) Acute respiratory failure with hypoxia Current Visit: Yes Status: Acute This is a combination of multifocal pneumonia and what appears to be noncardiogenic pulmonary edema (ARDS) Would continue supplemental oxygen to keep saturation around 92-94% may need Cont Sapphire high flow system today this appears to be quite effective at maintaining Oxygenation I suspect that this will not be a quick resolution - Diffuse alveolar Damage s/ t ARDS suspected I have given the patient a course of steroids to see if there is any improvement for the possibility that this is AIP - would continue this through the weekend General recommendations for a negative fluid status as tolerated by his renal function (creatinine continues to rise so would hold active diuresis today) Recommend chemical DVT prophylaxis unless contraindication arises Dr. Merrill will follow-up tomorrow with pulmonary service to reevaluate the patient indeterminate bronchoscopy would be beneficial at this time or not I suspect that this will not be helpful at this juncture please keep NPO at Midnight (2) Pneumonia Current Visit: Yes Status: Acute Patient is on broad-spectrum antibiotics cultures as far negative for him extensive conversation with the patient's healthcare power of bilingual sales assistant and next of kin his sister Annalisa and she wants to hold off on bronchoscopy although that would be indicated at this juncture. 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 He is complaining of some abdominal pain and dry skin. Current saturation 99 % while he speaking to me on 70% high flow at 40L Objective PUL Vital signs: Last Vital Signs Temp 97.7 F 12/29/17 06:58 Pulse 92 12/29/17 06:58 Resp 20 12/29/17 07:57 BP 127/88 12/29/17 06:58 Pulse Ox 99 12/29/17 07:57 General appearance: no acute distress Eyes: nonicteric Neck: supple Effort: normal Auscultation: bilateral: rales Cardiovascular: regular rate and rhythm Gastrointestinal: soft, non-tender Integumentary: other (dry skin noted ) Extremities: no cyanosis, no edema, no clubbing Musculoskeletal: no deformities non-focal exam Results - Laboratory Findings CBC and BMP: 12/29/17 03:25 12/29/17 03:25 ABG ABG pH 7.47 pH Units (7.32-7.45) H 12/24/17 14:57 ABG pCO2 41 mmHg (35-45) 12/24/17 14:57 ABG pO2 51 mmHg (85-104) L 12/24/17 14:57 ABG O2 Saturation 88 % (95-98) L 12/24/17 14:57 PT/INR, D-dimer PT 16.7 Seconds (9.4-12.1) H D 12/16/17 18:08 Abnormal lab findings: Abnormal lab results WBC 13.2 K/mcL (4.3-11.1) H 12/29/17 03:25 RBC 2.84 M/mcL (4.19-5.50) L 12/29/17 03:25 Hgb 8.6 g/dL (12.9-16.9) L 12/29/17 03:25 Hct 26.2 % (37.5-50.1) L 12/29/17 03:25 Plt Count 537 K/mcL (140-400) H 12/29/17 03:25 Neutrophils # 11.8 K/mcL (1.6-8.9) H 12/28/17 06:12 Reactive Lymphocytes Present (Not Present) A 12/23/17 05:12 Toxic Vacuolation Present (Not Present) A 12/23/17 05:12 Hypochromasia Present (Not Present) A 12/21/17 04:01 Anisocytosis 1+ (Not Present) A 12/20/17 06:31 ESR 13 mm/hr (0-10) H 12/25/17 04:25 PT 16.7 Seconds (9.4-12.1) H D 12/16/17 18:08 ABG pH 7.47 pH Units (7.32-7.45) H 12/24/17 14:57 ABG pO2 51 mmHg (85-104) L 12/24/17 14:57 ABG HCO3 30 mEq/L (21-27) H 12/24/17 14:57 ABG Total CO2 31 mEq/L (20-26) H 12/24/17 14:57 ABG O2 Saturation 88 % (95-98) L 12/24/17 14:57 ABG Base Excess 6 mEq/L (-2 to 3) H 12/24/17 14:57 BUN 26 mg/dL (8-23) H 12/29/17 03:25 Creatinine 1.47 mg/dL (0.70-1.30) H 12/29/17 03:25 Est GFR ( Amer) 58 (> 60) L 12/29/17 03:25 Est GFR (Non-Af Amer) 48 (> 60) L 12/29/17 03:25 Glucose 108 mg/dL (70-105) H 12/29/17 03:25 Calcium 8.2 mg/dL (8.6-10.3) L 12/29/17 03:25 Troponin I 0.21 ng/mL (< 0.04) H* 12/15/17 14:12 C-Reactive Protein 188 mg/L (Less than 10) H 12/25/17 04:25 B-Natriuretic Peptide 354 pg/mL (Less than 100) H 12/24/17 16:32 Serum Total Protein 4.9 g/dL (6.4-8.9) L 12/25/17 04:25 Albumin 2.4 g/dL (3.5-5.7) L 12/25/17 04:25 Albumin/Globulin Ratio 1.0 (1.1-2.2) L 12/25/17 04:25 Prealbumin 5.1 mg/dL (17.0-34.0) L 12/23/17 05:12 Amylase 168 Units/L (29-103) H 12/25/17 04:25 Lipase 96 Units/L (11-82) H 12/25/17 04:25 Procalcitonin 0.78 ng/mL (<=0.07) H 12/25/17 04:25 Vancomycin Trough 15 mcg/mL (5-10) H 12/27/17 04:39 - Clinical Findings Intake & Output: Intake & Output 12/28/17 12/29/17 12/29/17 23:59 07:59 15:59 Intake Total 1580 / 1580 1140 / 1140 120 / 120 Output Total 200 / 200 Balance 1580 / 1580 1140 / 1140 -80 / -80 Weight 60.6 kg Consult Discharge Plan - Plan Instructions: Acute Nausea and Vomiting (ED), Abdominal Pain (ED) Additional Instructions: Patient needs admission. He has nausea / vomiting , abdominal pain ,high WBC count, CT scan shows dilated small bowel loops & suspected small bowel obstruction. [facility]errals: [facility] [Primary Care Provider[facility] -
--- NOTE | 2017-12-29 13:21 | Internal Med Progress Note ---
<MercadoNehemias - Last Filed: 12/29/17 13:16> Hospitalist Progress Note - Encounter Date of Encounter: 12/29/17 Time of Encounter: 10:30 - Subjective Interval History: Patient was admitted on 12/14 for SBO which has since resolved. He developed aspiration pneumonia and respiratory distress and was subsequently transferred to the ICU. He improved and was transferred to [facility]. Patient developed fever of 100.2 last night that self resolved. Today, he is feeling a lot better. His SOB has improved. He is also more talkative and tolerating PO intake. Denies chest pain, palpitations, abdominal pain. Voiding without difficulty. +BM. - Exam Vitals: Temp Pulse Resp BP Pulse Ox 97.7 F 92 20 127/88 93 12/29/17 06:58 12/29/17 06:58 12/29/17 11:44 12/29/17 06:58 12/29/17 11:44 Exam: General: alert male. modorate distress Head: normocephalic and atraumatic Neck: supple, trachea midline, no lymphadeopathy Lungs: Fine wheezes bilaterally. non-labored breathing on 15pm via oxy mask. No rales or rhonchi noted. Heart: RRR +S1 +S2. no murmurs, clicks, or rubs appreciated. Abdomen: soft, non-tender, non-distended. normoactive bowel sounds Extremities: radial pulses palpable and symmetrical. No edema or cyanosis. Neuro: A&Ox3. no speech difficulty or abnormality Skin: warm, dry, intact. - Assessment and Plan (1) Acute respiratory failure with hypoxia Current Visit: Yes Status: Acute Assessment and Plan: Likely secondary to multifocal pneumonia and noncardiogenic pulmonary edema ( ARDS) Patient continues to require high flow oxygen, currently on 15L Will continue with Balta high flow oxygen with goal saturation 92-94% per pulmonology. Wean oxygen as appropriate. Patient not good candidate for positive airway pressure due to his mental status, but still an option. Pulm following and will consider bronchoscopy if patient continues to deteriorate. 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 Pt has experienced watery diarrhea since resolution of SBO on 12/19 Hemooccult negative on 12/14 C diff Tox B screen negative on 12/21 GI panel on 12/23 negative Likely not infectious May be associated with abx No further acute intervention required at this time. (5) Small bowel obstruction Current Visit: Yes Status: Resolved Assessment and Plan: Resolved Small bowel follow through was normal with contrast seen in rectum at 4 hours Tolerating regular diet, has to be on restrictions due to mentation Tolerating po meds Tolerating regular diet (6) Acute kidney injury Current Visit: Yes Status: Resolved Likely secondary to sepsis. Creatinine continues to increase. Will avoid IVF for now due to respiratory distress. Will consider fluids if patient's kidney function continues to deteriorate tomorrow. Continue to trend serum creatinine. Avoid nephrotoxins. Does adjust medications. DVT Prophylaxis: SQ Heparin - Time Spent with Patient Total time spent is greater than 50% in coordination of care (as documented) at patient's floor/unit and/or counseling patient: Greater than 35 minutes Plan of Care Discussed with: patient Internal Medicine: Result - Labs CBC & Chem 7: 12/29/17 03:25 12/29/17 03:25 Labs: Short CBC 12/29/17 Range/Units 03:25 WBC 13.2 H (4.3-11.1) K/mcL Hgb 8.6 L (12.9-16.9) g/dL Hct 26.2 L (37.5-50.1) % Plt Count 537 H (140-400) K/mcL BMP 12/29/17 03:25 Sodium 139 Potassium 4.7 Chloride 104 Carbon Dioxide 29 BUN 26 H Creatinine 1.47 H Glucose 108 H Calcium 8.2 L - ABG Interpretation ABG results: ABG ABG pH 7.47 pH Units (7.32-7.45) H 12/24/17 14:57 ABG pCO2 41 mmHg (35-45) 12/24/17 14:57 ABG pO2 51 mmHg (85-104) L 12/24/17 14:57 ABG O2 Saturation 88 % (95-98) L 12/24/17 14:57 PT/INR, D-dimer PT 16.7 Seconds (9.4-12.1) H D 12/16/17 18:08 Consult Discharge Plan - Plan Instructions: Acute Nausea and Vomiting (ED), Abdominal Pain (ED) Additional Instructions: Patient needs admission. He has nausea / vomiting , abdominal pain ,high WBC count, CT scan shows dilated small bowel loops & suspected small bowel obstruction. [facility]: [facility] Care Provider[facility] - <Funmilayo Aguirre - Last Filed: 12/29/17 14:00> Hospitalist Progress Note - Encounter Date of Encounter: 12/29/17 - Exam Vitals: Temp Pulse Resp BP Pulse Ox 97.7 F 92 20 127/88 93 12/29/17 06:58 12/29/17 06:58 12/29/17 11:44 12/29/17 06:58 12/29/17 11:44 - Assessment and Plan (1) Small bowel obstruction Current Visit: Yes Status: Resolved (2) Catatonia schizophrenia Current Visit: Yes Status: Chronic (3) Gastric ulcer Current Visit: Yes Status: Acute (4) Pneumonia Current Visit: Yes Status: Acute (5) Diarrhea Current Visit: Yes Status: Resolved - Time Spent with Patient Total time spent is greater than 50% in coordination of care (as documented) at patient's floor/unit and/or counseling patient: Internal Medicine: Result - Labs CBC & Chem 7: 12/29/17 03:25 12/29/17 03:25 Labs: Short CBC 12/29/17 Range/Units 03:25 WBC 13.2 H (4.3-11.1) K/mcL Hgb 8.6 L (12.9-16.9) g/dL Hct 26.2 L (37.5-50.1) % Plt Count 537 H (140-400) K/mcL BMP 12/29/17 03:25 Sodium 139 Potassium 4.7 Chloride 104 Carbon Dioxide 29 BUN 26 H Creatinine 1.47 H Glucose 108 H Calcium 8.2 L - ABG Interpretation ABG results: ABG ABG pH 7.47 pH Units (7.32-7.45) H 12/24/17 14:57 ABG pCO2 41 mmHg (35-45) 12/24/17 14:57 ABG pO2 51 mmHg (85-104) L 12/24/17 14:57 ABG O2 Saturation 88 % (95-98) L 12/24/17 14:57 PT/INR, D-dimer PT 16.7 Seconds (9.4-12.1) H D 12/16/17 18:08 - Attending Attestation Seen and assessed. Agree with plan per resident. Came in for small bowel obstruction and went on to develop hypoxic resp failure Plan Acute hypoxic respiratory failure likely 2/2 to multifocal pneumonia. Continue IV antibiotics. CT chest showed worsening opacities. Pulmonary added steroids to regimen. Etiology of respiratory failure may be ARDS. On balta high flow oxygen. Pulmonary considering bronchoscopy in am. NPO from midnight Smal bowel obstruction. Resolved <Funmilayo Aguirre - Last Filed: 12/29/17 14:00> (3) Gastric ulcer Qualifiers: Gastric ulcer chronicity: chronic Gastric ulcer complication status: without hemorrhage or perforation Qualified Code(s): K25.7 - Chronic gastric ulcer without hemorrhage or perforation (4) Pneumonia Qualifiers: Pneumonia type: due to unspecified organism Laterality: bilateral Lung location: unspecified part of lung Qualified Code(s): J18.9 - Pneumonia, unspecified organism (5) Diarrhea Qualifiers: Diarrhea type: unspecified type Qualified Code(s): R19.7 - Diarrhea, unspecified
[2017-12-30] MEDS: Ipratropium/Albuterol Neb 3 ML IH SCH ×7 (00:08→23:35)
[2017-12-30 03:51] LABS: Basophils % 0.1 %; Eosinophils % 0.1 %; Hemoglobin 9.4 g/dL (12.9-16.9); Immature Granulocytes % 0.4 % (0-4); Lymphocytes # 0.9 K/mcL (0.6-4.6); Lymphocytes % 6.5 %; Mean Corpuscular HGB Conc 32.4 g/dL (31.6-35.5); Mean Corpuscular Hemoglobin 29.9 pg (28.0-33.3); Mean Corpuscular Volume 92.4 fL (83.0-100.0); Mean Platelet Volume 9.2 fL (9.4-12.4); Monocytes # 1.1 K/mcL (0.0-1.3); Monocytes % 8.2 %; Neutrophils # 11.3 K/mcL (1.6-8.9); Platelet Count 570 K/mcL (140-400); Red Blood Count 3.14 M/mcL (4.19-5.50); Red Cell Distribution Width 13.9 % (11.5-14.5); Segmented Neutrophils % 84.7 %
[2017-12-30 04:11] LABS: BUN/Creatinine Ratio 23 (6-26); Blood Urea Nitrogen 29 mg/dL (8-23); Calcium 8.5 mg/dL (8.6-10.3); Carbon Dioxide 30 mEq/L (23-29); Chloride 104 mEq/L (98-107); Glucose 111 mg/dL (70-105); Osmolality,Calculated 293 (280-300); Potassium 4.6 mEq/L (3.5-5.1); Sodium 138 mEq/L (136-145); eGFR For Non-African Americans 56 (> 60)
[2017-12-30] MEDS: *HR* Heparin 5,000 UNIT/ML VIAL SQ SCH ×3 (05:44→20:43)
[2017-12-30] MEDS: MethylPREDNISolone 40 MG/ML VIAL IVP SCH ×3 (05:44→18:52)
--- NOTE | 2017-12-30 07:42 | Pulmonology Progress Note ---
Date of Encounter: 12/30/17 Time of Encounter: 07:30 Assessment and Plan (1) Acute respiratory failure with hypoxia Current Visit: Yes Status: Acute Patient with acute respiratory failure with hypoxia most likely due to pneumonia and also patient might have developed ARDS like picture does not look like clear-cut but patient is also positive fluid balance after his prolonged hospital stay. To continue the current management of bronchodilators steroids to continue gentle diuresis as tolerated patient kidney function is lot better as of today. (2) Aspiration pneumonia Current Visit: Yes Status: Acute To continue broad-spectrum antibiotics , to continue steroids to do gentle diuresis his FiO2 is coming down patient continues to get better we will hold off bronchoscopy at the moment. Will continue to follow. Qualifiers: Aspiration pneumonia type: unspecified Laterality: right Lung location: middle lobe of lung Qualified Code(s): J69.0 - Pneumonitis due to inhalation of food and vomit Subjective Principal diagnosis: Respiratory failure Interval history: Patient did not have any acute events overnight patient is at his baseline regarding his complication cannot participate with meaningful history and review of systems. Objective PUL Vital signs: Last Vital Signs Temp 98.5 F 12/30/17 07:07 Pulse 105 12/30/17 07:07 Resp 20 12/30/17 07:07 BP 131/92 12/30/17 07:07 Pulse Ox 91 12/30/17 07:07 Effort: mildly labored Auscultation: bilateral: diminished breath sounds (basilar ) Results - Laboratory Findings CBC and BMP: 12/30/17 03:15 12/30/17 03:15 ABG ABG pH 7.47 pH Units (7.32-7.45) H 12/24/17 14:57 ABG pCO2 41 mmHg (35-45) 12/24/17 14:57 ABG pO2 51 mmHg (85-104) L 12/24/17 14:57 ABG O2 Saturation 88 % (95-98) L 12/24/17 14:57 PT/INR, D-dimer PT 16.7 Seconds (9.4-12.1) H D 12/16/17 18:08 Abnormal lab findings: Abnormal lab results WBC 13.4 K/mcL (4.3-11.1) H 12/30/17 03:15 RBC 3.14 M/mcL (4.19-5.50) L 12/30/17 03:15 Hgb 9.4 g/dL (12.9-16.9) L 12/30/17 03:15 Hct 29.0 % (37.5-50.1) L 12/30/17 03:15 Plt Count 570 K/mcL (140-400) H 12/30/17 03:15 MPV 9.2 fL (9.4-12.4) L 12/30/17 03:15 Neutrophils # 11.3 K/mcL (1.6-8.9) H 12/30/17 03:15 Reactive Lymphocytes Present (Not Present) A 12/23/17 05:12 Toxic Vacuolation Present (Not Present) A 12/23/17 05:12 Hypochromasia Present (Not Present) A 12/21/17 04:01 Anisocytosis 1+ (Not Present) A 12/20/17 06:31 ESR 13 mm/hr (0-10) H 12/25/17 04:25 PT 16.7 Seconds (9.4-12.1) H D 12/16/17 18:08 ABG pH 7.47 pH Units (7.32-7.45) H 12/24/17 14:57 ABG pO2 51 mmHg (85-104) L 12/24/17 14:57 ABG HCO3 30 mEq/L (21-27) H 12/24/17 14:57 ABG Total CO2 31 mEq/L (20-26) H 12/24/17 14:57 ABG O2 Saturation 88 % (95-98) L 12/24/17 14:57 ABG Base Excess 6 mEq/L (-2 to 3) H 12/24/17 14:57 Carbon Dioxide 30 mEq/L (23-29) H 12/30/17 03:15 BUN 29 mg/dL (8-23) H 12/30/17 03:15 Est GFR (Non-Af Amer) 56 (> 60) L 12/30/17 03:15 Glucose 111 mg/dL (70-105) H 12/30/17 03:15 Calcium 8.5 mg/dL (8.6-10.3) L 12/30/17 03:15 Troponin I 0.21 ng/mL (< 0.04) H* 12/15/17 14:12 C-Reactive Protein 188 mg/L (Less than 10) H 12/25/17 04:25 B-Natriuretic Peptide 354 pg/mL (Less than 100) H 12/24/17 16:32 Serum Total Protein 4.9 g/dL (6.4-8.9) L 12/25/17 04:25 Albumin 2.4 g/dL (3.5-5.7) L 12/25/17 04:25 Albumin/Globulin Ratio 1.0 (1.1-2.2) L 12/25/17 04:25 Prealbumin 5.1 mg/dL (17.0-34.0) L 12/23/17 05:12 Amylase 168 Units/L (29-103) H 12/25/17 04:25 Lipase 96 Units/L (11-82) H 12/25/17 04:25 Procalcitonin 0.78 ng/mL (<=0.07) H 12/25/17 04:25 Vancomycin Trough 12 mcg/mL (5-10) H 12/29/17 11:50 - Microbiology Findings Microbiology Findings: Microbiology, Last 48 Hours 12/24/17 16:20 Blood Culture - Final Peripheral Venipuncture No growth. Final report. 12/24/17 16:20 Blood Culture - Final Peripheral Venipuncture No growth. Final report. - Clinical Findings Intake & Output: Intake & Output 12/29/17 12/29/17 12/30/17 15:59 23:59 07:59 Intake Total 460 / 460 1000 / 1000 Output Total 500 / 500 Balance -40 / -40 1000 / 1000 Weight 60.4 kg Consult Discharge Plan - Plan Instructions: Acute Nausea and Vomiting (ED), Abdominal Pain (ED) Additional Instructions: Patient needs admission. He has nausea / vomiting , abdominal pain ,high WBC count, CT scan shows dilated small bowel loops & suspected small bowel obstruction. [facility]errals: [facility] [Primary Care Provider] -
[2017-12-30] MEDS ORDERED: Furosemide 40 MG/4 ML VIAL IVP ONE (07:43)
[2017-12-30] MEDS ORDERED: cloZAPine 100 MG TABLET PO SCH (09:00)
--- NOTE | 2017-12-30 09:12 | Internal Med Progress Note ---
<Jb Gonzalez - Last Filed: 12/30/17 13:11> Hospitalist Progress Note - Encounter Date of Encounter: 12/30/17 Time of Encounter: 08:45 - Subjective Interval History: Mr. Johnson is a 67M with PMH of gastric ulcer from H pylori, HTN, and catatonic schizophrenia. He was admitted on 12/14 for small bowel obstruction. He was started on empirical antibiotic for sepsis and NG tube was placed. His nausea vomiting improved, and he has had multiple bowel movements. NG tube was removed. Pt tolerating diet well, but has to be on restriction because of mentation. Continued diarrhea and incontinence. His respiratory status began to decline on 12/21. IV Vanc was added to the Zosyn already on board. Repeat CXR on 12/21 revealed opacities of both lungs suspicious for PNA. On 12/24 pt's SpO2 began dropping into the low 80s despite high flow O2 via oxy mask, and breathing agonal. Repeat CXR on 12/24 revealed worsening bilateral opacities concerning for multifocal PNA vs ARDS. He was transferred to the ICU for further management of acute respiratory failure, but did not require intubation. He was then transferred to the step-down unit. Attempts have been made to wean off high flow O2, but at times pt will remove mask/cannula and will desat again. Seen and examined at bedside. Resting comfortably in bed. Patient is alert, awake and oriented to place and person. States his breathing is ok, but that he is still coughing. Some sputum production. Denies any abdominal pain. No fever, chills, chest pain, headache, numbness, or tingling. - Exam Vitals: Temp Pulse Resp BP Pulse Ox 98.5 F 105 20 131/92 91 12/30/17 07:07 12/30/17 07:07 12/30/17 07:07 12/30/17 07:07 12/30/17 07:07 Exam: General: alert male. mild distress Head: normocephalic and atraumatic Neck: supple, trachea midline, no lymphadeopathy Lungs: Fine wheezes bilaterally. non-labored breathing on Balta. No rales or rhonchi noted. Heart: RRR +S1 +S2. no murmurs, clicks, or rubs appreciated. Abdomen: soft, non-tender, non-distended. normoactive bowel sounds Extremities: radial pulses palpable and symmetrical. No edema or cyanosis. Neuro: A&Ox2. no speech difficulty or abnormality Skin: warm, dry, intact. - Assessment and Plan (1) Small bowel obstruction Current Visit: Yes Status: Resolved Assessment and Plan: Resolved Small bowel follow through was normal with contrast seen in rectum at 4 hours Tolerating regular diet, has to be on restrictions due to mentation Tolerating po meds Tolerating regular diet (2) Catatonia schizophrenia Current Visit: Yes Status: Chronic Assessment and Plan: Resumed home medications Per psych recommendations yesterday, increased Haldol to 50mg IM every 2 weeks ( Last dose was on 12/24) has prn Haldol IV Titrated up Clozapine by 25mg per day, per psych recs Today started 100mg BID, and mid-day dose at 15:00 of 25mg. Tomorrow will increase mid-day dose to 50mg. (3) Gastric ulcer Current Visit: Yes Status: Acute Assessment and Plan: Continue PPI (4) Pneumonia Current Visit: Yes Status: Acute Assessment and Plan: CXR on 12/15 showed infiltrates/consolidations more on the right side Was on Zosyn for 5.5 days, followed by Augmentin for 1.5 days Continues to experience cough Suspect may be some aspiration component with pt's speech and mentation WBC remains elevated at 13.4 today, but receiving Solumedrol 40mg BID Afebrile HR normal non-tachypnic Pulm and ID on board Day 16 total of abx Per ID, continue vanc and zosyn. Will speak with them in regards to length of abx treatment. Continue Duonebs Continue supplemental O2 Continue to monitor (5) Diarrhea Current Visit: Yes Status: Resolved Assessment and Plan: Pt has experienced watery diarrhea since resolution of SBO on 12/19 Hemooccult negative on 12/14 C diff Tox B screen negative on 12/21 GI panel on 12/23 negative Likely not infectious May be associated with abx Experiencing formed bowel movements now after 1 dose of loperamide yesterday Continue Culturelle Aquaphor/Maalox for raw rectum due to frequent diarrhea Loperamide 2mg once since diarrhea has returned DVT Prophylaxis: SQ Heparin - Time Spent with Patient Total time spent is greater than 50% in coordination of care (as documented) at patient's floor/unit and/or counseling patient: Internal Medicine: Result - Labs CBC & Chem 7: 12/30/17 03:15 12/30/17 03:15 Labs: Short CBC 12/30/17 Range/Units 03:15 WBC 13.4 H (4.3-11.1) K/mcL Hgb 9.4 L (12.9-16.9) g/dL Hct 29.0 L (37.5-50.1) % Plt Count 570 H (140-400) K/mcL Neutrophils # 11.3 H (1.6-8.9) K/mcL BMP 12/30/17 03:15 Sodium 138 Potassium 4.6 Chloride 104 Carbon Dioxide 30 H BUN 29 H Creatinine 1.27 Glucose 111 H Calcium 8.5 L - ABG Interpretation ABG results: ABG ABG pH 7.47 pH Units (7.32-7.45) H 12/24/17 14:57 ABG pCO2 41 mmHg (35-45) 12/24/17 14:57 ABG pO2 51 mmHg (85-104) L 12/24/17 14:57 ABG O2 Saturation 88 % (95-98) L 12/24/17 14:57 PT/INR, D-dimer PT 16.7 Seconds (9.4-12.1) H D 12/16/17 18:08 Consult Discharge Plan - Plan Instructions: Acute Nausea and Vomiting (ED), Abdominal Pain (ED) Additional Instructions: Patient needs admission. He has nausea / vomiting , abdominal pain ,high WBC count, CT scan shows dilated small bowel loops & suspected small bowel obstruction. 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 (3) Gastric ulcer Current Visit: Yes Status: Acute (4) Pneumonia Current Visit: Yes Status: Acute (5) Diarrhea Current Visit: Yes Status: Resolved - Time Spent with Patient Total time spent is greater than 50% in coordination of care (as documented) at patient's floor/unit and/or counseling patient: Internal Medicine: Result - Labs CBC & Chem 7: 12/30/17 03:15 12/30/17 03:15 Labs: Short CBC 12/30/17 Range/Units 03:15 WBC 13.4 H (4.3-11.1) K/mcL Hgb 9.4 L (12.9-16.9) g/dL Hct 29.0 L (37.5-50.1) % Plt Count 570 H (140-400) K/mcL Neutrophils # 11.3 H (1.6-8.9) K/mcL BMP 12/30/17 03:15 Sodium 138 Potassium 4.6 Chloride 104 Carbon Dioxide 30 H BUN 29 H Creatinine 1.27 Glucose 111 H Calcium 8.5 L - ABG Interpretation ABG results: ABG ABG pH 7.47 pH Units (7.32-7.45) H 12/24/17 14:57 ABG pCO2 41 mmHg (35-45) 12/24/17 14:57 ABG pO2 51 mmHg (85-104) L 12/24/17 14:57 ABG O2 Saturation 88 % (95-98) L 12/24/17 14:57 PT/INR, D-dimer PT 16.7 Seconds (9.4-12.1) H D 12/16/17 18:08 - Impressions Impressions Chest X-Ray 12/30/17 07:43 IMPRESSION: Persistent bilateral airspace disease. D/ / 12/30/2017 10:11:29 Timbo Montoya MD / [facility] Interpreting Provider: Timbo Montoya MD - Attending Attestation Seen and assessed. Agree with plan per resident. Came in for small bowel obstruction and went on to develop hypoxic resp failure Plan Acute hypoxic respiratory failure likely 2/2 to multifocal pneumonia. Continue IV antibiotics. CT chest showed worsening opacities. Pulmonary added steroids to regimen. Etiology of respiratory failure may be ARDS. On balta high flow oxygen. Pulmonary following and considering bronchoscopy Smal bowel obstruction. Resolved <Jb Gonzalez A - Last Filed: 12/30/17 13:11> (3) Gastric ulcer Qualifiers: Gastric ulcer chronicity: chronic Gastric ulcer complication status: without hemorrhage or perforation Qualified Code(s): K25.7 - Chronic gastric ulcer without hemorrhage or perforation (4) Pneumonia Qualifiers: Pneumonia type: due to unspecified organism Laterality: bilateral Lung location: unspecified part of lung Qualified Code(s): J18.9 - Pneumonia, unspecified organism (5) Diarrhea Qualifiers: Diarrhea type: unspecified type Qualified Code(s): R19.7 - Diarrhea, unspecified <Funmilayo Aguirre A - Last Filed: 12/30/17 13:27> (3) Gastric ulcer Qualifiers: Gastric ulcer chronicity: chronic Gastric ulcer complication status: without hemorrhage or perforation Qualified Code(s): K25.7 - Chronic gastric ulcer without hemorrhage or perforation (4) Pneumonia Qualifiers: Pneumonia type: due to unspecified organism Laterality: bilateral Lung location: unspecified part of lung Qualified Code(s): J18.9 - Pneumonia, unspecified organism (5) Diarrhea Qualifiers: Diarrhea type: unspecified type Qualified Code(s): R19.7 - Diarrhea, unspecified
[2017-12-30] MEDS: Lactobacillus 1 EACH CAP.SPRINK PO SCH ×2 (09:13→20:43)
[2017-12-30] MEDS: hydrOXYzine pamoate 25 MG CAPSULE PO SCH ×4 (09:13→20:43)
[2017-12-30] MEDS: lamoTRIgine 100 MG TABLET PO SCH ×2 (09:13→20:43)
[2017-12-30] MEDS: Piperacillin/Tazobactam 3.375 GM in 0.9 % Sodium Chloride Mini Bag 100 ML IVPB SCH ×2 (09:28→16:00)
--- NOTE | 2017-12-30 14:47 | Infectious Disease Progress No ---
Date of Encounter: 12/30/17 Time of Encounter: 14:45 - Assessment and Plan (1) Sepsis Current Visit: Yes Status: Acute On admission, the patient had severe sepsis with DONTE, troponin leak, and lactic acidosis. Likely secondary to intra-abdominal process including SBO and aspiration PNA. Improved. WBC improved. Blood cultures drawn 12/16/17 are negative x 2 sets. Repeat blood cultures drawn 12/24/17 x 2 sets are negative. Qualifiers: Sepsis type: sepsis due to unspecified organism Qualified Code(s): A41.9 - Sepsis, unspecified organism (2) Aspiration pneumonia Current Visit: Yes Status: Acute Causative organism unclear. Chest x-ray on admission was negative for pneumonia, but repeat chest x-ray 12/15 showed new patchy interstitial and/or airspace opacities in the mid to lower right lung, potentially developing pneumonia. Repeat CXR 12/24/17 showed increasing air space opacities now diffusely involving both lungs which can be seen in the setting of multifocal pneumonia, vascular congestion, ARDS, and/or atelectasis. Given the patient's altered mental status, high concern for aspiration. Nasal MRSA screen was negative. Strep pneumococcal and legionella urinary antigens are negative. Respiratory infectious panel is negative. Repeat CT chest 12/26/17 Bilateral multi lobar ground-glass opacities with intra lobular septal thickening and nodular masslike consolidations in the left and right lower lobe. Differential includes multilobar pneumonia, ARDS, and hypersensitivity pneumonitis. Pulmonology notes reviewed. Discussed bronch with the patient's POA, but have decided to hold off for now. Feel that this is likely PNA + edema. Repeat CXR showed persistent bilateral airspace disease. Await further recommendations from the pulmonology team. Continue vancomycin IV. Pharmacy to dose. Goal trough approximately 15. We will continue the vancomycin even though the MRSA nasal screen was negative given that it was checked several days after vancomycin was restarted. (day 10) Continue Zosyn 3.375 g IV every 8 hours. (day 16) Duration of treatment depends on the clinical picture. Monitor renal function and for drug toxicity and dose adjust antibiotics. Qualifiers: Aspiration pneumonia type: unspecified Laterality: right Lung location: middle lobe of lung Qualified Code(s): J69.0 - Pneumonitis due to inhalation of food and vomit (3) Acute respiratory failure with hypoxia Current Visit: Yes Status: Acute Likely secondary to adverse reaction to Ativan and pneumonia. Appears improved. Pulmonology consulted. Further management per the pulmonology and primary teams. (4) Small bowel obstruction Current Visit: Yes Status: Resolved Seems improved clinically, but most recent imaging on 12/20/17 showed no significant change in the findings were still consistent with a partial small bowel obstruction. Gen. surgery was consulted but is signed off. The patient appears to tolerating a clear liquid diet. CT of the abdomen and pelvis showed improvement in the SBO. (5) Acute kidney injury Current Visit: Yes Status: Resolved Likely secondary sepsis. Creatinine back up a little today. Continue to trend serum creatinine. Avoid nephrotoxins. Does adjust medications. 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 (7) Diarrhea Current Visit: Yes Status: Resolved Etiology unclear: antibiotics vs. other. GI panel negative. Continue probiotics. Recommend GI to consult. Qualifiers: Diarrhea type: unspecified type Qualified Code(s): R19.7 - Diarrhea, unspecified - Subjective Interval history: Patient seen and examined. No acute events noted overnight. Speech remains garbled, but alert and follows commands and is somewhat easier to understand. Denies pain or shortness of breath. Denies nausea, vomiting, or abdominal pain. Per nursing documentation, loose stool x 2 yesterday. Patient's family declined bronch last week. Infect Dis PN-Objective Data - Labs CBC & Chem 7: 12/30/17 03:15 12/30/17 03:15 Labs: Laboratory Results - last 24 hr 12/26/17 12/26/17 12/30/17 15:40 15:40 03:15 WBC 13.4 H RBC 3.14 L Hgb 9.4 L Hct 29.0 L MCV 92.4 MCH 29.9 MCHC 32.4 RDW 13.9 Plt Count 570 H MPV 9.2 L Immature Gran % 0.4 Seg Neutrophils % 84.7 Lymphocytes % 6.5 Monocytes % 8.2 Eosinophils % 0.1 Basophils % 0.1 Neutrophils # 11.3 H Lymphocytes # 0.9 Monocytes # 1.1 Eosinophils # 0.0 Basophils # 0.0 Sodium Potassium Chloride Carbon Dioxide BUN Creatinine Est GFR ( Amer) Est GFR (Non-Af Amer) BUN/Creatinine Ratio Glucose Calculated Osmolality Calcium A. galactomannan Ag NEGATIVE A. galactomannan Ag Idx 0.03 Beta-(1,3)-D-Glucan 233 B-(1,3)-D-Glucan Intrp POSITIVE A 12/30/17 03:15 WBC RBC Hgb Hct MCV MCH MCHC RDW Plt Count MPV Immature Gran % Seg Neutrophils % Lymphocytes % Monocytes % Eosinophils % Basophils % Neutrophils # Lymphocytes # Monocytes # Eosinophils # Basophils # Sodium 138 Potassium 4.6 Chloride 104 Carbon Dioxide 30 H BUN 29 H Creatinine 1.27 Est GFR ( Amer) > 60 Est GFR (Non-Af Amer) 56 L BUN/Creatinine Ratio 23 Glucose 111 H Calculated Osmolality 293 Calcium 8.5 L A. galactomannan Ag A. galactomannan Ag Idx Beta-(1,3)-D-Glucan B-(1,3)-D-Glucan Intrp Cultures: Cultures 12/24/17 16:20 Blood Culture - Final Peripheral Venipuncture No growth. Final report. 12/24/17 16:20 Blood Culture - Final Peripheral Venipuncture No growth. Final report. 12/25/17 10:23 Legionella Antigen - Final Urine,Clean Catch Streptococcus pneumoniae Antigen (M - Final 12/16/17 13:35 Blood Culture - Final Peripheral Venipuncture No growth. Final report. 12/16/17 13:35 Blood Culture - Final Peripheral Venipuncture No growth. Final report. Serology 12/26/17 12/26/17 12/24/17 Range/Units 15:40 15:40 15:50 Nasal Screen MRSA (PCR) (Negative) Stl C. cayetanensis PCR (Not detect) Stool Rotavirus A PCR (Not detect) Stl Adenov F 40/41 PCR (Not detect) Stool Astrovirus (PCR) (Not detect) Stool Campylobacter PCR (Not detect) Stl C. diff Tox B Gene (Negative) Stl C. diff Tox A/B PCR (Not detect) Stool Cryptosporidium PCR (Not detect) Stl Sh Tox Pr E STEC PCR (Not detect) Stool E coli O157 PCR (Not detect) Stl Enterotoxigenic E PCR (Not detect) Stool EPEC (PCR) (Not detect) Stool EAEC (PCR) (Not detect) Stl E. histolytica PCR (Not detect) Stool Giardia Lamblia PCR (Not detect) Stool Salmonella PCR (Not detect) Stool Sapovirus (PCR) (Not detect) Stl P. shigelloides PCR (Not detect) Stl Shigella/EIEC PCR (Not detect) St Y.enterocolitica PCR (Not detect) Stool Vibrio (PCR) (Not detect) Stl Vibrio cholerae PCR (Not detect) Stl Norovirus GI/GII PCR (Not detect) Stl GI Panel (PCR) Com Chlamy pneumoniae PCR Not Detected (Not Detect) Adenovirus (PCR) Not Detected (Not Detect) B. pertussis DNA (PCR) Not Detected (Not Detect) B.parapertussis DNA PCR Not Detected (Not Detect) Coronavirus OC43 (PCR) Not Detected (Not Detect) Coronavirus HKU1 (PCR) Not Detected (Not Detect) Coronavirus 229E (PCR) Not Detected (Not Detect) Coronavirus NL63 (PCR) Not Detected (Not Detect) Human Metapneumovir PCR Not Detected (Not Detect) Influenza A (H1) PCR Not Detected (Not Detect) Influ A (H1N1/09) PCR Not Detected (Not Detect) Influenza A (H3) PCR Not Detected (Not Detect) Influenza A Untype (PCR) Not Detected (Not Detect) Influenza Type B (PCR) Not Detected (Not Detect) M.pneumoniae DNA (PCR) Not Detected (Not Detect) Parainfluenza 1 (PCR) Not Detected (Not Detect) Parainfluenza 2 (PCR) Not Detected (Not Detect) Parainfluenza 3 (PCR) Not Detected (Not Detect) Parainfluenza 4 (PCR) Not Detected (Not Detect) A. galactomannan Ag NEGATIVE (Negative) A. galactomannan Ag Idx 0.03 RSV (PCR) Not Detected (Not Detect) Entero/Rhino (PCR) Not Detected (Not Detect) Beta-(1,3)-D-Glucan 233 pg/mL B-(1,3)-D-Glucan Intrp POSITIVE A (Negative) 12/24/17 12/23/17 12/21/17 Range/Units 15:50 22:00 16:20 Nasal Screen MRSA (PCR) Negative (Negative) Stl C. cayetanensis PCR Not detected (Not detect) Stool Rotavirus A PCR Not detected (Not detect) Stl Adenov F 40/41 PCR Not detected (Not detect) Stool Astrovirus (PCR) Not detected (Not detect) Stool Campylobacter PCR Not detected (Not detect) Stl C. diff Tox B Gene Negative (Negative) Stl C. diff Tox A/B PCR Not detected (Not detect) Stool Cryptosporidium PCR Not detected (Not detect) Stl Sh Tox Pr E STEC PCR Not detected (Not detect) Stool E coli O157 PCR Not detected (Not detect) Stl Enterotoxigenic E PCR Not detected (Not detect) Stool EPEC (PCR) Not detected (Not detect) Stool EAEC (PCR) Not detected (Not detect) Stl E. histolytica PCR Not detected (Not detect) Stool Giardia Lamblia PCR Not detected (Not detect) Stool Salmonella PCR Not detected (Not detect) Stool Sapovirus (PCR) Not detected (Not detect) Stl P. shigelloides PCR Not detected (Not detect) Stl Shigella/EIEC PCR Not detected (Not detect) St Y.enterocolitica PCR Not detected (Not detect) Stool Vibrio (PCR) Not detected (Not detect) Stl Vibrio cholerae PCR Not detected (Not detect) Stl Norovirus GI/GII PCR Not detected (Not detect) Stl GI Panel (PCR) Com See below Chlamy pneumoniae PCR (Not Detect) Adenovirus (PCR) (Not Detect) B. pertussis DNA (PCR) (Not Detect) B.parapertussis DNA PCR (Not Detect) Coronavirus OC43 (PCR) (Not Detect) Coronavirus HKU1 (PCR) (Not Detect) Coronavirus 229E (PCR) (Not Detect) Coronavirus NL63 (PCR) (Not Detect) Human Metapneumovir PCR (Not Detect) Influenza A (H1) PCR (Not Detect) Influ A (H1N1/09) PCR (Not Detect) Influenza A (H3) PCR (Not Detect) Influenza A Untype (PCR) (Not Detect) Influenza Type B (PCR) (Not Detect) M.pneumoniae DNA (PCR) (Not Detect) Parainfluenza 1 (PCR) (Not Detect) Parainfluenza 2 (PCR) (Not Detect) Parainfluenza 3 (PCR) (Not Detect) Parainfluenza 4 (PCR) (Not Detect) A. galactomannan Ag (Negative) A. galactomannan Ag Idx RSV (PCR) (Not Detect) Entero/Rhino (PCR) (Not Detect) Beta-(1,3)-D-Glucan pg/mL B-(1,3)-D-Glucan Intrp (Negative) - Impressions Impressions Chest X-Ray 12/30/17 07:43 IMPRESSION: Persistent bilateral airspace disease. D/ / 12/30/2017 10:11:29 Timbo Montoya MD / bcartari Interpreting Provider: Timbo Montoya MD Exam - Constitutional Vitals: Temp Pulse Resp BP Pulse Ox 99.1 F 93 18 124/67 96 12/30/17 10:49 12/30/17 10:49 12/30/17 11:45 12/30/17 10:49 12/30/17 11:45 General appearance: average body habitus, cooperative, no acute distress - Head Head exam: Present: atraumatic, normal inspection, normocephalic - Eye Eye exam: Present: EOMI, normal appearance, PERRL Pupils: Present: normal accommodation - ENT ENT exam: Present: mucous membranes moist - Neck Neck exam: Present: normal inspection - Respiratory Respiratory exam: Present: CTAB. Absent: rales, respiratory distress, rhonchi, wheezes - Cardiovascular Cardiovascular exam: Present: RRR, +S1, +S2 - GI/Abdominal GI/Abdominal exam: Present: normal bowel sounds, soft. Absent: distended, tenderness - Extremities Exam Extremities exam: Present: normal inspection. Absent: joint swelling, pedal edema, tenderness - Neurological Exam Neurological exam: Present: alert, oriented X3, no focal deficits, speech deficit (garbled) - Psychiatric Psychiatric exam: Present: normal affect, normal mood - Skin Skin exam: Present: dry, intact, normal color, warm Consult Discharge Plan - Plan Instructions: Acute Nausea and Vomiting (ED), Abdominal Pain (ED) Additional Instructions: Patient needs admission. He has nausea / vomiting , abdominal pain ,high WBC count, CT scan shows dilated small bowel loops & suspected small bowel obstruction. [facility]errals: [facility]Primary Care Provider[facility] - - Attending Attestation I examined this patient and my medical decision-making was reviewed with the Resident Physician. I agree with the documented findings, disposition and treatment plan as described except to the extent set forth below.
[2017-12-30] MEDS ORDERED: cloZAPine 25 MG TABLET PO SCH (15:00)
[2017-12-30] MEDS: cloZAPine 100 MG TABLET PO SCH ×2 (16:02→20:43)
[2017-12-31] MEDS: Piperacillin/Tazobactam 3.375 GM in 0.9 % Sodium Chloride Mini Bag 100 ML IVPB SCH ×3 (00:47→18:05)
[2017-12-31] MEDS: Ipratropium/Albuterol Neb 3 ML IH SCH ×6 (04:08→23:21)
[2017-12-31 04:18] LABS: Basophils % 0.1 %; Eosinophils # 0.3 K/mcL (0.0-0.6); Eosinophils % 2.6 %; Hematocrit 30.5 % (37.5-50.1); Hemoglobin 10.1 g/dL (12.9-16.9); Immature Granulocytes % 0.5 % (0-4); Lymphocytes # 1.6 K/mcL (0.6-4.6); Lymphocytes % 14.8 %; Mean Corpuscular HGB Conc 33.1 g/dL (31.6-35.5); Mean Corpuscular Hemoglobin 30.5 pg (28.0-33.3); Mean Corpuscular Volume 92.1 fL (83.0-100.0); Mean Platelet Volume 9.3 fL (9.4-12.4); Monocytes # 0.9 K/mcL (0.0-1.3); Monocytes % 7.9 %; Neutrophils # 8.1 K/mcL (1.6-8.9); Platelet Count 519 K/mcL (140-400); Red Blood Count 3.31 M/mcL (4.19-5.50); Red Cell Distribution Width 13.8 % (11.5-14.5); Segmented Neutrophils % 74.1 %
[2017-12-31 04:39] LABS: BUN/Creatinine Ratio 18 (6-26); Blood Urea Nitrogen 25 mg/dL (8-23); Calcium 9.3 mg/dL (8.6-10.3); Carbon Dioxide 33 mEq/L (23-29); Chloride 100 mEq/L (98-107); Glucose 96 mg/dL (70-105); Osmolality,Calculated 292 (280-300); Potassium 4.2 mEq/L (3.5-5.1); Sodium 139 mEq/L (136-145); eGFR For Non-African Americans 52 (> 60)
[2017-12-31] MEDS: *HR* Heparin 5,000 UNIT/ML VIAL SQ SCH ×3 (06:29→21:30)
[2017-12-31] MEDS: MethylPREDNISolone 40 MG/ML VIAL IVP SCH ×2 (06:29→18:05)
--- NOTE | 2017-12-31 07:33 | Internal Med Progress Note ---
<Jb Gonzalez - Last Filed: 12/31/17 14:17> Hospitalist Progress Note - Encounter Date of Encounter: 12/31/17 Time of Encounter: 07:45 - Subjective Interval History: Mr. Johnson is a 67M with PMH of gastric ulcer from H pylori, HTN, and catatonic schizophrenia. He was admitted on 12/14 for small bowel obstruction. He was started on empirical antibiotic for sepsis and NG tube was placed. His nausea vomiting improved, and he has had multiple bowel movements. NG tube was removed. Pt tolerating diet well, but has to be on restriction because of mentation. Continued diarrhea and incontinence. His respiratory status began to decline on 12/21. IV Vanc was added to the Zosyn already on board. Repeat CXR on 12/21 revealed opacities of both lungs suspicious for PNA. On 12/24 pt's SpO2 began dropping into the low 80s despite high flow O2 via oxy mask, and breathing agonal. Repeat CXR on 12/24 revealed worsening bilateral opacities concerning for multifocal PNA vs ARDS. He was transferred to the ICU for further management of acute respiratory failure, but did not require intubation. He was then transferred to the step-down unit. Attempts have been made to wean off high flow O2, but at times pt will remove mask/cannula and will desat again. Seen and examined at bedside. Resting comfortably in bed. Patient is alert, awake and oriented to place and person. States his breathing is ok, but that he is still coughing. Some sputum production. Denies any abdominal pain. No fever, chills, chest pain, headache, numbness, or tingling. - Exam Vitals: Temp Pulse Resp BP Pulse Ox 98.2 F 101 18 116/67 90 12/31/17 07:17 12/31/17 07:17 12/31/17 07:17 12/31/17 07:17 12/31/17 07:17 Exam: General: alert male. mild distress Head: normocephalic and atraumatic Neck: supple, trachea midline, no lymphadeopathy Lungs: Fine wheezes bilaterally. non-labored breathing on [place]app[place]. No rales or rhonchi noted. Heart: RRR +S1 +S2. no murmurs, clicks, or rubs appreciated. Abdomen: soft, non-tender, non-distended. normoactive bowel sounds Extremities: radial pulses palpable and symmetrical. No edema or cyanosis. Neuro: A&Ox2. no speech difficulty or abnormality Skin: warm, dry, intact. - Assessment and Plan (1) Pneumonia Current Visit: Yes Status: Acute Assessment and Plan: CXR on 12/15 showed infiltrates/consolidations more on the right side Was on Zosyn for 5.5 days, followed by Augmentin for 1.5 days Continues to experience cough Suspect may be some aspiration component with pt's speech and mentation WBC remains elevated at 13.4 today, but receiving Solumedrol 40mg BID Afebrile HR normal non-tachypnic Pulm and ID on board Pulm has elected to hold off on bronchoscopy at this time Day 17 total of abx Per ID, continue vanc and zosyn. Will speak with them in regards to length of abx treatment. May be due to aspiration - consult speech therapy for eval and possible need for swallow study Continue Duonebs Continue supplemental O2 Continue to monitor (2) Acute respiratory failure with hypoxia Current Visit: Yes Status: Acute Assessment and Plan: Likely adverse reaction to Ativan with concomitant pneumonia on 12/24 Improved Pulm on board Continue to wean off high flow O2 as tolerated. Spoke with pulm earlier. There was some concern for PE, but kidney functions with DONTE would not be suitable for CTA chest. Was evaluated by radiology for the possibility of a V/Q scan, however pt is not able to stay still long enough for adequate study. 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 Tomorrow will increase mid-day dose to 75mg. (4) Acute kidney injury Current Visit: Yes Status: Resolved Assessment and Plan: BUN and Cr 42 and 1.88 on admission improved with IV hydration BUN and Cr trended to normal, but increased again starting on 12/26 BUN and Cr 25 and 1.37 today Likely secondary to sepsis and/or Vanc related Continue to trend kidney functions and renally dose Vanc (5) Small bowel obstruction Current Visit: Yes Status: Resolved Assessment and Plan: Resolved Small bowel follow through was normal with contrast seen in rectum at 4 hours Tolerating regular diet, has to be on restrictions due to mentation Tolerating po meds Tolerating regular diet (6) Gastric ulcer Current Visit: Yes Status: Acute Assessment and Plan: Continue PPI (7) Diarrhea Current Visit: Yes Status: Resolved Assessment and Plan: Pt has experienced watery diarrhea since resolution of SBO on 12/19 Hemooccult negative on 12/14 C diff Tox B screen negative on 12/21 GI panel on 12/23 negative Likely not infectious May be associated with abx Experiencing formed bowel movements after 2mg loperamide 12/26, which slowly returned to diarrhea Received 2mg Loperamide on 12/30 as well with no further diarrhea Continue Culturelle Aquaphor/Maalox for raw rectum due to frequent diarrhea May give another dose of loperamide of diarrhea resumes DVT Prophylaxis: SQ Heparin - Time Spent with Patient Total time spent is greater than 50% in coordination of care (as documented) at patient's floor/unit and/or counseling patient: Internal Medicine: Result - Labs CBC & Chem 7: 12/31/17 03:40 12/31/17 03:40 Labs: Short CBC 12/31/17 Range/Units 03:40 WBC 11.0 (4.3-11.1) K/mcL Hgb 10.1 L (12.9-16.9) g/dL Hct 30.5 L (37.5-50.1) % Plt Count 519 H (140-400) K/mcL Neutrophils # 8.1 (1.6-8.9) K/mcL BMP 12/31/17 03:40 Sodium 139 Potassium 4.2 Chloride 100 Carbon Dioxide 33 H BUN 25 H Creatinine 1.37 H Glucose 96 Calcium 9.3 - ABG Interpretation ABG results: ABG ABG pH 7.47 pH Units (7.32-7.45) H 12/24/17 14:57 ABG pCO2 41 mmHg (35-45) 12/24/17 14:57 ABG pO2 51 mmHg (85-104) L 12/24/17 14:57 ABG O2 Saturation 88 % (95-98) L 12/24/17 14:57 PT/INR, D-dimer PT 16.7 Seconds (9.4-12.1) H D 12/16/17 18:08 - Impressions Impressions Chest X-Ray 12/30/17 07:43 IMPRESSION: Persistent bilateral airspace disease. D/ / 12/30/2017 10:11:29 Timbo Montoya MD / [email or web address] Interpreting Provider: Timbo Montoya MD Consult Discharge Plan - Plan Instructions: Acute Nausea and Vomiting (ED), Abdominal Pain (ED) Additional Instructions: Patient needs admission. He has nausea / vomiting , abdominal pain ,high WBC count, CT scan shows dilated small bowel loops & suspected small bowel obstruction. 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 (4) Gastric ulcer Current Visit: Yes Status: Acute (5) Pneumonia Current Visit: Yes Status: Acute (6) Acute respiratory failure with hypoxia Current Visit: Yes Status: Acute (7) Diarrhea Current Visit: Yes Status: Resolved - Time Spent with Patient Total time spent is greater than 50% in coordination of care (as documented) at patient's floor/unit and/or counseling patient: Internal Medicine: Result - Labs CBC & Chem 7: 12/31/17 03:40 12/31/17 03:40 Labs: Short CBC 12/31/17 Range/Units 03:40 WBC 11.0 (4.3-11.1) K/mcL Hgb 10.1 L (12.9-16.9) g/dL Hct 30.5 L (37.5-50.1) % Plt Count 519 H (140-400) K/mcL Neutrophils # 8.1 (1.6-8.9) K/mcL BMP 12/31/17 03:40 Sodium 139 Potassium 4.2 Chloride 100 Carbon Dioxide 33 H BUN 25 H Creatinine 1.37 H Glucose 96 Calcium 9.3 - ABG Interpretation ABG results: ABG ABG pH 7.47 pH Units (7.32-7.45) H 12/24/17 14:57 ABG pCO2 41 mmHg (35-45) 12/24/17 14:57 ABG pO2 51 mmHg (85-104) L 12/24/17 14:57 ABG O2 Saturation 88 % (95-98) L 12/24/17 14:57 PT/INR, D-dimer PT 16.7 Seconds (9.4-12.1) H D 12/16/17 18:08 - Attending Attestation I examined this patient and my medical decision-making was reviewed with the Resident Physician Dr Gonzalez. I agree with the documented findings, disposition and treatment plan as described except to the extent set forth below/addl details below. Mr Johnson was admitted with SBO, he was being treated for pna, developed ARDS with concern for aspiration pna given his mental status related to Schizophrenia. He remains on high flow O2 with Pulm following. On admission his home clozaril had to be held and [facility] has been following along with him with instruction regarding uptitrating the medication which has been occurring throughout admission. Awake, alert, asking if he can brush his teeth. Pleasant. Admits to sob at time , + cough, + sputum, color unknown, denies chest pain or pressure. RN at bedside. gen- alert, awake,appears stated age eyes- pupils equal round cv- reg rate and rhythm, normal s1,s2, no murmurs appreciated, no le edema lungs- ctabl, diminshed bl bases, no rhonchi or wheezing noted, normal resp effort on high flow O2 nc abd- soft, non tender, non distended, + bs neuro- AAOxperson, hospital Acute REsp FAilure with Hypoxia suspected to be 2/2 pna -high flow o2 weaning as below -unable to obtain cta chest given kidney function, pulm considered vq scan to rule out PE but given pt schizophrenia and unable to lie still and follow instruction for scan, it was decided not to do Pneumonia, being treated as possible aspiration -pulm and ID following, get executive director of nursing eval, has been on abx for >14 dys and still requiring high flow o2, no plan for bronch at this time as per pulm, cont nebs, steroids, abx vanc + zosyn Schizophrenia, stable -psych following and med adjustments, including clozaril uptitration as per their recs DONTE- cont to trend, has been uptrending in recent days, check UA given his diarrhea and incontinence this admission, monitor for retention, renal dose meds , avoid nephro toxins OF NOTE: guardian is assistant city attorney Wesley, not pt sister. His contact info is and [phone] <Jb Gonzalez - Last Filed: 12/31/17 14:17> (1) Pneumonia Qualifiers: Pneumonia type: due to unspecified organism Laterality: bilateral Lung location: unspecified part of lung Qualified Code(s): J18.9 - Pneumonia, unspecified organism (6) Gastric ulcer Qualifiers: Gastric ulcer chronicity: chronic Gastric ulcer complication status: without hemorrhage or perforation Qualified Code(s): K25.7 - Chronic gastric ulcer without hemorrhage or perforation (7) Diarrhea Qualifiers: Diarrhea type: unspecified type Qualified Code(s): R19.7 - Diarrhea, unspecified <Ynes Andrade - Last Filed: 12/31/17 14:58> (4) Gastric ulcer Qualifiers: Gastric ulcer chronicity: chronic Gastric ulcer complication status: without hemorrhage or perforation Qualified Code(s): K25.7 - Chronic gastric ulcer without hemorrhage or perforation (5) Pneumonia Qualifiers: Pneumonia type: due to unspecified organism Laterality: bilateral Lung location: unspecified part of lung Qualified Code(s): J18.9 - Pneumonia, unspecified organism (7) Diarrhea Qualifiers: Diarrhea type: unspecified type Qualified Code(s): R19.7 - Diarrhea, unspecified
[2017-12-31] MEDS ORDERED: Furosemide 40 MG/4 ML VIAL IVP ONE (07:36)
--- NOTE | 2017-12-31 07:38 | Pulmonology Progress Note ---
Date of Encounter: 12/31/17 Time of Encounter: 07:30 Assessment and Plan (1) Acute respiratory failure with hypoxia Current Visit: Yes Status: Acute Patient with acute respiratory failure with hypoxia most likely due to pneumonia and also patient might have developed ARDS like picture does not look like clear-cut ARDS but patient is also has positive fluid balance after his prolonged hospital stay. To continue the current management of bronchodilators steroids to continue gentle diuresis. (2) Aspiration pneumonia Current Visit: Yes Status: Acute To continue broad-spectrum antibiotics , to continue steroids to do gentle diuresis his FiO2 is coming down patient continues to get better we will hold off bronchoscopy at the moment. Agree with speech therapy evaluation for aspiration . Needs to sit up and do incentive spirometry and flutter valve . Qualifiers: Aspiration pneumonia type: unspecified Laterality: right Lung location: middle lobe of lung Qualified Code(s): J69.0 - Pneumonitis due to inhalation of food and vomit Subjective Principal diagnosis: Respiratory failure Interval history: Patient did not have any acute events overnight patient is at his baseline regarding his complication cannot participate with meaningful history and review of systems. Objective PUL Vital signs: Last Vital Signs Temp 98.2 F 12/31/17 07:17 Pulse 101 12/31/17 07:17 Resp 18 12/31/17 07:17 BP 116/67 12/31/17 07:17 Pulse Ox 90 12/31/17 07:17 Effort: mildly labored Auscultation: bilateral: diminished breath sounds (basilar diminished breadth sounds ) Results - Laboratory Findings CBC and BMP: 12/31/17 03:40 12/31/17 03:40 ABG ABG pH 7.47 pH Units (7.32-7.45) H 12/24/17 14:57 ABG pCO2 41 mmHg (35-45) 12/24/17 14:57 ABG pO2 51 mmHg (85-104) L 12/24/17 14:57 ABG O2 Saturation 88 % (95-98) L 12/24/17 14:57 PT/INR, D-dimer PT 16.7 Seconds (9.4-12.1) H D 12/16/17 18:08 Abnormal lab findings: Abnormal lab results RBC 3.31 M/mcL (4.19-5.50) L 12/31/17 03:40 Hgb 10.1 g/dL (12.9-16.9) L 12/31/17 03:40 Hct 30.5 % (37.5-50.1) L 12/31/17 03:40 Plt Count 519 K/mcL (140-400) H 12/31/17 03:40 MPV 9.3 fL (9.4-12.4) L 12/31/17 03:40 Reactive Lymphocytes Present (Not Present) A 12/23/17 05:12 Toxic Vacuolation Present (Not Present) A 12/23/17 05:12 Hypochromasia Present (Not Present) A 12/21/17 04:01 Anisocytosis 1+ (Not Present) A 12/20/17 06:31 ESR 13 mm/hr (0-10) H 12/25/17 04:25 PT 16.7 Seconds (9.4-12.1) H D 12/16/17 18:08 ABG pH 7.47 pH Units (7.32-7.45) H 12/24/17 14:57 ABG pO2 51 mmHg (85-104) L 12/24/17 14:57 ABG HCO3 30 mEq/L (21-27) H 12/24/17 14:57 ABG Total CO2 31 mEq/L (20-26) H 12/24/17 14:57 ABG O2 Saturation 88 % (95-98) L 12/24/17 14:57 ABG Base Excess 6 mEq/L (-2 to 3) H 12/24/17 14:57 Carbon Dioxide 33 mEq/L (23-29) H 12/31/17 03:40 BUN 25 mg/dL (8-23) H 12/31/17 03:40 Creatinine 1.37 mg/dL (0.70-1.30) H 12/31/17 03:40 Est GFR (Non-Af Amer) 52 (> 60) L 12/31/17 03:40 Troponin I 0.21 ng/mL (< 0.04) H* 12/15/17 14:12 C-Reactive Protein 188 mg/L (Less than 10) H 12/25/17 04:25 Serum Total Protein 4.9 g/dL (6.4-8.9) L 12/25/17 04:25 Albumin 2.4 g/dL (3.5-5.7) L 12/25/17 04:25 Albumin/Globulin Ratio 1.0 (1.1-2.2) L 12/25/17 04:25 Prealbumin 5.1 mg/dL (17.0-34.0) L 12/23/17 05:12 Amylase 168 Units/L (29-103) H 12/25/17 04:25 Lipase 96 Units/L (11-82) H 12/25/17 04:25 Procalcitonin 0.78 ng/mL (<=0.07) H 12/25/17 04:25 Vancomycin Trough 12 mcg/mL (5-10) H 12/29/17 11:50 B-(1,3)-D-Glucan Intrp POSITIVE (Negative) A 12/26/17 15:40 - Microbiology Findings Microbiology Findings: Microbiology, Last 48 Hours 12/24/17 16:20 Blood Culture - Final Peripheral Venipuncture No growth. Final report. 12/24/17 16:20 Blood Culture - Final Peripheral Venipuncture No growth. Final report. - Clinical Findings Intake & Output: Intake & Output 12/30/17 12/30/17 12/31/17 15:59 23:59 07:59 Intake Total 340 / 340 100 / 100 350 / 350 Output Total 500 / 500 Balance 340 / 340 100 / 100 -150 / -150 Weight 55.3 kg Consult Discharge Plan - Plan Instructions: Acute Nausea and Vomiting (ED), Abdominal Pain (ED) Additional Instructions: Patient needs admission. He has nausea / vomiting , abdominal pain ,high WBC count, CT scan shows dilated small bowel loops & suspected small bowel obstruction. [facility]: [facility] - 01/09/18 10:30 am
[2017-12-31] MEDS: hydrOXYzine pamoate 25 MG CAPSULE PO SCH ×4 (09:34→21:30)
[2017-12-31] MEDS: lamoTRIgine 100 MG TABLET PO SCH ×2 (09:34→21:30)
[2017-12-31] MEDS: Lactobacillus 1 EACH CAP.SPRINK PO SCH ×2 (09:34→21:30)
[2017-12-31] MEDS: cloZAPine 100 MG TABLET PO SCH ×2 (09:35→21:30)
--- NOTE | 2017-12-31 13:23 | Infectious Disease Progress No ---
Date of Encounter: 12/31/17 Time of Encounter: 09:45 - Assessment and Plan (1) Sepsis Current Visit: Yes Status: Acute On admission, the patient had severe sepsis with DONTE, troponin leak, and lactic acidosis. Likely secondary to intra-abdominal process including SBO and aspiration PNA. Improved. WBC improved. Blood cultures drawn 12/16/17 are negative x 2 sets. Repeat blood cultures drawn 12/24/17 x 2 sets are negative. Qualifiers: Qualified Code(s): A41.9 - Sepsis, unspecified organism (2) Aspiration pneumonia Current Visit: Yes Status: Acute Causative organism unclear. Chest x-ray on admission was negative for pneumonia, but repeat chest x-ray 12/15 showed new patchy interstitial and/or airspace opacities in the mid to lower right lung, potentially developing pneumonia. Repeat CXR 12/24/17 showed increasing air space opacities now diffusely involving both lungs which can be seen in the setting of multifocal pneumonia, vascular congestion, ARDS, and/or atelectasis. Given the patient's altered mental status, high concern for aspiration. Nasal MRSA screen was negative. Strep pneumococcal and legionella urinary antigens are negative. Respiratory infectious panel is negative. Repeat CT chest 12/26/17 Bilateral multi lobar ground-glass opacities with intra lobular septal thickening and nodular masslike consolidations in the left and right lower lobe. Differential includes multilobar pneumonia, ARDS, and hypersensitivity pneumonitis. Pulmonology notes reviewed. Discussed bronch with the patient's POA, but have decided to hold off for now. Feel that this is likely PNA + edema. Repeat CXR showed persistent bilateral airspace disease. Pulmonology recommendations noted. It does not appear that the patient has had a speech evaluation since admission. I am worried that there may be some silent aspiration and I think an [employer] REPA[employer]ER evaluation may be warranted. Repeat CXR in the AM. Continue vancomycin IV. Pharmacy to dose. Goal trough approximately 15. We will continue the vancomycin even though the MRSA nasal screen was negative given that it was checked several days after vancomycin was restarted. (day 11) Continue Zosyn 3.375 g IV every 8 hours. (day 17) Duration of treatment depends on the clinical picture. Monitor renal function and for drug toxicity and dose adjust antibiotics. Qualifiers: Qualified Code(s): J69.0 - Pneumonitis due to inhalation of food and vomit (3) Acute respiratory failure with hypoxia Current Visit: Yes Status: Acute Likely secondary to adverse reaction to Ativan and pneumonia. Appears improved. Pulmonology consulted. Further management per the pulmonology and primary teams. (4) Small bowel obstruction Current Visit: Yes Status: Resolved Seems improved clinically, but most recent imaging on 12/20/17 showed no significant change in the findings were still consistent with a partial small bowel obstruction. Gen. surgery was consulted but is signed off. The patient appears to tolerating a clear liquid diet. CT of the abdomen and pelvis showed improvement in the SBO. (5) Acute kidney injury Current Visit: Yes Status: Resolved Likely secondary sepsis. Creatinine back up a little today. Continue to trend serum creatinine. Avoid nephrotoxins. Does adjust medications. 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 (7) Diarrhea Current Visit: Yes Status: Resolved Etiology unclear: antibiotics vs. other. GI panel negative. Continue probiotics. Qualifiers: Qualified Code(s): R19.7 - Diarrhea, unspecified - Subjective Interval history: Patient seen and examined. No acute events noted overnight. Speech remains garbled, but alert and follows commands and is somewhat easier to understand. Denies pain or shortness of breath. Denies nausea, vomiting, or abdominal pain. Eating breakfast during my exam. Infect Dis PN-Objective Data - Labs CBC & Chem 7: 12/31/17 03:40 12/31/17 03:40 Labs: Laboratory Results - last 24 hr 12/27/17 12/30/17 12/31/17 13:40 14:11 03:40 WBC 11.0 RBC 3.31 L Hgb 10.1 L Hct 30.5 L MCV 92.1 MCH 30.5 MCHC 33.1 RDW 13.8 Plt Count 519 H MPV 9.3 L Immature Gran % 0.5 Seg Neutrophils % 74.1 Lymphocytes % 14.8 Monocytes % 7.9 Eosinophils % 2.6 Basophils % 0.1 Neutrophils # 8.1 Lymphocytes # 1.6 Monocytes # 0.9 Eosinophils # 0.3 Basophils # 0.0 Sodium Potassium Chloride Carbon Dioxide BUN Creatinine Est GFR ( Amer) Est GFR (Non-Af Amer) BUN/Creatinine Ratio Glucose Calculated Osmolality Calcium B-Natriuretic Peptide U Histopl Galactoman Ag NOT DETECTED U Histopl Galact Ant Int NOT DETECTED HIV Ag/Ab Combo Qual Nonreactive 12/31/17 12/31/17 03:40 03:40 WBC RBC Hgb Hct MCV MCH MCHC RDW Plt Count MPV Immature Gran % Seg Neutrophils % Lymphocytes % Monocytes % Eosinophils % Basophils % Neutrophils # Lymphocytes # Monocytes # Eosinophils # Basophils # Sodium 139 Potassium 4.2 Chloride 100 Carbon Dioxide 33 H BUN 25 H Creatinine 1.37 H Est GFR ( Amer) > 60 Est GFR (Non-Af Amer) 52 L BUN/Creatinine Ratio 18 Glucose 96 Calculated Osmolality 292 Calcium 9.3 B-Natriuretic Peptide 88 U Histopl Galactoman Ag U Histopl Galact Ant Int HIV Ag/Ab Combo Qual Cultures: Cultures 12/24/17 16:20 Blood Culture - Final Peripheral Venipuncture No growth. Final report. 12/24/17 16:20 Blood Culture - Final Peripheral Venipuncture No growth. Final report. 12/25/17 10:23 Legionella Antigen - Final Urine,Clean Catch Streptococcus pneumoniae Antigen (M - Final 12/16/17 13:35 Blood Culture - Final Peripheral Venipuncture No growth. Final report. 12/16/17 13:35 Blood Culture - Final Peripheral Venipuncture No growth. Final report. Serology 12/30/17 12/27/17 12/26/17 Range/Units 14:11 13:40 15:40 Nasal Screen MRSA (PCR) (Negative) Stl C. cayetanensis PCR (Not detect) Stool Rotavirus A PCR (Not detect) Stl Adenov F 40/41 PCR (Not detect) Stool Astrovirus (PCR) (Not detect) Stool Campylobacter PCR (Not detect) Stl C. diff Tox B Gene (Negative) Stl C. diff Tox A/B PCR (Not detect) Stool Cryptosporidium PCR (Not detect) Stl Sh Tox Pr E STEC PCR (Not detect) Stool E coli O157 PCR (Not detect) Stl Enterotoxigenic E PCR (Not detect) Stool EPEC (PCR) (Not detect) Stool EAEC (PCR) (Not detect) Stl E. histolytica PCR (Not detect) Stool Giardia Lamblia PCR (Not detect) Stool Salmonella PCR (Not detect) Stool Sapovirus (PCR) (Not detect) Stl P. shigelloides PCR (Not detect) Stl Shigella/EIEC PCR (Not detect) St Y.enterocolitica PCR (Not detect) Stool Vibrio (PCR) (Not detect) Stl Vibrio cholerae PCR (Not detect) Stl Norovirus GI/GII PCR (Not detect) Stl GI Panel (PCR) Com Chlamy pneumoniae PCR (Not Detect) Adenovirus (PCR) (Not Detect) B. pertussis DNA (PCR) (Not Detect) B.parapertussis DNA PCR (Not Detect) Coronavirus OC43 (PCR) (Not Detect) Coronavirus HKU1 (PCR) (Not Detect) Coronavirus 229E (PCR) (Not Detect) Coronavirus NL63 (PCR) (Not Detect) U Histopl Galactoman Ag NOT DETECTED ng/mL U Histopl Galact Ant Int NOT DETECTED (Not Detected) HIV Ag/Ab Combo Qual Nonreactive (Nonreactive) Human Metapneumovir PCR (Not Detect) Influenza A (H1) PCR (Not Detect) Influ A (H1N1/09) PCR (Not Detect) Influenza A (H3) PCR (Not Detect) Influenza A Untype (PCR) (Not Detect) Influenza Type B (PCR) (Not Detect) M.pneumoniae DNA (PCR) (Not Detect) Parainfluenza 1 (PCR) (Not Detect) Parainfluenza 2 (PCR) (Not Detect) Parainfluenza 3 (PCR) (Not Detect) Parainfluenza 4 (PCR) (Not Detect) A. galactomannan Ag NEGATIVE (Negative) A. galactomannan Ag Idx 0.03 RSV (PCR) (Not Detect) Entero/Rhino (PCR) (Not Detect) Beta-(1,3)-D-Glucan pg/mL B-(1,3)-D-Glucan Intrp (Negative) 12/26/17 12/24/17 12/24/17 Range/Units 15:40 15:50 15:50 Nasal Screen MRSA (PCR) Negative (Negative) Stl C. cayetanensis PCR (Not detect) Stool Rotavirus A PCR (Not detect) Stl Adenov F 40/41 PCR (Not detect) Stool Astrovirus (PCR) (Not detect) Stool Campylobacter PCR (Not detect) Stl C. diff Tox B Gene (Negative) Stl C. diff Tox A/B PCR (Not detect) Stool Cryptosporidium PCR (Not detect) Stl Sh Tox Pr E STEC PCR (Not detect) Stool E coli O157 PCR (Not detect) Stl Enterotoxigenic E PCR (Not detect) Stool EPEC (PCR) (Not detect) Stool EAEC (PCR) (Not detect) Stl E. histolytica PCR (Not detect) Stool Giardia Lamblia PCR (Not detect) Stool Salmonella PCR (Not detect) Stool Sapovirus (PCR) (Not detect) Stl P. shigelloides PCR (Not detect) Stl Shigella/EIEC PCR (Not detect) St Y.enterocolitica PCR (Not detect) Stool Vibrio (PCR) (Not detect) Stl Vibrio cholerae PCR (Not detect) Stl Norovirus GI/GII PCR (Not detect) Stl GI Panel (PCR) Com Chlamy pneumoniae PCR Not Detected (Not Detect) Adenovirus (PCR) Not Detected (Not Detect) B. pertussis DNA (PCR) Not Detected (Not Detect) B.parapertussis DNA PCR Not Detected (Not Detect) Coronavirus OC43 (PCR) Not Detected (Not Detect) Coronavirus HKU1 (PCR) Not Detected (Not Detect) Coronavirus 229E (PCR) Not Detected (Not Detect) Coronavirus NL63 (PCR) Not Detected (Not Detect) U Histopl Galactoman Ag ng/mL U Histopl Galact Ant Int (Not Detected) HIV Ag/Ab Combo Qual (Nonreactive) Human Metapneumovir PCR Not Detected (Not Detect) Influenza A (H1) PCR Not Detected (Not Detect) Influ A (H1N1/09) PCR Not Detected (Not Detect) Influenza A (H3) PCR Not Detected (Not Detect) Influenza A Untype (PCR) Not Detected (Not Detect) Influenza Type B (PCR) Not Detected (Not Detect) M.pneumoniae DNA (PCR) Not Detected (Not Detect) Parainfluenza 1 (PCR) Not Detected (Not Detect) Parainfluenza 2 (PCR) Not Detected (Not Detect) Parainfluenza 3 (PCR) Not Detected (Not Detect) Parainfluenza 4 (PCR) Not Detected (Not Detect) A. galactomannan Ag (Negative) A. galactomannan Ag Idx RSV (PCR) Not Detected (Not Detect) Entero/Rhino (PCR) Not Detected (Not Detect) Beta-(1,3)-D-Glucan 233 pg/mL B-(1,3)-D-Glucan Intrp POSITIVE A (Negative) 12/23/17 12/21/17 Range/Units 22:00 16:20 Nasal Screen MRSA (PCR) (Negative) Stl C. cayetanensis PCR Not detected (Not detect) Stool Rotavirus A PCR Not detected (Not detect) Stl Adenov F 40/41 PCR Not detected (Not detect) Stool Astrovirus (PCR) Not detected (Not detect) Stool Campylobacter PCR Not detected (Not detect) Stl C. diff Tox B Gene Negative (Negative) Stl C. diff Tox A/B PCR Not detected (Not detect) Stool Cryptosporidium PCR Not detected (Not detect) Stl Sh Tox Pr E STEC PCR Not detected (Not detect) Stool E coli O157 PCR Not detected (Not detect) Stl Enterotoxigenic E PCR Not detected (Not detect) Stool EPEC (PCR) Not detected (Not detect) Stool EAEC (PCR) Not detected (Not detect) Stl E. histolytica PCR Not detected (Not detect) Stool Giardia Lamblia PCR Not detected (Not detect) Stool Salmonella PCR Not detected (Not detect) Stool Sapovirus (PCR) Not detected (Not detect) Stl P. shigelloides PCR Not detected (Not detect) Stl Shigella/EIEC PCR Not detected (Not detect) St Y.enterocolitica PCR Not detected (Not detect) Stool Vibrio (PCR) Not detected (Not detect) Stl Vibrio cholerae PCR Not detected (Not detect) Stl Norovirus GI/GII PCR Not detected (Not detect) Stl GI Panel (PCR) Com See below Chlamy pneumoniae PCR (Not Detect) Adenovirus (PCR) (Not Detect) B. pertussis DNA (PCR) (Not Detect) B.parapertussis DNA PCR (Not Detect) Coronavirus OC43 (PCR) (Not Detect) Coronavirus HKU1 (PCR) (Not Detect) Coronavirus 229E (PCR) (Not Detect) Coronavirus NL63 (PCR) (Not Detect) U Histopl Galactoman Ag ng/mL U Histopl Galact Ant Int (Not Detected) HIV Ag/Ab Combo Qual (Nonreactive) Human Metapneumovir PCR (Not Detect) Influenza A (H1) PCR (Not Detect) Influ A (H1N1/09) PCR (Not Detect) Influenza A (H3) PCR (Not Detect) Influenza A Untype (PCR) (Not Detect) Influenza Type B (PCR) (Not Detect) M.pneumoniae DNA (PCR) (Not Detect) Parainfluenza 1 (PCR) (Not Detect) Parainfluenza 2 (PCR) (Not Detect) Parainfluenza 3 (PCR) (Not Detect) Parainfluenza 4 (PCR) (Not Detect) A. galactomannan Ag (Negative) A. galactomannan Ag Idx RSV (PCR) (Not Detect) Entero/Rhino (PCR) (Not Detect) Beta-(1,3)-D-Glucan pg/mL B-(1,3)-D-Glucan Intrp (Negative) - Impressions Impressions Chest X-Ray 12/30/17 07:43 IMPRESSION: Persistent bilateral airspace disease. D/ / 12/30/2017 10:11:29 Timbo Montoya MD / alex Interpreting Provider: Timbo Montoya MD Exam - Constitutional Vitals: Temp Pulse Resp BP Pulse Ox 98.8 F 110 20 102/66 94 12/31/17 11:24 12/31/17 11:24 12/31/17 11:24 12/31/17 11:24 12/31/17 11:24 General appearance: cooperative, no acute distress, thin - Head Head exam: Present: atraumatic, normal inspection, normocephalic - Eye Eye exam: Present: EOMI, normal appearance, PERRL Pupils: Present: normal accommodation - ENT ENT exam: Present: mucous membranes moist - Neck Neck exam: Present: normal inspection - Respiratory Respiratory exam: Present: CTAB. Absent: rales, respiratory distress, rhonchi, wheezes - Cardiovascular Cardiovascular exam: Present: +S1, +S2, tachycardia. Absent: irregular rhythm - GI/Abdominal GI/Abdominal exam: Present: normal bowel sounds, soft. Absent: distended, tenderness - Extremities Exam Extremities exam: Present: normal inspection. Absent: joint swelling, pedal edema, tenderness - Neurological Exam Neurological exam: Present: alert, oriented X3, no focal deficits, speech deficit (Garbled.) - Psychiatric Psychiatric exam: Present: normal affect, normal mood - Skin Skin exam: Present: dry, intact, normal color, warm Consult Discharge Plan - Plan Instructions: Acute Nausea and Vomiting (ED), Abdominal Pain (ED) Additional Instructions: Patient needs admission. He has nausea / vomiting , abdominal pain ,high WBC count, CT scan shows dilated small bowel loops & suspected small bowel obstruction. Referrals: [facility] [Primary Care Provider] - 01/09/18 10:30 am - Attending Attestation I examined this patient and my medical decision-making was reviewed with the Resident Physician. I agree with the documented findings, disposition and treatment plan as described except to the extent set forth below.
[2017-12-31] MEDS ORDERED: cloZAPine 25 MG TABLET PO SCH (15:00)
[2018-01-01] MEDS: Piperacillin/Tazobactam 3.375 GM in 0.9 % Sodium Chloride Mini Bag 100 ML IVPB SCH ×2 (00:05→08:40)
[2018-01-01] MEDS: Ipratropium/Albuterol Neb 3 ML IH SCH ×6 (03:30→23:31)
[2018-01-01 04:35] LABS: Basophils % 0.1 %; Eosinophils % 0.1 %; Hematocrit 33.4 % (37.5-50.1); Hemoglobin 10.9 g/dL (12.9-16.9); Immature Granulocytes % 0.7 % (0-4); Lymphocytes % 10.7 %; Mean Corpuscular HGB Conc 32.6 g/dL (31.6-35.5); Mean Corpuscular Hemoglobin 30.4 pg (28.0-33.3); Monocytes # 0.7 K/mcL (0.0-1.3); Monocytes % 6.9 %; Neutrophils # 7.8 K/mcL (1.6-8.9); Platelet Count 566 K/mcL (140-400); Red Blood Count 3.59 M/mcL (4.19-5.50); Red Cell Distribution Width 13.6 % (11.5-14.5); Segmented Neutrophils % 81.5 %
[2018-01-01 04:54] LABS: BUN/Creatinine Ratio 21 (6-26); Blood Urea Nitrogen 29 mg/dL (8-23); Calcium 8.9 mg/dL (8.6-10.3); Carbon Dioxide 30 mEq/L (23-29); Chloride 101 mEq/L (98-107); Glucose 112 mg/dL (70-105); Magnesium 2.2 mg/dL (1.6-2.6); Osmolality,Calculated 297 (280-300); Phosphorous 4.3 mg/dL (2.7-4.5); Sodium 140 mEq/L (136-145); eGFR For Non-African Americans 50 (> 60)
[2018-01-01] MEDS: MethylPREDNISolone 40 MG/ML VIAL IVP SCH ×2 (05:53→17:04)
[2018-01-01] MEDS: *HR* Heparin 5,000 UNIT/ML VIAL SQ SCH ×3 (05:53→20:33)
[2018-01-01] MEDS ORDERED: Furosemide 40 MG/4 ML VIAL IVP ONE (07:39)
--- NOTE | 2018-01-01 07:41 | Pulmonology Progress Note ---
Date of Encounter: 01/01/18 Time of Encounter: 07:25 Assessment and Plan (1) Acute respiratory failure with hypoxia Current Visit: Yes Status: Acute Patient with acute respiratory failure with hypoxia most likely due to pneumonia and also patient might have developed ARDS like picture does not look like clear-cut ARDS but patient is also has positive fluid balance after his prolonged hospital stay. To continue the current management of bronchodilators steroids to continue gentle diuresis. 01/01 Patient is responding well to diuresis Fio2 coming down can be transitioned to regular high flow nasal cannula patient will need atleast 3-4 week steroid taper . Will sign off call with questions . (2) Aspiration pneumonia Current Visit: Yes Status: Acute CXR slightly better the radiological findings lag behind clinically getting better antibiotic descalation according to ID Qualifiers: Aspiration pneumonia type: unspecified Laterality: right Lung location: middle lobe of lung Qualified Code(s): J69.0 - Pneumonitis due to inhalation of food and vomit Subjective Principal diagnosis: Respiratory failure Interval history: Patient did not have any acute events overnight i was able to speak with him better does not have any complaints . Objective PUL Vital signs: Last Vital Signs Temp 98.3 F 01/01/18 03:26 Pulse 93 01/01/18 03:26 Resp 18 01/01/18 03:30 BP 107/70 01/01/18 03:26 Pulse Ox 97 01/01/18 05:49 Auscultation: bilateral: clear, diminished breath sounds (bilateral basilar diminshed breadth sounds ) Results - Laboratory Findings CBC and BMP: 01/01/18 04:12 01/01/18 04:12 ABG ABG pH 7.47 pH Units (7.32-7.45) H 12/24/17 14:57 ABG pCO2 41 mmHg (35-45) 12/24/17 14:57 ABG pO2 51 mmHg (85-104) L 12/24/17 14:57 ABG O2 Saturation 88 % (95-98) L 12/24/17 14:57 PT/INR, D-dimer PT 16.7 Seconds (9.4-12.1) H D 12/16/17 18:08 Abnormal lab findings: Abnormal lab results RBC 3.59 M/mcL (4.19-5.50) L 01/01/18 04:12 Hgb 10.9 g/dL (12.9-16.9) L 01/01/18 04:12 Hct 33.4 % (37.5-50.1) L 01/01/18 04:12 Plt Count 566 K/mcL (140-400) H 01/01/18 04:12 MPV 9.0 fL (9.4-12.4) L 01/01/18 04:12 Reactive Lymphocytes Present (Not Present) A 12/23/17 05:12 Toxic Vacuolation Present (Not Present) A 12/23/17 05:12 Hypochromasia Present (Not Present) A 12/21/17 04:01 Anisocytosis 1+ (Not Present) A 12/20/17 06:31 ESR 13 mm/hr (0-10) H 12/25/17 04:25 PT 16.7 Seconds (9.4-12.1) H D 12/16/17 18:08 ABG pH 7.47 pH Units (7.32-7.45) H 12/24/17 14:57 ABG pO2 51 mmHg (85-104) L 12/24/17 14:57 ABG HCO3 30 mEq/L (21-27) H 12/24/17 14:57 ABG Total CO2 31 mEq/L (20-26) H 12/24/17 14:57 ABG O2 Saturation 88 % (95-98) L 12/24/17 14:57 ABG Base Excess 6 mEq/L (-2 to 3) H 12/24/17 14:57 Carbon Dioxide 30 mEq/L (23-29) H 01/01/18 04:12 BUN 29 mg/dL (8-23) H 01/01/18 04:12 Creatinine 1.40 mg/dL (0.70-1.30) H 01/01/18 04:12 Est GFR (Non-Af Amer) 50 (> 60) L 01/01/18 04:12 Glucose 112 mg/dL (70-105) H 01/01/18 04:12 Troponin I 0.21 ng/mL (< 0.04) H* 12/15/17 14:12 C-Reactive Protein 188 mg/L (Less than 10) H 12/25/17 04:25 Serum Total Protein 4.9 g/dL (6.4-8.9) L 12/25/17 04:25 Albumin 2.4 g/dL (3.5-5.7) L 12/25/17 04:25 Albumin/Globulin Ratio 1.0 (1.1-2.2) L 12/25/17 04:25 Prealbumin 5.1 mg/dL (17.0-34.0) L 12/23/17 05:12 Amylase 168 Units/L (29-103) H 12/25/17 04:25 Lipase 96 Units/L (11-82) H 12/25/17 04:25 Procalcitonin 0.78 ng/mL (<=0.07) H 12/25/17 04:25 Vancomycin Trough 12 mcg/mL (5-10) H 12/29/17 11:50 B-(1,3)-D-Glucan Intrp POSITIVE (Negative) A 12/26/17 15:40 - Clinical Findings Intake & Output: Intake & Output 12/31/17 12/31/17 01/01/18 15:59 23:59 07:59 Intake Total 100 / 100 100 / 100 150 / 150 Output Total 300 / 300 450 / 450 575 / 575 Balance -200 / -200 -350 / -350 -425 / -425 Weight 54.7 kg Consult Discharge Plan - Plan Instructions: Acute Nausea and Vomiting (ED), Abdominal Pain (ED) Additional Instructions: Patient needs admission. He has nausea / vomiting , abdominal pain ,high WBC count, CT scan shows dilated small bowel loops & suspected small bowel obstruction. [facility]errals: [facility]Primary Care Provider[facility] - 01/09/18 10:30 am
--- NOTE | 2018-01-01 07:58 | Internal Med Progress Note ---
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 (4) Gastric ulcer Current Visit: Yes Status: Acute (5) Pneumonia Current Visit: Yes Status: Acute (6) Acute respiratory failure with hypoxia Current Visit: Yes Status: Acute (7) Diarrhea Current Visit: Yes Status: Resolved - Time Spent with Patient Total time spent is greater than 50% in coordination of care (as documented) at patient's floor/unit and/or counseling patient: Internal Medicine: Result - Labs CBC & Chem 7: 01/01/18 04:12 01/01/18 04:12 Labs: Short CBC 01/01/18 Range/Units 04:12 WBC 9.6 (4.3-11.1) K/mcL Hgb 10.9 L (12.9-16.9) g/dL Hct 33.4 L (37.5-50.1) % Plt Count 566 H (140-400) K/mcL Neutrophils # 7.8 (1.6-8.9) K/mcL BMP 01/01/18 04:12 Sodium 140 Potassium 4.0 Chloride 101 Carbon Dioxide 30 H BUN 29 H Creatinine 1.40 H Glucose 112 H Calcium 8.9 Urine 12/31/17 Range/Units 12:02 Urine Color Yellow (Yellow) Urine Clarity Clear (Clear) Urine pH 7.0 (5.0-8.0) pH Units Ur Specific [place] 1.023 (1.010-1.025) Urine Protein Negative (Neg-Trace) mg/dL Urine Glucose (UA) Normal (Normal) mg/dL - ABG Interpretation ABG results: ABG ABG pH 7.47 pH Units (7.32-7.45) H 12/24/17 14:57 ABG pCO2 41 mmHg (35-45) 12/24/17 14:57 ABG pO2 51 mmHg (85-104) L 12/24/17 14:57 ABG O2 Saturation 88 % (95-98) L 12/24/17 14:57 PT/INR, D-dimer PT 16.7 Seconds (9.4-12.1) H D 12/16/17 18:08 - Impressions Impressions Videofluoroscopic Swallow 12/31/17 15:11 IMPRESSION: Shallow laryngeal penetration with thin liquids as well as nectar thickened liquids. No convincing penetration with honey thickened liquids. Please see separate speech pathology report for full discussion of findings and recommendations. D/ / Victoriano Bender MD / Victoriano Bender MD Interpreting Provider: Victoriano Bender MD Chest X-Ray 01/01/18 08:00 IMPRESSION: Bilateral diffuse airspace disease seen to be present slightly improved from the prior exam. Small bilateral effusions. Age-indeterminate compression fracture of approximately the T6 vertebral body. D/ / 01/01/2018 13:04:50 Gregg Torres MD / alejandro Interpreting Provider: Gregg Torres MD Consult Discharge Plan - Plan Instructions: Acute Nausea and Vomiting (ED), Abdominal Pain (ED) Additional Instructions: Patient needs admission. He has nausea / vomiting , abdominal pain ,high WBC count, CT scan shows dilated small bowel loops & suspected small bowel obstruction. [facility]errals: [facility]Primary Care Provider[facility] - 01/09/18 10:30 am - Attending Attestation I examined this patient and my medical decision-making was reviewed with the Resident Physician Dr Gonzalez. I agree with the documented findings, disposition and treatment plan as described except to the extent set forth below/addl details below. Mr Johnson was admitted with SBO, he was being treated for pna, developed ARDS with concern for aspiration pna given his mental status related to Schizophrenia. He remains on high flow O2 with Pulm following. On admission his home clozaril had to be held and [facility] has been following along with him with instruction regarding uptitrating the medication which has been occurring throughout admission. Awake, alert, asking if he can have water. Denies cough, fever, chills. + sob at times. Comfortable appearing currently. Had modified BS and appears to silently aspirate. Diet modifications made. gen- alert, awake,appears stated age eyes- pupils equal round , eom intact cv- reg rate and rhythm, normal s1,s2, no murmurs appreciated, no le edema lungs- ctabl, diminshed bl bases, no rhonchi or wheezing noted, normal resp effort on high flow O2 nc abd- soft, non tender, non distended, + bs neuro- AAOxperson, hospital Acute REsp FAilure with Hypoxia suspected to be 2/2 pna -high flow o2 weaning as below with little improvement -unable to obtain cta chest given kidney function, pulm considered vq scan to rule out PE but given pt schizophrenia and unable to lie still and follow instruction for scan, it was decided not to do -high flow o2 will limit where he can dispo to and CM is beginning to investigate potential dispos for him Pneumonia,aspiration -pulm and ID following, surgical forceps fabricator was consulted when I began service, and are now following, MBS done and requires mechanical soft diet and honey thickened liquids as was silently aspirating, has been on abx for >14 dys and still requiring high flow o2, no plan for bronch at this time as per pulm, cont nebs, steroids, abx vanc + zosyn -need to clarify further inpt requirements with Pulm and ID then discuss with guardian as he has not significantly improved in some time Schizophrenia, stable -psych following and med adjustments, including clozaril uptitration as per their recs DONTE- cont to trend, has been uptrending in recent days, ua neg for infection or protein, monitor for retention, renal dose meds, avoid nephro toxins OF NOTE: guardian is claim attorney Wesley, not pt sister. His contact info is [phone] and [phone] <Jb Gonzalez - Last Filed: 01/01/18 17:25> Hospitalist Progress Note - Encounter Date of Encounter: 01/01/18 Time of Encounter: 08:57 - Subjective Interval History: Mr. Johnson is a 67M with PMH of gastric ulcer from H pylori, HTN, and catatonic schizophrenia. He was admitted on 12/14 for small bowel obstruction. He was started on empirical antibiotic for sepsis and NG tube was placed. His nausea vomiting improved, and he has had multiple bowel movements. NG tube was removed. Pt tolerating diet well, but has to be on restriction because of mentation. Continued diarrhea and incontinence. His respiratory status began to decline on 12/21. IV Vanc was added to the Zosyn already on board. Repeat CXR on 12/21 revealed opacities of both lungs suspicious for PNA. On 12/24 pt's SpO2 began dropping into the low 80s despite high flow O2 via oxy mask, and breathing agonal. Repeat CXR on 12/24 revealed worsening bilateral opacities concerning for multifocal PNA vs ARDS. He was transferred to the ICU for further management of acute respiratory failure, but did not require intubation. He was then transferred to the step-down unit. Attempts have been made to wean off high flow O2, but at times pt will remove mask/cannula and will desat again. Seen and examined at bedside. Resting comfortably in bed. Patient is alert, awake and oriented to place and person. States his breathing is ok, but that he is still coughing. Some sputum production. Complaining of some left upper quadrant pain, admits it feels like he needs to have a bowel movements somewhat soon. Denies nausea, or vomiting. No fever, chills, chest pain, headache, numbness, or tingling. - Exam Vitals: Temp Pulse Resp BP Pulse Ox 98.1 F 96 18 123/81 95 01/01/18 07:38 01/01/18 07:38 01/01/18 07:38 01/01/18 07:38 01/01/18 07:38 Exam: General: alert male. mild distress Head: normocephalic and atraumatic Neck: supple, trachea midline, no lymphadeopathy Lungs: CTAB. non-labored breathing on [place]. No wheezes, rales or rhonchi noted. Heart: RRR +S1 +S2. no murmurs, clicks, or rubs appreciated. Abdomen: soft, non-tender, non-distended. Some focal fullness in the left upper quadrant that resembles stool collection. normoactive bowel sounds Extremities: radial pulses palpable and symmetrical. No edema or cyanosis. Neuro: A&Ox2. no speech difficulty or abnormality Skin: warm, dry, intact. - Assessment and Plan (1) Pneumonia Current Visit: Yes Status: Acute Assessment and Plan: CXR on 12/15 showed infiltrates/consolidations more on the right side Was on Zosyn for 5.5 days, followed by Augmentin for 1.5 days Continues to experience cough Suspect may be some aspiration component with pt's speech and mentation WBC remains elevated at 13.4 today, but receiving Solumedrol 40mg BID Afebrile HR normal non-tachypnic Pulm and ID on board Pulm has elected to hold off on bronchoscopy at this time MBS revealed shallow laryngeal penetration with thin liquids and nectar thickened liquids. Day 18 total of abx Per ID, discontinue abx and observe Continue Duonebs Continue supplemental O2 Continue to monitor (2) Acute kidney injury Current Visit: Yes Status: Resolved Assessment and Plan: BUN and Cr 42 and 1.88 on admission improved with IV hydration BUN and Cr trended to normal, but increased again starting on 12/26 BUN and Cr - 29 and 1.40 today Likely secondary to sepsis and/or Vanc related Discontinue vanc per ID Continue to trend kidney functions May consider nephro consult if kidney functions continue to worsen Will hold off on IVF at this time with recent ARDS type picture (3) Acute respiratory failure with hypoxia Current Visit: Yes Status: Acute Assessment and Plan: Likely adverse reaction to Ativan with concomitant pneumonia on 12/24 Improved Pulm on board Continue to wean off high flow O2 as tolerated. Further management per pulm (4) Diarrhea Current Visit: Yes Status: Resolved Assessment and Plan: Pt has experienced watery diarrhea since resolution of SBO on 12/19 Hemooccult negative on 12/14 C diff Tox B screen negative on 12/21 GI panel on 12/23 negative Likely not infectious May be associated with abx Experiencing formed bowel movements after 2mg loperamide 12/26, which slowly returned to diarrhea Received 2mg Loperamide on 12/30 as well with no further diarrhea Continue Culturelle Aquaphor/Maalox for raw rectum due to frequent diarrhea May give another dose of loperamide of diarrhea resumes (5) 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 Tomorrow will increase mid-day dose to 100mg. (6) Small bowel obstruction Current Visit: Yes Status: Resolved Assessment and Plan: Resolved Small bowel follow through was normal with contrast seen in rectum at 4 hours Tolerating regular diet, has to be on restrictions due to mentation Tolerating po meds Tolerating regular diet (7) Gastric ulcer Current Visit: Yes Status: Acute Assessment and Plan: Continue PPI DVT Prophylaxis: SQ Heparin - Time Spent with Patient Total time spent is greater than 50% in coordination of care (as documented) at patient's floor/unit and/or counseling patient: Internal Medicine: Result - Labs CBC & Chem 7: 01/01/18 04:12 01/01/18 04:12 Labs: Short CBC 01/01/18 Range/Units 04:12 WBC 9.6 (4.3-11.1) K/mcL Hgb 10.9 L (12.9-16.9) g/dL Hct 33.4 L (37.5-50.1) % Plt Count 566 H (140-400) K/mcL Neutrophils # 7.8 (1.6-8.9) K/mcL BMP 01/01/18 04:12 Sodium 140 Potassium 4.0 Chloride 101 Carbon Dioxide 30 H BUN 29 H Creatinine 1.40 H Glucose 112 H Calcium 8.9 - ABG Interpretation ABG results: ABG ABG pH 7.47 pH Units (7.32-7.45) H 12/24/17 14:57 ABG pCO2 41 mmHg (35-45) 12/24/17 14:57 ABG pO2 51 mmHg (85-104) L 12/24/17 14:57 ABG O2 Saturation 88 % (95-98) L 12/24/17 14:57 PT/INR, D-dimer PT 16.7 Seconds (9.4-12.1) H D 12/16/17 18:08 - Impressions Impressions Videofluoroscopic Swallow 12/31/17 15:11 IMPRESSION: Shallow laryngeal penetration with thin liquids as well as nectar thickened liquids. No convincing penetration with honey thickened liquids. Please see separate speech pathology report for full discussion of findings and recommendations. D/ / Victoriano Bender MD / Victoriano Bender MD Interpreting Provider: Victoriano Bender MD <Ynes Andrade - Last Filed: 01/01/18 13:35> (4) Gastric ulcer Qualifiers: Gastric ulcer chronicity: chronic Gastric ulcer complication status: without hemorrhage or perforation Qualified Code(s): K25.7 - Chronic gastric ulcer without hemorrhage or perforation (5) Pneumonia Qualifiers: Pneumonia type: due to unspecified organism Laterality: bilateral Lung location: unspecified part of lung Qualified Code(s): J18.9 - Pneumonia, unspecified organism (7) Diarrhea Qualifiers: Diarrhea type: unspecified type Qualified Code(s): R19.7 - Diarrhea, unspecified <Jb Gonzalez - Last Filed: 01/01/18 17:25> (1) Pneumonia Qualifiers: Pneumonia type: due to unspecified organism Laterality: bilateral Lung location: unspecified part of lung Qualified Code(s): J18.9 - Pneumonia, unspecified organism (4) Diarrhea Qualifiers: Diarrhea type: unspecified type Qualified Code(s): R19.7 - Diarrhea, unspecified (7) Gastric ulcer Qualifiers: Gastric ulcer chronicity: chronic Gastric ulcer complication status: without hemorrhage or perforation Qualified Code(s): K25.7 - Chronic gastric ulcer without hemorrhage or perforation
[2018-01-01] MEDS ORDERED: Piperacillin/Tazobactam 3.375 GM VIAL ONE (08:33)
[2018-01-01] MEDS: lamoTRIgine 100 MG TABLET PO SCH ×2 (08:40→20:33)
[2018-01-01] MEDS: hydrOXYzine pamoate 25 MG CAPSULE PO SCH ×4 (08:40→20:32)
[2018-01-01] MEDS: Lactobacillus 1 EACH CAP.SPRINK PO SCH ×2 (08:40→20:32)
[2018-01-01] MEDS: cloZAPine 100 MG TABLET PO SCH ×2 (08:40→20:32)
[2018-01-01] MEDS ORDERED: Aminoglycoside Consult 1 EACH MC ONE (09:48)
--- NOTE | 2018-01-01 10:33 | Infectious Disease Progress No ---
Date of Encounter: 01/01/18 Time of Encounter: 10:26 - Assessment and Plan (1) Sepsis Current Visit: Yes Status: Acute On admission, the patient had severe sepsis with DONTE, troponin leak, and lactic acidosis. Likely secondary to intra-abdominal process including SBO and aspiration PNA. Improved. WBC normal. Blood cultures drawn 12/16/17 are negative x 2 sets. Repeat blood cultures drawn 12/24/17 x 2 sets are negative. Qualifiers: Sepsis type: sepsis due to unspecified organism Qualified Code(s): A41.9 - Sepsis, unspecified organism (2) Aspiration pneumonia Current Visit: Yes Status: Acute Causative organism unclear. Chest x-ray on admission was negative for pneumonia, but repeat chest x-ray 12/15/17 showed new patchy interstitial and/or airspace opacities in the mid to lower right lung, potentially developing pneumonia. Repeat CXR 12/24/17 showed increasing air space opacities now diffusely involving both lungs which can be seen in the setting of multifocal pneumonia, vascular congestion, ARDS, and/or atelectasis. Given the patient's altered mental status, high concern for aspiration. Nasal MRSA screen was negative. Strep pneumococcal and legionella urinary antigens are negative. Respiratory infectious panel is negative. Repeat CT chest 12/26/17 Bilateral multi lobar ground-glass opacities with intra lobular septal thickening and nodular masslike consolidations in the left and right lower lobe. Differential includes multilobar pneumonia, ARDS, and hypersensitivity pneumonitis. Pulmonology notes reviewed. Discussed bronch with the patient's POA, but have decided to hold off for now. Feel that this is likely PNA + edema. Repeat CXR showed persistent bilateral airspace disease. Pulmonology recommendations noted. LIFT SLAB OPERATOR evaluation noted. Repeat CXR showed improvement. Completed 12 days of Vancomycin and 18 days of Zosyn. Discontinue antibiotics and observe. Qualifiers: Aspiration pneumonia type: unspecified Laterality: right Lung location: middle lobe of lung Qualified Code(s): J69.0 - Pneumonitis due to inhalation of food and vomit (3) Acute respiratory failure with hypoxia Current Visit: Yes Status: Acute Likely secondary to adverse reaction to Ativan and pneumonia and ARDS. Appears improved, but still requiring high flow O2. Pulmonology consulted. Further management per the pulmonology and primary teams. (4) Small bowel obstruction Current Visit: Yes Status: Resolved Seems improved clinically, but most recent imaging on 12/20/17 showed no significant change in the findings were still consistent with a partial small bowel obstruction. Gen. surgery was consulted but is signed off. The patient appears to tolerating a clear liquid diet. CT of the abdomen and pelvis showed improvement in the SBO. (5) Acute kidney injury Current Visit: Yes Status: Resolved Likely secondary sepsis. Creatinine back up a little today. Continue to trend serum creatinine. Avoid nephrotoxins. Does adjust medications. Consider nephrology to evaluate if it doesn't improve. 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 (7) Diarrhea Current Visit: Yes Status: Resolved Etiology unclear: antibiotics vs. other. GI panel negative. Continue probiotics. Qualifiers: Diarrhea type: unspecified type Qualified Code(s): R19.7 - Diarrhea, unspecified - Subjective Interval history: Patient seen and examined. No acute events noted overnight. Speech remains garbled, but alert and follows commands and is somewhat easier to understand. Denies pain or shortness of breath. Denies nausea, vomiting, or abdominal pain. Asking for water because he doesn't like the thickened water that is at his bedside. Failed MBS yesterday. LIFT SLAB OPERATOR recommended thickened liquids and advanced soft textures. Infect Dis PN-Objective Data - Labs CBC & Chem 7: 01/01/18 04:12 01/01/18 04:12 Labs: Laboratory Results - last 24 hr 01/01/18 01/01/18 04:12 04:12 WBC 9.6 RBC 3.59 L Hgb 10.9 L Hct 33.4 L MCV 93.0 MCH 30.4 MCHC 32.6 RDW 13.6 Plt Count 566 H MPV 9.0 L Immature Gran % 0.7 Seg Neutrophils % 81.5 Lymphocytes % 10.7 Monocytes % 6.9 Eosinophils % 0.1 Basophils % 0.1 Neutrophils # 7.8 Lymphocytes # 1.0 Monocytes # 0.7 Eosinophils # 0.0 Basophils # 0.0 Sodium 140 Potassium 4.0 Chloride 101 Carbon Dioxide 30 H BUN 29 H Creatinine 1.40 H Est GFR ( Amer) > 60 Est GFR (Non-Af Amer) 50 L BUN/Creatinine Ratio 21 Glucose 112 H Calculated Osmolality 297 Calcium 8.9 Phosphorus 4.3 Magnesium 2.2 Cultures: Cultures 12/24/17 16:20 Blood Culture - Final Peripheral Venipuncture No growth. Final report. 12/24/17 16:20 Blood Culture - Final Peripheral Venipuncture No growth. Final report. 12/25/17 10:23 Legionella Antigen - Final Urine,Clean Catch Streptococcus pneumoniae Antigen (M - Final 12/16/17 13:35 Blood Culture - Final Peripheral Venipuncture No growth. Final report. 12/16/17 13:35 Blood Culture - Final Peripheral Venipuncture No growth. Final report. Serology 12/30/17 12/27/17 12/26/17 Range/Units 14:11 13:40 15:40 Nasal Screen MRSA (PCR) (Negative) Stl C. cayetanensis PCR (Not detect) Stool Rotavirus A PCR (Not detect) Stl Adenov F 40/41 PCR (Not detect) Stool Astrovirus (PCR) (Not detect) Stool Campylobacter PCR (Not detect) Stl C. diff Tox B Gene (Negative) Stl C. diff Tox A/B PCR (Not detect) Stool Cryptosporidium PCR (Not detect) Stl Sh Tox Pr E STEC PCR (Not detect) Stool E coli O157 PCR (Not detect) Stl Enterotoxigenic E PCR (Not detect) Stool EPEC (PCR) (Not detect) Stool EAEC (PCR) (Not detect) Stl E. histolytica PCR (Not detect) Stool Giardia Lamblia PCR (Not detect) Stool Salmonella PCR (Not detect) Stool Sapovirus (PCR) (Not detect) Stl P. shigelloides PCR (Not detect) Stl Shigella/EIEC PCR (Not detect) St Y.enterocolitica PCR (Not detect) Stool Vibrio (PCR) (Not detect) Stl Vibrio cholerae PCR (Not detect) Stl Norovirus GI/GII PCR (Not detect) Stl GI Panel (PCR) Com Chlamy pneumoniae PCR (Not Detect) Adenovirus (PCR) (Not Detect) B. pertussis DNA (PCR) (Not Detect) B.parapertussis DNA PCR (Not Detect) Coronavirus OC43 (PCR) (Not Detect) Coronavirus HKU1 (PCR) (Not Detect) Coronavirus 229E (PCR) (Not Detect) Coronavirus NL63 (PCR) (Not Detect) U Histopl Galactoman Ag NOT DETECTED ng/mL U Histopl Galact Ant Int NOT DETECTED (Not Detected) HIV Ag/Ab Combo Qual Nonreactive (Nonreactive) Human Metapneumovir PCR (Not Detect) Influenza A (H1) PCR (Not Detect) Influ A (H1N1/09) PCR (Not Detect) Influenza A (H3) PCR (Not Detect) Influenza A Untype (PCR) (Not Detect) Influenza Type B (PCR) (Not Detect) M.pneumoniae DNA (PCR) (Not Detect) Parainfluenza 1 (PCR) (Not Detect) Parainfluenza 2 (PCR) (Not Detect) Parainfluenza 3 (PCR) (Not Detect) Parainfluenza 4 (PCR) (Not Detect) A. galactomannan Ag NEGATIVE (Negative) A. galactomannan Ag Idx 0.03 RSV (PCR) (Not Detect) Entero/Rhino (PCR) (Not Detect) Beta-(1,3)-D-Glucan pg/mL B-(1,3)-D-Glucan Intrp (Negative) 12/26/17 12/24/17 12/24/17 Range/Units 15:40 15:50 15:50 Nasal Screen MRSA (PCR) Negative (Negative) Stl C. cayetanensis PCR (Not detect) Stool Rotavirus A PCR (Not detect) Stl Adenov F 40/41 PCR (Not detect) Stool Astrovirus (PCR) (Not detect) Stool Campylobacter PCR (Not detect) Stl C. diff Tox B Gene (Negative) Stl C. diff Tox A/B PCR (Not detect) Stool Cryptosporidium PCR (Not detect) Stl Sh Tox Pr E STEC PCR (Not detect) Stool E coli O157 PCR (Not detect) Stl Enterotoxigenic E PCR (Not detect) Stool EPEC (PCR) (Not detect) Stool EAEC (PCR) (Not detect) Stl E. histolytica PCR (Not detect) Stool Giardia Lamblia PCR (Not detect) Stool Salmonella PCR (Not detect) Stool Sapovirus (PCR) (Not detect) Stl P. shigelloides PCR (Not detect) Stl Shigella/EIEC PCR (Not detect) St Y.enterocolitica PCR (Not detect) Stool Vibrio (PCR) (Not detect) Stl Vibrio cholerae PCR (Not detect) Stl Norovirus GI/GII PCR (Not detect) Stl GI Panel (PCR) Com Chlamy pneumoniae PCR Not Detected (Not Detect) Adenovirus (PCR) Not Detected (Not Detect) B. pertussis DNA (PCR) Not Detected (Not Detect) B.parapertussis DNA PCR Not Detected (Not Detect) Coronavirus OC43 (PCR) Not Detected (Not Detect) Coronavirus HKU1 (PCR) Not Detected (Not Detect) Coronavirus 229E (PCR) Not Detected (Not Detect) Coronavirus NL63 (PCR) Not Detected (Not Detect) U Histopl Galactoman Ag ng/mL U Histopl Galact Ant Int (Not Detected) HIV Ag/Ab Combo Qual (Nonreactive) Human Metapneumovir PCR Not Detected (Not Detect) Influenza A (H1) PCR Not Detected (Not Detect) Influ A (H1N1/09) PCR Not Detected (Not Detect) Influenza A (H3) PCR Not Detected (Not Detect) Influenza A Untype (PCR) Not Detected (Not Detect) Influenza Type B (PCR) Not Detected (Not Detect) M.pneumoniae DNA (PCR) Not Detected (Not Detect) Parainfluenza 1 (PCR) Not Detected (Not Detect) Parainfluenza 2 (PCR) Not Detected (Not Detect) Parainfluenza 3 (PCR) Not Detected (Not Detect) Parainfluenza 4 (PCR) Not Detected (Not Detect) A. galactomannan Ag (Negative) A. galactomannan Ag Idx RSV (PCR) Not Detected (Not Detect) Entero/Rhino (PCR) Not Detected (Not Detect) Beta-(1,3)-D-Glucan 233 pg/mL B-(1,3)-D-Glucan Intrp POSITIVE A (Negative) 12/23/17 12/21/17 Range/Units 22:00 16:20 Nasal Screen MRSA (PCR) (Negative) Stl C. cayetanensis PCR Not detected (Not detect) Stool Rotavirus A PCR Not detected (Not detect) Stl Adenov F 40/41 PCR Not detected (Not detect) Stool Astrovirus (PCR) Not detected (Not detect) Stool Campylobacter PCR Not detected (Not detect) Stl C. diff Tox B Gene Negative (Negative) Stl C. diff Tox A/B PCR Not detected (Not detect) Stool Cryptosporidium PCR Not detected (Not detect) Stl Sh Tox Pr E STEC PCR Not detected (Not detect) Stool E coli O157 PCR Not detected (Not detect) Stl Enterotoxigenic E PCR Not detected (Not detect) Stool EPEC (PCR) Not detected (Not detect) Stool EAEC (PCR) Not detected (Not detect) Stl E. histolytica PCR Not detected (Not detect) Stool Giardia Lamblia PCR Not detected (Not detect) Stool Salmonella PCR Not detected (Not detect) Stool Sapovirus (PCR) Not detected (Not detect) Stl P. shigelloides PCR Not detected (Not detect) Stl Shigella/EIEC PCR Not detected (Not detect) St Y.enterocolitica PCR Not detected (Not detect) Stool Vibrio (PCR) Not detected (Not detect) Stl Vibrio cholerae PCR Not detected (Not detect) Stl Norovirus GI/GII PCR Not detected (Not detect) Stl GI Panel (PCR) Com See below Chlamy pneumoniae PCR (Not Detect) Adenovirus (PCR) (Not Detect) B. pertussis DNA (PCR) (Not Detect) B.parapertussis DNA PCR (Not Detect) Coronavirus OC43 (PCR) (Not Detect) Coronavirus HKU1 (PCR) (Not Detect) Coronavirus 229E (PCR) (Not Detect) Coronavirus NL63 (PCR) (Not Detect) U Histopl Galactoman Ag ng/mL U Histopl Galact Ant Int (Not Detected) HIV Ag/Ab Combo Qual (Nonreactive) Human Metapneumovir PCR (Not Detect) Influenza A (H1) PCR (Not Detect) Influ A (H1N1/09) PCR (Not Detect) Influenza A (H3) PCR (Not Detect) Influenza A Untype (PCR) (Not Detect) Influenza Type B (PCR) (Not Detect) M.pneumoniae DNA (PCR) (Not Detect) Parainfluenza 1 (PCR) (Not Detect) Parainfluenza 2 (PCR) (Not Detect) Parainfluenza 3 (PCR) (Not Detect) Parainfluenza 4 (PCR) (Not Detect) A. galactomannan Ag (Negative) A. galactomannan Ag Idx RSV (PCR) (Not Detect) Entero/Rhino (PCR) (Not Detect) Beta-(1,3)-D-Glucan pg/mL B-(1,3)-D-Glucan Intrp (Negative) - Impressions Impressions Videofluoroscopic Swallow 12/31/17 15:11 IMPRESSION: Shallow laryngeal penetration with thin liquids as well as nectar thickened liquids. No convincing penetration with honey thickened liquids. Please see separate speech pathology report for full discussion of findings and recommendations. D/ / Victoriano Bender MD / Victoriano Bender MD Interpreting Provider: Victoriano Bender MD Exam - Constitutional Vitals: Temp Pulse Resp BP Pulse Ox 98.1 F 96 18 123/81 95 01/01/18 07:38 01/01/18 07:38 01/01/18 07:38 01/01/18 07:38 01/01/18 07:38 General appearance: average body habitus, cooperative, no acute distress - Head Head exam: Present: atraumatic, normal inspection, normocephalic - Eye Eye exam: Present: EOMI, normal appearance, PERRL Pupils: Present: normal accommodation - ENT ENT exam: Present: mucous membranes moist - Neck Neck exam: Present: normal inspection - Respiratory Respiratory exam: Present: CTAB. Absent: rales, respiratory distress, rhonchi, wheezes - Cardiovascular Cardiovascular exam: Present: +S1, +S2, tachycardia. Absent: irregular rhythm - GI/Abdominal GI/Abdominal exam: Present: normal bowel sounds, soft. Absent: distended, tenderness - Extremities Exam Extremities exam: Present: normal inspection. Absent: joint swelling, pedal edema, tenderness - Neurological Exam Neurological exam: Present: alert, oriented X3, no focal deficits, speech deficit (Garbled) - Psychiatric Psychiatric exam: Present: normal affect, normal mood - Skin Skin exam: Present: dry, intact, normal color, warm Consult Discharge Plan - Plan Instructions: Acute Nausea and Vomiting (ED), Abdominal Pain (ED) Additional Instructions: Patient needs admission. He has nausea / vomiting , abdominal pain ,high WBC count, CT scan shows dilated small bowel loops & suspected small bowel obstruction. Referrals: [facility]Primary Care Provider[facility] - 01/09/18 10:30 am - Attending Attestation I examined this patient and my medical decision-making was reviewed with the Resident Physician. I agree with the documented findings, disposition and treatment plan as described except to the extent set forth below.
[2018-01-01 12:21] LABS: Bilirubin,Urine Negative (Negative); Blood,Urine Small (Negative); Clarity,Urine Clear (Clear); Color,Urine Yellow (Yellow); Glucose,Urine (UA) Normal (Normal); Ketones,Urine Negative (Negative); Leukocyte Esterase,Urine Negative (Negative); Nitrite,Urine Negative (Negative); Protein,Urine Negative (Neg-Trace); Specific Gravity,Urine 1.023 (1.010-1.025); Urobilinogen,Urine Normal (Normal)
[2018-01-01 12:24] LABS: Bacteria,Urine None Seen per hpf (None-Few); Hyaline Casts,Urine None Seen per lpf (None-Few); Squamous Epithelial Cell,Urine None Seen per lpf (None-Few); WBC,Urine 0-3 per hpf (0-3)
[2018-01-01] MEDS ORDERED: cloZAPine 25 MG TABLET PO SCH (15:00)
[2018-01-02] MEDS: Ipratropium/Albuterol Neb 3 ML IH SCH ×6 (07:30→23:26)
[2018-01-02 11:28] LABS: Basophils % 0.1 %; Eosinophils # 0.1 K/mcL (0.0-0.6); Eosinophils % 1.2 %; Hematocrit 32.3 % (37.5-50.1); Hemoglobin 10.3 g/dL (12.9-16.9); Immature Granulocytes % 1.2 % (0-4); Lymphocytes # 1.5 K/mcL (0.6-4.6); Lymphocytes % 13.9 %; Mean Corpuscular HGB Conc 31.9 g/dL (31.6-35.5); Mean Corpuscular Volume 94.2 fL (83.0-100.0); Mean Platelet Volume 10.4 fL (9.4-12.4); Monocytes # 0.9 K/mcL (0.0-1.3); Monocytes % 8.3 %; Neutrophils # 8.3 K/mcL (1.6-8.9); Platelet Count 614 K/mcL (140-400); Red Blood Count 3.43 M/mcL (4.19-5.50); Segmented Neutrophils % 75.3 %
--- NOTE | 2018-01-02 12:14 | Internal Med Progress Note ---
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 (4) Gastric ulcer Current Visit: Yes Status: Acute (5) Pneumonia Current Visit: Yes Status: Acute (6) Acute respiratory failure with hypoxia Current Visit: Yes Status: Acute (7) Diarrhea Current Visit: Yes Status: Resolved - Time Spent with Patient Total time spent is greater than 50% in coordination of care (as documented) at patient's floor/unit and/or counseling patient: Internal Medicine: Result - Labs CBC & Chem 7: 01/02/18 04:07 01/02/18 04:07 Labs: Short CBC 01/02/18 Range/Units 04:07 WBC 11.0 (4.3-11.1) K/mcL Hgb 10.3 L (12.9-16.9) g/dL Hct 32.3 L (37.5-50.1) % Plt Count 614 H (140-400) K/mcL Neutrophils # 8.3 (1.6-8.9) K/mcL BMP 01/02/18 04:07 Sodium 141 Potassium 4.1 Chloride 103 Carbon Dioxide 32 H BUN 37 H Creatinine 1.54 H Glucose 111 H Calcium 9.1 - ABG Interpretation ABG results: ABG ABG pH 7.47 pH Units (7.32-7.45) H 12/24/17 14:57 ABG pCO2 41 mmHg (35-45) 12/24/17 14:57 ABG pO2 51 mmHg (85-104) L 12/24/17 14:57 ABG O2 Saturation 88 % (95-98) L 12/24/17 14:57 PT/INR, D-dimer PT 16.7 Seconds (9.4-12.1) H D 12/16/17 18:08 - Impressions Impressions Chest X-Ray 01/01/18 08:00 IMPRESSION: Bilateral diffuse airspace disease seen to be present slightly improved from the prior exam. Small bilateral effusions. Age-indeterminate compression fracture of approximately the T6 vertebral body. D/ / 01/01/2018 13:04:50 Gregg Torres MD / alejandro Interpreting Provider: Gregg Torres MD Consult Discharge Plan - Plan Instructions: Acute Nausea and Vomiting (ED), Abdominal Pain (ED) Additional Instructions: Patient needs admission. He has nausea / vomiting , abdominal pain ,high WBC c ount, CT scan shows dilated small bowel loops & suspected small bowel obstruction. [facility]: [facility] Provider[facility] - 01/09/18 10:30 am - Attending Attestation I examined this patient and my medical decision-making was reviewed with the [facility] Phys[facility] Dr Gonzalez. I agree with the documented findings, disposition and treatment plan as described except to the extent set forth below/addl details below. Mr Johnson was admitted with SBO, he was being treated for pna, developed ARDS with concern for aspiration pna given his mental status related to Schizophrenia. He remains on high flow O2 with Pulm following. On admission his home clozaril had to be held and [place] psychiatry has been following along with him with instruction regarding uptitrating the medication which has been occurring throughout admission. MBS showed some silent aspiration and HIGHWAY MAINTENANCE TECHNICIAN following patient. Pulm and ID cont to follow. Overall he has shown poor resp status improvement with inability to wean to consistently wean from high flow oxygen. Awake, alert, admits to sometimes feeling sob. Denies cough, chest pain, fevers, chills. limited ros and hpi given schizophrenia. gen- alert, awake,appears stated age eyes- pupils equal round , eom intact cv- reg rate and rhythm, normal s1,s2, no murmurs appreciated, no le edema, no jvd lungs- ctabl, diminshed bl bases, no rhonchi , faint expiratory wheezing posteriorly today, normal resp effort on high flow O2 nc abd- soft, non tender, non distended, + bs neuro- AAOxperson, hospital setting Acute REsp FAilure with Hypoxia suspected to be 2/2 pna -high flow o2 weaning as below with little improvement -unable to obtain cta chest given kidney function, pulm considered vq scan to rule out PE but given pt schizophrenia and unable to lie still and follow instruction for scan, it was decided not to do -high flow o2 will limit where he can dispo to and CM is beginning to investigate potential dispos for him -01/02 mild sinus tachy and worsening creat- HOLD lasix for today, re eval in am high flow o2 rate 35 fio2 Pneumonia,aspiration -pulm and ID following, framework developer was consulted when I began service, and are now following, MBS done and requires mechanical soft diet and honey thickened liquids as was silently aspirating, has been on abx for >14 days and still requiring high flow o2, no plan for bronch at this time as per pulm, cont nebs, steroids -need to clarify further inpt requirements with Pulm and ID then discuss with guardian as he has not significantly improved in some time -as per ID holding further abx and monitoring, thus far no fevers or wbc elevation, resp status remains stable. -01/01 CXR mild bl diffuse airspace disease improvement Schizophrenia, stable -psych following and med adjustments, including clozaril uptitration as per their recs DONTE- cont to trend, has been uptrending in recent days, ua neg for infection or protein, monitor for retention, renal dose meds, avoid nephro toxins, dc 40 mg lasix for today as tachy and creat uptrending, will have to eval daily as his resp status has very slowly improved with diuresis OF NOTE: guardian is choker setter Wesley, not pt sister. His contact info is [phone] and [phone] notes she was contacted by [place] regarding possible transfer to [facility] <Jb Gonzalez - Last Filed: 01/02/18 14:20> Hospitalist Progress Note - Encounter Date of Encounter: 01/02/18 Time of Encounter: 12:14 - Subjective Interval History: Mr. Johnson is a 67M with PMH of gastric ulcer from H pylori, HTN, and catatonic schizophrenia. He was admitted on 12/14 for small bowel obstruction. He was started on empirical antibiotic for sepsis and NG tube was placed. His nausea vomiting improved, and he has had multiple bowel movements. NG tube was removed. Pt tolerating diet well, but has to be on restriction because of mentation. Continued diarrhea and incontinence. His respiratory status began to decline on 12/21. IV Vanc was added to the Zosyn already on board. Repeat CXR on 12/21 reveal ed opacities of both lungs suspicious for PNA. On 12/24 pt's SpO2 began dropping into the low 80s despite high flow O2 via oxy mask, and breathing agonal. Repeat CXR on 12/24 revealed worsening bilateral opacities concerning for multifocal PNA vs ARDS. He was transferred to the ICU for further management of acute respiratory failure, but did not require intubation. He was then transferred to the step-down unit. Attempts have been made to wean off high flow O2, but at times pt will remove mask/cannula and will desat again. Seen and examined at bedside. Resting comfortably in bed. Patient is alert, awake and oriented to place, time, and person. States his breathing is ok, but that he is still coughing. No sputum production. Denies nausea, or vomiting. States he is having normal bowel movements. No fever, chills, chest pain, headache, numbness, or tingling. - Exam Vitals: Temp Pulse Resp BP Pulse Ox 97.6 F 103 16 106/66 91 01/01/18 22:56 01/01/18 22:56 01/01/18 23:31 01/01/18 22:56 01/01/18 23:31 Exam: General: alert male. no acute distress Head: normocephalic and atraumatic Neck: supple, trachea midline, no lymphadeopathy Lungs: CTAB. non-labored breathing on Sapphire. No wheezes, rales or rhonchi noted. Heart: RRR +S1 +S2. no murmurs, clicks, or rubs appreciated. Abdomen: soft, non-tender, non-distended. normoactive bowel sounds Extremities: radial pulses palpable and symmetrical. No edema or cyanosis. Neuro: A&Ox3. no speech difficulty or abnormality Skin: warm, dry, intact. - Assessment and Plan (1) Acute respiratory failure with hypoxia Current Visit: Yes Status: Acute Assessment and Plan: Likely adverse reaction to Ativan with concomitant pneumonia on 12/24 Improved Pulm on board Per pulm, try transition from Sapphire nasal cannula to regular nasal cannula. Will trial to decrease O2 (2) Acute kidney injury Current Visit: Yes Status: Resolved Assessment and Plan: BUN and Cr 42 and 1.88 on admission improved with IV hydration BUN and Cr trended to normal, but increased again starting on 12/26 BUN and Cr - 37 and 1.54 today Likely secondary to sepsis and/or Vanc related Vanc discontinued yesterday Hold off on further diuresis, discussed with pulm Continue to trend kidney functions May consider nephro consult if kidney functions continue to worsen Will hold off on IVF at this time with recent ARDS type picture (3) Pneumonia Current Visit: Yes Status: Acute Assessment and Plan: CXR on 12/15 showed infiltrates/consolidations more on the right side Was on Zosyn for 5.5 days, followed by Augmentin for 1.5 days Continues to experience cough Suspect may be some aspiration component with pt's speech and mentation WBC remains elevated at 13.4 today, but receiving Solumedrol 40mg BID Afebrile HR normal non-tachypnic Pulm and ID on board Pulm has elected to hold off on bronchoscopy at this time MBS revealed shallow laryngeal penetration with thin liquids and nectar thickened liquids. 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 Tomorrow will increase night dose to 125mg. (5) Small bowel obstruction Current Visit: Yes Status: Resolved Assessment and Plan: Resolved Small bowel follow through was normal with contrast seen in rectum at 4 hours Tolerating regular diet, has to be on restrictions due to mentation Tolerating po meds Tolerating regular diet (6) Gastric ulcer Current Visit: Yes Status: Acute Assessment and Plan: Continue PPI (7) Diarrhea Current Visit: Yes Status: Resolved Assessment and Plan: Pt has experienced watery diarrhea since resolution of SBO on 12/19 Hemooccult negative on 12/14 C diff Tox B screen negative on 12/21 GI panel on 12/23 negative Likely not infectious May be associated with abx Experiencing formed bowel movements after 2mg loperamide 12/26, which slowly returned to diarrhea Received 2mg Loperamide on 12/30 as well with no further diarrhea Continue Culturelle Aquaphor/Maalox for raw rectum due to frequent diarrhea May give another dose of loperamide of diarrhea resumes DVT Prophylaxis: SQ Heparin - Time Spent with Patient Total time spent is greater than 50% in coordination of care (as documented) at patient's floor/unit and/or counseling patient: Internal Medicine: Result - Labs CBC & Chem 7: 01/02/18 04:07 01/02/18 04:07 Labs: Short CBC 01/02/18 Range/Units 04:07 WBC 11.0 (4.3-11.1) K/mcL Hgb 10.3 L (12.9-16.9) g/dL Hct 32.3 L (37.5-50.1) % Plt Count 614 H (140-400) K/mcL Neutrophils # 8.3 (1.6-8.9) K/mcL Urine 12/31/17 Range/Units 12:02 Urine Color Yellow (Yellow) Urine Clarity Clear (Clear) Urine pH 7.0 (5.0-8.0) pH Units Ur Specific [place] 1.023 (1.010-1.025) Urine Protein Negative (Neg-Trace) mg/dL Urine Glucose (UA) Normal (Normal) mg/dL - ABG Interpretation ABG results: ABG ABG pH 7.47 pH Units (7.32-7.45) H 12/24/17 14:57 ABG pCO2 41 mmHg (35-45) 12/24/17 14:57 ABG pO2 51 mmHg (85-104) L 12/24/17 14:57 ABG O2 Saturation 88 % (95-98) L 12/24/17 14:57 PT/INR, D-dimer PT 16.7 Seconds (9.4-12.1) H D 12/16/17 18:08 - Impressions Impressions Chest X-Ray 01/01/18 08:00 IMPRESSION: Bilateral diffuse airspace disease seen to be present slightly improved from the prior exam. Small bilateral effusions. Age-indeterminate compression fracture of approximately the T6 vertebral body. D/ / 01/01/2018 13:04:50 Gregg Torres MD / swalters Interpreting Provider: Gregg Torres <Jb Gonzalez - Last Filed: 01/02/18 14:20> (3) Pneumonia Qualifiers: Pneumonia type: due to unspecified organism Laterality: bilateral Lung location: unspecified part of lung Qualified Code(s): J18.9 - Pneumonia, unspecified organism (6) Gastric ulcer Qualifiers: Gastric ulcer chronicity: chronic Gastric ulcer complication status: without hemorrhage or perforation Qualified Code(s): K25.7 - Chronic gastric ulcer without hemorrhage or perforation (7) Diarrhea Qualifiers: Diarrhea type: unspecified type Qualified Code(s): R19.7 - Diarrhea, unspec ified
[2018-01-02 12:22] LABS: Calcium 9.1 mg/dL (8.6-10.3); Potassium 4.1 mEq/L (3.5-5.1)
--- NOTE | 2018-01-02 13:16 | Infectious Disease Progress No ---
Date of Encounter: 01/02/18 Time of Encounter: 09:30 - Assessment and Plan (1) Sepsis Current Visit: Yes Status: Resolved On admission, the patient had severe sepsis with DONTE, troponin leak, and lactic acidosis. Likely secondary to intra-abdominal process including SBO and aspiration PNA. Improved. WBC normal. Blood cultures drawn 12/16/17 are negative x 2 sets. Repeat blood cultures drawn 12/24/17 x 2 sets are negative. Clinically, the patient has improved. Sepsis has resolved. No further recommendations from the ID team. We will sign off. Please re-consult if needed. Qualifiers: Sepsis type: sepsis due to unspecified organism Qualified Code(s): A41.9 - Sepsis, unspecified organism (2) Aspiration pneumonia Current Visit: Yes Status: Acute Causative organism unclear. Chest x-ray on admission was negative for pneumonia, but repeat chest x-ray 12/15/17 showed new patchy interstitial and/or airspace opacities in the mid to lower right lung, potentially developing pneumonia. Repeat CXR 12/24/17 showed increasing air space opacities now diffusely involving both lungs which can be seen in the setting of multifocal pneumonia, vascular congestion, ARDS, and/or atelectasis. Given the patient's altered mental status, high concern for aspiration. Nasal MRSA screen was negative. Strep pneumococcal and legionella urinary antigens are negative. Respiratory infectious panel is negative. Repeat CT chest 12/26/17 Bilateral multi lobar ground-glass opacities with intra lobular septal thickening and nodular masslike consolidations in the left and right lower lobe. Differential includes multilobar pneumonia, ARDS, and hype rsensitivity pneumonitis. Pulmonology notes reviewed. Discussed bronch with the patient's POA, but have decided to hold off for now. Feel that this is likely PNA + edema. Repeat CXR showed persistent bilateral airspace disease. Pulmonology recommendations noted. MUSICAL ENGINEER evaluation noted. Repeat CXR showed improvement. Completed 12 days of Vancomycin and 18 days of Zosyn. Discontinue antibiotics and observe. Qualifiers: Aspiration pneumonia type: unspecified Laterality: right Lung location: middle lobe of lung Qualified Code(s): J69.0 - Pneumonitis due to inhalation of food and vomit (3) Acute respiratory failure with hypoxia Current Visit: Yes Status: Acute Likely secondary to adverse reaction to Ativan and pneumonia and ARDS. Appears improved, but still requiring high flow O2. Pulmonology consulted. Further management per the pulmonology and primary teams. (4) Small bowel obstruction Current Visit: Yes Status: Resolved Seems improved clinically, but most recent imaging on 12/20/17 showed no significant change in the findings were still consistent with a partial small bowel obstruction. Gen. surgery was consulted but is signed off. The patient appears to tolerating a clear liquid diet. CT of the abdomen and pelvis showed improvement in the SBO. (5) Acute kidney injury Current Visit: Yes Status: Resolved Likely secondary sepsis. Creatinine back up a little today. Continue to trend serum creatinine. Avoid nephrotoxins. Does adjust medications. Consider nephrology to evaluate if it doesn't improve. 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 (7) Diarrhea Current Visit: Yes Status: Resolved Etiology unclear: antibiotics vs. other. GI panel negative. Continue probiotics. Qualifiers: Diarrhea type: unspecified type Qualified Code(s): R19.7 - Diarrhea, unspecified - Subjective Interval history: Patient seen and examined. No acute events noted overnight. Speech remains garbled, but alert and follows commands and is somewhat easier to understand. Denies pain or shortness of breath. Denies nausea, vomiting, or abdominal pain. Failed MBS. MUSICAL ENGINEER recommended thickened liquids and advanced soft textures. Still requiring high flow O2. Infect Dis PN-Objective Data - Labs CBC & Chem 7: 01/03/18 03:23 01/03/18 03:23 Labs: Laboratory Results - last 24 hr 01/02/18 01/02/18 04:07 04:07 WBC 11.0 RBC 3.43 L Hgb 10.3 L Hct 32.3 L MCV 94.2 MCH 30.0 MCHC 31.9 RDW 14.0 Plt Count 614 H MPV 10.4 Immature Gran % 1.2 Seg Neutrophils % 75.3 Lymphocytes % 13.9 Monocytes % 8.3 Eosinophils % 1.2 Basophils % 0.1 Neutrophils # 8.3 Lymphocytes # 1.5 Monocytes # 0.9 Eosinophils # 0.1 Basophils # 0.0 Immature Plt Fraction 1.0 L Sodium 141 Potassium 4.1 Chloride 103 Carbon Dioxide 32 H BUN 37 H Creatinine 1.54 H Est GFR ( Amer) 55 L Est GFR (Non-Af Amer) 45 L BUN/Creatinine Ratio 24 Glucose 111 H Calculated Osmolality 301 H Calcium 9.1 Cultures: Cultures 12/24/17 16:20 Blood Culture - Final Peripheral Venipuncture No growth. Final report. 12/24/17 16:20 Blood Culture - Final Peripheral Venipuncture No growth. Final report. 12/25/17 10:23 Legionella Antigen - Final Urine,Clean Catch Streptococcus pneumoniae Antigen (M - Final 12/16/17 13:35 Blood Culture - Final Peripheral Venipuncture No growth. Final report. 12/16/17 13:35 Blood Culture - Final Peripheral Venipuncture No growth. Final report. Serology 12/31/17 12/30/17 12/27/17 Range/Units 12:02 14:11 13:40 Urine Color Yellow (Yellow) Urine Clarity Clear (Clear) Urine pH 7.0 (5.0-8.0) pH Units Ur Specific Spencer 1.023 (1.010-1.025) Urine Protein Negative (Neg-Trace) mg/dL Urine Glucose (UA) Normal (Normal) mg/dL Urine Ketones Negative (Negative) mg/dL Urine Blood Small H (Negative) Urine Nitrite Negative (Negative) Urine Bilirubin Negative (Negative) Urine Urobilinogen Normal (Normal) mg/dL Ur Leukocyte Esterase Negative (Negative) Urine Microscopic RBC 5-15 H (0-3) per hpf Urine Microscopic WBC 0-3 (0-3) per hpf Ur Squamous Epith Cells None Seen (None-Few) per lpf Urine Bacteria None Seen (None-Few) per hpf Hyaline Casts None Seen (None-Few) per lpf Ur Culture Indicated? NO (NO) Nasal Screen MRSA (PCR) (Negative) Stool Occult Bld Scrn (Negative) Stl C. cayetanensis PCR (Not detect) Stool Rotavirus A PCR (Not detect) Stl Adenov F 40/41 PCR (Not detect) Stool Astrovirus (PCR) (Not detect) Stool Campylobacter PCR (Not detect) Stl C. diff Tox B Gene (Negative) Stl C. diff Tox A/B PCR (Not detect) Stool Cryptosporidium PCR (Not detect) Stl Sh Tox Pr E STEC PCR (Not detect) Stool E coli O157 PCR (Not detect) Stl Enterotoxigenic E PCR (Not detect) Stool EPEC (PCR) (Not detect) Stool EAEC (PCR) (Not detect) Stl E. histolytica PCR (Not detect) Stool Giardia Lamblia PCR (Not detect) Stool Salmonella PCR (Not detect) Stool Sapovirus (PCR) (Not detect) Stl P. shigelloides PCR (Not detect) Stl Shigella/EIEC PCR (Not detect) St Y.enterocolitica PCR (Not detect) Stool Vibrio (PCR) (Not detect) Stl Vibrio cholerae PCR (Not detect) Stl Norovirus GI/GII PCR (Not detect) Stl GI Panel (PCR) Com Chlamy pneumoniae PCR (Not Detect) Adenovirus (PCR) (Not Detect) B. pertussis DNA (PCR) (Not Detect) B.parapertussis DNA PCR (Not Detect) Coronavirus OC43 (PCR) (Not Detect) Coronavirus HKU1 (PCR) (Not Detect) Coronavirus 229E (PCR) (Not Detect) Coronavirus NL63 (PCR) (Not Detect) U Histopl Galactoman Ag NOT DETECTED ng/mL U Histopl Galact Ant Int NOT DETECTED (Not Detected) HIV Ag/Ab Combo Qual Nonreactive (Nonreactive) Human Metapneumovir PCR (Not Detect) Influenza A (H1) PCR (Not Detect) Influ A (H1N1/09) PCR (Not Detect) Influenza A (H3) PCR (Not Detect) Influenza A Untype (PCR) (Not Detect) Influenza Type B (PCR) (Not Detect) M.pneumoniae DNA (PCR) (Not Detect) Parainfluenza 1 (PCR) (Not Detect) Parainfluenza 2 (PCR) (Not Detect) Parainfluenza 3 (PCR) (Not Detect) Parainfluenza 4 (PCR) (Not Detect) A. galactomannan Ag (Negative) A. galactomannan Ag Idx RSV (PCR) (Not Detect) Entero/Rhino (PCR) (Not Detect) Beta-(1,3)-D-Glucan pg/mL B-(1,3)-D-Glucan Intrp (Negative) 12/26/17 12/26/17 12/24/17 Range/Units 15:40 15:40 15:50 Urine Color (Yellow) Urine Clarity (Clear) Urine pH (5.0-8.0) pH Units Ur Specific Spencer (1.010-1.025) Urine Protein (Neg-Trace) mg/dL Urine Glucose (UA) (Normal) mg/dL Urine Ketones (Negative) mg/dL Urine Blood (Negative) Urine Nitrite (Negative) Urine Bilirubin (Negative) Urine Urobilinogen (Normal) mg/dL Ur Leukocyte Esterase (Negative) Urine Microscopic RBC (0-3) per hpf Urine Microscopic WBC (0-3) per hpf Ur Squamous Epith Cells (None-Few) per lpf Urine Bacteria (None-Few) per hpf Hyaline Casts (None-Few) per lpf Ur Culture Indicated? (NO) Nasal Screen MRSA (PCR) (Negative) Stool Occult Bld Scrn (Negative) Stl C. cayetanensis PCR (Not detect) Stool Rotavirus A PCR (Not detect) Stl Adenov F 40/41 PCR (Not detect) Stool Astrovirus (PCR) (Not detect) Stool Campylobacter PCR (Not detect) Stl C. diff Tox B Gene (Negative) Stl C. diff Tox A/B PCR (Not detect) Stool Cryptosporidium PCR (Not detect) Stl Sh Tox Pr E STEC PCR (Not detect) Stool E coli O157 PCR (Not detect) Stl Enterotoxigenic E PCR (Not detect) Stool EPEC (PCR) (Not detect) Stool EAEC (PCR) (Not detect) Stl E. histolytica PCR (Not detect) Stool Giardia Lamblia PCR (Not detect) Stool Salmonella PCR (Not detect) Stool Sapovirus (PCR) (Not detect) Stl P. shigelloides PCR (Not detect) Stl Shigella/EIEC PCR (Not detect) St Y.enterocolitica PCR (Not detect) Stool Vibrio (PCR) (Not detect) Stl Vibrio cholerae PCR (Not detect) Stl Norovirus GI/GII PCR (Not detect) Stl GI Panel (PCR) Com Chlamy pneumoniae PCR Not Detected (Not Detect) Adenovirus (PCR) Not Detected (Not Detect) B. pertussis DNA (PCR) Not Detected (Not Detect) B.parapertussis DNA PCR Not Detected (Not Detect) Coronavirus OC43 (PCR) Not Detected (Not Detect) Coronavirus HKU1 (PCR) Not Detected (Not Detect) Coronavirus 229E (PCR) Not Detected (Not Detect) Coronavirus NL63 (PCR) Not Detected (Not Detect) U Histopl Galactoman Ag ng/mL U Histopl Galact Ant Int (Not Detected) HIV Ag/Ab Combo Qual (Nonreactive) Human Metapneumovir PCR Not Detected (Not Detect) Influenza A (H1) PCR Not Detected (Not Detect) Influ A (H1N1/09) PCR Not Detected (Not Detect) Influenza A (H3) PCR Not Detected (Not Detect) Influenza A Untype (PCR) Not Detected (Not Detect) Influenza Type B (PCR) Not Detected (Not Detect) M.pneumoniae DNA (PCR) Not Detected (Not Detect) Parainfluenza 1 (PCR) Not Detected (Not Detect) Parainfluenza 2 (PCR) Not Detected (Not Detect) Parainfluenza 3 (PCR) Not Detected (Not Detect) Parainfluenza 4 (PCR) Not Detected (Not Detect) A. galactomannan Ag NEGATIVE (Negative) A. galactomannan Ag Idx 0.03 RSV (PCR) Not Detected (Not Detect) Entero/Rhino (PCR) Not Detected (Not Detect) Beta-(1,3)-D-Glucan 233 pg/mL B-(1,3)-D-Glucan Intrp POSITIVE A (Negative) 12/24/17 12/23/17 12/21/17 Range/Units 15:50 22:00 16:20 Urine Color (Yellow) Urine Clarity (Clear) Urine pH (5.0-8.0) pH Units Ur Specific Spencer (1.010-1.025) Urine Protein (Neg-Trace) mg/dL Urine Glucose (UA) (Normal) mg/dL Urine Ketones (Negative) mg/dL Urine Blood (Negative) Urine Nitrite (Negative) Urine Bilirubin (Negative) Urine Urobilinogen (Normal) mg/dL Ur Leukocyte Esterase (Negative) Urine Microscopic RBC (0-3) per hpf Urine Microscopic WBC (0-3) per hpf Ur Squamous Epith Cells (None-Few) per lpf Urine Bacteria (None-Few) per hpf Hyaline Casts (None-Few) per lpf Ur Culture Indicated? (NO) Nasal Screen MRSA (PCR) Negative (Negative) Stool Occult Bld Scrn (Negative) Stl C. cayetanensis PCR Not detected (Not detect) Stool Rotavirus A PCR Not detected (Not detect) Stl Adenov F 40/41 PCR Not detected (Not detect) Stool Astrovirus (PCR) Not detected (Not detect) Stool Campylobacter PCR Not detected (Not detect) Stl C. diff Tox B Gene Negative (Negative) Stl C. diff Tox A/B PCR Not detected (Not detect) Stool Cryptosporidium PCR Not detected (Not detect) Stl Sh Tox Pr E STEC PCR Not detected (Not detect) Stool E coli O157 PCR Not detected (Not detect) Stl Enterotoxigenic E PCR Not detected (Not detect) Stool EPEC (PCR) Not detected (Not detect) Stool EAEC (PCR) Not detected (Not detect) Stl E. histolytica PCR Not detected (Not detect) Stool Giardia Lamblia PCR Not detected (Not detect) Stool Salmonella PCR Not detected (Not detect) Stool Sapovirus (PCR) Not detected (Not detect) Stl P. shigelloides PCR Not detected (Not detect) Stl Shigella/EIEC PCR Not detected (Not detect) St Y.enterocolitica PCR Not detected (Not detect) Stool Vibrio (PCR) Not detected (Not detect) Stl Vibrio cholerae PCR Not detected (Not detect) Stl Norovirus GI/GII PCR Not detected (Not detect) Stl GI Panel (PCR) Com See below Chlamy pneumoniae PCR (Not Detect) Adenovirus (PCR) (Not Detect) B. pertussis DNA (PCR) (Not Detect) B.parapertussis DNA PCR (Not Detect) Coronavirus OC43 (PCR) (Not Detect) Coronavirus HKU1 (PCR) (Not Detect) Coronavirus 229E (PCR) (Not Detect) Coronavirus NL63 (PCR) (Not Detect) U Histopl Galactoman Ag ng/mL U Histopl Galact Ant Int (Not Detected) HIV Ag/Ab Combo Qual (Nonreactive) Human Metapneumovir PCR (Not Detect) Influenza A (H1) PCR (Not Detect) Influ A (H1N1/09) PCR (Not Detect) Influenza A (H3) PCR (Not Detect) Influenza A Untype (PCR) (Not Detect) Influenza Type B (PCR) (Not Detect) M.pneumoniae DNA (PCR) (Not Detect) Parainfluenza 1 (PCR) (Not Detect) Parainfluenza 2 (PCR) (Not Detect) Parainfluenza 3 (PCR) (Not Detect) Parainfluenza 4 (PCR) (Not Detect) A. galactomannan Ag (Negative) A. galactomannan Ag Idx RSV (PCR) (Not Detect) Entero/Rhino (PCR) (Not Detect) Beta-(1,3)-D-Glucan pg/mL B-(1,3)-D-Glucan Intrp (Negative) 12/14/17 Range/Units 15:22 Urine Color (Yellow) Urine Clarity (Clear) Urine pH (5.0-8.0) pH Units Ur Specific Spencer (1.010-1.025) Urine Protein (Neg-Trace) mg/dL Urine Glucose (UA) (Normal) mg/dL Urine Ketones (Negative) mg/dL Urine Blood (Negative) Urine Nitrite (Negative) Urine Bilirubin (Negative) Urine Urobilinogen (Normal) mg/dL Ur Leukocyte Esterase (Negative) Urine Microscopic RBC (0-3) per hpf Urine Microscopic WBC (0-3) per hpf Ur Squamous Epith Cells (None-Few) per lpf Urine Bacteria (None-Few) per hpf Hyaline Casts (None-Few) per lpf Ur Culture Indicated? (NO) Nasal Screen MRSA (PCR) (Negative) Stool Occult Bld Scrn Negative (Negative) Stl C. cayetanensis PCR (Not detect) Stool Rotavirus A PCR (Not detect) Stl Adenov F 40/41 PCR (Not detect) Stool Astrovirus (PCR) (Not detect) Stool Campylobacter PCR (Not detect) Stl C. diff Tox B Gene (Negative) Stl C. diff Tox A/B PCR (Not detect) Stool Cryptosporidium PCR (Not detect) Stl Sh Tox Pr E STEC PCR (Not detect) Stool E coli O157 PCR (Not detect) Stl Enterotoxigenic E PCR (Not detect) Stool EPEC (PCR) (Not detect) Stool EAEC (PCR) (Not detect) Stl E. histolytica PCR (Not detect) Stool Giardia Lamblia PCR (Not detect) Stool Salmonella PCR (Not detect) Stool Sapovirus (PCR) (Not detect) Stl P. shigelloides PCR (Not detect) Stl Shigella/EIEC PCR (Not detect) St Y.enterocolitica PCR (Not detect) Stool Vibrio (PCR) (Not detect) Stl Vibrio cholerae PCR (Not detect) Stl Norovirus GI/GII PCR (Not detect) Stl GI Panel (PCR) Com Chlamy pneumoniae PCR (Not Detect) Adenovirus (PCR) (Not Detect) B. pertussis DNA (PCR) (Not Detect) B.parapertussis DNA PCR (Not Detect) Coronavirus OC43 (PCR) (Not Detect) Coronavirus HKU1 (PCR) (Not Detect) Coronavirus 229E (PCR) (Not Detect) Coronavirus NL63 (PCR) (Not Detect) U Histopl Galactoman Ag ng/mL U Histopl Galact Ant Int (Not Detected) HIV Ag/Ab Combo Qual (Nonreactive) Human Metapneumovir PCR (Not Detect) Influenza A (H1) PCR (Not Detect) Influ A (H1N1/09) PCR (Not Detect) Influenza A (H3) PCR (Not Detect) Influenza A Untype (PCR) (Not Detect) Influenza Type B (PCR) (Not Detect) M.pneumoniae DNA (PCR) (Not Detect) Parainfluenza 1 (PCR) (Not Detect) Parainfluenza 2 (PCR) (Not Detect) Parainfluenza 3 (PCR) (Not Detect) Parainfluenza 4 (PCR) (Not Detect) A. galactomannan Ag (Negative) A. galactomannan Ag Idx RSV (PCR) (Not Detect) Entero/Rhino (PCR) (Not Detect) Beta-(1,3)-D-Glucan pg/mL B-(1,3)-D-Glucan Intrp (Negative) Exam - Constitutional Vitals: Temp Pulse Resp BP Pulse Ox 97.6 F 103 16 106/66 91 01/01/18 22:56 01/01/18 22:56 01/01/18 23:31 01/01/18 22:56 01/01/18 23:31 General appearance: average body habitus, cooperative, no acute distress - Head Head exam: Present: atraumatic, normal inspection, normocephalic - Eye Eye exam: Present: EOMI, normal appearance, PERRL Pupils: Present: normal accommodation - ENT ENT exam: Present: mucous membranes moist - Neck Neck exam: Present: normal inspection - Respiratory Respiratory exam: Present: CTAB. Absent: rales, respiratory distress, rhonchi, wheezes - Cardiovascular Cardiovascular exam: Present: +S1, +S2, tachycardia. Absent: irregular rhythm - GI/Abdominal GI/Abdominal exam: Present: normal bowel sounds, soft. Absent: distended, tenderness - Extremities Exam Extremities exam: Present: normal inspection. Absent: joint swelling, pedal edema, tenderness - Neurological Exam Neurological exam: Present: alert, oriented X3, no focal deficits, speech deficit (garbled) - Psychiatric Psychiatric exam: Present: normal affect, normal mood - Skin Skin exam: Present: dry, intact, normal color, warm Consult Discharge Plan - Plan Instructions: Acute Nausea and Vomiting (ED), Abdominal Pain (ED) Additional Instructions: Patient needs admission. He has nausea / vomiting , abdominal pain ,high WBC count, CT scan shows dilated small bowel loops & suspected small bowel o bstruction. [facility]: [facility]Primary Care Provider[facility] - 01/09/18 10:30 am - Attending Attestation I examined this patient and my medical decision-making was reviewed with the Resident Physician. I agree with the documented findings, disposition and treatment plan as described except to the extent set forth below.
[2018-01-02] MEDS: *HR* Heparin 5,000 UNIT/ML VIAL SQ SCH ×3 (13:56→22:23)
[2018-01-02] MEDS: MethylPREDNISolone 40 MG/ML VIAL IVP SCH ×2 (13:56→17:13)
[2018-01-02] MEDS: Lactobacillus 1 EACH CAP.SPRINK PO SCH ×2 (13:57→22:23)
[2018-01-02] MEDS: lamoTRIgine 100 MG TABLET PO SCH ×2 (13:57→22:23)
[2018-01-02] MEDS: hydrOXYzine pamoate 25 MG CAPSULE PO SCH ×4 (13:57→22:23)
[2018-01-02] MEDS ORDERED: lamoTRIgine 100 MG TABLET PO ONE (15:07)
[2018-01-02] MEDS ORDERED: hydrOXYzine pamoate 25 MG CAPSULE PO ONE (15:07)
[2018-01-02] MEDS ORDERED: *HR* Heparin 5,000 UNIT/ML VIAL IVP ONE (15:07)
[2018-01-02] MEDS ORDERED: MethylPREDNISolone 40 MG/ML VIAL IVP ONE (15:07)
[2018-01-02] MEDS ORDERED: Ipratropium/Albuterol Neb 3 ML IH ONE ×2 (15:07)
[2018-01-02] MEDS ORDERED: Lactobacillus 1 EACH CAP.SPRINK PO ONE (15:07)
[2018-01-02] MEDS ORDERED: cloZAPine 100 MG TABLET PO ONE (15:07)
[2018-01-02] MEDS: cloZAPine 100 MG TABLET PO SCH (17:13)
[2018-01-02] MEDS ORDERED: cloZAPine 100 MG TABLET PO SCH (21:00)
[2018-01-03] MEDS: Ipratropium/Albuterol Neb 3 ML IH SCH ×6 (03:08→23:39)
[2018-01-03 03:43] LABS: Basophils % 0.1 %; Eosinophils % 0.2 %; Hematocrit 33.3 % (37.5-50.1); Hemoglobin 10.6 g/dL (12.9-16.9); Immature Granulocytes % 0.9 % (0-4); Lymphocytes # 1.2 K/mcL (0.6-4.6); Lymphocytes % 10.2 %; Mean Corpuscular HGB Conc 31.8 g/dL (31.6-35.5); Mean Corpuscular Volume 94.3 fL (83.0-100.0); Mean Platelet Volume 9.1 fL (9.4-12.4); Monocytes # 0.8 K/mcL (0.0-1.3); Monocytes % 6.8 %; Neutrophils # 9.6 K/mcL (1.6-8.9); Platelet Count 557 K/mcL (140-400); Red Blood Count 3.53 M/mcL (4.19-5.50); Red Cell Distribution Width 13.7 % (11.5-14.5); Segmented Neutrophils % 81.8 %
[2018-01-03 03:57] LABS: Calcium 9.1 mg/dL (8.6-10.3); Potassium 4.4 mEq/L (3.5-5.1)
[2018-01-03] MEDS: *HR* Heparin 5,000 UNIT/ML VIAL SQ SCH ×3 (05:21→23:14)
[2018-01-03] MEDS: MethylPREDNISolone 40 MG/ML VIAL IVP SCH ×2 (05:21→17:22)
[2018-01-03] MEDS: hydrOXYzine pamoate 25 MG CAPSULE PO SCH ×4 (07:58→20:36)
[2018-01-03] MEDS: Lactobacillus 1 EACH CAP.SPRINK PO SCH ×2 (07:59→20:36)
[2018-01-03] MEDS: cloZAPine 100 MG TABLET PO SCH ×2 (08:00→17:21)
[2018-01-03] MEDS: lamoTRIgine 100 MG TABLET PO SCH ×2 (08:10→20:37)
--- NOTE | 2018-01-03 08:26 | Internal Med Progress Note ---
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 (4) Gastric ulcer Current Visit: Yes Status: Acute (5) Pneumonia Current Visit: Yes Status: Acute (6) Acute respiratory failure with hypoxia Current Visit: Yes Status: Acute (7) Diarrhea Current Visit: Yes Status: Resolved - Time Spent with Patient Total time spent is greater than 50% in coordination of care (as documented) at patient's floor/unit and/or counseling patient: Internal Medicine: Result - Labs CBC & Chem 7: 01/03/18 03:23 01/03/18 03:23 Labs: Short CBC 01/02/18 01/03/18 Range/Units 04:07 03:23 WBC 11.0 11.7 H (4.3-11.1) K/mcL Hgb 10.3 L 10.6 L (12.9-16.9) g/dL Hct 32.3 L 33.3 L (37.5-50.1) % Plt Count 614 H 557 H (140-400) K/mcL Neutrophils # 8.3 9.6 H (1.6-8.9) K/mcL BMP 01/02/18 01/03/18 04:07 03:23 Sodium 141 140 Potassium 4.1 4.4 Chloride 103 103 Carbon Dioxide 32 H 31 H BUN 37 H 33 H Creatinine 1.54 H 1.44 H Glucose 111 H 118 H Calcium 9.1 9.1 - ABG Interpretation ABG results: ABG ABG pH 7.47 pH Units (7.32-7.45) H 12/24/17 14:57 ABG pCO2 41 mmHg (35-45) 12/24/17 14:57 ABG pO2 51 mmHg (85-104) L 10/09/18 14:57 ABG O2 Saturation 88 % (95-98) L 12/24/17 14:57 PT/INR, D-dimer PT 16.7 Seconds (9.4-12.1) H D 12/16/17 18:08 - Impressions Impressions Chest X-Ray 01/01/18 08:00 IMPRESSION: Bilateral diffuse airspace disease seen to be present slightly improved from the prior exam. Small bilateral effusions. Age-indeterminate compression fracture of approximately the T6 vertebral body. D/ / 01/01/2018 13:04:50 Gregg Torres MD / alejandro Interpreting Provider: Gregg Torres MD Consult Discharge Plan - Plan Instructions: Acute Nausea and Vomiting (ED), Abdominal Pain (ED) Additional Instructions: Patient needs admission. He has nausea / vomiting , abdominal pain ,high WBC count, CT scan shows dilated small bowel loops & suspected small bowel obstruction. [facility] - 01/09/18 10:30 am - Attending Attestation I examined this patient and my medical decision-making was reviewed with the Resident Physician Dr Gonzalez. I agree with the documented findings, disposition and treatment plan as described except to the extent set forth below/addl details below. Mr Johnson was admitted with SBO, he was being treated for pna, developed ARDS with concern for aspiration pna given his mental status related to Schizophrenia. He remains on high flow O2 with Pulm following. On admission his home clozaril had to be held and [facility] has been following along with him with instruction regarding uptitrating the medication which has been occurring throughout admission. MBS showed some silent aspiration and BALLISTIC EXPERT following patient. Pulm and ID cont to follow. Overall he has shown poor resp status improvement with inability to wean to consistently wean from high flow oxygen. Pulm and Id have now both singed off as he has been stable. CYDNEY working with [facility] for placement at [facility]. He is medically stable for dc Awake, alert, "sometimes" sob, no cough, no chest pain. Pleasant. limited ros and hpi given schizophrenia. gen- alert, awake,appears stated age eyes- pupils equal round , eom intact cv- reg rate and rhythm, normal s1,s2, no murmurs appreciated, no le edema, no jvd lungs- ctabl, diminshed bl bases, no rhonchi , fno wheezing, normal resp effort on high flow O2 nc neuro- AAOxperson, hospital setting Acute REsp FAilure with Hypoxia suspected to be 2/2 pna, overall somewhat improved, stable -high flow o2 weaning as able -unable to obtain cta chest given kidney function, pulm considered vq scan to rule out PE but given pt schizophrenia and unable to lie still and follow instruction for scan, it was decided not to do -01/02 mild sinus tachy and worsening creat- HELD lasix for today, re assessing daily for ability to give lasix high flow LPM down to 6 Pneumonia,aspiration -pulm and ID following, parts counter specialist was consulted when I began service, and are now following, MBS done and requires mechanical soft diet and honey thickened liquids as was silently aspirating, has been on abx for >14 days and still requiring high flow o2, no plan for bronch at this time as per pulm, cont nebs, steroids -need to clarify further inpt requirements with Pulm and ID then discuss with guardian as he has not significantly improved in some time -as per ID holding further abx and monitoring, thus far no fevers or significant wbc elevation, resp status remains stable. -01/01 CXR mild bl diffuse airspace disease improvement -pulm has now signed off--HE REQUIRES A 3-4 WEEK TAPER OF STEROIDS ON DC Schizophrenia, stable -psych following and med adjustments, including clozaril uptitration as per their recs DONTE- stable 1.4-1.5 work up has been negative, renal dose meds, avoid nephro toxins to best of ability, lasix as creat permits OF NOTE: guardian is trust and estates attorney Wesley, not pt sister. His contact info is [phone] and [phone] notes she was contacted by [facility] regarding possible transfer to [facility] which is pending he is medically stable for transfer to facility <Jb Gonzalez - Last Filed: 01/03/18 13:56> Hospitalist Progress Note - Encounter Date of Encounter: 01/03/18 Time of Encounter: 09:45 - Subjective Interval History: Mr. Johnson is a 67M with PMH of gastric ulcer from H pylori, HTN, and catatonic schizophrenia. He was admitted on 12/14 for small bowel obstruction. He was started on empirical antibiotic for sepsis and NG tube was placed. His nausea vomiting improved, and he has had multiple bowel movements. NG tube was removed. Pt tolerating diet well, but has to be on restriction because of mentation. Continued diarrhea and incontinence. His respiratory status began to decline on 12/21. IV Vanc was added to the Zosyn already on board. Repeat CXR on 12/21 revealed opacities of both lungs suspicious for PNA. On 12/24 pt's SpO2 began dropping into the low 80s despite high flow O2 via oxy mask, and breathing agonal. Repeat CXR on 12/24 revealed worsening bilateral opacities concerning for multifocal PNA vs ARDS. He was transferred to the ICU for further management of acute respiratory failure, but did not require intubation. He was then transferred to the step-down unit. Attempts have been made to wean off high flow O2, but at times pt will remove mask/cannula and will desat again. However, pt was successfully transitioned to regular NC on 01/02, will attempt to wean oxygen further. Seen and examined at bedside. Resting comfortably in bed. Patient is alert, awake and oriented to place, time, and person. States his breathing is ok, but that he is still coughing with some sputum production. Denies nausea, or vomiting. States he is having normal bowel movements. No fever, chills, chest pain, headache, numbness, or tingling. - Exam Vitals: Temp Pulse Resp BP Pulse Ox 98.7 F 122 30 102/74 95 01/03/18 07:59 01/03/18 07:59 01/03/18 07:59 01/03/18 07:59 01/03/18 07:59 Exam: General: alert male. no acute distress Head: normocephalic and atraumatic Neck: supple, trachea midline, no lymphadeopathy Lungs: CTAB. non-labored breathing. No wheezes, rales or rhonchi noted. Heart: RRR +S1 +S2. no murmurs, clicks, or rubs appreciated. Abdomen: soft, non-tender, non-distended. normoactive bowel sounds Extremities: radial pulses palpable and symmetrical. No edema or cyanosis. Neuro: A&Ox3. no speech difficulty or abnormality Skin: warm, dry, intact. - Assessment and Plan (1) Acute respiratory failure with hypoxia Current Visit: Yes Status: Acute Assessment and Plan: Likely adverse reaction to Ativan with concomitant pneumonia on 12/24 Improved Pulm on board Transitioned successfully to regular NC. Currently satting well on 6lpm O2. Will continue to wean. Per pulm, will require 3-4 weeks steroid taper. Decreased Solumedrol from 40BID to 20BID today. 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 Tomorrow will increase night dose to 150mg. Con tinue to titrate up HS dose to 300mg. (4) Pneumonia Current Visit: Yes Status: Acute Assessment and Plan: CXR on 12/15 showed infiltrates/consolidations more on the right side Was on Zosyn for 5.5 days, followed by Augmentin for 1.5 days Continues to experience cough Suspect may be some aspiration component with pt's speech and mentation WBC remains elevated at 13.4 today, but receiving Solumedrol 40mg BID Afebrile HR normal non-tachypnic Pulm and ID on board Pulm has elected to hold off on bronchoscopy at this time MBS revealed shallow laryngeal penetration with thin liquids and nectar thickened liquids. Completed 18 days total of abx Per ID, discontinue abx and observe Continue Duonebs Continue supplemental O2 Continue to monitor (5) Gastric ulcer Current Visit: Yes Status: Acute Assessment and Plan: Continue PPI (6) Small bowel obstruction Current Visit: Yes Status: Resolved Assessment and Plan: Resolved Small bowel follow through was normal with contrast seen in rectum at 4 hours Tolerating regular diet, has to be on restrictions due to mentation Tolerating po meds Tolerating regular diet (7) Diarrhea Current Visit: Yes Status: Resolved Assessment and Plan: Pt has experienced watery diarrhea since resolution of SBO on 12/19 Hemooccult negative on 12/14 C diff Tox B screen negative on 12/21 GI panel on 12/23 negative Likely not infectious May be associated with abx Experiencing formed bowel movements after 2mg loperamide 12/26, which slowly returned to diarrhea Received 2mg Loperamide on 12/30 as well with no further diarrhea Continue Culturelle Aquaphor/Maalox for raw rectum due to frequent diarrhea May give another dose of loperamide of diarrhea resumes DVT Prophylaxis: SQ Heparin - Time Spent with Patient Total time spent is greater than 50% in coordination of care (as documented) at patient's floor/unit and/or counseling patient: Internal Medicine: Result - Labs CBC & Chem 7: 01/03/18 03:23 01/03/18 03:23 Labs: Short CBC 01/02/18 01/03/18 Range/Units 04:07 03:23 WBC 11.0 11.7 H (4.3-11.1) K/mcL Hgb 10.3 L 10.6 L (12.9-16.9) g/dL Hct 32.3 L 33.3 L (37.5-50.1) % Plt Count 614 H 557 H (140-400) K/mcL Neutrophils # 8.3 9.6 H (1.6-8.9) K/mcL BMP 01/02/18 01/03/18 04:07 03:23 Sodium 141 140 Potassium 4.1 4.4 Chloride 103 103 Carbon Dioxide 32 H 31 H BUN 37 H 33 H Creatinine 1.54 H 1.44 H Glucose 111 H 118 H Calcium 9.1 9.1 - ABG Interpretation ABG results: ABG ABG pH 7.47 pH Units (7.32-7.45) H 12/24/17 14:57 ABG pCO2 41 mmHg (35-45) 12/24/17 14:57 ABG pO2 51 mmHg (85-104) L 12/24/17 14:57 ABG O2 Saturation 88 % (95-98) L 12/24/17 14:57 PT/INR, D-dimer PT 16.7 Seconds (9.4-12.1) H D 12/16/17 18:08 <Ynes Andrade - Last Filed: 01/03/18 10:09> (4) Gastric ulcer Qualifiers: Gastric ulcer chronicity: chronic Gastric ulcer complication status: without hemorrhage or perforation Qualified Code(s): K25.7 - Chronic gastric ulcer without hemorrhage or perforation (5) Pneumonia Qualifiers: Pneumonia type: due to unspecified organism Laterality: bilateral Lung location: unspecified part of lung Qualified Code(s): J18.9 - Pneumonia, unspecified organism (7) Diarrhea Qualifiers: Diarrhea type: unspecified type Qualified Code(s): R19.7 - Diarrhea, unsp ecified <Jb Gonzalez A - Last Filed: 01/03/18 13:56> (4) Pneumonia Qualifiers: Pneumonia type: due to unspecified organism Laterality: bilateral Lung location: unspecified part of lung Qualified Code(s): J18.9 - Pneumonia, unspecified organism (5) Gastric ulcer Qualifiers: Gastric ulcer chronicity: chronic Gastric ulcer complication status: without hemorrhage or perforation Qualified Code(s): K25.7 - Chronic gastric ulcer without hemorrhage or perforation (7) Diarrhea Qualifiers: Diarrhea type: unspecified type Qualified Code(s): R19.7 - Diarrhea, unspecified
[2018-01-03] MEDS: Ringers Solution, Lactated 250 ML IVC SCH (11:51)
[2018-01-03] MEDS ORDERED: cloZAPine 25 MG TABLET PO SCH (21:00)
[2018-01-04] MEDS: Ipratropium/Albuterol Neb 3 ML IH SCH ×6 (03:56→23:04)
[2018-01-04] MEDS: *HR* Heparin 5,000 UNIT/ML VIAL SQ SCH ×3 (05:32→23:35)
[2018-01-04] MEDS: MethylPREDNISolone 40 MG/ML VIAL IVP SCH ×2 (05:32→16:50)
[2018-01-04 05:37] LABS: BUN/Creatinine Ratio 24 (6-26); Blood Urea Nitrogen 32 mg/dL (8-23); Carbon Dioxide 30 mEq/L (23-29); Chloride 104 mEq/L (98-107); Glucose 106 mg/dL (70-105); Osmolality,Calculated 293 (280-300); Potassium 4.5 mEq/L (3.5-5.1); Sodium 138 mEq/L (136-145); eGFR For Non-African Americans 54 (> 60)
[2018-01-04] MEDS: hydrOXYzine pamoate 25 MG CAPSULE PO SCH ×4 (07:58→23:35)
[2018-01-04] MEDS: Lactobacillus 1 EACH CAP.SPRINK PO SCH ×2 (07:58→23:34)
[2018-01-04] MEDS: cloZAPine 100 MG TABLET PO SCH ×2 (07:58→13:35)
[2018-01-04] MEDS ORDERED: predniSONE 20 MG TABLET PO SCH (09:00)
[2018-01-04] MEDS: lamoTRIgine 100 MG TABLET PO SCH (09:14)
--- NOTE | 2018-01-04 09:20 | Internal Med Progress Note ---
Hospitalist Progress Note - Encounter Date of Encounter: 01/04/18 Time of Encounter: 09:15 - Subjective Interval History: awake in chair. cont c/o sometimes being sob. denies cough. not sob right now. denies pain, chest pain or pressure. ros and hpi limited by schizophrenia - Exam Vitals: Temp Pulse Resp BP Pulse Ox 98.9 F 116 18 134/74 92 01/04/18 07:57 01/04/18 07:57 01/04/18 07:57 01/04/18 07:57 01/04/18 07:57 Exam: gen- alert, awake,appears stated age eyes- pupils equal round , eom intact cv- reg rate and rhythm, normal s1,s2, no murmurs appreciated, no le edema,\ lungs- ctabl, diminshed bl bases, no rhonchi , no wheezing, normal resp effort o n high flow O2 nc neuro- AAOxperson, hospital setting - Assessment and Plan (1) Small bowel obstruction Current Visit: Yes Status: Resolved Assessment and Plan: Resolved Small bowel follow through was normal with contrast seen in rectum at 4 hours Tolerating regular diet, has to be on restrictions due to mentation Tolerating po meds Tolerating regular diet (2) Acute kidney injury Current Visit: Yes Status: Resolved Assessment and Plan: BUN and Cr 42 and 1.88 on admission improved with IV hydration BUN and Cr trended to normal, but increased again starting on 12/26 currently stable Likely secondary to sepsis and/or Vanc related Hold off on further diuresis, discussed with pulm Continue to trend kidney functions and monitor for lasix need daily May consider nephro consult if kidney functions continue to worsen (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 (4) Gastric ulcer Current Visit: Yes Status: Acute Assessment and Plan: Continue PPI (5) Pneumonia Current Visit: Yes Status: Acute Assessment and Plan: CXR on 12/15 showed infiltrates/consolidations more on the right side Was on Zosyn for 5.5 days, followed by Augmentin for 1.5 days Given results of MBS- dx is aspiration pneumonia Continues to experience cough Suspect may be some aspiration component with pt's speech and mentation WBC remains elevated at 13.4 today, but receiving Solumedrol 40mg BID Afebrile HR normal non-tachypnic Pulm and ID on board Pulm has elected to hold off on bronchoscopy MBS revealed shallow laryngeal penetration with thin liquids and nectar thickened liquids. Completed 18 days total of abx Per ID, discontinue abx and observe Continue Duonebs Continue supplemental O2 Continue to monitor (6) Acute respiratory failure with hypoxia Current Visit: Yes Status: Acute Assessment and Plan: Likely adverse reaction to Ativan with concomitant pneumonia on 12/24 Improved Pulm has followed Transitioned successfully to regular NC. Currently satting well on 6lpm O2. Will continue to wean. Per pulm, will require 3-4 weeks steroid taper. Decreased Solumedrol from [id number] to IV 20BID 01/03 and will cont to monitor (7) Diarrhea Current Visit: Yes Status: Resolved Assessment and Plan: Pt has experienced watery diarrhea since resolution of SBO on 12/19 Hemooccult negative on 12/14 C diff Tox B screen negative on 12/21 GI panel on 12/23 negative Likely not infectious May be associated with abx Experiencing formed bowel movements after 2mg loperamide 12/26, which slowly returned to diarrhea Received 2mg Loperamide on 12/30 as well with no further diarrhea Continue Culturelle Aquaphor/Maalox for raw rectum due to frequent diarrhea May give another dose of loperamide of diarrhea resumes DVT Prophylaxis: SQ Heparin - Time Spent with Patient Total time spent is greater than 50% in coordination of care (as documented) at patient's floor/unit and/or counseling patient: Internal Medicine: Result - Labs CBC & Chem 7: 01/03/18 03:23 01/04/18 04:56 Labs: BMP 01/04/18 04:56 Sodium 138 Potassium 4.5 Chloride 104 Carbon Dioxide 30 H BUN 32 H Creatinine 1.32 H Glucose 106 H Calcium 9.0 - ABG Interpretation ABG results: ABG ABG pH 7.47 pH Units (7.32-7.45) H 12/24/17 14:57 ABG pCO2 41 mmHg (35-45) 12/24/17 14:57 ABG pO2 51 mmHg (85-104) L 12/24/17 14:57 ABG O2 Saturation 88 % (95-98) L 12/24/17 14:57 PT/INR, D-dimer PT 16.7 Seconds (9.4-12.1) H D 12/16/17 18:08 Consult Discharge Plan - Plan Instructions: Acute Nausea and Vomiting (ED), Abdominal Pain (ED) Additional Instructions: Patient needs admission. He has nausea / vomiting , abdominal pain ,high WBC count, CT scan shows dilated small bowel loops & suspected small bowel obstruction. [facility]errals: [facility]Primary Care Provider[facility] - 01/09/18 10:30 am (4) Gastric ulcer Qualifiers: Gastric ulcer chronicity: chronic Gastric ulcer complication status: without hemorrhage or perforation Qualified Code(s): K25.7 - Chronic gastric ulcer without hemorrhage or perforation (5) Pneumonia Qualifiers: Pneumonia type: aspiration pneumonia Laterality: bilateral Lung location: unspecified part of lung (7) Diarrhea Qualifiers: Diarrhea type: unspecified type Qualified Code(s): R19.7 - Diarrhea, unspecified
[2018-01-04] MEDS ORDERED: cloZAPine 25 MG TABLET PO SCH (21:00)
[2018-01-04] MEDS: Ringers Solution, Lactated 250 ML IVC SCH ×2 (23:45→23:48)
[2018-01-05] MEDS: lamoTRIgine 100 MG TABLET PO SCH ×3 (01:01→20:42)
[2018-01-05] MEDS: Ringers Solution, Lactated 250 ML IVC SCH (03:52)
[2018-01-05] MEDS: MethylPREDNISolone 40 MG/ML VIAL IVP SCH ×2 (03:52→17:26)
[2018-01-05] MEDS: *HR* Heparin 5,000 UNIT/ML VIAL SQ SCH ×3 (03:53→20:41)
[2018-01-05] MEDS: Ipratropium/Albuterol Neb 3 ML IH SCH ×5 (04:40→20:52)
[2018-01-05 07:01] LABS: Basophils % 0.1 %; Eosinophils # 0.5 K/mcL (0.0-0.6); Hematocrit 32.1 % (37.5-50.1); Hemoglobin 10.3 g/dL (12.9-16.9); Immature Granulocytes % 0.6 % (0-4); Lymphocytes # 1.6 K/mcL (0.6-4.6); Lymphocytes % 11.7 %; Mean Corpuscular HGB Conc 32.1 g/dL (31.6-35.5); Mean Corpuscular Hemoglobin 29.8 pg (28.0-33.3); Mean Corpuscular Volume 92.8 fL (83.0-100.0); Mean Platelet Volume 9.5 fL (9.4-12.4); Monocytes # 0.8 K/mcL (0.0-1.3); Monocytes % 5.8 %; Neutrophils # 10.5 K/mcL (1.6-8.9); Platelet Count 521 K/mcL (140-400); Red Blood Count 3.46 M/mcL (4.19-5.50); Red Cell Distribution Width 13.8 % (11.5-14.5); Segmented Neutrophils % 77.8 %
[2018-01-05 07:18] LABS: BUN/Creatinine Ratio 24 (6-26); Blood Urea Nitrogen 31 mg/dL (8-23); Calcium 9.3 mg/dL (8.6-10.3); Carbon Dioxide 29 mEq/L (23-29); Chloride 104 mEq/L (98-107); Glucose 107 mg/dL (70-105); Magnesium 2.1 mg/dL (1.6-2.6); Osmolality,Calculated 293 (280-300); Potassium 4.2 mEq/L (3.5-5.1); Sodium 138 mEq/L (136-145); eGFR For Non-African Americans 54 (> 60)
--- NOTE | 2018-01-05 07:46 | Internal Med Progress Note ---
Hospitalist Progress Note - Encounter Date of Encounter: 01/05/18 Time of Encounter: 09:30 - Subjective Interval History: awake in chair, rn at bedside. Denies being sob or having cough. Denies pain. limited ros and hpi given shizophrenia. He is comfortable appearing and speaks without any resp distress. - Exam Vitals: Temp Pulse Resp BP Pulse Ox 98.1 F 108 20 114/70 97 01/05/18 07:13 01/05/18 07:13 01/05/18 07:13 01/05/18 07:13 01/05/18 07:13 Exam: gen- alert, awake,appears stated age cv- reg rate and rhythm, normal s1,s2, no murmurs appreciated, no le edema,\ lungs- ctabl, improved aeration bl bases, no rhonchi , no wheezing, normal resp effort on high flow O2 nc abd- soft, non tender, non distended, + bs neuro- AAOxperson, hospital setting - Assessment and Plan (1) Small bowel obstruction Current Visit: Yes Status: Resolved Assessment and Plan: Resolved Small bowel follow through was normal with contrast seen in rectum at 4 hours Tolerating regular diet, has to be on restrictions due to mentation Tolerating po meds Tolerating regular diet (2) Acute kidney injury Current Visit: Yes Status: Resolved Assessment and Plan: BUN and Cr 42 and 1.88 on admission improved with IV hydration BUN and Cr trended to normal, but increased again starting on 12/26 currently stable Likely secondary to sepsis and/or Vanc related Hold off on further diuresis, discussed with pulm Continue to trend kidney functions and monitor for lasix need daily May consider nephro consult if kidney functions continue to worsen (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 (4) Gastric ulcer Current Visit: Yes Status: Acute Assessment and Plan: Continue PPI (5) Pneumonia Current Visit: Yes Status: Acute Assessment and Plan: CXR on 12/15 showed infiltrates/consolidations more on the right side Was on Zosyn for 5.5 days, followed by Augmentin for 1.5 days Given results of MBS- dx is aspiration pneumonia Continues to experience cough Suspect may be some aspiration component with pt's speech and mentation WBC remains elevated at 13.4 today, but receiving Solumedrol 40mg BID Afebrile HR normal non-tachypnic Pulm and ID on board Pulm has elected to hold off on bronchoscopy MBS revealed shallow laryngeal penetration with thin liquids and nectar thickened liquids. Completed 18 days total of abx Per ID, discontinue abx and observe Continue Duonebs Continue supplemental O2 Continue to monitor - leukocytosis slow uptrend but afebrile (6) Acute respiratory failure with hypoxia Current Visit: Yes Status: Acute Assessment and Plan: Likely adverse reaction to Ativan with concomitant pneumonia on 12/24 Improved Pulm has followed Transitioned successfully to regular NC. Currently satting well on 6lpm O2. Will continue to wean. Per pulm, will require 3-4 weeks steroid taper. Decreased Solumedrol from [id number] to IV 20BID 01/03 and will cont to monitor (7) Diarrhea Current Visit: Yes Status: Resolved Assessment and Plan: Pt has experienced watery diarrhea since resolution of SBO on 12/19 Hemooccult negative on 12/14 C diff Tox B screen negative on 12/21 GI panel on 12/23 negative Likely not infectious May be associated with abx Experiencing formed bowel movements after 2mg loperamide 12/26, which slowly returned to diarrhea Received 2mg Loperamide on 12/30 as well with no further diarrhea Continue Culturelle Aquaphor/Maalox for raw rectum due to frequent diarrhea May give another dose of loperamide of diarrhea resumes (8) Tachycardia Current Visit: Yes Status: Acute Assessment and Plan: Unsure if this may be a chronci problem as he is prescribed metoprolol 12.5 mg bid at home that he has not been receiving sinus tach, on tele, lytes at goal, stable in low 100s, did not respond to gentle IVFs, afebrile -resume lopressor 6.25 mg BID and uptitrate as needed and BP permits DVT Prophylaxis: hep sq - Time Spent with Patient Total time spent is greater than 50% in coordination of care (as documented) at patient's floor/unit and/or counseling patient: less than 15 minutes Plan of Care Discussed with: patient Internal Medicine: Result - Labs CBC & Chem 7: 01/05/18 06:16 01/05/18 06:16 Labs: Short CBC 01/05/18 Range/Units 06:16 WBC 13.5 H (4.3-11.1) K/mcL Hgb 10.3 L (12.9-16.9) g/dL Hct 32.1 L (37.5-50.1) % Plt Count 521 H (140-400) K/mcL Neutrophils # 10.5 H (1.6-8.9) K/mcL BMP 01/05/18 06:16 Sodium 138 Potassium 4.2 Chloride 104 Carbon Dioxide 29 BUN 31 H Creatinine 1.31 H Glucose 107 H Calcium 9.3 - ABG Interpretation ABG results: ABG ABG pH 7.47 pH Units (7.32-7.45) H 12/24/17 14:57 ABG pCO2 41 mmHg (35-45) 12/24/17 14:57 ABG pO2 51 mmHg (85-104) L 12/24/17 14:57 ABG O2 Saturation 88 % (95-98) L 12/24/17 14:57 PT/INR, D-dimer PT 16.7 Seconds (9.4-12.1) H D 12/16/17 18:08 Consult Discharge Plan - Plan Instructions: Acute Nausea and Vomiting (ED), Abdominal Pain (ED) Additional Instructions: Patient needs admission. He has nausea / vomiting , abdominal pain ,high WBC count, CT scan shows dilated small bowel loops & suspected small bowel obstruction. [facility]errals: [facility] [Primary Care Provider[facility] - 01/09/18 10:30 am (4) Gastric ulcer Qualifiers: Gastric ulcer chronicity: chronic Gastric ulcer complication status: without hemorrhage or perforation Qualified Code(s): K25.7 - Chronic gastric ulcer without hemorrhage or perforation (5) Pneumonia Qualifiers: Pneumonia type: aspiration pneumonia Laterality: bilateral Lung location: unspecified part of lung (7) Diarrhea Qualifiers: Diarrhea type: unspecified type Qualified Code(s): R19.7 - Diarrhea, unspecif ied
[2018-01-05] MEDS: Lactobacillus 1 EACH CAP.SPRINK PO SCH ×2 (08:27→20:38)
[2018-01-05] MEDS: hydrOXYzine pamoate 25 MG CAPSULE PO SCH ×4 (08:27→20:38)
[2018-01-05] MEDS: cloZAPine 100 MG TABLET PO SCH ×2 (09:52→14:12)
[2018-01-05 11:45] LABS: Bilirubin,Urine Negative (Negative); Blood,Urine Negative (Negative); Clarity,Urine Clear (Clear); Color,Urine Yellow (Yellow); Glucose,Urine (UA) Normal (Normal); Ketones,Urine Negative (Negative); Leukocyte Esterase,Urine Trace (Negative); Nitrite,Urine Negative (Negative); PH,Urine 5.5 pH Units (5.0-8.0); Protein,Urine Negative (Neg-Trace); Specific Gravity,Urine 1.029 (1.010-1.025); Urobilinogen,Urine Normal (Normal)
[2018-01-05 11:48] LABS: Bacteria,Urine None Seen per hpf (None-Few); Hyaline Casts,Urine None Seen per lpf (None-Few); Squamous Epithelial Cell,Urine Few per lpf (None-Few)
[2018-01-05] MEDS: Nystatin Cream 15 GM TUBE TP SCH (17:26)
[2018-01-05] MEDS ORDERED: cloZAPine 25 MG TABLET PO SCH (21:00)
[2018-01-06] MEDS: Ipratropium/Albuterol Neb 3 ML IH SCH ×4 (01:10→11:52)
[2018-01-06] MEDS: MethylPREDNISolone 40 MG/ML VIAL IVP SCH (03:33)
[2018-01-06] MEDS: *HR* Heparin 5,000 UNIT/ML VIAL SQ SCH (03:36)
[2018-01-06] MEDS: hydrOXYzine pamoate 25 MG CAPSULE PO SCH (08:52)
[2018-01-06] MEDS: Lactobacillus 1 EACH CAP.SPRINK PO SCH (08:52)
[2018-01-06] MEDS: Nystatin Cream 15 GM TUBE TP SCH (10:21)
[2018-01-06 11:28] VITALS: BP 110/68
[2018-01-06] MEDS: lamoTRIgine 100 MG TABLET PO SCH (11:32)
[2018-01-06] MEDS: cloZAPine 100 MG TABLET PO SCH (11:32)
--- NOTE | 2018-01-06 12:14 | Internal Med Progress Note ---
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 (4) Gastric ulcer Current Visit: Yes Status: Acute (5) Pneumonia Current Visit: Yes Status: Acute (6) Acute respiratory failure with hypoxia Current Visit: Yes Status: Acute (7) Diarrhea Current Visit: Yes Status: Resolved (8) Tachycardia Current Visit: Yes Status: Acute - Time Spent with Patient Total time spent is greater than 50% in coordination of care (as documented) at patient's floor/unit and/or counseling patient: Internal Medicine: Result - Labs CBC & Chem 7: 01/05/18 06:16 01/05/18 06:16 - ABG Interpretation ABG results: ABG ABG pH 7.47 pH Units (7.32-7.45) H 12/24/17 14:57 ABG pCO2 41 mmHg (35-45) 12/24/17 14:57 ABG pO2 51 mmHg (85-104) L 12/24/17 14:57 ABG O2 Saturation 88 % (95-98) L 12/24/17 14:57 PT/INR, D-dimer PT 16.7 Seconds (9.4-12.1) H D 12/16/17 18:08 Consult Discharge Plan - Plan Instructions: Acute Nausea and Vomiting (ED), Abdominal Pain (ED) Additional Instructions: Patient needs admission. He has nausea / vomiting , abdominal pain ,high WBC count, CT scan shows dilated small bowel loops & suspected small bowel obstruction. Referrals: [facility] [Primary Care Provider[facility] - 01/09/18 10:30 am (4) Gastric ulcer Qualifiers: Gastric ulcer chronicity: chronic Gastric ulcer complication status: without hemorrhage or perforation Qualified Code(s): K25.7 - Chronic gastric ulcer without hemorrhage or perforation (5) Pneumonia Qualifiers: Pneumonia type: aspiration pneumonia Laterality: bilateral Lung location: unspecified part of lung (7) Diarrhea Qualifiers: Diarrhea type: unspecified type Qualified Code(s): R19.7 - Diarrhea, u nspecified
--- NOTE | 2018-01-06 13:45 | Discharge Summary ---
<Keven Boston Nohemi - Last Filed: 01/06/18 14:14> - NOTES TO OUTPATIENT PROVIDER Notes to Outpatient Provider: Titrated up Clozapine by 25mg per day, per psych recs. 100mg at 09:00 and 15:00 daily. Increase HS dose by 25 mg daily until reach 300 mg hs. Increase night dose to 200mg tonight. Taper prednisone as pre scribed over next 4 weeks. Orders not resulted at time of discharge: Pending orders: None Date of Encounter: 01/06/18 Time of Encounter: 08:40 - Discharge Diagnosis (1) Small bowel obstruction Priority: Primary Status: Resolved Assessment and Plan: Resolved Small bowel follow through was normal with contrast seen in rectum at 4 hours Tolerating regular diet, has to be on restrictions due to mentation Tolerating po meds Tolerating regular diet (2) Acute kidney injury Priority: Secondary Status: Resolved Assessment and Plan: BUN and Cr 42 and 1.88 on admission improved with IV hydration BUN and Cr trended to normal, but increased again starting on 12/26 currently stable 1.31 today (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 (4) Gastric ulcer Priority: Secondary Status: Chronic Assessment and Plan: Continue PPI Qualifiers: Gastric ulcer chronicity: chronic Gastric ulcer complication status: without hemorrhage or perforation Qualified Code(s): K25.7 - Chronic gastric ulcer without hemorrhage or perforation (5) Pneumonia Priority: Secondary Status: Acute Assessment and Plan: CXR on 12/15 showed infiltrates/consolidations more on the right side Was on Zosyn for 5.5 days, followed by Augmentin for 1.5 days Given results of MBS- dx is aspiration pneumonia Continues to experience cough Suspect may be some aspiration component with pt's speech and mentation WBC remains elevated at 13.5 today, but receiving Solumedrol 20mg BID Afebrile HR normal non-tachypnic Pulm and ID on board Pulm has elected to hold off on bronchoscopy MBS revealed shallow laryngeal penetration with thin liquids and nectar thickened liquids. Completed 18 days total of abx Per ID, discontinue abx and observe Continue to monitor - leukocytosis slow uptrend but afebrile Taper prednisone taper as instructed for 4 weeks per pulmonology recommendation. Qualifiers: Pneumonia type: aspiration pneumonia Aspiration pneumonia type: unspecified Laterality: bilateral Lung location: unspecified part of lung Qualified Code(s): J69.0 - Pneumonitis due to inhalation of food and vomit (6) Acute respiratory failure with hypoxia Priority: Secondary Status: Resolved Assessment and Plan: Likely adverse reaction to Ativan with concomitant pneumonia on 12/24 Improved Pulm has followed Transitioned successfully to regular NC. Currently satting well on 2lpm O2. Will continue to wean. Per pulm, will require 3-4 weeks steroid taper. Decreased Solumedrol from [id number] to IV 20BID 01/03 and will cont to monitor Taper prednisone as instructed for 4 weeks. (7) Diarrhea Priority: Secondary Status: Resolved Assessment and Plan: Pt has experienced watery diarrhea since resolution of SBO on 12/19 Hemooccult negative on 12/14 C diff Tox B screen negative on 12/21 GI panel on 12/23 negative Likely not infectious May be associated with abx Experiencing formed bowel movements after 2mg loperamide 12/26, which slowly returned to diarrhea Received 2mg Loperamide on 12/30 as well with no further diarrhea Qualifiers: Diarrhea type: unspecified type Qualified Code(s): R19.7 - Diarrhea, unspecified (8) Tachycardia Priority: Secondary Status: Resolved Assessment and Plan: Unsure if this may be a chronci problem as he is prescribed metoprolol 12.5 mg bid at home that he has not been receiving sinus tach, on tele, lytes at goal, stable in low 100s, did not respond to gentle IVFs, afebrile -Resume home lopressor and uptitrate as needed and BP permits Hospital course: Mr. Johnson is a 67 year old male with history of gastric ulcer from H pylori, HTN, and catatonic schizophrenia presented as a transfer from the [facility] for concerns of GI bleed. He was having one day history of nausea, vomiting and epigastric pain. Symptoms started on day ago, emesis was non bilious, non bloody, but apparently looked dark in color. SBO on CT abd/pelvis, he experienced watery diarrhea since resolution of SBO on 12/19, C diff Tox B screen negative on 12/21, tolerating PO now. DONTE Cr 1.88 on admission stable at 1.31 now. Pneumonia CXR on 12/15 showed infiltrates/consolidations more on the right side Was on Zosyn for 5.5 days, followed by Augmentin for 1.5 days, MBS revealed shallow laryngeal penetration with thin liquids and nectar thickened liquids, WBC remains elevated at 13.4 today, but receiving Solumedrol 20mg BID, afebrile, HR normal, non-tachypnic, completed 18 days total abx. Acute respiratory failure with hypoxia likely adverse reaction to Ativan with concomitant pneumonia on 12/24, transitioned successfully to regular NC. Currently satting well on 2lpm O2. Per pulm, will require 3-4 weeks prednisone taper as indicated on rx. Catatonia schizophrenia with resumed home meds, Per psych recommendations 01/02, increased Haldol to 50mg IM every 2 weeks (Last dose was on 12/24), titrated up Clozapine by 25mg per day, per psych recs, 100mg at 09:00 and 15:00 daily, increase HS dose by 25 mg daily until reach 300 mg hs, increase night dose to 200mg tonight. Urine culture returned today with <50,000 cfu yeast species. Repeat CBC in 2-3 days to monitor mild current leukocytosis. Discharge discussed with: nurse - Time Spent with Patient Total time spent providing and/or coordinating discharge services: Greater than 30 minutes - Discharge Medications Prescriptions: predniSONE [PredniSONE] See Taper PO BIDWM #70 tablet Home Medications: Cholecalciferol (D-3) [Vitamin D] 1,000 unit PO DAILY 10/01/15 [History] Citalopram Hydrobromide [Citalopram HBr] 40 mg PO DAILY 10/01/15 [History] Haloperidol Decanoate [Haldol] 25 mg IM Q2W 10/01/15 [History] Multivitamin with Minerals [One-A-Day Maximum Formula] 1 each PO DAILY 10/01/15 [History] Pantoprazole Sodium [Protonix] 40 mg PO DAILY 10/01/15 [History] cloZAPine [Clozaril] 100 mg PO BID 10/01/15 [History] cloZAPine [Clozaril] 300 mg PO HS 10/01/15 [History] clonazePAM [Klonopin] 1 mg PO BID 10/01/15 [History] lamoTRIgine [Lamictal] 100 mg PO BID 10/01/15 [History] Haloperidol [Haldol] 2 mg PO BID 12/15/17 [History] Lactobacillus Acidophilus [Acidophilus Lactobacillus] 1 cap PO DAILY 12/15/17 [History] Metoprolol [Lopressor] 12.5 mg PO BID 12/15/17 [History] Sodium Chloride [Sodium Chloride Tab] 1 gm PO DAILY 12/15/17 [History] hydrOXYzine pamoate [HydrOXYzine Pamoate] 25 mg PO QID 12/15/17 [History] predniSONE [PredniSONE] See Taper PO BIDWM #70 tablet 01/06/18 [Rx] Allergies/Adverse Reactions: Allergy/AdvReac Type Severity Reaction Status Date / Time No Known Allergies Allergy Verified 10/01/15 15:08 Date of admission: 12/14/17 17:27 [facility] physician[facility] Consults: 12/14/17 16:52 Consult to Surgery [CONS] Stat Consulting Provider: Surgery Gates Surg - [facility] Reason for Consult: SBO Time Notified: 16:54 Call Completed: Yes 12/16/17 06:49 Consult to Critical Care [CONS] Routine Consulting Provider: Pulm Crit Care & Sleep Vivienne Reason for Consult: resp failure Time Notified: 06:50 Call Completed: Yes 12/16/17 09:32 Consult to Psychiatry [CONS] Routine Consulting Provider: Psychiatry Ault Reason consult: Psychosis Other reason and/or additional details: clozapine, hx of schizophrenia, sbo Time Notified: 09:33 Call Completed: Yes 12/18/17 15:29 Consult to Occupational Therapy [CONS] Routine Comment: Evaluate, develop and implement POC Reason for Consult: eval for ecf Does patient have active BEDREST order?: No Is patient medically & hemodynamically stable?: Yes Consult to Physical Therapy [CONS] Routine Comment: Evaluate, develop and implement POC Reason for Consult: eval for ecf Does patient have active BEDREST order?: No Is patient medically & hemodynamically stable?: Yes 12/23/17 09:07 Consult to Rn Cardiac Cath [CONS] Routine Reason for SW Consult: needs ecf due to stairs at long-term 12/24/17 08:01 Consult to Infectious Diseases [CONS] Routine Consulting Provider: Infectious Disease Vivienne Reason for Consult: persistent leukocytosis Call Completed: No 12/24/17 14:44 Consult to Invasive Line Access Team [CONS] Routine Reason for Consult: no access Line Type: EPIV 12/31/17 13:57 Consult to Speech Therapy [CONS] Routine Comment: Evaluate, develop and implement POC Reason for Consult: concern for silent aspiration Call Completed: No Discharging clinician: Keven Boston Anticipated date of discharge: 01/06/18 - Constitutional Vitals: Temp Pulse Resp BP Pulse Ox 98.7 F 96 18 110/68 90 01/06/18 11:25 01/06/18 11:25 01/06/18 11:25 01/06/18 11:25 01/06/18 11:25 General appearance: Present: cooperative, pleasant, no acute distress, underweight. Absent: answers questions appropriately Exam: Awake - Head Head exam: Present: atraumatic, normocephalic - Eye Eye exam: Present: EOMI, normal appearance, PERRL, conjuntiva pink, sclera anicteric - Neck Neck exam general surgery: Present: supple, trachea midline. Absent: lymphadenopathy - Respiratory Respiratory exam: Present: CTAB. Absent: accessory muscle use, rales, rhonchi, wheezes - Cardiovascular Cardiovascular exam: Present: RRR, +S1, +S2. Absent: diastolic murmur, gallop, rubs, systolic murmur - GI/Abdominal GI/Abdominal exam: Present: normal bowel sounds, soft, no peritoneal signs. Absent: distended, tenderness - Extremities Exam Extremities exam: Present: warm, radial pulses palpable and symmetrical. Absent: calf tenderness, cyanotic, pedal edema - Neurological Exam Neurological exam: Present: CN II-XII intact, oriented X3, no focal deficits. Absent: pronater drift, facial droop, speech deficit - Expanded Psychiatric Exam Focused psych exam: Absent: catatonic, delusional, echolalia, euphoric, flight of ideas, mute, paranoid, pressured speech, psychomotor agitation, restlessness - Skin Skin exam: Present: dry, intact - Patient Status Condition: Good Overall status at discharge: patient is progressing back to baseline - Discharge Instructions Instructions: Acute Respiratory Distress Syndrome (DC), Acute Nausea and Vomiting (ED), Abdominal Pain (ED), Pneumonia (DC) Follow Up With: TARSHA,PCP [Primary Care Provider] - 01/09/18 10:30 am Kenny Sarmiento MD [Partnered Physician] - Additional Instructions: Patient needs admission. He has nausea / vomiting , abdominal pain ,high WBC count, CT scan shows dilated small bowel loops & suspected small bowel obstruction. - Diet and Activity Activity: as per physical therapy, resume usual activities as tolerated, wear oxygen at all times Diet: other (mechanical soft) <Ynes Andrade - Last Filed: 01/06/18 16:35> - NOTES TO OUTPATIENT PROVIDER Notes to Outpatient Provider: it is only HS DOSE that increases daily to goal of 300 mg HS. other doses remain same. He has been noted to have tachycardia with increased doses and was resumed on his home beta chantale. Orders not resulted at time of discharge: Pending orders 01/05/18 11:30 Culture,Urine [RM] Routine Urinalysis Reflex Cult & Micro [URIN] Routine - Discharge Diagnosis (1) Small bowel obstruction Status: Resolved (2) Acute kidney injury Status: Resolved (3) Catatonia schizophrenia Status: Chronic (4) Gastric ulcer Status: Chronic Qualifiers: Gastric ulcer chronicity: chronic Gastric ulcer complication status: without hemorrhage or perforation Qualified Code(s): K25.7 - Chronic gastric ulcer without hemorrhage or perforation (5) Pneumonia Status: Acute Qualifiers: Pneumonia type: aspiration pneumonia Aspiration pneumonia type: unspecified Laterality: bilateral Lung location: unspecified part of lung Qualified Code(s): J69.0 - Pneumonitis due to inhalation of food and vomit (6) Acute respiratory failure with hypoxia Status: Resolved (7) Diarrhea Status: Resolved Qualifiers: Diarrhea type: unspecified type Qualified Code(s): R19.7 - Diarrhea, unspecified (8) Tachycardia Status: Resolved Hospital course: Mr. Johnson is a 67 year old male - Time Spent with Patient Total time spent providing and/or coordinating discharge services: Greater than 30 minutes Date of admission: 12/14/17 17:27 [facility] care physician: [facility] Consults: 12/14/17 16:52 Consult to Surgery [CONS] Stat Consulting Provider: Surgery [facility] S[facility] - [facility] Reason for Consult: SBO Time Notified: 16:54 Call Completed: Yes 12/16/17 06:49 Consult to Critical Care [CONS] Routine Consulting Provider: Pulm Crit Care & Sleep Ault Reason for Consult: resp failure Time Notified: 06:50 Call Completed: Yes 12/16/17 09:32 Consult to Psychiatry [CONS] Routine Consulting Provider: Psychiatry Vivienne Reason consult: Psychosis Other reason and/or additional details: clozapine, hx of schizophrenia, sbo Time Notified: 09:33 Call Completed: Yes 12/18/17 15:29 Consult to Occupational Therapy [CONS] Routine Comment: Evaluate, develop and implement POC Reason for Consult: eval for ecf Does patient have active BEDREST order?: No Is patient medically & hemodynamically stable?: Yes Consult to Physical Therapy [CONS] Routine Comment: Evaluate, develop and implement POC Reason for Consult: eval for ecf Does patient have active BEDREST order?: No Is patient medically & hemodynamically stable?: Yes 12/23/17 09:07 Consult to Rn Cardiac Cath [CONS] Routine Reason for SW Consult: needs ecf due to stairs at long-term 12/24/17 08:01 Consult to Infectious Diseases [CONS] Routine Consulting Provider: Infectious Disease Vivienne Reason for Consult: persistent leukocytosis Call Completed: No 12/24/17 14:44 Consult to Invasive Line Access Team [CONS] Routine Reason for Consult: no access Line Type: EPIV 12/31/17 13:57 Consult to Speech Therapy [CONS] Routine Comment: Evaluate, develop and implement POC Reason for Consult: concern for silent aspiration Call Completed: No - Constitutional Vitals: Temp Pulse Resp BP Pulse Ox 98.7 F 96 18 110/68 90 01/06/18 11:25 01/06/18 11:25 01/06/18 11:25 01/06/18 11:25 01/06/18 11:25 - Attending Attestation I examined this patient and my medical decision-making was reviewed with the Resident Physician Dr Boston. I agree with the documented findings, disposition and treatment plan as described except to the extent set forth below/addl details below Mr Johnson was admitted with SBO, he was being treated for pna, developed ARDS with concern for aspiration pna given his mental status related to Schizophrenia. He remains on high flow O2 with Pulm following. On admission his home clozaril had to be held and [facility] with instruction regarding uptitrating the medication which has been occurring throughout admission. MBS showed some silent aspiration and SUPERVISOR BRINE following patient. Pulm and ID cont to follow. Overall he has shown poor resp status improvement with inability to wean to consistently wean from high flow oxygen. Pulm and Id have now both singed off as he has been stable. [facility]. He is medically stable for dc Awake, alert, no sob, chest pain or cough. comofrtable appearing on O2 NC. limited ros and hpi given schizophrenia. gen- alert, awake,appears stated age eyes- pupils equal round , eom intact cv- tachy rate 110s on tele and reg rhythm, normal s1,s2, no murmurs appreciated, no le edema lungs- ctabl, no rhonchi , wheezing, normal resp effort on O2 nc neuro- AAOxperson, hospital setting Acute REsp FAilure with Hypoxia suspected to be 2/2 pna, improved significantly, stable -high flow o2 weaned to o2 nc -unable to obtain cta chest given kidney function, pulm considered vq scan to rule out PE but given pt schizophrenia and unable to lie still and follow instruction for scan, it was decided not to do no longer requiring any po or iv lasix Pneumonia,aspiration CXR on 12/15 showed infiltrates/consolidations more on the right side Given results of MBS- dx is aspiration pneumonia Pulm and ID followed He received 18 days Vanc + Zosyn and stable off abx with mild leukocytosis but no fever and clnically has improved greatly, particularly in last three days MBS revealed shallow laryngeal penetration with thin liquids and nectar thickened liquids. - dc diet is : honey thickened liquids and advanced soft diet chopped meat Continue Duonebs Continue supplemental O2 Schizophrenia, stable -psych following and med adjustments, including clozaril uptitration as per their recs, dose 01/06 HS is 200 mg DONTE- stable work up has been negative, renal dose meds, avoid nephro toxins to best of ability Sinus TAchycardia HR 110s Unsure if this may be a chronic problem as he is prescribed metoprolol 12.5 mg bid at home that he had not been receiving sinus tach seemed to increase with clozaril increases now on home BB dosing - lopressor 12.5 mg PO BID OF NOTE: guardian is contract attorney Wesley, not pt sister. His contact info is [phone] and [phone] he is medically stable for transfer to [facility]
--- NOTE | 2018-01-06 14:56 | Physician Discharge Referral ---
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 (4) Gastric ulcer Priority: Secondary Status: Chronic (5) Pneumonia Priority: Secondary Status: Acute (6) Acute respiratory failure with hypoxia Priority: Secondary Status: Resolved (7) Diarrhea Priority: Secondary Status: Resolved (8) Tachycardia Priority: Secondary Status: Resolved Prognosis: Fair - Transfer Medications Prescriptions: predniSONE [PredniSONE] See Taper PO BIDWM #70 tablet Home Medications: Cholecalciferol (D-3) [Vitamin D] 1,000 unit PO DAILY 10/01/15 [History] Citalopram Hydrobromide [Citalopram HBr] 40 mg PO DAILY 10/01/15 [History] Haloperidol Decanoate [Haldol] 25 mg IM Q2W 10/01/15 [History] Multivitamin with Minerals [One-A-Day Maximum Formula] 1 each PO DAILY 10/01/15 [History] Pantoprazole Sodium [Protonix] 40 mg PO DAILY 10/01/15 [History] cloZAPine [Clozaril] 100 mg PO BID 10/01/15 [History] cloZAPine [Clozaril] 300 mg PO HS 10/01/15 [History] clonazePAM [Klonopin] 1 mg PO BID 10/01/15 [History] lamoTRIgine [Lamictal] 100 mg PO BID 10/01/15 [History] Haloperidol [Haldol] 2 mg PO BID 12/15/17 [History] Lactobacillus Acidophilus [Acidophilus Lactobacillus] 1 cap PO DAILY 12/15/17 [History] Metoprolol [Lopressor] 12.5 mg PO BID 12/15/17 [History] Sodium Chloride [Sodium Chloride Tab] 1 gm PO DAILY 12/15/17 [History] hydrOXYzine pamoate [HydrOXYzine Pamoate] 25 mg PO QID 12/15/17 [History] predniSONE [PredniSONE] See Taper PO BIDWM #70 tablet 01/06/18 [Rx] Allergies/Adverse Reactions: Allergy/AdvReac Type Severity Reaction Status Date / Time No Known Allergies Allergy Verified 10/01/15 15:08 - Respiratory Orders Oxygen / L per min (2L) Smoking Cessation: Smoking cessation has been advised. For more information, call the [employer] Quit Line at 6-123-MHVJ-NOW. - Lab Orders Lab Orders: CBC - Advance Directives Code Status: Full Code - Mobility Orders Other - Diet Orders Mechanical Soft CERTIFICATION: I certify that the transfer of the above named patient to an Extended Care Facility is necessary for the continuing treatment of the diagnosis listed. The above information is true and accurate reflection of patient's current condition. Confidential - Redisclosure prohibited without a patient's written consent. <Ynes Andrade - Last Filed: 01/06/18 16:36> - Diagnosis (1) Small bowel obstruction Status: Resolved (2) Acute kidney injury Status: Resolved (3) Catatonia schizophrenia Status: Chronic (4) Gastric ulcer Status: Chronic (5) Pneumonia Status: Acute (6) Acute respiratory failure with hypoxia Status: Resolved (7) Diarrhea Status: Resolved (8) Tachycardia Status: Resolved - Respiratory Orders Smoking Cessation: Smoking cessation has been advised. For more information, call the [employer] Quit Line at 3-857-MAQL-NOW. - Diet Orders Mechanical Soft (honey thickened liquids, chopped meats) CERTIFICATION: I certify that the transfer of the above named patient to an Extended Care Facility is necessary for the continuing treatment of the diagnosis listed. The above information is true and accurate reflection of patient's current condition. Confidential - Redisclosure prohibited without a patient's written consent.
[2018-01-06] MEDS ORDERED: cloZAPine 100 MG TABLET PO SCH (21:00)
== END 2018-01-06 15:08 | DRG 871 ==
LOC: 3ANU 14:38 → EMEROOARM 14:38 → SUATTDRO 17:27 → 3ANU 18:12 → ICNU 12-15 12:43 → 2ANU 12-18 01:01 → ICNU 12-24 15:52 → 2NNU 12-25 19:15
PROVIDERS: ADMIT Internal Medicine; ATTEND Internal Medicine